=== PATIENT | female | born 1985 | race Caucasian/White ===

== ENCOUNTER 2019-07-02 10:27 | Outpatient (CLI) | payer BC, SELFPAY ==
[2019-07-02 10:48] LABS: Add Urine Microscopic? YES; Appearance Urine Clear (Clear); Basophils Absolute Auto 0.03 K/mm3 (0.00-0.10); Basophils Percent Auto 0.5 % (0.0-1.0); Bilirubin Urine Negative (Negative); Blood Urine 1+ (Negative); Color Urine Yellow (Yellow); Eosinophils Absolute Auto 0.12 K/mm3 (0.02-0.50); Eosinophils Percent Auto 1.9 % (1.0-6.0); Glucose Urine UA Negative (Negative); Hematocrit 40.7 % (35.0-49.0); Hemoglobin 14.2 g/dL (12.0-15.0); Immature Granulocyte Absolute 0.02 K/mm3 (0.00-0.00); Immature Granulocyte Percent A 0.3 % (0.0-0.0); Ketones Urine Negative (Negative); Leukocyte Esterase Ur Negative (Negative); Lymphocytes Absolute Auto 3.03 K/mm3 (1.10-4.50); Mean Corpuscular HGB Conc 34.9 g/dL (32.0-36.0); Mean Corpuscular Hemoglobin 29.9 pg (27.0-31.0); Mean Corpuscular Volume 85.7 fL (78.0-102.0); Mean Platelet Volume 9.7 fl (9.2-11.8); Monocytes Absolute Auto 0.54 K/mm3 (0.10-0.90); Monocytes Percent Auto 8.4 % (2.0-11.0); Neutrophils Absolute Auto 2.7 K/mm3 (1.7-7.2); Neutrophils Percent Auto 41.9 % (50.0-70.0); Nitrate Urine Negative (Negative); Platelet Count Result 275 K/mm3 (150-420); Protein Urine Negative (Negative); Red Blood Count 4.75 M/mm3 (4.20-5.40); Red Cell Distribution Width 11.8 % (11.6-14.4); Specific Grav Ur 1.015 (1.010-1.020); Urobilinogen Urine 0.2 mg/dL (0.2-1.0); White Blood Count 6.4 K/mm3 (4.8-10.8); pH Urine 6.5 (5.0-8.0)
[2019-07-02 10:53] LABS: Bacteria Urine Trace /hpf; RBC Urine 0-2 /hpf (0-2); Squamous Epithelial Cell Urine Few /hpf (Few); WBC Urine 0-3 /hpf (0-3)
[2019-07-02 11:43] LABS: Alanine Aminotransferase 17 U/L (14-59); Alkaline Phosphatase 31 U/L (46-116); Amylase 50 U/L (25-115); Anion Gap 14.4 mmol/L (7-16); Aspartate Amino Transferase 13 U/L (15-37); Bilirubin,Total 0.7 mg/dL (0.00-1.00); Blood Urea Nitrogen 10 mg/dL (7-18); Calcium 9.5 mg/dL (8.5-10.1); Carbon Dioxide 26 mmol/L (21-32); Chloride 106 mmol/L (98-108); Estimated Glomerular Filt Rate > 60; Glucose 91 mg/dL (70-99); Lipase 134 U/L (73-393); Osmolality Calculated 293 mOsm/kg (285-295); Potassium 4.4 mmol/L (3.5-5.1); Sodium 142 mmol/L (136-145)
[2019-07-06 17:04] LABS: Rotavirus Stool Not Detected
== END 2019-07-02 10:28 | disposition home or self-care (01) ==
PROVIDERS: PCP Internal Medicine; Visit Provider Internal Medicine
DX: R10.9 Unspecified abdominal pain (principal); R19.7 Diarrhea, unspecified
CPT/HCPCS: 36415; 80053; 81001; 82150; 83690; 85025; 87045; 87046; 87177; 87209; 87324; 87425; 87427

== ENCOUNTER 2020-02-08 14:05 | Outpatient (CLI) | payer BC, SELFPAY ==
--- NOTE | ~2020-02-08 | XR_ITS ---
EXAMINATION: XR hand RT min 3V DATE: 02/08/2020 14:33 INDICATION: Right hand swelling. TECHNIQUE: 4 views of right hand were obtained. COMPARISON: Right hand radiographs 05/18/2004 FINDINGS: Bone alignment is normal. No fracture. Joint spaces are well maintained. IMPRESSION: 1. Normal right hand. Reviewed, dictated and finalized at location A. IMPRESSION: 1. Normal right hand.
== END 2020-02-08 14:06 | disposition home or self-care (01) ==
PROVIDERS: PCP Internal Medicine; Visit Provider Internal Medicine
DX: M79.89 Other specified soft tissue disorders (principal)
CPT/HCPCS: 73130

== ENCOUNTER 2020-06-12 15:14 | Outpatient (CLI) | payer BC, SELFPAY ==
--- NOTE | ~2020-06-12 | CT_ITS ---
EXAMINATION: CT abdomen pelvis w con DATE: 06/12/2020 16:23 INDICATION: Left-sided abdominal pain, bloating and cramping TECHNIQUE: Computed tomography (CT) of the abdomen and pelvis was performed with 100 mL Omnipaque-350 intravenous contrast. Automated exposure control and iterative reconstruction technique were employe d. The dose-length product was 1254.15 mGy-cm. COMPARISON: 07/09/2016 FINDINGS: Lung bases are clear. Heart size is normal. No pericardial or pleural effusion. Small sliding-type hi atal hernia. Diffuse hepatic steatosis with focal sparing along the gallbladder fossa. Gallbladder, s pleen, pancreas, bilateral adrenal glands and kidneys are normal. Bowels including the appendix are n ormal. 2.1 cm cyst at the right ovary. Left ovary is not visualized and has likely been resected give n the presence of a large left ovarian dermoid on CT dated 07/31/2012. Bladder and anteverted uterus ar e normal. No free intraperitoneal gas or fluid. No pathologically enlarged abdominal or pelvic lympha denopathy. Mild lumbar levocurvature. Mild bilateral hip osteoarthritis. IMPRESSION: 1. No acute intra-abdominal/pelvic process. 2. Small sliding-type hiatal hernia. 3. Diffuse hepatic steatosis. Reviewed, dictated and finalized at location A. [employer]
[2020-06-12 15:33] LABS: Basophils Absolute Auto 0.04 K/mm3 (0.00-0.10); Basophils Percent Auto 0.6 % (0.0-1.0); Eosinophils Absolute Auto 0.14 K/mm3 (0.02-0.50); Hematocrit 38.9 % (35.0-49.0); Hemoglobin 13.6 g/dL (12.0-15.0); Immature Granulocyte Absolute 0.01 K/mm3 (0.00-0.00); Immature Granulocyte Percent A 0.1 % (0.0-0.0); Lymphocytes Absolute Auto 3.17 K/mm3 (1.10-4.50); Lymphocytes Percent Auto 44.8 % (18.0-42.0); Mean Corpuscular Hemoglobin 30.4 pg (27.0-31.0); Mean Platelet Volume 9.8 fl (9.2-11.8); Monocytes Absolute Auto 0.62 K/mm3 (0.10-0.90); Monocytes Percent Auto 8.8 % (2.0-11.0); Neutrophils Absolute Auto 3.1 K/mm3 (1.7-7.2); Neutrophils Percent Auto 43.7 % (50.0-70.0); Platelet Count Result 294 K/mm3 (150-420); Red Blood Count 4.47 M/mm3 (4.20-5.40); Red Cell Distribution Width 11.9 % (11.6-14.4); White Blood Count 7.1 K/mm3 (4.8-10.8)
[2020-06-12 15:34] LABS: Add Urine Microscopic? YES; Appearance Urine Clear (Clear); Bilirubin Urine Negative (Negative); Blood Urine 1+ (Negative); Color Urine Yellow (Yellow); Glucose Urine UA Negative (Negative); Ketones Urine Negative (Negative); Leukocyte Esterase Ur Negative LEU/UL (Negative); Nitrate Urine Negative (Negative); Protein Urine Negative (Negative); Specific Grav Ur 1.025 (1.010-1.020); Urobilinogen Urine 0.2 mg/dL (0.2-1.0); pH Urine 6.5 (5.0-8.0)
[2020-06-12 15:41] LABS: Bacteria Urine 1+ /hpf; Squamous Epithelial Cell Urine Few /hpf (Few); WBC Urine 0-3 /hpf (0-3)
[2020-06-12 15:49] LABS: Alanine Aminotransferase 26 U/L (14-59); Albumin Level 4.1 g/dL (3.4-5.0); Alkaline Phosphatase 38 U/L (46-116); Amylase 51 U/L (25-115); Anion Gap 11 mmol/L (8-16); Aspartate Amino Transferase 13 U/L (15-37); Bilirubin,Total 0.4 mg/dL (0.00-1.00); Blood Urea Nitrogen 8 mg/dL (7-18); Calcium 9.3 mg/dL (8.5-10.1); Carbon Dioxide 27 mmol/L (21-32); Chloride 103 mmol/L (98-108); Estimated Glomerular Filt Rate > 60; Glucose 94 mg/dL (70-99); Lipase 132 U/L (73-393); Osmolality Calculated 290 mOsm/kg (285-295); Sodium 141 mmol/L (136-145); Total Protein 7.2 g/dL (6.4-8.2)
[2020-06-13 15:05] LABS: Free T3 2.93 pg/mL (2.18-3.98); Free T4 Free Thyroxine 0.63 ng/dL (0.76-1.46)
[2020-06-17 09:15] LABS: Rotavirus Stool Not Detected
== END 2020-06-12 15:15 | disposition home or self-care (01) ==
LOC: CHSLAB 15:18
PROVIDERS: PCP Internal Medicine; Visit Provider Internal Medicine
DX: R10.32 Left lower quadrant pain (principal); R10.12 Left upper quadrant pain; R19.7 Diarrhea, unspecified; R53.83 Other fatigue
CPT/HCPCS: 36415; 74177; 80053; 81001; 82150; 83690; 84439; 84443; 84481; 85025; 87045; 87046; 87177; 87209; 87269; 87324; 87425; 87427; Q9967

== ENCOUNTER 2020-09-12 09:53 | Outpatient (CLI) | payer BC, SELFPAY ==
--- NOTE | ~2020-09-12 | US_ITS ---
EXAMINATION: US right upper quadrant EXAM DATE: 09/12/2020 10:17 INDICATION: Epigastric pain/nausea. TECHNIQUE: Multiple grayscale and Doppler images of the abdomen right upper quadrant were obtained (b y a technologist who performed the scan) and subsequently reviewed. Comparison is made to prior exami nation from 11/20/2018. FINDINGS: The pancreatic head and body are normal in appearance. The pancreatic tail is not visualized. There is echogenic liver parenchyma, hepatic steatosis. There is some focal fatty sparing. There is no e vidence of intrahepatic biliary duct dilation. Portal venous flow was seen in the hepatopedal, akin l direction and has normal Doppler waveform. No right-sided hydronephrosis. Common bile duct measures 4 mm, which is normal. The gallbladder wall is normal in thickness, with ex pected amount of distention. No sonographic evidence of pericholecystic fluid. There is no cholelit hiases. Technologist performing exam reports patient did not demonstrate sonographic Benz's sign. Please note that this sign is less reliable in patients who have received pain medication. IMPRESSION: 1. Hepatic steatosis. Reviewed, dictated and finalized at location A. IMPRESSION: 1. Hepatic steatosis.
== END 2020-09-12 09:54 | disposition home or self-care (01) ==
LOC: CHSIMG 09:55
PROVIDERS: PCP Internal Medicine; Visit Provider Internal Medicine
DX: R10.13 Epigastric pain (principal); R11.0 Nausea
CPT/HCPCS: 76705

== ENCOUNTER 2020-12-08 02:54 | Day surgery (SDC) | payer BC, SELFPAY ==
[2020-11-26 13:50] VITALS: BMI 30.7
[2020-12-08 07:45] VITALS: BP 122/86; PULSE 103; RESP 16; TEMP 36.1; O2SAT 100; BMI 31.0
--- NOTE | 2020-12-08 07:48 | WPDANESEPPF ---
Anes - Initial Pre Proc Eval Procedure: Operation Date: 12/08/20 08:30 Proposed Procedures p Esophagogastroduodenoscopy & Colonoscopy - Andrew Ulrich MD Date/Time: 12/08/20 07:48 Surgeon: Andrew Ulrich MD Pre Op Diagnosis: nausea/vomiting, weightloss Patient Data Age: 35 Gender: F Height: 1.7 m Weight: 89.8 kg Last Vital Signs Temp 36.1 C L 12/08/20 07:45 Pulse 103 H 12/08/20 07:45 Resp 16 12/08/20 07:45 BP 122/86 12/08/20 07:45 Pulse Ox 100 12/08/20 07:45 Allergies Allergy/AdvReac Type Severity Reaction Status Date / Time adhesive tape Allergy Mild Rash Verified 12/08/20 07:43 amoxicillin Allergy Unknown rash Verified 12/08/20 07:43 Penicillins Allergy Unknown RASH Verified 12/08/20 07:43 shellfish derived Allergy Unknown rash Verified 12/08/20 07:43 Home Medications Medication Instructions Recorded Confirmed Type sertraline 100 mg PO DAILY 04/13/19 11/26/20 History ondansetron HCl 4 mg tablet 4 mg PO Q8H PRN #90 tablet 11/06/20 11/26/20 Rx Patient hx anesthesia problems: none Family hx anesthesia problems: none PMFSH Past Medical History Medical History Anxiety Dermoid cyst IBS (irritable bowel syndrome) Loose stools Nausea and vomiting in adult Tobacco abuse Weight loss Surgical History Surgical History H/O oophorectomy H/O tubal ligation History of hernia surgery History of tonsillectomy Family History Family History Mother Family history of mental disorder Depression Family history of migraine headaches Family history of hearing loss Father Hypertension Asthma Grandparent Hypertension Diabetes mellitus Other Family history of cardiovascular disease Family history of malignant neoplasm Social History Social History Smoking packs per day: 0.5 Smoking cigarettes per day: 10.0 Years smoked: 15 Smoking pack-years: 7.50 Smoking status: Current every day smoker Tobacco type: cigarettes Alcohol intake: never Substance use: never Substance use type: does not use Living arrangements: with family Gender identity (if verbalized by the patient): Female Spiritual care concerns: No Agree to blood products: Yes Anes - Eval Final PreProcedure Day of Procedure 12/08/20 07:48 Patient weight: obese Heart: regular rate and rhythm Lungs: clear to auscultation Airway: Mallampati scale class 1 Neurological: alert and oriented Last oral intake: >/= 8 hours ASA classification: II Emergent: no Anesthetic plan: proceed Anesthesia type and monitoring: general GIVS and standard monitoring Informed Consent: The patient's anesthetic plan and its attendant risks and benefits were discussed with the patient/family/POA. Questions were solicited and answers provided to the satisfaction of the patient/family/POA.
[2020-12-08] MEDS: LACTATED RINGERS 1,000 ML 150 ML IV CONT (07:58)
--- NOTE | 2020-12-08 08:18 | PM.HPGS ---
History of Present Illness History of Present Illness Consent: Risks, benefits, and alternatives have been discussed and questions answered. Patient agrees to proceed with procedure. Chief complaint: nausea/vomiting, weightloss Narrative: Gita Montana is a 35 year old female here for egd and colonoscopy with 4-5 months of nausea and vomiting better since started on zofran. Work up reviewed (CT scan showed small HH, hepatic steatosis), also abdominal ultrasound. Unremarkable cmp, cbc and stool samples. Also softer stools. Never had scopes. Review of Systems Constitutional: Constitutional: Denies headache(s) and Denies weakness Eyes: Eyes: Denies blurry vision ENT: Reports Normal hearing present, Denies headache(s) and Denies neck pain Cardiovascular: Cardiovascular: Denies chest pain and Denies dyspnea Respiratory: Respiratory: Denies dyspnea Gastrointestinal: Gastrointestinal: Reports no additional gastrointestinal complaints Genitourinary: Genitourinary: Denies dysuria Musculoskeletal: Musculoskeletal: Denies neck pain Integumentary/Breasts: Skin/Breast: Denies dry skin Neurologic: Reports Normal hearing present, Denies headache(s) and Denies weakness Psychiatric: Psychiatric: Denies anxiety Endocrine: Endocrine: Denies change in body appearance Hematologic/Lymphatic: Hematologic/Lymphatic: Denies easy bleeding Allergic/Immunologic: Allergic/Immunologic: Denies urticaria PMFSH Past Medical History Medical History Anxiety Dermoid cyst IBS (irritable bowel syndrome) Loose stools Nausea and vomiting in adult Tobacco abuse Weight loss Surgical History Surgical History H/O oophorectomy H/O tubal ligation History of hernia surgery History of tonsillectomy Family History Family History Mother Family history of mental disorder Depression Family history of migraine headaches Family history of hearing loss Father Hypertension Asthma Grandparent Hypertension Diabetes mellitus Other Family history of cardiovascular disease Family history of malignant neoplasm Social History Social History Smoking packs per day: 0.5 Smoking cigarettes per day: 10.0 Years smoked: 15 Smoking pack-years: 7.50 Smoking status: Current every day smoker Tobacco type: cigarettes Alcohol intake: never Substance use: never Substance use type: does not use Living arrangements: with family Gender identity (if verbalized by the patient): Female Spiritual care concerns: No Agree to blood products: Yes Meds Home Medications and Allergies Home Medications Medication Instructions Recorded Confirmed Type sertraline 100 mg PO DAILY 04/13/19 11/26/20 History ondansetron HCl 4 mg tablet 4 mg PO Q8H PRN #90 tablet 11/06/20 11/26/20 Rx Allergies Allergy/AdvReac Type Severity Reaction Status Date / Time adhesive tape Allergy Mild Rash Verified 12/08/20 07:43 amoxicillin Allergy Unknown rash Verified 12/08/20 07:43 Penicillins Allergy Unknown RASH Verified 12/08/20 07:43 shellfish derived Allergy Unknown rash Verified 12/08/20 07:43 Vital Signs Vital Signs - 24 hr 12/08/20 07:45 Temperature 96.9 F L Pulse Rate 103 H Respiratory Rate 16 Blood Pressure 122/86 Pulse Oximetry 100 Exam Const: General: comfortable and no acute distress HENMT: General nose exam: Normal nares present Eyes: General: appearance normal, both eyes and all related structures Neck: Neck: no JVD Resp: Auscultation: clear to auscultation bilaterally Cardio: Rate: regular rate Rhythm: regular rhythm GI: Inspection: non-distended GI Palp: Yes Soft to palpation Skin: General skin exam: normal color Neuro: General: gait normal Speech: normal speech Extrem: General: normal t
[2020-12-08 08:56] VITALS: BP 86/37; PULSE 69; RESP 16; O2SAT 95
[2020-12-08 09:06] VITALS: BP 95/64; PULSE 73; RESP 16; O2SAT 95
[2020-12-08 09:16] VITALS: BP 98/62; PULSE 68; RESP 16; O2SAT 95
== END 2020-12-08 09:25 | disposition home or self-care (01) ==
PROVIDERS: PCP Internal Medicine; Visit Provider Internal Medicine Gastroenterology
PROC: 0DJ08ZZ Inspection of Upper Intestinal Tract, Via Natural or Artificial Opening Endoscopic (ICD-10-PCS; CPT 43235; principal; 2020-12-08 08:30)
DX: R19.5 Other fecal abnormalities (principal); K64.8 Other hemorrhoids; K63.5 Polyp of colon; K64.4 Residual hemorrhoidal skin tags; K44.9 Diaphragmatic hernia without obstruction or gangrene; R11.2 Nausea with vomiting, unspecified; R63.4 Abnormal weight loss; F41.9 Anxiety disorder, unspecified; K58.9 Irritable bowel syndrome, unspecified; F17.210 Nicotine dependence, cigarettes, uncomplicated; E66.9 Obesity, unspecified; Z68.31 Body mass index [BMI] 31.0-31.9, adult; K29.70 Gastritis, unspecified, without bleeding
CPT/HCPCS: 45380; 43239; 88305; J2704; J7120

== ENCOUNTER 2021-01-26 02:07 | Day surgery (SDC) | payer BC, SELFPAY ==
[2021-01-15 13:48] VITALS: BMI 30.8
[2021-01-26 08:14] VITALS: BP 133/96; PULSE 78; RESP 20; TEMP 36.3; O2SAT 97
--- NOTE | 2021-01-26 08:17 | WPDANESEFPP ---
Anes - Eval Final PreProcedure Day of Procedure 01/26/21 08:17 Patient weight: obese Heart: regular rate and rhythm Lungs: clear to auscultation Airway: Mallampati scale class 1 Neurological: alert and oriented Last oral intake: >/= 8 hours ASA classification: II Emergent: no Anesthetic plan: proceed Anesthesia type and monitoring: general GIVS and standard monitoring Results Review: All pre-operative results and documents have been reviewed as part of the pre-operative evaluation. Informed Consent: The patient's anesthetic plan and its attendant risks and benefits were discussed with the patient/family/POA. Questions were solicited and answers provided to the satisfaction of the patient/family/POA.
[2021-01-26] MEDS: LACTATED RINGERS 1,000 ML 150 ML IV CONT (08:26)
--- NOTE | 2021-01-26 08:48 | PM.HPGS ---
History of Present Illness History of Present Illness Consent: Risks, benefits, and alternatives have been discussed and questions answered. Patient agrees to proceed with procedure. Chief complaint: colon polyp Narrative: Gita Montana is a 35 year old female with serrated polyp in appendix last colonoscopy (only took biopsies after bulging appendix) Review of Systems Constitutional: Constitutional: Denies headache(s) and Denies weakness Eyes: Eyes: Denies blurry vision ENT: Reports Normal hearing present, Denies headache(s) and Denies neck pain Cardiovascular: Cardiovascular: Denies chest pain and Denies dyspnea Respiratory: Respiratory: Denies dyspnea Gastrointestinal: Gastrointestinal: Reports no additional gastrointestinal complaints Genitourinary: Genitourinary: Denies dysuria Musculoskeletal: Musculoskeletal: Denies neck pain Integumentary/Breasts: Skin/Breast: Denies dry skin Neurologic: Reports Normal hearing present, Denies headache(s) and Denies weakness Psychiatric: Psychiatric: Denies anxiety Endocrine: Endocrine: Denies change in body appearance Hematologic/Lymphatic: Hematologic/Lymphatic: Denies easy bleeding Allergic/Immunologic: Allergic/Immunologic: Denies urticaria PMFSH Past Medical History Medical History (Updated 01/26/21 @ 08:49 by Andrew Ulrich MD) Adenomatous colon polyp Anxiety Dermoid cyst IBS (irritable bowel syndrome) Loose stools Nausea and vomiting in adult Tobacco abuse Weight loss Surgical History Surgical History H/O oophorectomy H/O tubal ligation History of hernia surgery History of tonsillectomy Family History Family History Mother Family history of mental disorder Depression Family history of migraine headaches Family history of hearing loss Father Hypertension Asthma Grandparent Hypertension Diabetes mellitus Other Family history of cardiovascular disease Family history of malignant neoplasm Social History Social History Smoking packs per day: 0.5 Smoking cigarettes per day: 10.0 Years smoked: 15 Smoking pack-years: 7.50 Smoking status: Current every day smoker Tobacco type: cigarettes Alcohol intake: current Drinks per week: 1 Substance use: never Substance use type: does not use Living arrangements: with family Gender identity (if verbalized by the patient): Female Sexual Orientation (if Verbalized by the Patient): Straight or Heterosexual Spiritual care concerns: No Agree to blood products: Yes Meds Home Medications and Allergies Home Medications Medication Instructions Recorded Confirmed Type sertraline 100 mg PO DAILY 04/13/19 01/26/21 History ondansetron HCl 4 mg tablet 4 mg PO Q8H PRN #90 tablet 11/06/20 01/15/21 Rx omeprazole 20 mg capsule,delayed 20 mg PO DAILY #30 cap 12/08/20 01/15/21 Rx release Allergies Allergy/AdvReac Type Severity Reaction Status Date / Time adhesive tape Allergy Mild Rash Verified 01/26/21 08:12 amoxicillin Allergy Unknown rash Verified 01/26/21 08:12 Penicillins Allergy Unknown RASH Verified 01/26/21 08:12 shellfish derived Allergy Unknown rash Verified 01/26/21 08:12 Vital Signs Vital Signs - 24 hr 01/26/21 08:14 Temperature 97.3 F L Pulse Rate 78 Respiratory Rate 20 Blood Pressure 133/96 H Pulse Oximetry 97 Exam Const: General: comfortable and no acute distress HENMT: General nose exam: Normal nares present Eyes: General: appearance normal, both eyes and all related structures Neck: Neck: no JVD Resp: Auscultation: clear to auscultation bilaterally Cardio: Rate: regular rate Rhythm: regular rhythm GI: Inspection: non-distended GI Palp: Yes Soft to palpation Skin: General skin exam: normal color Neuro: General: gait normal Speech: normal
[2021-01-26 09:23] VITALS: BP 104/64; PULSE 58; RESP 16; O2SAT 98
[2021-01-26 09:33] VITALS: BP 113/78; PULSE 56; RESP 16; O2SAT 99
[2021-01-26 09:43] VITALS: BP 135/86; PULSE 55; RESP 16; O2SAT 100
== END 2021-01-26 09:55 | disposition home or self-care (01) ==
PROVIDERS: PCP Internal Medicine; Visit Provider Internal Medicine Gastroenterology
PROC: 0DJD8ZZ Inspection of Lower Intestinal Tract, Via Natural or Artificial Opening Endoscopic (ICD-10-PCS; CPT 45378; principal; 2021-01-26 09:00)
DX: K63.5 Polyp of colon (principal); K58.9 Irritable bowel syndrome, unspecified; F41.9 Anxiety disorder, unspecified; F17.210 Nicotine dependence, cigarettes, uncomplicated
CPT/HCPCS: 45385; 88305; J2704; J7120

== ENCOUNTER → 2022-11-02 11:14 | Outpatient (CLI) | payer BC, SELFPAY ==
--- NOTE | ~2022-11-02 | CT_ITS ---
Non-contrast CT scan of the Abdomen Clinical indication: Periumbilical pain Technique: 2.5 mm axial scans were obtained through the abdomen without intravenous or oral contrast . Dose reduction technique was used on this scan by utilizing automated exposure control and iterativ e reconstruction technique. The dose-length product (DLP) was 666.65 mGy-cm. COMPARISON: 06/12/2020 Findings: Images through the lung bases reveal very small hiatal hernia. There is no evidence of renal or ureteral calculi. The kidneys and the ureters are nondilated. The liver, spleen, pancreas, gallbladder, and adrenals appear normal. There is no aortic aneurysm. Visualized bowel loops are unremarkable. Very small umbilical fat-containing hernia noted. Impression: Very small fat-containing umbilical hernia. A small hiatal hernia. Reviewed, dictated and finalized at [facility]. Impression: Very small fat-containing umbilical hernia. A small hiatal hernia.
== END ==
PROVIDERS: PCP Internal Medicine; Visit Provider Surgery
DX: R10.33 Periumbilical pain (principal); Z98.890 Other specified postprocedural states; Z87.19 Personal history of other diseases of the digestive system; K42.9 Umbilical hernia without obstruction or gangrene; K44.9 Diaphragmatic hernia without obstruction or gangrene
CPT/HCPCS: 74150

== ENCOUNTER 2022-12-29 00:36 | Day surgery (SDC) | payer BC, SELFPAY ==
[2022-12-23 13:58] VITALS: BMI 31.4
--- NOTE | 2022-12-23 14:03 | PC.NURSE ---
Report to the Outpatient Waiting Room, entrance under the green pavilion located off [facility], at time 0600 on date 12/29/22. Planned Procedure Time: 0730. Time changes happen often and if your time is changed the preop area will call you the afternoon before. - You and your visitor will be asked to self-screen and do not enter if you have any COVID symptoms. - A mask is optional within the hospital at this time. Patients may have clear liquids (water, carbonated beverages, clear teas, apple juice) until 3 hours prior to surgery with a maximum of 20 ounces. - No food from midnight until time of surgery Take the following medications with a SIP of water the morning of surgery: N/A DO NOT STOP ANY OF YOUR OTHER PRESCRIPTION MEDICATIONS PRIOR TO SURGERY ?EXCEPT THE FOLLOWING Medications to discontinue per physician: N/A Date to take last dose: N/A Please no make-up, nail romanian, hairspray, perfume, deodorant, or body powder the day of surgery. No jewelry (including any body piercings) or valuables the day of surgery, leave them at home. Please take a shower or bath the night before, or the morning of, surgery with an antibacterial soap (HIBICLENS). Wear comfortable, loose fitting clothing. - Jewelry must be removed prior to entering the operating room. Rings and piercings that are not removed may be cut off. - The hospital will not accept responsibility for valuables. - Please leave all valuables, including medications, at home the day of surgery. If you are going home after surgery, a licensed route sales delivery driver must drive you home. - NO public transportation without another adult if you receive anesthesia. - We recommend that an adult stay with you for 24 hours following discharge. - We also recommend that you do not drive, make important decision, drink alcoholic beverages, or take any drugs that were not prescribed by your health care provider for at least 24 hours after your discharge time. Follow any additional instructions given to you from your surgeon. If you or anyone in your household have experienced Covid symptoms in the past week, please notify your surgeon or the nurse liaison at the phone number below for possible testing. Telephone instructions given to PT - BABAR CORTEZ and asked if any additional questions and then verbalized understanding. Patient advised to call surgeon office or pre surgery nurse liaison [phone] if any additional questions.
--- NOTE | 2022-12-28 13:10 | WPDANESEPPF ---
Anes - Initial Pre Proc Eval Procedure: Operation Date: 12/29/22 07:30 Proposed Procedures p Laparoscopic Recurrent Umbilical Hernia Repair with Mesh, Davinci Assisted - Vinod Pleitez DO Date/Time: 12/28/22 13:10 Surgeon: Vinod Pleitez DO Pre Op Diagnosis: 2.cm recurrent umbilical hernia Patient Data Age: 37 Gender: F Height: 1.71 m Weight: 92.55 kg Allergies Allergy/AdvReac Type Severity Reaction Status Date / Time adhesive tape Allergy Mild Rash Verified 12/29/22 06:24 amoxicillin Allergy Unknown rash Verified 12/29/22 06:24 Penicillins Allergy Unknown RASH Verified 12/29/22 06:24 shellfish derived Allergy Unknown rash Verified 12/29/22 06:24 Home Medications Medication Instructions Recorded Confirmed Type escitalopram oxalate 10 mg tablet 10 mg PO HS 12/23/22 12/29/22 History Patient hx anesthesia problems: none Family hx anesthesia problems: none Results Review: All pre-operative results and documents have been reviewed as part of the pre-operative evaluation. [facility] Past Medical History Medical History (Updated 12/29/22 @ 07:09 by Vinod Pleitez DO) Adenomatous colon polyp Anxiety Dermoid cyst IBS (irritable bowel syndrome) Loose stools Nausea and vomiting in adult Tobacco abuse Weight loss Surgical History Surgical History (Updated 10/22/22 @ 09:14 by Nikia Calle) H/O oophorectomy H/O tubal ligation History of hernia surgery Ventral hernia repair with [place] [address] Pleitez. History of tonsillectomy Family History Family History Mother Family history of mental disorder Depression Family history of migraine headaches Family history of hearing loss Father Hypertension Asthma Grandparent Hypertension Diabetes mellitus Other Family history of cardiovascular disease Family history of malignant neoplasm Social History Social History Smoking packs per day: 0.5 Smoking cigarettes per day: 10.0 Years smoked: 15 Smoking pack-years: 7.50 Smoking status: Current every day smoker Tobacco type: cigarettes and e-cigarettes/vaping Additional smoking assessment comments: STOPPED CIGARETTES 04/25/21, NOW VAPING Alcohol intake: current Drinks per week: 1 Alcohol use details: RARE Substance use: never Substance use type: does not use Living arrangements: with family Occupation/Education: occupation Gender identity (if verbalized by the patient): Female Sexual Orientation (if Verbalized by the Patient): Straight or Heterosexual Spiritual care concerns: No Agree to blood products: Yes Anes - Eval Final PreProcedure Day of Procedure 12/28/22 13:10 Patient weight: obese Heart: regular rate and rhythm Lungs: clear to auscultation Airway: Mallampati scale class II Neurological: alert and oriented Last oral intake: >/= 8 hours ASA classification: II Emergent: no Anesthetic plan: proceed Anesthesia type and monitoring: general ETT and standard monitoring Results Review: All pre-operative results and documents have been reviewed as part of the pre-operative evaluation. Informed Consent: The patient's anesthetic plan and its attendant risks and benefits were discussed with the patient/family/POA. Questions were solicited and answers provided to the satisfaction of the patient/family/POA.
[2022-12-29] VITALS (13 sets, daily range): BP systolic 92–139; BP diastolic 55–96; PULSE 70–88; RESP 13–21; TEMP 36.9–37.4; O2SAT 91–100
--- NOTE | 2022-12-29 07:08 | PM.IMHP ---
H&P: HPI History of Present Illness Date/Time: 12/29/22 07:08 Chief Complaint: 37 yo woman presents for recurrent umbilical hernia repair. She reports no changes since last seen in office. Review of Systems Review of Systems: All systems reviewed & are unremarkable except as noted in HPI and below Constitutional: Constitutional: Denies chills, Denies fever(s), Denies headache(s) and Denies weight loss Eyes: Eyes: Denies change in vision ENT: Denies dizziness, Denies headache(s), Denies neck mass and Denies throat swelling Cardiovascular: Cardiovascular: Denies chest pain, Denies lightheadedness and Denies dyspnea Respiratory: Respiratory: Denies cough, Denies dyspnea and Denies wheezing Gastrointestinal: Gastrointestinal: Denies abdominal pain, Denies change in bowel habits, Denies nausea and Denies vomiting Genitourinary: Genitourinary: Denies hematuria and Denies dysuria Musculoskeletal: Musculoskeletal: Reports as per HPI Integumentary/Breasts: Skin/Breast: Reports as per HPI Neurologic: Denies dizziness and Denies headache(s) Allergic/Immunologic: Allergic/Immunologic: Denies throat swelling and Denies wheezing [facility] Past Medical History Medical History (Updated 12/29/22 @ 07:09 by Vinod Pleitez, DO) Adenomatous colon polyp Anxiety Dermoid cyst IBS (irritable bowel syndrome) Loose stools Nausea and vomiting in adult Tobacco abuse Weight loss Surgical History Surgical History (Updated 10/22/22 @ 09:14 by Nikia Calle) H/O oophorectomy H/O tubal ligation History of hernia surgery Ventral hernia repair with [place] [address] Pleietz. History of tonsillectomy Family History Family History Mother Family history of mental disorder Depression Family history of migraine headaches Family history of hearing loss Father Hypertension Asthma Grandparent Hypertension Diabetes mellitus Other Family history of cardiovascular disease Family history of malignant neoplasm Social History Social History Smoking packs per day: 0.5 Smoking cigarettes per day: 10.0 Years smoked: 15 Smoking pack-years: 7.50 Smoking status: Current every day smoker Tobacco type: cigarettes and e-cigarettes/vaping Additional smoking assessment comments: STOPPED CIGARETTES 04/25/21, NOW VAPING Alcohol intake: current Drinks per week: 1 Alcohol use details: RARE Substance use: never Substance use type: does not use Living arrangements: with family Occupation/Education: occupation Gender identity (if verbalized by the patient): Female Sexual Orientation (if Verbalized by the Patient): Straight or Heterosexual Spiritual care concerns: No Agree to blood products: Yes Meds Home Medications and Allergies Home Medications Medication Instructions Recorded Confirmed Type escitalopram oxalate 10 mg tablet 10 mg PO HS 12/23/22 12/29/22 History Allergies Allergy/AdvReac Type Severity Reaction Status Date / Time adhesive tape Allergy Mild Rash Verified 12/29/22 06:24 amoxicillin Allergy Unknown rash Verified 12/29/22 06:24 Penicillins Allergy Unknown RASH Verified 12/29/22 06:24 shellfish derived Allergy Unknown rash Verified 12/29/22 06:24 Vital Signs Vital Signs - 24 hr 12/29/22 06:31 Temperature 36.9 C Pulse Rate 70 Respiratory Rate 18 Blood Pressure 139/96 H Pulse Oximetry 100 Oxygen Delivery Room Air Exam Const: General: no acute distress and alert Orientation/consciousness: patient oriented x3 HENMT: Head: normocephalic and atraumatic Ears: hearing grossly normal bilaterally Face/Nose/Sinus: Normal nares present Mouth: Yes Normal oral and palatal mucosa present Eyes: Periorbital: periorbital findings normal Sclera: sclerae normal EOM: EOMs intact bilaterally Neck: Neck: normal visual inspection, no lymphadenopathy and
--- NOTE | 2022-12-29 07:10 | WPDHPUPDATE1 ---
History and Physical Update Update Date/Time: 12/29/22 07:10 History and Physical has been reviewed, including an updated exam of the patient. There are NO changes in the patient's condition. Risks, benefits, and alternatives have been discussed and questions answered. Patient agrees to proceed with procedure.
[2022-12-29] MEDS: LACTATED RINGERS 1,000 ML 30 ML IV CONT ×2 (07:19→09:27)
[2022-12-29] MEDS: ACETAMINOPHEN 500 MG TABLET 1000 MG PO (07:20)
[2022-12-29] MEDS: SCOPOLAMINE 1.5 MG PATCH TRANSDERM (07:20)
[2022-12-29] MEDS: KETOROLAC 15 MG/ML VIAL (*BKC) IV PUSH (07:20)
[2022-12-29] MEDS: ceFAZolin 2 GM/D5W 50 ML 2 GM/50 ML BAG IVPB (07:28)
[2022-12-29] MEDS: BUPIVACAINE/EPINEPHRINE 0.5% 50 ML VIAL 30 ML INFILTRATE (08:04)
--- NOTE | 2022-12-29 09:19 | W.PM.PROC2 ---
Procedure Note - Detailed Date of Procedure 12/29/22 Pre-op Diagnosis 2 cm recurrent umbilical hernia Post-op Diagnosis Same Procedure Performed 1. Laparoscopic 2cm recurrent umbilical hernia repair with mesh, da Onelia assisted 2. Removal of mesh foreign body Surgeon Vinod Pleitez, DO Anesthesia General and Local (0.5% bupivacaine with epinephrine) Indications This is a 37-year-old woman who presented with recurrent periumbilical pain. She noticed this with physical activity or standing for long periods of time. She had previously undergone open umbilical hernia repair with mesh in 2016. She had done well after this for several years. On exam was difficult to appreciate a recurrent hernia therefore a CT of her abdomen was performed. This showed evidence of a small recurrent umbilical hernia containing fat. Discussions were made with the patient about treatment options and decision was made to proceed with laparoscopic recurrent umbilical hernia repair with mesh, da Onelia assisted. Findings Laparoscopic recurrent umbilical hernia repair was performed. The patient was found to have a recurrent hernia defect just superior to the previous repair. The previous mesh had to be removed in order to clear the fascia and repair the new hernia. Once the mesh was removed, I then measured the distance between the previous umbilical hernia repair and the new hernia and this measured about 2 cm. The hernia itself was only about 5-6 mm. A robotic intraperitoneal onlay mesh technique was utilized for repair. Once the fascia was closed with a Stratafix running absorbable suture, I then placed a Ventralight ST 15 cm x 10 cm mesh. The old mesh was lab for pathology. Description of Procedure Procedure as well as risks, benefits, and alternatives were discussed with the patient. Written consent was obtained and placed in chart prior to procedure. Patient was brought back to surgical suite. She was placed supine on operating table. Time-out was done to confirm patient and procedure. She was then intubated by the anesthesia department. A bump was placed under her left hip, and the bed was flexed slightly to extend the space between her costal margin and iliac crest. Her abdomen was prepped and draped in sterile fashion using chlorhexidine prep. A 5 millimeter incision was made in the left upper quadrant, and a 5 millimeter Optiview trocar was advanced through the abdominal layers under direct visualization. Once inside the abdominal cavity, carbon dioxide insufflation was used to create a pneumoperitoneum. Her abdomen was inspected. An 8 millimeter incision was made in the left lower quadrant, and an 8 millimeter robotic trocar was placed under direct visualization. Another 8 millimeter incision was made in the left lateral abdomen, and an 8 millimeter robotic trocar was placed under direct visualization. 0.5% bupivacaine with epinephrine was infiltrated around each port site. The 5 millimeter port was removed, and an 8 mm robotic trocar was placed under direct visualization. The robotic arms were brought up to the patient's bedside and secured to the ports. The camera and instruments were inserted, and I then moved over to the robotic console and took control of the camera and instruments. After careful thorough inspection of the abdominal cavity, I began my dissection at the hernia. The preperitoneal fat and previous mesh was excised using scissors with electrocautery. I then also took down the falciform ligament far enough cephalad to allow for the mesh placement. I then measured the hernia size. The hernia measured 2 cm from the superior edge of the new hernia to where the previous hernia repair had been performed. The fascia was closed using an 0-Stratafix running suture in a vertical fashion. A Ventralight ST 15 cm x 10 cm mesh was then placed within the abdominal cavity. This was oriented vertically with the mesh centered on the hernia defect. The mesh wa
[2022-12-29] MEDS: fentaNYL CITRATE INJ (*CRX) 100 MCG/2 ML VIAL 25 MCG IV PUSH ×7 (09:43→10:43)
[2022-12-29] MEDS: oxyCODONE HCL (*CRX) 5 MG TAB IR PO (11:08)
== END 2022-12-29 12:05 | disposition home or self-care (01) ==
PROVIDERS: PCP Internal Medicine; Visit Provider Surgery
PROC: (CPT 49613; principal; 2022-12-29 07:30)
DX: K42.9 Umbilical hernia without obstruction or gangrene (principal); F17.290 Nicotine dependence, other tobacco product, uncomplicated; F41.9 Anxiety disorder, unspecified; E66.9 Obesity, unspecified; Z68.32 Body mass index [BMI] 32.0-32.9, adult
CPT/HCPCS: 49613; 49623; S2900; 36415; 86850; 86900; 86901; 88300; A9270; C1781; J0690; J1100; J1885; J2250; J2405; J2704; J3010; J7120

== ENCOUNTER 2023-09-26 18:15 | Emergency (ER) | payer BC, SELFPAY ==
--- NOTE | ~2023-09-26 | XR_ITS ---
EXAM: XR abdomen obstructive series DATE: 09/26/2023 18:57 HISTORY: DIARRHEA . COMPARISON: CT abdomen pelvis 11/02/2022. FINDINGS: Clear lung bases. Paucity of bowel gas. Enlarged liver. No abnormal abdominal calcificatio n. Lower lumbar facet arthropathy. Osteitis pubis. IMPRESSION: Hepatomegaly. Paucity of bowel gas which limits evaluation for obstruction or ileus. Reviewed, dictated and finalized at location K. IMPRESSION: Hepatomegaly. Paucity of bowel gas which limits evaluation for obst ruction or ileus.
--- NOTE | ~2023-09-26 | CT_ITS ---
EXAMINATION: CT abdomen pelvis w con DATE: 09/26/2023 19:54 INDICATION: abdominal pain, diarrhea TECHNIQUE: Computed tomography (CT) of the abdomen and pelvis was performed with 100 mL Omnipaque-350 intravenous contrast. Automated exposure control and iterative reconstruction technique were employe d. The dose-length product was 802.97 mGy-cm. COMPARISON: 06/12/2020. FINDINGS: Lower thorax: Unremarkable Liver: Normal. Biliary/Gallbladder: Gallbladder is normal. No bile duct dilation. Pancreas: No mass or duct dilation. Spleen: Normal. Adrenals:No mass. Kidneys: No suspicious mass, obstructing stone, or hydronephrosis. GI tract: No small or large bowel dilation. Submucosal fat deposition in the left colon. Mild distal colonic wall edema. Generalized loss of haustration of the large intestine. Normal appendix. Mesentery/Peritoneum: No ascites, mass, or free air. Retroperitoneum: No mass. Pelvis: Normal uterus, bladder, and right ovary. Left ovary is not confidently visualized. Soft Tissues: Soft tissues and body wall unremarkable. Bones: No acute osseous finding. IMPRESSION: Colonic findings may be secondary to acute or acute on chronic colitis. Consider ulcerative colitis i n the differential. Reviewed, dictated and finalized at location K. IMPRESSION: Colonic findings may be secondary to acute or acute on chronic colitis. Conside r ulcerative colitis in the differential.
[2023-09-26 18:17] VITALS: BP 166/108; PULSE 120; RESP 16; TEMP 36.6; O2SAT 97
--- NOTE | 2023-09-26 18:17 | ED.ABDPAIN ---
HPI - Abdominal Pain General Chief Complaint: Abdominal Pain <Keny Kimbrough MD - Last Filed: 09/26/23 19:14> Stated Complaint: abdominal distention <Keny Kimbrough MD - Last Filed: 09/26/23 19:14> Time Seen by Provider: 09/26/23 18:17 <Keny Kimbrough MD - Last Filed: 09/26/23 19:14> Source: patient <Keny Kimbrough MD - Last Filed: 09/26/23 19:14> Mode of arrival: ambulatory <Keny Kimbrough MD - Last Filed: 09/26/23 19:14> Limitations: no limitations <Keny Kimbrouhg MD - Last Filed: 09/26/23 19:14> History of Present Illness HPI narrative: Patient is a 37-year-old female with constipation for the past 5 days. She has been having diarrhea for 3 days. She has abdominal pain distension in the upper abdomen. She has nausea and retching. <Keny Kimbrough MD - Last Filed: 09/26/23 19:14> MD elicited complaint: abdominal pain <Keny Kimbrough MD - Last Filed: 09/26/23 19:14> Pertinent past history: constipation <Keny Kimbrough MD - Last Filed: 09/26/23 19:14> Onset (ago): day(s) (5) <Keny Kimbrough MD - Last Filed: 09/26/23 19:14> Pain Consistency: constant <Keny Kimbrough MD - Last Filed: 09/26/23 19:14> Location: epigastric <Keny Kimbrough MD - Last Filed: 09/26/23 19:14> Severity: moderate <Keny Kimbrough MD - Last Filed: 09/26/23 19:14> Pain scale (0-10): 5 <Keny Kimbrough MD - Last Filed: 09/26/23 19:14> Quality: cramping <Keny Kimbrough MD - Last Filed: 09/26/23 19:14> Radiation: none <Keny Kimbrough MD - Last Filed: 09/26/23 19:14> Migration to: no migration <Keny Kimbrough MD - Last Filed: 09/26/23 19:14> Exacerbating factors: eating <Keny Kimbrough MD - Last Filed: 09/26/23 19:14> Relieving factors: nothing <Keny Kimbrough MD - Last Filed: 09/26/23 19:14> Associated symptoms: nausea and vomiting <Keny Kimbrough MD - Last Filed: 09/26/23 19:14> Related Data Home Medications: Home Medications Medication Instructions Recorded Confirmed escitalopram oxalate 10 mg tablet 10 mg PO HS 12/23/22 09/26/23 omeprazole 20 mg capsule,delayed 20 mg PO DAILY 09/26/23 09/26/23 release <Keny Kimbrough MD - Last Filed: 09/26/23 19:14> Allergies/Adverse Reactions: Allergies Allergy/AdvReac Type Severity Reaction Status Date / Time adhesive tape Allergy Mild Rash Verified 09/26/23 18:16 amoxicillin Allergy Unknown rash Verified 09/26/23 18:16 Penicillins Allergy Unknown RASH Verified 09/26/23 18:16 shellfish derived Allergy Unknown rash Verified 09/26/23 18:16 <Keny Kimbrough MD - Last Filed: 09/26/23 19:14> Review of Systems Review of Systems: All systems reviewed & are unremarkable except as noted in HPI and below <Keny Kimbrough MD - Last Filed: 09/26/23 19:14> Constitutional: Constitutional: Reports no additional constitutional complaints <Keny Kimbrough MD - Last Filed: 09/26/23 19:14> Eyes: Eyes: Reports no additional eye complaints <Keny Kimbrough MD - Last Filed: 09/26/23 19:14> ENT: Reports system reviewed and no additional complaints, except as documented <Keny Kimbrough MD - Last Filed: 09/26/23 19:14> Cardiovascular: Cardiovascular: Reports no additional cardiovascular complaints <Keny Kimbrough MD - Last Filed: 09/26/23 19:14> Respiratory: Respiratory: Reports no additional respiratory complaints <Keny Kimbrough MD - Last Filed: 09/26/23 19:14> Gastrointestinal: Gastrointestinal: Reports no additional gastrointestinal complaints <Keny Kimbrough MD - Last Filed: 09/26/23 19:14> Genitourinary: Genitourinary: Reports no additional female genitourinary complaints <Keny Kimbrough MD - Last Filed: 09/26/23 19:14> Musculoskeletal: Musculoskeletal: Reports no additional musculoskeletal complaints <Keny Kimbrough MD - Last Filed: 09/26/23 19:14> Integumentary/Breasts:
[2023-09-26 18:31] LABS: Basophils Absolute Auto 0.03 K/mm3 (0.00-0.10); Basophils Percent Auto 0.4 % (0.0-1.0); Eosinophils Absolute Auto 0.09 K/mm3 (0.02-0.50); Eosinophils Percent Auto 1.3 % (1.0-6.0); Hematocrit 41.8 % (35.0-49.0); Hemoglobin 14.3 g/dL (12.0-15.0); Immature Granulocyte Absolute 0.01 K/mm3 (0.00-0.00); Immature Granulocyte Percent A 0.1 % (0.0-0.0); Lymphocytes Absolute Auto 2.88 K/mm3 (1.10-4.50); Lymphocytes Percent Auto 42.8 % (18.0-42.0); Mean Corpuscular HGB Conc 34.2 g/dL (32-36); Mean Corpuscular Hemoglobin 28.9 pg (27.0-31.0); Mean Corpuscular Volume 84.6 fL (78.0-102.0); Mean Platelet Volume 9.1 fl (9.2-11.8); Monocytes Absolute Auto 0.47 K/mm3 (0.10-0.90); Neutrophils Absolute Auto 3.25 K/mm3 (1.70-7.20); Neutrophils Percent Auto 48.4 % (50.0-70.0); Platelet Count Result 300 K/mm3 (150-420); Red Blood Count 4.94 M/mm3 (4.20-5.40); Red Cell Distribution Width 11.9 % (11.6-14.4); White Blood Count 6.7 K/mm3 (4.8-10.8)
[2023-09-26 18:41] LABS: Appearance Urine Clear (Clear); Bilirubin Urine Negative (Negative); Blood Urine 1+ (Negative); Color Urine Yellow (Yellow); Glucose Urine UA Negative (Negative); Ketones Urine Trace (Negative); Leukocyte Esterase Ur Negative LEU/UL (Negative); Nitrate Urine Negative (Negative); Protein Urine Trace (Negative); Specific Grav Ur 1.015 (1.010-1.020); Urobilinogen Urine 0.2 mg/dL (0.2-1.0); pH Urine 6.5 (5.0-8.0)
[2023-09-26] MEDS: ONDANSETRON HCL ODT 4 MG TABLET PO (18:45)
[2023-09-26 18:46] LABS: Add Urine Microscopic? YES; Bacteria Urine 2+ /hpf; Squamous Epithelial Cell Urine Few /hpf (Few); WBC Urine 0-3 /hpf (0-3)
[2023-09-26 18:46] LABS: Pregnancy On Board Control Positive; Urine Pregnancy Test Negative
[2023-09-26 18:50] LABS: Alanine Aminotransferase 23 U/L (14-59); Albumin Level 3.6 g/dL (3.4-5.0); Alkaline Phosphatase 33 U/L (46-116); Anion Gap 9 mmol/L (4-12); Aspartate Amino Transferase 14 U/L (15-37); Bilirubin,Total 0.5 mg/dL (0.00-1.00); Blood Urea Nitrogen 7 mg/dL (7-18); Calcium 8.9 mg/dL (8.5-10.1); Carbon Dioxide 26 mmol/L (21-32); Chloride 102 mmol/L (98-108); Estimated Glomerular Filt Rate > 60; Glucose 146 mg/dL (70-99); Osmolality Calculated 285 mOsm/kg (285-295); Potassium 3.9 mmol/L (3.5-5.1); Sodium 137 mmol/L (136-145); Total Protein 7.1 g/dL (6.4-8.2)
[2023-09-26 18:52] LABS: Lipase 44 U/L (16-77)
--- NOTE | 2023-09-26 18:59 | PC.NURSE ---
patient report received from NARCISO Angel. patient awake and alert, resting on stretcher, registartion at bedside. RN monitoring.
--- NOTE | 2023-09-26 19:14 | PC.NURSE ---
Dr. Gaxiola at patient bedside at this time. RN monitoring.
[2023-09-26 19:15] VITALS: BP 150/108; PULSE 92; RESP 18; O2SAT 95
--- NOTE | 2023-09-26 19:28 | PC.NURSE ---
ERP at bedside for update.
[2023-09-26] MEDS: SODIUM CHLORIDE 0.9% IV 1,000 ML 999 ML IV CONT (19:38)
--- NOTE | 2023-09-26 19:41 | PC.NURSE ---
patient mother at bedside. ivf hung and infusing without difficulty. call light within reach. RN monitoring.
--- NOTE | 2023-09-26 19:53 | PC.NURSE ---
patient reports continued nausea, returned from ct scan, tolerated well. iv reconnected and ivf infusing per order, see MAR. patient mother at bedside. RN monitoring. call light within reach.
[2023-09-26] MEDS: ONDANSETRON INJ 4 MG/2 ML VIAL IV PUSH (20:47)
[2023-09-26 20:49] VITALS: BP 135/92; PULSE 88; RESP 18; TEMP 36.8; O2SAT 97
--- NOTE | 2023-09-26 20:50 | PC.NURSE ---
patient medicated, see MAR. update provided. mother at bedside, call light within reach.
== END 2023-09-26 21:24 | disposition home or self-care (01) ==
PROVIDERS: Emergency Medicine; Emergency Provider Emergency Medicine; PCP Internal Medicine
DX: K52.9 Noninfective gastroenteritis and colitis, unspecified (principal); F17.290 Nicotine dependence, other tobacco product, uncomplicated
CPT/HCPCS: 36415; 74019; 74177; 80053; 81001; 81025; 83605; 83690; 85025; 96361; 96374; 99284; A9270; J2405; J7030; Q9967

== ENCOUNTER 2023-10-12 17:35 | Outpatient (CLI) | payer BC, SELFPAY ==
[2023-10-12 17:57] LABS: Hemoglobin A1C 5.3 % (<5.7)
== END 2023-10-12 17:36 | disposition home or self-care (01) ==
PROVIDERS: PCP Internal Medicine; Visit Provider Internal Medicine
DX: R73.01 Impaired fasting glucose (principal)
CPT/HCPCS: 36415; 83036

== ENCOUNTER 2023-10-13 11:52 | Outpatient (CLI) | payer BC, SELFPAY ==
--- NOTE | ~2023-10-13 | NM_ITS ---
EXAMINATION: NM hepatobiliary w pharm DATE: 10/13/2023 13:53 INDICATION: Right upper quadrant abdominal pain. COMPARISON: CT abdomen and pelvis 09/26/2023 TECHNIQUE: 5.9 mCi Tc-99m mebrofenin (Choletec) was administered intravenously. Scintigraphic images of the abdomen were obtained for one hour. Then, 1.9 mcg sincalide (Kinevac) IV was administered, an d imaging was continued for 30 minutes. FINDINGS: There is normal clearance of radiotracer from the blood pool. There is homogeneous tracer u ptake by the liver. Activity progresses to the bowel and gallbladder. Gallbladder ejection fraction (GBEF) was 100%. Note that most patients with gallbladder dysfunction have GBEF < 35%, which overlaps with the broad normal range of 10-90%. IMPRESSION: 1. Normal hepatobiliary scintigraphy. Reviewed, dictated and finalized at location A.
== END 2023-10-13 11:53 | disposition home or self-care (01) ==
LOC: CHSIMG 11:53
PROVIDERS: PCP Internal Medicine; Visit Provider Internal Medicine
DX: R10.11 Right upper quadrant pain (principal)
CPT/HCPCS: 78227; A9537; J2805

== ENCOUNTER 2023-11-08 14:42 | Outpatient (CLI) | payer BC, SELFPAY ==
[2023-11-08 15:49] LABS: CRP < 0.5 mg/dL (0.0-0.9)
[2023-11-08 16:12] LABS: Erythrocyte Sedimentation Rate 10 mm/hr (0-15)
[2023-11-11 03:32] LABS: Immunoglobulin A 255 mg/dL (47-310); TTG IGA AB <1.0 U/mL
[2023-11-11 16:50] LABS: Thyroid Stimulating Hormone Reflex 2.16 u/IU/mL (0.36-3.74)
== END 2023-11-08 14:43 | disposition home or self-care (01) ==
LOC: CHSLAB 14:43
PROVIDERS: PCP Internal Medicine; Visit Provider Nurse Practitioner
DX: D12.6 Benign neoplasm of colon, unspecified (principal); K21.9 Gastro-esophageal reflux disease without esophagitis; R10.11 Right upper quadrant pain; R11.2 Nausea with vomiting, unspecified; R63.4 Abnormal weight loss; R93.3 Abnormal findings on diagnostic imaging of other parts of digestive tract; K52.9 Noninfective gastroenteritis and colitis, unspecified
CPT/HCPCS: 36415; 82784; 83516; 84443; 85652; 86140

== ENCOUNTER 2023-11-11 15:40 | Outpatient (CLI) | payer BC, SELFPAY ==
[2023-11-11 17:32] LABS: Toxigenic C. Diff NEGATIVE (NEGATIVE)
[2023-11-16 13:18] LABS: H pylori Ag Stool RESULT: Not Detected
[2023-11-21 01:03] LABS: Calprotectin, Stool 98 mcg/g
[2023-11-21 20:48] LABS: Pancreatic Elastase, Stool >500 mcg/g
== END 2023-11-11 15:41 | disposition home or self-care (01) ==
PROVIDERS: PCP Internal Medicine; Visit Provider Nurse Practitioner
DX: A04.8 Other specified bacterial intestinal infections (principal); R93.3 Abnormal findings on diagnostic imaging of other parts of digestive tract; R63.4 Abnormal weight loss; R11.2 Nausea with vomiting, unspecified; R10.11 Right upper quadrant pain; K21.9 Gastro-esophageal reflux disease without esophagitis; D12.6 Benign neoplasm of colon, unspecified; K52.9 Noninfective gastroenteritis and colitis, unspecified
CPT/HCPCS: 82653; 83993; 87045; 87269; 87338; 87427; 87449; 87493

== ENCOUNTER 2023-11-15 12:21 | Outpatient (CLI) | payer BC, SELFPAY ==
--- NOTE | ~2023-11-15 | US_ITS ---
EXAMINATION: US abdomen limited DATE: 11/15/2023 12:41 INDICATION: RUQ abdominal pain/GERD/abnormal HIDA TECHNIQUE: Multiple grayscale and Doppler ultrasound images of limited portions of the abdomen were o btained. COMPARISON: CT abdomen pelvis 09/26/2023. FINDINGS: The visualized portions of the pancreas are normal. Echogenic liver parenchyma. No surface nodularity. Normal hepatopetal flow in the main portal vein. The gallbladder is normal with no abnorm al wall thickening, pericholecystic fluid or stones. The common bile duct measures 2 mm. There was no sonographic Benz sign. IMPRESSION: Echogenic liver, most commonly due to steatosis but also can be seen with hepatitis and fibrosis. Reviewed, dictated and finalized at location K. IMPRESSION: Echogenic liver, most commonly due to steatosis but also can be seen with hepat itis and fibrosis.
== END 2023-11-15 12:22 | disposition home or self-care (01) ==
LOC: CHSIMG 12:22
PROVIDERS: PCP Internal Medicine; Visit Provider Nurse Practitioner
DX: R10.11 Right upper quadrant pain (principal); R94.8 Abnormal results of function studies of other organs and systems
CPT/HCPCS: 76705

== ENCOUNTER 2023-11-30 00:29 | Day surgery (SDC) | payer BC, SELFPAY ==
[2023-11-21 13:09] VITALS: BMI 32.6
[2023-11-30 14:09] VITALS: BP 127/90; PULSE 92; RESP 18; TEMP 36.2; O2SAT 99
[2023-11-30 14:10] VITALS: BMI 31.6
[2023-11-30] MEDS: LACTATED RINGERS 1,000 ML 150 ML IV CONT (14:18)
--- NOTE | 2023-11-30 14:40 | WPDHPUPDATE1 ---
History and Physical Update Update Date/Time: 11/30/23 14:40 History and Physical has been reviewed, including an updated exam of the patient. There are NO changes in the patient's condition. Risks, benefits, and alternatives have been discussed and questions answered. Patient agrees to proceed with procedure.
--- NOTE | 2023-11-30 14:41 | WPDANESEPPF ---
Anes - Initial Pre Proc Eval Procedure: Operation Date: 11/30/23 15:30 Proposed Procedures p Esophagogastroduodenoscopy & Colonoscopy - Andrew Ulrich MD Date/Time: 11/30/23 14:41 Surgeon: Andrew Ulrich MD Pre Op Diagnosis: Gerd,RUQ pain, abn. imaging, abn. wt. loss Patient Data Age: 38 Gender: F Height: 1.7 m Weight: 91.6 kg Last Vital Signs Temp 36.2 C L 11/30/23 14:09 Pulse 92 11/30/23 14:09 Resp 18 11/30/23 14:09 BP 127/90 11/30/23 14:09 Pulse Ox 99 11/30/23 14:09 O2 Del Method Room Air 11/30/23 14:09 Allergies Allergy/AdvReac Type Severity Reaction Status Date / Time shellfish derived Allergy Intermediate Hives Verified 11/21/23 13:10 adhesive tape Allergy Mild Rash Verified 11/21/23 13:10 amoxicillin Allergy Unknown rash Verified 11/21/23 13:10 Penicillins Allergy Unknown RASH Verified 11/21/23 13:10 Home Medications Medication Instructions Recorded Confirmed Type escitalopram oxalate 10 mg tablet 10 mg PO HS 12/23/22 11/21/23 History hyoscyamine sulfate 0.125 mg 0.125 mg PO .every 6 hours PRN 11/08/23 11/21/23 Rx tablet (Levsin) abdominal pain #120 tabs omeprazole 40 mg capsule,delayed 40 mg PO DAILY #30 caps 11/08/23 11/21/23 Rx release ondansetron HCl 4 mg tablet 4 - 8 mg PO Q8H PRN nausea and 11/08/23 11/21/23 Rx vomiting #60 tabs Patient hx anesthesia problems: none Family hx anesthesia problems: none Results Review: All pre-operative results and documents have been reviewed as part of the pre-operative evaluation. [facility] Past Medical History Medical History Adenomatous colon polyp Anxiety Dermoid cyst IBS (irritable bowel syndrome) Loose stools Nausea and vomiting in adult Tobacco abuse Weight loss Surgical History Surgical History H/O oophorectomy H/O tubal ligation History of hernia surgery Ventral hernia [place] [address] Pleitez. History of tonsillectomy History of umbilical hernia repair 1. Laparoscopic 2cm recurrent umbilical hernia repair with mesh, da Onelia assisted 2. Removal of mesh foreign body on 12/29/22 [facility] Family History Family History Mother Family history of mental disorder Depression Family history of migraine headaches Family history of hearing loss Father Hypertension Asthma Grandparent Hypertension Diabetes mellitus Other Family history of cardiovascular disease Family history of malignant neoplasm Social History Social History Smoking packs per day: 0.5 Smoking cigarettes per day: 10.0 Years smoked: 14 Smoking pack-years: 7.00 Smoking status: Current every day smoker Tobacco type: cigarettes and e-cigarettes/vaping Additional smoking assessment comments: STARTED VAPING IN 2021 AND CONTINUES NOW Alcohol intake: current Drinks per week: 1 Alcohol use details: RARE Substance use: never Substance use type: does not use Living arrangements: with family Occupation/Education: occupation Gender identity (if verbalized by the patient): Female Sexual Orientation (if Verbalized by the Patient): Straight or Heterosexual Spiritual care concerns: No Agree to blood products: Yes Anes - Eval Final PreProcedure Day of Procedure 11/30/23 14:41 Patient weight: obese Heart: regular rate and rhythm Lungs: clear to auscultation Airway: Mallampati scale class II Neurological: alert and oriented Last oral intake: >/= 8 hours ASA classification: II Emergent: no Anesthetic plan: proceed Anesthesia type and monitoring: general GIVS and standard monitoring Results Review: All pre-operative results and documents have been reviewed as part of the pre-operative evaluation. Informed Consent: The patient's
--- NOTE | 2023-11-30 15:09 | SUR.OPER ---
EGD [id number] Colon start 1509
[2023-11-30 15:16] VITALS: BP 97/63; PULSE 69; RESP 18; O2SAT 95
[2023-11-30 15:26] VITALS: BP 100/66; PULSE 64; RESP 16; O2SAT 98
[2023-11-30 15:36] VITALS: BP 109/78; PULSE 66; RESP 18; O2SAT 98
== END 2023-11-30 15:49 | disposition home or self-care (01) ==
PROVIDERS: PCP Internal Medicine; Referring Provider Nurse Practitioner; Visit Provider Internal Medicine Gastroenterology
PROC: 0DJ08ZZ Inspection of Upper Intestinal Tract, Via Natural or Artificial Opening Endoscopic (ICD-10-PCS; CPT 43235; principal; 2023-11-30 15:30)
DX: K63.5 Polyp of colon (principal); K64.8 Other hemorrhoids; F41.9 Anxiety disorder, unspecified; K58.9 Irritable bowel syndrome, unspecified; F17.290 Nicotine dependence, other tobacco product, uncomplicated; E66.9 Obesity, unspecified; Z68.31 Body mass index [BMI] 31.0-31.9, adult
CPT/HCPCS: 45385; 43239; 88305; J2704; J7120

== ENCOUNTER 2023-12-05 13:34 | Outpatient (CLI) | payer BC, SELFPAY ==
--- NOTE | ~2023-12-05 | MR_ITS ---
EXAMINATION: MR abdomen wo/w con DATE: 12/05/2023 14:46 INDICATION: Right upper quadrant abdominal pain. TECHNIQUE: Magnetic resonance imaging (MRI) of the abdomen was performed without and with 18 mL Multi Camilo intravenous contrast. COMPARISON: Abdomen ultrasound 11/15/2023, CT abdomen and pelvis 09/26/2023 FINDINGS: There is diffuse hepatic steatosis. The gallbladder, spleen, pancreas, adrenal glands, and left kidne y are normal. There is a 5 mm cyst in right kidney. There are no dilated loops of bowel. There is a s mall sliding hiatal hernia. IMPRESSION: 1. Diffuse hepatic steatosis. 2. Small sliding hiatal hernia. Reviewed, dictated and finalized at location A.
== END 2023-12-05 13:35 ==
LOC: MICIMG 13:35
PROVIDERS: PCP Internal Medicine; Visit Provider Surgery
DX: K44.9 Diaphragmatic hernia without obstruction or gangrene (principal); K76.0 Fatty (change of) liver, not elsewhere classified
CPT/HCPCS: 74183; A9577

== ENCOUNTER 2024-02-21 16:42 | Outpatient (CLI) | payer BC, SELFPAY ==
[2024-02-21 17:28] LABS: Alanine Aminotransferase 25 U/L (6-35); Albumin Level 4.3 g/dL (3.5-5.1); Alkaline Phosphatase 37 U/L (38-126); Aspartate Amino Transferase 21 U/L (14-36); Bilirubin,Total 0.4 mg/dL (0.2-1.3); Lipase 96 U/L (23-300)
[2024-02-21 17:42] LABS: Amylase 75 U/L (30-110)
== END 2024-02-21 16:43 | disposition home or self-care (01) ==
LOC: ANHLAB 16:44
PROVIDERS: PCP Internal Medicine; Visit Provider Surgery
DX: R10.11 Right upper quadrant pain (principal)
CPT/HCPCS: 36415; 80076; 82150; 83690; 86850; 86900; 86901

== ENCOUNTER 2024-04-02 16:44 | Outpatient (CLI) | payer BC, SELFPAY ==
[2024-04-02 17:08] LABS: Basophils Absolute Auto 0.01 K/mm3 (0.00-0.10); Basophils Percent Auto 0.2 % (0.0-1.0); Eosinophils Absolute Auto 0.16 K/mm3 (0.02-0.50); Eosinophils Percent Auto 2.9 % (1.0-6.0); Hematocrit 39.4 % (35.0-49.0); Hemoglobin 13.9 g/dL (12.0-15.0); Immature Granulocyte Absolute 0.02 K/mm3 (0.00-0.00); Immature Granulocyte Percent A 0.4 % (0.0-0.0); Lymphocytes Absolute Auto 2.26 K/mm3 (1.10-4.50); Lymphocytes Percent Auto 41.2 % (18.0-42.0); Mean Corpuscular HGB Conc 35.3 g/dL (32-36); Mean Corpuscular Hemoglobin 29.9 pg (27.0-31.0); Mean Corpuscular Volume 84.7 fL (78.0-102.0); Mean Platelet Volume 8.9 fl (9.2-11.8); Monocytes Absolute Auto 0.42 K/mm3 (0.10-0.90); Monocytes Percent Auto 7.7 % (2.0-11.0); Neutrophils Absolute Auto 2.62 K/mm3 (1.70-7.20); Neutrophils Percent Auto 47.6 % (50.0-70.0); Platelet Count Result 286 K/mm3 (150-420); Red Blood Count 4.65 M/mm3 (4.20-5.40); Red Cell Distribution Width 12.1 % (11.6-14.4); White Blood Count 5.5 K/mm3 (4.8-10.8)
[2024-04-02 17:36] LABS: Alanine Aminotransferase 20 U/L (14-59); Alkaline Phosphatase 37 U/L (46-116); Anion Gap 9 mmol/L (4-12); Aspartate Amino Transferase 13 U/L (15-37); Bilirubin,Total 0.7 mg/dL (0.00-1.00); Blood Urea Nitrogen 13 mg/dL (7-18); Calcium 9.6 mg/dL (8.5-10.1); Carbon Dioxide 26 mmol/L (21-32); Chloride 104 mmol/L (98-108); Cholesterol 193 mg/dL (0-200); Estimated Glomerular Filt Rate > 60; Ferritin 67 ng/mL (8-252); Free T4 Free Thyroxine 0.75 ng/dL (0.76-1.46); Glucose 99 mg/dL (70-99); HDL Direct 49 mg/dL (40-60); Iron 90 ug/dL (50-170); LDL Cholesterol Calculated 116 mg/dL (<130); Magnesium 2.1 mg/dL (1.8-2.4); Osmolality Calculated 288 mOsm/kg (285-295); Potassium 4.4 mmol/L (3.5-5.1); Sodium 139 mmol/L (136-145); Thyroid Stimulating Hormone 2.62 uIU/mL (0.36-3.74); Triglycerides 140 mg/dL (0-150)
== END 2024-04-02 16:45 | disposition home or self-care (01) ==
PROVIDERS: PCP Internal Medicine; Visit Provider Nurse Practitioner Family
DX: L65.9 Nonscarring hair loss, unspecified (principal); Z79.899 Other long term (current) drug therapy; E66.9 Obesity, unspecified; F41.1 Generalized anxiety disorder; E07.9 Disorder of thyroid, unspecified
CPT/HCPCS: 36415; 80053; 80061; 82306; 82728; 83540; 83735; 84439; 84443; 85025

== ENCOUNTER 2024-04-06 01:13 | Emergency (ER) | payer BC, SELFPAY ==
[2024-04-06 01:16] VITALS: BP 137/105; PULSE 82; RESP 16; TEMP 36.6; O2SAT 99
--- OUTSIDE RECORDS SUMMARY | 2024-04-06 01:16 | XMS_ITS | Data Portability ---
Author Organization [facility] Address [address] [place] [address] Care Team Providers Care Respiratory Therapy Assistant Name Role Phone ROBY ALONSO Primary Care Provider Assessment Encounter Date Assessment Date Assessment LastModified by Organization Details LastModified Time 09/21/2022 09/21/2022 Annual gynecological exam performed. Patient will come back in a year unless there are new symptoms. [email or web address] Not available 09/21/2022 14:25:36 Plan of Treatment Reminders Order Date Submit Date Provider Last Modified By Organization Details Last Modified Time Details Appointments None recorded. Lab pap, IG + HR HPV - HPV regardless but if HPV is positive need subtyping 16,18/45 2020 021 [email or web address] [facility] (Lab), [address] [facility] [address], [place], [address], 11:15:54 Referral None recorded. Procedures None recorded. Surgeries None recorded. Imaging None recorded. Medication Orders None recorded. Patient TargetsNo targets recorded. Patient InstructionsNo instructions recorded. Reason for Referral None Reported. Results Created Date Observation Date Name Description Value Unit Range Abnormal Flag Note LastModifiedBy Organization Detail LastModifiedTime 09/27/19 20 10/01/2019 pap, LB Pap test thin prep Negati ve for Intrae pithel ial Lesion or Malign jazmyn normal ACCES GIFTY #: [id number] Sourc e: Cervi francisco/E ndoce rvica l LMP: 04/25 Date Taken : 09/26 Speci men Type: ThinP rep Vial Date Repor meek: 6/8/2 020 Clini francisco Data: Cytot ech: Delvis Marks. Walke r,CT( ASCP) Date Repor meek: Speci men Adequ acy: Satis facto ry for evalu ation Endoc ervic al/tr ansfo rmati on zone compo nent prese nt Gener al Categ oriza tion: NEGAT PUSHPA FOR INTRA EPITH ELIAL LESIO N OR MALIG IRVIN This speci men has been zheng zed by the ThinP rep Imagi ng Syste m, an inter activ e compu ter syste m which tonya ts the lab in the scree rossy of ThinP rep Pap Test slide s. Follo wing imagi ng, the slide was revie wed by a Cytot echno logis t and/o r Patho logis t. D N A A S S A Y S R E P O R T TEST NAME RESUL TS ----- ---- ----- -- HPV High Risk Enma n (TMA) ThinP rep Vial The human papil lomav irus (HPV) High Risk Scree n is an FDA-a pprov ed in-vi tro ampli fied nucle ic acid test for the quali tativ e detec tion of E6/E7 viral mRNA. Resul ts lourdes roldan be corre lated with patie nt prese ntati on, histo ry, cervi francisco cytol ogy and other clini francisco and labor atory findi ngs. See https ://[employer]/s ites/ defau lt/fi les/2 018-0 3/AW- 71777 _002_ 01.pd f for furth er infor matio n. Test perfo rmed by [facility], d/b/a Mikel foster, [address] , [place] [address] , Eladio Nice ra, DO, Labor atory [facility]. HPV High Risk *HPV NOT DETEC MEEK (TYPE S 16, 18, 31, 33, 35, 39, 45, 51, 52, 56, 58, 59, 66, 68) *HPV: The human papil lomav irus (HPV) High Risk Enma marks is an FDA-a pprov ed in-vi tro ampli fied nucle ic acid test for the quali tativ e detec tion of E6/E7 viral mRNA. [facility] lourdes orldan be corre lated with angela nt prese ntati on, histo ry, cervi francisco cytol ogy and other clini francisco and labor atory findi ngs. See https ://[employer]/s ites/ defau lt/fi les/2 018-0 3/AW- 29561 _002_ 01.pd f for yessy er infor karon n. Test perfo rmed by [facility], d/b/a [facility] [facility], [address], [place] [address] , Eladio Nice ra, DO, Labor atory [employer]. End of Repor t Techn ical servi nancy provi ded by [facility], d/b/a [employer], [address] [place] [address] Jorge Luis Garcia MD, [facility] ator [place]. Case revie wed and diagn osis rende red at [facility], d/b/a [employer], [address] [place] [address] Jorge Luis Garcia MD, Labor ator [place] [place]. CONFI DENTI AL Not Available [facility] -[facility] ([facility]) [address] [place] [address], [place], [address], 10/01/2019 10:53:13 09/27/19 20 09/28/2019 HPV DNA, high- risk HPV high risk NOT DETECT ED normal Not Available [facility] -[facility] ([facility]) [address] [place] [address], [place], [address], 10/01/2019 10:53:14 10/21/19 21 10/20/2020 IMAGE GUIDE D PAP AND HPV REGAR DLESS image guided Pap, HPV regardless of Pap result SEE RESULT S BELOW CASE REPOR T: Cytol ogy Gynec ologi francisco Repor t Case: [id number] Autho cynthia miller Provi ginette: Chelsie Winter CNM Colle cted: 10/20 1710 Order ing Locat ion: [place] [facility] Recei codey: 10/21 0133 First Scree n: Laci mclaughlin, [place], [place] Speci men: Enma blair Pap - Image d, Cervi x STATE MENT OF ADEQU ACY: Satis facto ry for evalu ation Trans forma tion zone compo nent prese nt FINAL DIAGN OSIS: Negat pushpa for Intra epith elial Lesio n or Kishan iqbal Elect maritza uriostegui jorge d by Laci mclaughlin, [place], [place] on 2020 at 2:45 PM ----- ----- ----- ----- ----- ----- ----- ----- ----- ----- ----- ----- ----- ----- ----- ----- ----- ---- HPV RESUL TS: HPV mRNA E6/E7 : No HPV mRNA Detec meek NOTE: This high risk HPV mRNA assay detec ts fourt een high- risk HPV types (16, 18, 31, 33, 35, 39, 45, 51, 52, 56, 58, 59, 66, 68) witho ut diffe renti ation . CHART ABLE COMME NT: Note: This speci men was revie wed by a Cytot echno logis t and/o r Patho logis t (as indic ated in this repor t) after evalu ation using the Thinp rep Imagi ng Syste m. CLINI FRANCISCO INFOR MATIO N: Menst rual Statu s: LMP (if appli cable ): 2020 Clini francisco Histo ry/Pr eviou s Pap: Type of Neopl lakeisha (if appli cable ): Other Histo ry: Hormo john (if appli cable ): PAP EDUCA JAKE L NOTE: The Pap Test is a scree rossy test with an inher ent false negat pushpa rate. Liqui d-bas e sampl ing may decre ase, but will not elimi gloria, false negat pushpa resul ts. A negat pushpa resul t does not precl ude the prese nce and/o r devel opmen t of disea se, since the prese nce of abnor mal cells in the sampl e depen ds on the locat ion of the lesio n and sampl ing techn ique. Cathy nued regul ar scree rossy is the best metho d of cance r preve ntion . If repor meek cytol ogic findi ng do not corre late with physi francisco and/o r histo rical findi ngs, furth er inves tigat ion is recom cristina d, as clini maki garcía nted. Not Available [facility] (Lab) [address], [place], [address], 10/21/2020 15:47:25 08/18/19 23 08/17/2022 CULTU RE: AEROB IC/AN AEROB IC result report SEE RESULT S BELOW abnormal Test: Cultu re: Aerob ic/An aerob ic Speci men Sourc e: Other Speci men Type: Micro biolo gy Speci men Speci men Date: 2022 2:33 PM Resul t Date: 2022 11:14 AM Resul t Statu s: Final resul t Abnor mal: Yes Resul ting Lab: [facility] [address] [facility] [address] Tel: [phone] CULTU RE ----- ----- ----- --- Light Growt h Strep tococ cus agala ctiae (Grou p B) (Abno rmal) Light Growt h Staph yloco ccus coagu lase negat pushpa Cultu re sampl es colle cted from sites that are proxi mal to akin l anaer obic hailee , do not provi de usefu l infor matio n. The anaer obic porti on of this cultu re has been credi meek. STAIN ----- ----- ----- --- No Neutr ophil s seen No organ isms seen Not Available [facility] (Lab) [address], [place], [address], 08/20/2022 12:16:28 08/18/19 23 08/17/2022 CULTU RE: HERPE S SIMPL EX VIRUS (HSV) , REFLE X TYPIN G source LESION SCRAPI NGS Not Available [facility] (Lab) [address], [place], [address], 08/20/2022 12:16:28 08/18/19 23 08/17/2022 CULTU RE: HERPE S SIMPL EX VIRUS (HSV) , REFLE X TYPIN G hsv culture, body fluid NOT ISOLAT ED Perfo rming Organ izati on Infor matio n: Site ID: CB Name: [facility] yuli Rai Addre ss: [address] [place], [place] [id number] Dire tor: Antho ny V Noemi s Not Available [facility] (Lab) [address], [place], [address], 08/20/2022 12:16:28 09/22/19 23 09/21/2022 IMAGE GUIDE D PAP AND HPV REGAR DLESS image guided Pap, HPV regardless of Pap result SEE RESULT S BELOW CASE REPOR T: Cytol ogy Gynec ologi francisco Repor t Case: [id number] Autho cynthia miller Provi ginette: Kenton Lopez Colle cted: 09/21 1524 PHILANTHROPY OFFICER Order ing Locat ion: [place] [facility]o [facility] Recei codey: 09/22 0825 First Scree n: DeLuc a, [place], [place] Speci men: Scree rossy Pap - Image d, Cervi x STATE MENT OF ADEQU ACY: Satis facto ry for evalu ation Trans forma tion zone compo nent prese nt FINAL DIAGN OSIS: Negat pushpa for Intra epith elial Anabell marks or Kishan iqbal (NIL) . Monique uriostegui jorge d by Brooke Chamorro CT on 2022 at 3:50 PM ----- ----- ----- ----- ----- ----- ----- ----- ----- ----- ----- ----- ----- ----- ----- ----- ----- ---- HPV RESUL TS: HPV mRNA E6/E7 : No HPV mRNA Detec meek NOTE: This high risk HPV mRNA assay detec ts fourt een high- risk HPV types (16, 18, 31, 33, 35, 39, 45, 51, 52, 56, 58, 59, 66, 68) witho ut diffe renti ation . COMME NT: This speci men was revie wed by a Cytot echno logis t and/o r Patho logis t (as indic ated in this repor t) after evalu ation using the Thinp rep Imagi ng Syste m. CLINI FRANCISCO INFOR MATIO N: Menst rual Statu s: LMP (if appli cable ): Clini francisco Histo ry/Pr eviou s Pap: Type of Neopl lakeisha (if appli cable ): Signi fican t Clini francisco Findi ngs: Other Histo ry: Hormo john (if appli cable ): PAP EDUCA JAKE L NOTE: The Pap Test is a scree rossy test with an inher ent false negat pushpa rate. Liqui d-bas ed sampl ing may decre ase, but will not elimi gloria, false negat pushpa resul ts. A negat pushpa resul t does not precl ude the prese nce and/o r devel opmen t of disea se, since the prese nce of abnor mal cells in the sampl e depen ds on the locat ion of the lesio n and sampl ing techn ique. Cathy nued regul ar scree rossy is the best metho d of cance r preve ntion . If repor meek cytol ogic findi ng do not corre late with physi francisco and/o r histo rical findi ngs, furth er inves tigat ion is recom cristina d, as clini maki garcía nted. Not Available [facility] (Lab) [address], [place], [address], 09/22/2022 18:47:30 Result Notes None recorded. Problems Name Problem SNOMED Code Status Onset Date Resolution Date Notes Provider Name and Address Organization Details Recorded Time Normal pregnanc y in multigra mac [id number] Completed 201710/17/2020 Encounte r for suprvsn of normal pregnanc y, third trimeste r;Practi ce ID: 0001 Nneka siddiqui, [facility] 14:43:44 Pregnanc y, childbir th and puerperi um finding Completed 201710/17/2020 Oth pregnanc y related conditio ns, third trimeste r;Practi ce ID: 0001 Nneka siddiqui, [facility] 14:43:08 Gestatio n period, 37 weeks [id number] Completed 201710/17/2020 37 weeks gestatio n of pregnanc y;Practi ce ID: 0001 Nneka siddiqui, [facility] 14:43:42 Term pregnanc y delivere d [id number] Completed 201710/17/2020 Encounte r for full-ter m uncompli cated delivery ;Practic e ID: 0001 Nneka siddiqui, [facility] 14:43:01 Single live [id number] Completed 201710/17/2020 Single live ;Pr actice ID: 0001 Nneka siddiqui, [facility] 14:42:47 Gestatio n period, 39 weeks [id number] Completed 201710/17/2020 39 weeks gestatio n of pregnanc y;Practi ce ID: 0001 Nneka siddiqui, [facility] 14:44:09 Lochia finding Completed 201710/17/2020 Encounte r for routine postpart um follow-u p;Practi ce ID: 0001 Nneka siddiqui, [facility] 14:43:28 Lesion of ovary Completed 201710/17/2020 Other ovarian cyst, left side;Pra ctice ID: 0001 Nneka siddiqui, [facility] 14:42:57 Benign neoplasm of left ovary [id number] 9103 Completed 201710/17/2020 Benign neoplasm of left ovary;Pr actice ID: 0001 Nneka siddiqui, [facility] 14:43:30 Follicul ar cyst of left ovary [id number] 041873 Completed 201710/17/2020 Follicul ar cyst of left ovary;Pr actice ID: 0001 Nneka [facility], [facility] 14:42:41 Broad ligament lacerati on syndrome [id number] Completed 201710/17/2020 Oth noninfla mmatory disord of ovary, fallop and broad ligmt;Pr actice ID: 0001 Nneka [facility], [facility] 14:44:01 Imaging result abnormal [id number] Completed 201710/17/2020 Abnormal findings on diagnost ic imaging of body structur es;Recor ded Elsewher e: No Locat ion: Zoila payne [facility] S ource: E[employer] Assistant gurdeep: N Practi ce ID: 0001 Eugene lable Time: 02:15:00 PM Nneka siddiqui [facility] 14:43:36 Gestatio n period, 28 weeks [id number] Completed 201710/17/2020 28 weeks gestatio n of pregnanc y;Record ed Elsewher e: No Locat ion: Eileennaty payne [facility] S ource: EHR [employer] Assistant gurdeep: N Practi ce ID: 0001 Eugene lable Time: 01:00:00 PM Nneka siddiqui, [facility] 14:44:11 Pregnanc y test positive [id number] Completed 201210/17/2020 Pregnanc y examinat ion or test, positive result;R ecorded Elsewher e: No Locat ion: [facility] S ource: EHR [employer] Assistant gurdeep: N Practi ce ID: 0001 Eugene lable Time: 09:00:00 AM Nneka siddiqui, [facility] 14:43:16 Uterine size for dates discrepa ncy Completed 201710/17/2020 Uterine size-malathi e discrepa ncy, third trimeste r;Record ed Elsewher e: No Locat ion: [facility] S ource: EHR [employer] Assistant gurdeep: N Practi ce ID: 0001 Eugene lable Time: 01:00:00 PM Nneka siddiqui, [facility] 14:43:06 Finding of contents of cervix [id number] Completed 201610/17/2020 Weeks of gestatio n of pregnanc y not specifie d;Record ed Elsewher e: No Locat ion: [facility] S ource: E[employer] Assistant gurdeep: N Practi ce ID: 0001 Eugene lable Time: 01:00:00 PM Nneka siddiqui, [facility] 14:43:14 Threaten ed miscarri age [id number] Completed 201610/17/2020 Threaten ed ;Recorde d Elsewher e: No Locat ion: Zoila e [facility] S ource: EHR [employer] Assistant gurdeep: N Practi ce ID: 0001 Eugene lable Time: 01:30:00 PM Nneka siddiqui [facility] 14:43:56 Finding related to pregnanc y Completed 201610/17/2020 Inapprop chg quantita v hCG in early pregnanc y;Record ed Elsewher e: No [facility]: E[facility] [employer] Assistant gurdeep: N Apolloti ce ID: 0001 Eugene lable Time: 01:00:00 PM Nneka siddiqui [facility] 14:43:04 Overweig ht [id number] Completed 201410/17/2020 Overweig ht;Recor ded Elsewher e: No Locat ion: [facility] S ource: EHR [employer] Assistant gurdeep: N Apolloti ce ID: 0001 Eugene lable Time: 10:45:00 AM Nneka siddiqui [facility] 14:43:02 Screenin g for malignan t neoplasm of cervix Completed 201510/17/2020 Screenin g for malignan t neoplasm s of the cervix;R ecorded Elsewher e: No Locat ion: [facility] S ource: EHR [employer] Assistant gurdeep: N Apolloti ce ID: 0001 Eugene lable Time: 11:00:00 AM Nneka siddiqui [facility] 14:42:50 Finding of regulari ty of menstrua l cycle Completed 201510/17/2020 Irregula r menstrua tion, unspecif ied;Jaya rded Elsewher e: No Locat ion: [facility] S ource: EHR [employer] Assistant gurdeep: N Apolloti ce ID: 0001 Eugene lable Time: 03:30:00 PM Nneka siddiqui [facility] 14:42:58 Obesity [id number] Completed 201310/17/2020 Obesity; Recorded Elsewher e: No Locat ion: [facility] S ource: E[facility] [employer] Assistant gurdeep: N Apolloti ce ID: 0001 Eugene lable Time: 09:30:00 AM Nneka siddiqui [facility] 14:43:37 Depressi ve disorder [id number] Completed 201610/17/2020 Depressi on;Recor ded Elsewher e: No Locat ion: [facility] S ource: E[employer] Assistant gurdeep: N Apolloti ce ID: 0001 Eugene lable Time: 02:15:00 PM Nneka siddiqui [facility] 14:43:32 Adult health examinat ion Completed 201210/17/2020 Routine Medical Exam;Rec orded Elsewher e: No Locat ion: [facility] S ource: EHR [employer] Assistant gurdeep: N Apolloti ce ID: 0001 Eugene lable Time: 02:30:00 PM Nneka siddiqui [facility] 14:43:[address] Concept Completed 201710/17/2020 Maternal care for oth abnormal ity and damage, unsp;Rec orded Elsewher e: No Locat ion: [facility] N Apolloti ce ID: 0001 Eugene lable Time: 01:00:00 PM Nneka siddiqui [facility] 14:43:09 Female genital organ symptoms [id number] Completed 201210/17/2020 Unspecif ied symptom associat ed with female genital organs;R ecorded Elsewher e: No Locat ion: [facility] S ource: EHR [employer] Assistant gurdeep: N Apolloti ce ID: 0001 Eugene lable Time: 05:45:00 PM Nneka siddiqui [facility] 14:42:53 Gestatio n period, 10 weeks [id number] Completed 201610/17/2020 10 weeks gestatio n of pregnanc y;Record ed Elsewher e: No Locat ion: [facility] S ource: EHR [employer] Assistant gurdeep: N Apolloti ce ID: 0001 Eugene lable Time: 01:30:00 PM Nneka siddiqui [facility] 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 14:43:27 Speciali zed medical examinat ion Completed 201410/17/2020 ROUTINE DIRECTOR INTELLIGENCE ANALYSIS PROGRAMS EXAMINAT ION;Jaya rded Elsewher e: No Locat ion: [facility]: N Apolloti ce ID: 0001 Eugene lable Time: 10:45:00 AM Nneka siddiqui, [facility] 14:43:50 Cyst of ovary Completed 201710/17/2020 Unspecif ied ovarian cyst, unspecif ied side;Rec orded Elsewher e: No Locat ion: [facility] S ource: E[employer] Assistant gurdeep: N Apolloti ce ID: 0001 Eugene lable Time: 02:15:00 PM Nneka siddiqui [facility] 14:42:55 Abdomina l pain [id number] Completed 201610/17/2020 Abdomina l pain;Rec orded Elsewher e: No Locat ion: [facility] S ource: E[facility] [employer] Assistant gurdeep: N Practi ce ID: 0001 Eugene lable Time: 10:00:00 AM Nneka siddiqui [facility] 14:42:54 Pregnanc y detectio n examinat ion Completed 201610/17/2020 Encounte r for pregnanc y test, result positive ;Recorde d Elsewher e: No Locat ion: [facility]: N Apolloti ce ID: 0001 Eugene lable Time: 09:00:00 AM Nneka Stewart [facility] 14:44:04 Ultrason ography Completed 201210/17/2020 Antenata l screenin g for malforma tion using ultrason ics;Jaya rded Elsewher e: No Locat ion: [facility] S ource: [employer] Assistant gurdeep: N Apolloti ce ID: 0001 Eugene lable Time: 04:45:00 PM Nnekajorge Stewart [facility] 14:42:44 Antenata l screenin g Completed 201210/17/2020 Antenata l screenin g for malforma tion using ultrason ics;Jaya rded Elsewher e: No Locat ion: [facility]: N Practi ce ID: 0001 Eugene lable Time: 04:45:00 PM Nneka siddiqui [facility] 14:43:13 Congenit al malforma tion [id number] Completed 201210/17/2020 Antenata l screenin g for malforma tion using ultrason ics;Jaya rded Elsewher e: No Locat ion: [facility] S ource: [employer] Assistant gurdeep: N Practi ce ID: 0001 Eugene lable Time: 04:45:00 PM [facility] 14:43:23 Left lower quadrant pain [id number] Completed 201210/17/2020 Abdomina l pain, left lower quadrant ;Recorde d Elsewher e: No Locat ion: [facility] S ource: [employer] Assistant gurdeep: N Apolloti ce ID: 0001 Eugene lable Time: 09:00:00 AM Nneka siddiqui [facility] 14:43:24 [facility] 25-29 [facility] [id number] Completed 201510/17/2020 Body mass index (BMI) 29.0-29. 9, adult;Re corded Elsewher e: No Locat ion: [facility]: N Practi ce ID: 0001 Eugene lable Time: 11:00:00 AM Nneka siddiqui, [facility] 14:42:42 Cyst of ovary [id number] Completed 201510/17/2020 Unspecif ied ovarian cyst, left side;Rec orded Elsewher e: No Locat ion: [facility] S ource: [employer] Assistant gurdeep: N Apolloti ce ID: 0001 Eugene lable Time: 10:00:00 AM Nneka siddiqui [facility] 14:44:08 Neoplasm of uncertai n behavior of ovary [id number] Completed 201210/17/2020 Neoplasm of uncertai n behavior of ovary;Re corded Elsewher e: No Locat ion: [facility] S ource: E[employer] Assistant gurdeep: N Apolloti ce ID: 0001 Eugene lable Time: 02:15:00 PM Nneka siddiqui [facility] 14:44:13 Gestatio n period, 26 weeks [id number] Completed 201710/17/2020 26 weeks gestatio n of pregnanc y;Record ed Elsewher e: No Locat ion: [facility] S ource: E[employer] Assistant gurdeep: N Practi ce ID: 0001 Eugene lable Time: 01:00:00 PM Nneka Terryrick siddiqui [facility] 14:43:46 Gestatio n period, 31 weeks [id number] Completed 201710/17/2020 31 weeks gestatio n of pregnanc y;Record ed Elsewher e: No Locat ion: Zoila payne [facility] S ource: EHR [employer] Assistant gurdeep: N Apolloti ce ID: 0001 Eugene lable Time: 09:00:00 AM Nneka siddiqui, [facility] 14:44:00 Pregnanc y [id number] Completed 201210/17/2020 state, incident al;Recor ded Elsewher e: No [facility] S ource: EHR [employer] Assistant gurdeep: N Apolloti ce ID: 0001 Eugene lable Time: 09:00:00 AM Nneka [facility], [facility] 14:44:05 Pregnanc y test negative [id number] Completed 201510/17/2020 Encounte r for pregnanc y test, result negative ;Recorde d Elsewher e: No Locat ion: [facility] S ource: E[employer] Assistant gurdeep: N Apolloti ce ID: 0001 Eugene lable Time: 10:45:00 AM Nneka siddiqui, [facility] 14:43:17 Routine antenata l care Completed 201210/17/2020 Supervis ion of other normal pregnanc y;Record ed Elsewher e: No Locat ion: [facility] S ource: EHR [employer] Assistant gurdeep: N Apolloti ce ID: 0001 Eugene lable Time: 02:30:00 PM Nneka siddiqui, [facility] 14:42:38 Hirmelisa meyer [id number] Completed 201610/17/2020 Lucía meyer;Record ed Elsewher e: No Locat ion: [facility] S ource: EHR [employer] Assistant gurdeep: N Practi ce ID: 0001 Eugene lable Time: 10:00:00 AM Nneka siddiqui [facility] 14:43:34 Nausea and vomiting [id number] Completed 201210/17/2020 Nausea And Vomiting ;Recorde d Elsewher e: No Locat ion: Zoila payne [facility] N Apolloti ce ID: 0001 Eugene lable Time: 05:45:00 PM Nneka siddiqui [facility] 14:42:45 Pelvic and perineal pain [id number] Completed 201610/17/2020 Pelvic and perineal pain;Rec orded Elsewher e: No [facility] Esther Hannah ce ID: 0001 Eugene lable Time: 02:30:00 PM Nneka siddiqui [facility] 14:43:21 Antenata l screenin g for malforma tion Completed 201610/17/2020 Encounte r for antenata l screenin g for malforma tions;Re corded Elsewher e: No Locat ion: Rox nolvia [facility] S ource: EHR [employer] Assistant gurdeep: N Brielle ce ID: 0001 Eugene lable Time: 12:00:00 AM Nneka siddiqui [facility] 14:44:03 Amenorrh ea [id number] Completed 201210/17/2020 Absence of menstrua tion;Rec orded Elsewher e: No Locat ion: Zoila payne [facility] S ource: EHR [employer] Assistant gurdeep: N Apolloti ce ID: 0001 Eugene lable Time: 03:15:00 PM Nneka siddiqui [facility] 14:42:40 Breast lump [id number] Completed 201310/17/2020 Breast mass;Rec orded Elsewher e: No Locat ion: [facility] nolvia [facility] S ource: EHR [employer] Assistant gurdeep: N Apolloti ce ID: 0001 Eugene lable Time: 10:15:00 AM Nneka siddiqui [facility] 1 14:44:10 Speciali rose medical examinat ion Completed 201101/11/2012 Gynecolo gical Examinat ion;Jaya rded Elsewher e: No Locat ion: Zoila payne [facility] S ource: EHR [employer] Assistant gurdeep: N Apolloti ce ID: 0001 Eugene lable Time: 01:30:00 PM Nneka siddiqui [facility] 1 14:43:50 Dysfunct ional uterine bleeding Completed 201101/11/2012 Other disorder s of menstrua tion and other abnormal bleeding from female genital tract;Re corded Elsewher e: No [facility]: EHR [employer] Assistant gurdeep: N Apolloti ce ID: 0001 Eugene lable Time: 01:45:00 PM Not Available [facility] 16:58:06 Postpart um care Completed 201310/17/2020 Post Followup ;Recorde d Elsewher e: No Locat ion: [facility] S ource: EHR [employer] Assistant gurdeep: N Apolloti ce ID: 0001 Eugene lable Time: 04:45:00 PM Nneka siddiqui [facility] 1 14:42:37 finding Completed 201710/17/2020 Matern care for oth or susp poor fetl grth, third tri, unsp;Rec orded Elsewher e: No Locat ion: [facility] S ource: [employer] gurdeep: N Apolloti ce ID: 0001 Eugene lable Time: 09:00:00 AM Nneka siddiqui [facility] 1 14:43:11 Uterine size for dates discrepa ncy Completed 201610/17/2020 Uterine size-malathi e discrepa ncy, first trimeste r;Record ed Elsewher e: No Locat ion: [facility] S ource: EHR [employer] Assistant gurdeep: N Apolloti ce ID: 0001 Eugene lable Time: 01:00:00 PM Nneka siddiqui [facility] 1 14:43:05 Evaluati on finding Completed 201610/17/2020 Hematuri a, unspecif ied;Jaya rded Elsewher e: No [facility] S ource: EHR [employer] Assistant gurdeep: N Apolloti ce ID: 0001 Eugene lable Time: 10:00:00 AM Nneka [facility] 14:43:20 Uterine size for dates discrepa [facility] [id number] Completed 201210/17/2020 UTERINE SIZE LETITIA-ANTE PAR;Jaya rded Elsewher e: No [facility] S ource: EHR [employer] Assistant gurdeep: N Apolloti ce ID: 0001 Eugene lable Time: 03:00:00 PM Nneka siddiqui [facility] 14:43:40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 [id number] Full Term 1983 Vaginal Delivery Donal Calculation DONAL Calculation Method Initial Donal Date Initial Exam Date Initial Exam Provider Initial Ultrasound Date Last Menstrual Period Date Ultra Sound Weeks Gestation Conception by IVF Embryo Age at Transfer Date of Transfer 0 Eighteen To Twenty Week Donal Update Ultra Sound Date Fundal Height At Umbil Quickening Date Ultra Sound Latest Weeks Gestation Final Donal Confirmed By Final Donal Confirmed Date Final Donal Date Ultra Sound Latest Days Gestation 0 0 Menstrual History Last Menstrual Date Menses Monthly On Bcp Conception Prior Menses Frequency Hcg Plus Date Menarche Onset Age Delivery Information Delivery Date Delivery Type Labor Anesthesia Weeks Gestation Incision Type Labor Labor Length Hrs Delivered By Post Complications Tubal Sterilization Discharge Date Comments 4 39 Discharge Information Feeding Method Contraceptive Method Maternal HG B and HCT Levels
--- NOTE | 2024-04-06 01:36 | ED.NAVMDI ---
HPI - Nausea/Vomiting/Diarrhea General Chief complaint: Nausea/Vomiting/Diarrhea Stated complaint: n/v/d Time Seen by Provider: 04/06/24 01:33 Source: patient Mode of arrival: ambulatory Limitations: no limitations History of Present Illness HPI Narrative: this is a 38-year-old female that recently started on medication for sinusitis and anxiety by her primary care physician and has been having some epigastric tenderness with some nausea currently no vomiting no fever chills no chest pain or shortness of breath. MD elicited complaint: other ( Epigastric discomfort with palpation) Related Data Home Medications ?Medication ?Instructions ?Recorded ?Confirmed ?Last Taken ?Type escitalopram oxalate 10 mg tablet 10 mg PO HS 12/23/22 03/20/24 12/28/22 History Allergies Allergy/AdvReac Type Severity Reaction Status Date / Time shellfish derived Allergy Intermediate Hives Verified 03/15/24 14:38 adhesive tape Allergy Mild Rash Verified 03/15/24 14:38 amoxicillin Allergy Unknown rash Verified 03/15/24 14:38 Penicillins Allergy Unknown RASH Verified 03/15/24 14:38 Review of Systems Review of Systems: All systems reviewed & are unremarkable except as noted in HPI and below PMFSH Past Medical History Medical History Adenomatous colon polyp Tobacco abuse Loose stools Weight loss Nausea and vomiting in adult IBS (irritable bowel syndrome) Dermoid cyst Anxiety Surgical History Surgical History Hx laparoscopic cholecystectomy 02/28/24 1. Laparoscopic cholecystectomy with cholangiography, da [place] assisted 2. Interpretation of cholangiography Dr. Pleitez History of umbilical hernia repair 1. Laparoscopic 2cm recurrent umbilical hernia repair with mesh, da [place] assisted 2. Removal of mesh foreign body on 12/29/22 [facility] H/O tubal ligation History of tonsillectomy History of hernia surgery Ventral hernia [place] [address] Pleitez. H/O oophorectomy Family History Family History Mother Family history of mental disorder Depression Family history of migraine headaches Family history of hearing loss Father Hypertension Asthma Grandparent Hypertension Diabetes mellitus Other Family history of cardiovascular disease Family history of malignant neoplasm Social History Social History Smoking packs per day: 0.5 Smoking cigarettes per day: 10.0 Years smoked: 15 Smoking pack-years: 7.50 Smoking status: Former smoker Tobacco type: cigarettes and e-cigarettes/vaping Smoking end date: 02/19/22 Additional smoking assessment comments: Vapes now. Alcohol intake: current Drinks per week: 1 Alcohol use details: RARE Substance use: never Substance use type: does not use Living arrangements: with family Occupation/Education: occupation Gender identity (if verbalized by the patient): Female Sexual Orientation (if Verbalized by the Patient): Straight or Heterosexual Spiritual care concerns: No Agree to blood products: Yes Exam Const: General: healthy appearing Nutritional Appearance: well nourished Orientation/consciousness: patient oriented x3 Limitations: no limitations Resp: Effort & Inspection: normal respiratory effort Cardio: Rate: regular rate Rhythm: regular rhythm GI: GI Palp: Yes Soft to palpation and Yes Tenderness to palpation present (GI) Auscultation: normal bowel sounds Neuro: General: patient oriented x3 and no meningeal signs Extrem: General: normal to inspection Psych: Mental Status: mental status grossly normal Course Course Emergency Course: Patient prescribed a dose of p.o. Protonix 40mg here in the emergency department and will prescribe Protonix and advised patient follow-up with her primary. Vital Signs Vital signs: Vital Signs Temperature 36.6 C 04/06/24 01:16 Pulse Rate 82 04/06/24 01:16 Respiratory Rate 16 04/06/24 01:16 Blood Pressure 137/105 H 04/06/24 01:16 Pulse Oximetry 99 04/06/24 01:16 Oxygen Delivery Room Air 04/06/24 01:16 Temperature 36.6 C 04/06/24 01:16 Pulse Rate 82 04/06/24 01:16 Respiratory Rate 16 04/06/24 01:16 Blood Pressure 137/105 H 04/06/24 01:16 Pulse Oximetry 99 04/06/24 01:16 Oxygen Delivery Room Air 04/06/24 01:16 Discharge Plan Discharge Clinical Impression: Gastritis Qualifiers: Gastritis type: unspecified gastritis Chronicity: acute Gastritis bleeding: without bleeding Qualified Code(s): K29.00 - Acute gastritis without bleeding Patient Disposition: Home, Self-Care Condition: Stable Instructions: Antibiotic Form, Epigastric Pain (ED) Additional Instructions: advised to take medication as prescribed and follow with primary within a week further evaluation and treatment. Advised to take omeprazole twice daily and follow with primary. Patient Language: Romanian Prescriptions: No Action omeprazole 40 mg capsule,delayed release(DR/EC) 40 mg PO DAILY Qty: 30 6RF escitalopram oxalate 10 mg tablet 10 mg PO HS Follow-up/Referrals: Farida Hernandez MD [Primary Care Provider] - Time of Disposition: 01:45
[2024-04-06] MEDS: PANTOPRAZOLE 40 MG TABLET PO (02:03)
[2024-04-06 02:19] VITALS: BP 126/72; PULSE 78; RESP 20; O2SAT 99
== END 2024-04-06 02:19 | disposition home or self-care (01) ==
PROVIDERS: Emergency Provider Emergency Medicine; PCP Internal Medicine
DX: K29.00 Acute gastritis without bleeding (principal); Z87.891 Personal history of nicotine dependence
CPT/HCPCS: 99283; A9270

== ENCOUNTER 2024-04-06 12:23 | Outpatient (CLI) | payer BC, SELFPAY ==
--- NOTE | ~2024-04-06 | CT_ITS ---
CT of the Abdomen and Pelvis: Indication: Chills, nausea Technique: 2.5 mm axial scans were obtained through the abdomen and pelvis following intravenous adm inistration of 100 cc of Omnipaque 350. Dose reduction technique was used on this scan by utilizing a utomated exposure control and iterative reconstruction technique. The dose-length product (DLP) was 6 66.38 mGy-cm. COMPARISON: 09/26/2023 Findings: Scans through the lung bases are unremarkable. There is diffuse hepatic steatosis. The spleen, pancreas, adrenals and kidneys are within normal limi ts. Gallbladder absent. No evidence of aortic aneurysm. No lymphadenopathy. No bowel obstruction or bowel wall thickening. There is no evidence to suggest acute appendicitis. Images through the pelvis were performed. Urinary bladder unremarkable. No adnexal mass seen. No asci heidi. Impression: No acute abnormality. Diffuse hepatic steatosis. Reviewed, dictated and finalized at [facility]. [employer] Impression: No acute abnormality. Diffuse hepatic steatosis.
[2024-04-06 12:54] LABS: Add Urine Microscopic? YES; Appearance Urine Clear (Clear); Bilirubin Urine 1+ (Negative); Blood Urine Trace-intact (Negative); Color Urine Yellow (Yellow); Glucose Urine UA Negative (Negative); Ketones Urine Trace (Negative); Leukocyte Esterase Ur Negative LEU/UL (Negative); Nitrate Urine Negative (Negative); Protein Urine 1+ (Negative); Specific Grav Ur >= 1.030 (1.010-1.020); Urobilinogen Urine 0.2 mg/dL (0.2-1.0); pH Urine 5.5 (5.0-8.0)
[2024-04-06 12:56] LABS: Basophils Absolute Auto 0.01 K/mm3 (0.00-0.10); Basophils Percent Auto 0.1 % (0.0-1.0); Eosinophils Absolute Auto 0.15 K/mm3 (0.02-0.50); Hematocrit 40.3 % (35.0-49.0); Hemoglobin 14.5 g/dL (12.0-15.0); Immature Granulocyte Absolute 0.02 K/mm3 (0.00-0.00); Immature Granulocyte Percent A 0.3 % (0.0-0.0); Lymphocytes Absolute Auto 2.41 K/mm3 (1.10-4.50); Lymphocytes Percent Auto 32.7 % (18.0-42.0); Mean Corpuscular Hemoglobin 30.1 pg (27.0-31.0); Mean Corpuscular Volume 83.8 fL (78.0-102.0); Mean Platelet Volume 9.2 fl (9.2-11.8); Monocytes Absolute Auto 0.56 K/mm3 (0.10-0.90); Monocytes Percent Auto 7.6 % (2.0-11.0); Neutrophils Absolute Auto 4.23 K/mm3 (1.70-7.20); Neutrophils Percent Auto 57.3 % (50.0-70.0); Platelet Count Result 315 K/mm3 (150-420); Red Blood Count 4.81 M/mm3 (4.20-5.40); Red Cell Distribution Width 12.1 % (11.6-14.4); White Blood Count 7.4 K/mm3 (4.8-10.8)
[2024-04-06 13:03] LABS: Bacteria Urine Trace /hpf; Mucus Urine Moderate /lpf; RBC Urine None seen /hpf (0-2); Squamous Epithelial Cell Urine Few /hpf (Few); WBC Urine None seen /hpf (0-3)
[2024-04-06 13:13] LABS: Alanine Aminotransferase 19 U/L (14-59); Albumin Level 4.1 g/dL (3.4-5.0); Alkaline Phosphatase 39 U/L (46-116); Amylase 62 U/L (25-115); Anion Gap 10 mmol/L (4-12); Aspartate Amino Transferase 10 U/L (15-37); Bilirubin,Total 0.8 mg/dL (0.00-1.00); Blood Urea Nitrogen 13 mg/dL (7-18); Calcium 9.8 mg/dL (8.5-10.1); Carbon Dioxide 25 mmol/L (21-32); Chloride 104 mmol/L (98-108); Estimated Glomerular Filt Rate > 60; Glucose 106 mg/dL (70-99); Lipase 53 U/L (16-77); Osmolality Calculated 288 mOsm/kg (285-295); Potassium 3.8 mmol/L (3.5-5.1); Sodium 139 mmol/L (136-145); Total Protein 7.5 g/dL (6.4-8.2)
[2024-04-06 13:16] LABS: CRP < 0.1 mg/dL (0.0-0.9)
[2024-04-06 14:18] LABS: Erythrocyte Sedimentation Rate 17 mm/hr (0-15)
[2024-04-06 14:34] LABS: Lactic Acid Reflex 0.8 mmol/L (0.4-2.0)
== END 2024-04-06 12:24 | disposition home or self-care (01) ==
LOC: CHSLAB 12:25
PROVIDERS: PCP Internal Medicine; Visit Provider Internal Medicine
DX: R10.9 Unspecified abdominal pain (principal); R11.0 Nausea; K76.0 Fatty (change of) liver, not elsewhere classified
CPT/HCPCS: 36415; 74177; 80053; 81001; 82150; 83605; 83690; 85025; 85652; 86140; 87040; Q9967

== ENCOUNTER 2024-04-07 16:47 | Emergency (ER) | payer BC, SELFPAY ==
--- NOTE | ~2024-04-07 | XR_ITS ---
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 RESULT: Lines, tubes, and devices: None. Lungs and pleura: Clear. Cardiomediastinal silhouette: Stable. Other: No acute osseous or upper abdominal finding. IMPRESSION: No acute cardiopulmonary process. Reviewed, dictated and finalized at location K. MOBILE LOCATOR
[2024-04-07 16:55] VITALS: BP 129/95; PULSE 104; RESP 18; TEMP 36.6; O2SAT 99
[2024-04-07 17:32] LABS: BEDSIDEPREGUCG Negative (Negative)
[2024-04-07 17:34] LABS: Basophils Percent Auto 0.2 % (0.2-1.2); Eosinophils Absolute Auto 0.1 K/mm3 (0-0.3); Hematocrit 40.8 % (37.0-47.0); Hemoglobin 14.6 g/dL (12.0-15.0); Immature Granulocyte Absolute 0.01 K/mm3 (0.00-0.031); Immature Granulocyte Percent A 0.1 % (0-0.5); Lymphocytes Absolute Auto 1.81 K/mm3 (0.9-3.2); Lymphocytes Percent Auto 22.5 % (18.3-44.2); Mean Corpuscular HGB Conc 35.8 g/dl (32-36); Mean Corpuscular Hemoglobin 30.5 pg (26-34); Mean Corpuscular Volume 85.2 fl (80-100); Mean Platelet Volume 9.5 fl (7.4-10.4); Monocytes Absolute Auto 0.6 K/mm3 (0.1-0.6); Monocytes Percent Auto 7.2 % (2.6-8.5); Neutrophils Absolute Auto 5.6 K/mm3 (1.3-6.7); Platelet Count Result 310 k/mm3 (150-375); Red Blood Count 4.79 M/mm3 (4.2-5.4); Red Cell Distribution Width 12.3 % (11.5-14.5); White Blood Count 8.1 K/mm3 (4.5-10.0)
[2024-04-07 17:44] LABS: Alanine Aminotransferase 18 U/L (6-35); Albumin Level 4.7 g/dL (3.5-5.1); Alkaline Phosphatase 42 U/L (38-126); Anion Gap 8 mmol/L (4-12); Aspartate Amino Transferase 21 U/L (14-36); Bilirubin,Total 1.1 mg/dL (0.2-1.3); Blood Urea Nitrogen 11 mg/dL (7-17); Calcium 9.8 mg/dL (8.4-10.2); Carbon Dioxide 25 mmol/L (22-30); Chloride 106 mmol/L (98-107); Estimated CRCL calculation 97 ml/min; Estimated Glomerular Filt Rate > 60; Glucose 105 mg/dL (65-110); Lipase 123 U/L (23-300); Potassium 3.8 mmol/L (3.4-5.0); Sodium 139 mmol/L (137-145)
[2024-04-07 17:45] LABS: Add Urine Microscopic? YES; Appearance Urine Cloudy (Clear); Bacteria Urine None Seen /hpf; Bilirubin Urine 1+ (Negative); Blood Urine 1+ (Negative); Color Urine Dark Yellow (Yellow); Glucose Urine UA Negative (Negative); Hyaline Casts Urine Present /lpf; Ketones Urine 1+ mg/dL (Negative); Leukocyte Esterase Ur Negative LEU/UL (Negative); Mucus Urine Present /lpf; Need Manual Microscopic Reviewed; Nitrate Urine Negative (Negative); Protein Urine 1+ mg/dL (Negative); Squamous Epithelial Cell Urine Occasional /hpf (Few); WBC Urine 0-5 /hpf (0-3); pH Urine 5.5 (5.0-9.0)
[2024-04-07] MEDS: ONDANSETRON INJ 4 MG/2 ML VIAL IV PUSH (17:49)
[2024-04-07] MEDS: SODIUM CHLORIDE 0.9% IV 1,000 ML 999 ML IV CONT (17:49)
[2024-04-07 17:56] LABS: Magnesium 2.3 mg/dL (1.6-2.3)
[2024-04-07 18:06] LABS: Lactic Acid Reflex 1.2 mmol/L (0.7-2.0)
[2024-04-07 18:34] LABS: Influenza A QL RT-PCR Negative (Negative); Influenza B QL RT-PCR Negative (Negative); RSV RNA, RT-PCR Negative (Negative); SARS-CoV-2 RNA PCR Negative (Negative)
--- NOTE | 2024-04-07 18:34 | ED_ITS ---
HPI - General Adult General Chief complaint: Unspecified <Deangelo Brown MD - Last Filed: 04/07/24 19:18> Stated complaint: Shaking, Nausea <Deangelo Brown MD - Last Filed: 04/07/24 19:18> Time Seen by Provider: 04/07/24 17:26 <Deangelo Brown MD - Last Filed: 04/07/24 19:18> History of Present Illness HPI narrative: patient 38-year-old female who presents emergency department with chief complaint of body aches nausea vomiting shakiness patient reports that she is our primary care provider in the told her might be anxiety improved on several anxiety medications the patient states that that has not been helping reports that she still has body aches reports that she has been continually nauseated patient reports that she had a outpatient CT scan that showed no acute abnormalities. <Deangelo Brown MD - Last Filed: 04/07/24 19:18> Related Data Home medications: Home Medications ?Medication ?Instructions ?Recorded ?Confirmed ?Last Taken ?Type escitalopram oxalate 10 mg tablet 10 mg PO HS 12/23/22 03/20/24 12/28/22 History <Deangelo Brown MD - Last Filed: 04/07/24 19:18> Allergies/adverse reactions: Allergies Allergy/AdvReac Type Severity Reaction Status Date / Time shellfish derived Allergy Intermediate Hives Verified 04/07/24 17:09 adhesive tape Allergy Mild Rash Verified 04/07/24 17:09 amoxicillin Allergy Unknown rash Verified 04/07/24 17:09 Penicillins Allergy Unknown RASH Verified 04/07/24 17:09 <Deangelo Brown MD - Last Filed: 04/07/24 19:18> Review of Systems 2 Review of Systems: A 10 system review of systems was completed on the patient and is negative except for what is stated in the HPI. Nursing and ancillary documentation was reviewed. <Deangelo Brown MD - Last Filed: 04/07/24 19:18> PMFSH Past Medical History Medical History: Medical History Adenomatous colon polyp Tobacco abuse Loose stools Weight loss Nausea and vomiting in adult IBS (irritable bowel syndrome) Dermoid cyst Anxiety <Deangelo Brown MD - Last Filed: 04/07/24 19:18> Surgical History Surgical History: Surgical History Hx laparoscopic cholecystectomy 02/28/24 1. Laparoscopic cholecystectomy with cholangiography, da [place] assisted 2. Interpretation of cholangiography Dr. Pleitez History of umbilical hernia repair 1. Laparoscopic 2cm recurrent umbilical hernia repair with mesh, da Onelia assisted 2. Removal of mesh foreign body on 12/29/22 [facility] H/O tubal ligation History of tonsillectomy History of hernia surgery Ventral hernia repair with mesh [place] [address] Pleitez. H/O oophorectomy <Deangelo Brown MD - Last Filed: 04/07/24 19:18> Family History Family History: Family History Mother Family history of mental disorder Depression Family history of migraine headaches Family history of hearing loss Father Hypertension Asthma Grandparent Hypertension Diabetes mellitus Other Family history of cardiovascular disease Family history of malignant neoplasm <Deangelo Brown MD - Last Filed: 04/07/24 19:18> Social History Social History: Social History Smoking packs per day: 0.5 Smoking cigarettes per day: 10.0 Years smoked: 15 Smoking pack-years: 7.50 Smoking status: Former smoker Tobacco type: cigarettes and e-cigarettes/vaping Smoking end date: 02/19/22 Additional smoking assessment comments: Vapes now. Alcohol intake: current Drinks per week: 1 Alcohol use details: RARE Substance use: never Substance use type: does not use Living arrangements: with family Occupation/Education: occupation Gender identity (if verbalized by the patient): Female Sexual Orientation (if Verbalized by the Patient): Straight or Heterosexual Spiritual care concerns: No Agree to blood products: Yes <Deangelo Brown MD - Last Filed: 04/07/24 19:18> Exam 2 Narrative: GENERAL: Well-appearing, well-nourished, and in no acute distress. HEAD: Normocephalic, atraumatic. EYES: PERRLA and EOMI. ENT: Nares clear, no rhinorrhea or epistaxis. Mucous membranes moist. NECK: Supple. CHEST: Clear to auscultation. No respiratory distress. HEART: Regular rate and rhythm. No murmur heard. Normal peripheral pulses. ABDOMEN: Soft, nontender, nondistended, normal active bowel sounds. EXTREMITIES: Normal range of motion. No edema. SKIN: Warm, dry, no rash. NEURO: No focal deficits. Alert and oriented x3. PSYCH: Normal mood and affect. <Deangelo Brown MD - Last Filed: 04/07/24 19:18> Course Course Emergency Course: Patient signed out in my previous provider pending reassessment after medications. Patient had improvement her nausea vomiting after Zofran and Reglan here in the emergency department. I went over her imaging results and laboratory assessment and she felt comfortable with discharge at this time. Will send for reglan to her pharmacy. <Jean-Claude Sánchez MD - Last Filed: 04/08/24 07:42> Vital Signs Vital signs: Vital Signs Temperature 36.6 C 04/07/24 16:55 Pulse Rate 104 H 04/07/24 16:55 Respiratory Rate 18 04/07/24 16:55 Blood Pressure 129/95 H 04/07/24 16:55 Pulse Oximetry 99 04/07/24 16:55 Oxygen Delivery Room Air 04/07/24 16:55 Temperature 36.6 C 04/07/24 16:55 Pulse Rate 82 04/07/24 22:00 Respiratory Rate 19 04/07/24 22:00 Blood Pressure 136/82 04/07/24 22:00 Pulse Oximetry 100 04/07/24 22:00 Oxygen Delivery Room Air 04/07/24 16:55 <Deangelo Brown MD - Last Filed: 04/07/24 19:18> Vital Signs Temperature 36.6 C 04/07/24 16:55 Pulse Rate 104 H 04/07/24 16:55 Respiratory Rate 18 04/07/24 16:55 Blood Pressure 129/95 H 04/07/24 16:55 Pulse Oximetry 99 04/07/24 16:55 Oxygen Delivery Room Air 04/07/24 16:55 Temperature 36.6 C 04/07/24 16:55 Pulse Rate 82 04/07/24 22:00 Respiratory Rate 19 04/07/24 22:00 Blood Pressure 136/82 04/07/24 22:00 Pulse Oximetry 100 04/07/24 22:00 Oxygen Delivery Room Air 04/07/24 16:55 <Jean-Claude Sánchez MD - Last Filed: 04/08/24 07:42> Medical Decision Making MDM Narrative Medical decision making narrative: differential diagnosis includes dehydration, electrolyte abnormality, intra-abdominal infection, pneumonia, COVID, flu, RSV laboratory studies were obtained on the patient showed a normal CBC CMP was within normal limits urinalysis showed 1+ ketones COVID flu and RSV are negative test was negative TSH was within normal limits the patient is receiving IV fluids antiemetics antispasmodics and anti- inflammatory pain medications. The patient will be reassessed after for completing the fluids CT scan from yesterday showed no acute abnormality <Deangelo Brown MD - Last Filed: 04/07/24 19:18> Vital Signs Vital Signs: Vital Signs Temperature 36.6 C 04/07/24 16:55 Pulse Rate 104 H 04/07/24 16:55 Respiratory Rate 18 04/07/24 16:55 Blood Pressure 129/95 H 04/07/24 16:55 Pulse Oximetry 99 04/07/24 16:55 Oxygen Delivery Room Air 04/07/24 16:55 Temperature 36.6 C 04/07/24 16:55 Pulse Rate 82 04/07/24 22:00 Respiratory Rate 19 04/07/24 22:00 Blood Pressure 136/82 04/07/24 22:00 Pulse Oximetry 100 04/07/24 22:00 Oxygen Delivery Room Air 04/07/24 16:55 <Deangelo Brown MD - Last Filed: 04/07/24 19:18> Vital Signs Temperature 36.6 C 04/07/24 16:55 Pulse Rate 104 H 04/07/24 16:55 Respiratory Rate 18 04/07/24 16:55 Blood Pressure 129/95 H 04/07/24 16:55 Pulse Oximetry 99 04/07/24 16:55 Oxygen Delivery Room Air 04/07/24 16:55 Temperature 36.6 C 04/07/24 16:55 Pulse Rate 82 04/07/24 22:00 Respiratory Rate 19 04/07/24 22:00 Blood Pressure 136/82 04/07/24 22:00 Pulse Oximetry 100 04/07/24 22:00 Oxygen Delivery Room Air 04/07/24 16:55 <Jean-Claude Sánchez MD - Last Filed: 04/08/24 07:42> Lab Data Result diagrams: 04/07/24 17:27 04/07/24 17:27 <Deangelo Brown MD - Last Filed: 04/07/24 19:18> Labs: Lab Results 04/07/24 04/07/24 04/07/24 Range/Units 17:27 17:30 17:52 WBC 8.1 (4.5-10.0) K/mm3 RBC 4.79 (4.2-5.4) M/mm3 Hgb 14.6 (12.0-15.0) g/dL Hct 40.8 (37.0-47.0) % MCV 85.2 (80-100) fl MCH 30.5 (26-34) pg MCHC 35.8 (32-36) g/dl RDW 12.3 (11.5-14.5) % Plt Count 310 (150-375) k/mm3 MPV 9.5 (7.4-10.4) fl Immature Gran % (Auto) 0.1 (0-0.5) % Neut % (Auto) 69.0 (45.5-73.1) % Lymph % (Auto) 22.5 (18.3-44.2) % Guadalupe % (Auto) 7.2 (2.6-8.5) % Eos % (Auto) 1.0 (0-4.4) % Baso % (Auto) 0.2 (0.2-1.2) % Lymph # (Auto) 1.81 (0.9-3.2) K/mm3 Gu[place]upe # (Auto) 0.6 (0.1-0.6) K/mm3 Eos # (Auto) 0.1 (0-0.3) K/mm3 Baso # (Auto) 0.0 (0.0-0.1) K/mm3 Abs Immat Gran (auto) 0.01 (0.00-0.031) K/mm3 Absolute Neuts (auto) 5.6 (1.3-6.7) K/mm3 Absolute Nucleated RBC 0.000 (0.0-0.012) K/mm3 Nucleated RBC % 0.0 (0.0-0.2) % Sodium 139 (137-145) mmol/L Potassium 3.8 (3.4-5.0) mmol/L Chloride 106 (98-107) mmol/L Carbon Dioxide 25 (22-30) mmol/L Anion Gap 8 (4-12) mmol/L BUN 11 (7-17) mg/dL Creatinine 0.80 (0.7-1.0) mg/dL Estim Creat Clear Calc 97 ml/min Estimated GFR > 60 (59 - ) Glucose 105 (65-110) mg/dL Lactic Acid 1.2 (0.7-2.0) mmol/L Calcium 9.8 (8.4-10.2) mg/dL Magnesium 2.3 (1.6-2.3) mg/dL Total Bilirubin 1.1 (0.2-1.3) mg/dL AST 21 (14-36) U/L ALT 18 (6-35) U/L Alkaline Phosphatase 42 (38-126) U/L Total Protein 8.0 (6.3-8.2) g/dL Albumin 4.7 (3.5-5.1) g/dL Lipase 123 (23-300) U/L Procalcitonin 0.0 ng/mL TSH (Reflex) 1.350 (0.465-4.68) uIU/mL Urine Color Dark yellow (Yellow) Urine Appearance Cloudy H (Clear) Urine pH 5.5 (5.0-9.0) Ur Specific Burnet 1.030 (1.001-1.035) Urine Protein 1+ H (Negative) mg/dL Urine Glucose (UA) Negative (Negative) mg/dL Urine Ketones 1+ H (Negative) mg/dL Ur Blood (Man) 1+ H (Negative) Urine Nitrate Negative (Negative) Urine Bilirubin 1+ H (Negative) Urine Urobilinogen 1.0 (<2.0) mg/dL Add Ur Microanalysis Reviewed Leukocyte Esterase Rfl Negative (Negative) ADAM/UL Urine RBC 6-10 H (0-2) /hpf Urine WBC 0-5 (0-3) /hpf Ur Squamous Epith Cells Occasional (Few) /hpf Urine Bacteria None seen /hpf Urine Casts 11-20 Hyaline Casts Present (None) /lpf Urine Mucus Present /lpf POC Urine HCG, Qual Negative (Negative) Influenza A (RT-PCR) Negative (Negative) Influenza B (RT-PCR) Negative (Negative) RSV (RT-PCR) Negative (Negative) SARS-CoV-2 RNA (RT-PCR) Negative (Negative) <Deangelo Brown MD - Last Filed: 04/07/24 19:18> Lab Results 04/07/24 04/07/24 04/07/24 Range/Units 17:27 17:30 17:52 WBC 8.1 (4.5-10.0) K/mm3 RBC 4.79 (4.2-5.4) M/mm3 Hgb 14.6 (12.0-15.0) g/dL Hct 40.8 (37.0-47.0) % MCV 85.2 (80-100) fl MCH 30.5 (26-34) pg MCHC 35.8 (32-36) g/dl RDW 12.3 (11.5-14.5) % Plt Count 310 (150-375) k/mm3 MPV 9.5 (7.4-10.4) fl Immature Gran % (Auto) 0.1 (0-0.5) % Neut % (Auto) 69.0 (45.5-73.1) % Lymph % (Auto) 22.5 (18.3-44.2) % Guadalupe % (Auto) 7.2 (2.6-8.5) % Eos % (Auto) 1.0 (0-4.4) % Baso % (Auto) 0.2 (0.2-1.2) % Lymph # (Auto) 1.81 (0.9-3.2) K/mm3 [place]upe # (Auto) 0.6 (0.1-0.6) K/mm3 Eos # (Auto) 0.1 (0-0.3) K/mm3 Baso # (Auto) 0.0 (0.0-0.1) K/mm3 Abs Immat Gran (auto) 0.01 (0.00-0.031) K/mm3 Absolute Neuts (auto) 5.6 (1.3-6.7) K/mm3 Absolute Nucleated RBC 0.000 (0.0-0.012) K/mm3 Nucleated RBC % 0.0 (0.0-0.2) % Sodium 139 (137-145) mmol/L Potassium 3.8 (3.4-5.0) mmol/L Chloride 106 (98-107) mmol/L Carbon Dioxide 25 (22-30) mmol/L Anion Gap 8 (4-12) mmol/L BUN 11 (7-17) mg/dL Creatinine 0.80 (0.7-1.0) mg/dL Estim Creat Clear Calc 97 ml/min Estimated GFR > 60 (59 - ) Glucose 105 (65-110) mg/dL Lactic Acid 1.2 (0.7-2.0) mmol/L Calcium 9.8 (8.4-10.2) mg/dL Magnesium 2.3 (1.6-2.3) mg/dL Total Bilirubin 1.1 (0.2-1.3) mg/dL AST 21 (14-36) U/L ALT 18 (6-35) U/L Alkaline Phosphatase 42 (38-126) U/L Total Protein 8.0 (6.3-8.2) g/dL Albumin 4.7 (3.5-5.1) g/dL Lipase 123 (23-300) U/L Procalcitonin 0.0 ng/mL TSH (Reflex) 1.350 (0.465-4.68) uIU/mL Urine Color Dark yellow (Yellow) Urine Appearance Cloudy H (Clear) Urine pH 5.5 (5.0-9.0) Ur Specific Burnet 1.030 (1.001-1.035) Urine Protein 1+ H (Negative) mg/dL Urine Glucose (UA) Negative (Negative) mg/dL Urine Ketones 1+ H (Negative) mg/dL Ur Blood (Man) 1+ H (Negative) Urine Nitrate Negative (Negative) Urine Bilirubin 1+ H (Negative) Urine Urobilinogen 1.0 (<2.0) mg/dL Add Ur Microanalysis Reviewed Leukocyte Esterase Rfl Negative (Negative) ADAM/UL Urine RBC 6-10 H (0-2) /hpf Urine WBC 0-5 (0-3) /hpf Ur Squamous Epith Cells Occasional (Few) /hpf Urine Bacteria None seen /hpf Urine Casts 11-20 Hyaline Casts Present (None) /lpf Urine Mucus Present /lpf POC Urine HCG, Qual Negative (Negative) Influenza A (RT-PCR) Negative (Negative) Influenza B (RT-PCR) Negative (Negative) RSV (RT-PCR) Negative (Negative) SARS-CoV-2 RNA (RT-PCR) Negative (Negative) <Jean-Claude Sánchez MD - Last Filed: 04/08/24 07:42> Discharge Plan Discharge Clinical Impression: Nausea & vomiting, Abdominal discomfort <Deangelo Brown MD - Last Filed: 04/07/24 19:18> Patient Disposition: Home, Self-Care <Deangelo Brown MD - Last Filed: 04/07/24 19:18> Condition: Improved <Deangelo Brown MD - Last Filed: 04/07/24 19:18> Patient Language: Yakut <Deangelo Brown MD - Last Filed: 04/07/24 19:18> Prescriptions: New ondansetron 4 mg tablet,disintegrating 4 mg PO Q8H PRN (Reason: nausea and vomiting) Qty: 10 0RF metoclopramide HCl [Reglan] 10 mg tablet 10 mg PO Q6H PRN (Reason: nausea and vomiting) Qty: 14 0RF No Action omeprazole 40 mg capsule,delayed release(DR/EC) 40 mg PO DAILY Qty: 30 6RF escitalopram oxalate 10 mg tablet 10 mg PO HS <Deangelo Brown MD - Last Filed: 04/07/24 19:18> Follow-up/Referrals: Farida Hernandez MD [Primary Care Provider] - <Deangelo Brown MD - Last Filed: 04/07/24 19:18> Time of Disposition: 20:33 <Deangelo Brown MD - Last Filed: 04/07/24 19:18> 20:33 <Jean-Claude Sánchez MD - Last Filed: 04/08/24 07:42>
[2024-04-07] MEDS: KETOROLAC 15 MG/ML VIAL (*BKC) IV PUSH (19:25)
[2024-04-07] MEDS: DICYCLOMINE HCL INJ 20 MG/2 ML VIAL IM (19:25)
[2024-04-07] MEDS: ONDANSETRON HCL ODT 4 MG TABLET PO (20:59)
[2024-04-07] MEDS: METOCLOPRAMIDE HCL 10 MG TABLET PO (21:50)
[2024-04-07] MEDS: diphenhydrAMINE HCl CAP 25 MG CAPSULE PO (21:50)
[2024-04-07 22:00] VITALS: BP 136/82; PULSE 82; RESP 19; O2SAT 100
--- OUTSIDE RECORDS SUMMARY | 2024-04-12 | XMS_ITS | Referral Summary ---
Author Organization [facility] Address [address] [place] [address] Care Team Providers Care Arboriculture Instructor Name Role Phone Farida Hernandez MD Primary Care Provider [phone] Source Comments [facility],non-owned Affiliates and Associated Physician Practices is amultiple site organization consisting of ambulatory clinics and hospital sitesin [place], [place], [place] and [place]. This disclosure is being madepursuant to the Care Everywhere program and may not contain all information available regarding this patient. Last updated 18.[facility] Allergies Active Allergy Reactions Criticality Noted Date Comments Amoxicillin 05/07/2013 Medications * Be aware that medications may not be up to date on this document. Alwaysverify current medications with the patient. Medication Sig Dispensed Refills Start Date End Date Status ondansetron, disintegrating, (ZOFRAN ODT) 4 MG tablet Take 4 mg by mouth every 6 hours as needed. Allow tablet to dissolve on the tongue Active Vit-Fe Fumarate-FA ( VITAMIN) 28-0.8 MG tablet Take 1 Tab by mouth once daily. Active Active Problems Problem Noted Date Diagnosed Date cardiac echogenic focus 05/07/2013 Encounter for supervision of other normal pregna ncy 05/07/2013 Overview (03/02/2015): Social History Tobacco Use Types Packs/Day Years Used Date Smoking Tobacco: Never Alcohol Use Standard Drinks/Week Comments No 0 (1 standard drink = 0.6 oz pur e alcohol) Sex and Gender Information Value Date Recorded Sex Assigned at Not on file Gender Identity Not on file Sexual Orientation Not on file Plan of Treatment Not on file Care Teams Arboriculture Instructor Relationship Specialty Start Date End Date Farida Hernandez MD [address] [place] [address] PCP - General 12/23/20
--- OUTSIDE RECORDS SUMMARY | 2024-04-12 | XMS_ITS | Encounter Summary ---
Author Organization [facility] Address [address] [place] [address] Care Team Providers Care Rotor Winder Name Role Phone Brooke Mak MD Primary Care Provider [phone] Encounter Details Date Type Department Care Team (Latest Contact Info) Description 05/11/2013 1:56 PM COFFERDAM CONSTRUCTION SUPERVISOR - 05/11/2013 11:59 PM COFFERDAM CONSTRUCTION SUPERVISOR Hospital Encounter [facility] [address] [place], [place] [id number] Lavonne Bhatt MD [address] [address] Discharge Disposition: Home or Self Care Social History Tobacco Use Types Packs/Day Years Used Date Smoking Tobacco: Never Alcohol Use Standard Drinks/Week Comments No 0 (1 standard drink = 0.6 oz pur e alcohol) Comments Yes Sex and Gender Information Value Date Recorded Sex Assigned at Not on file Gender Identity Not on file Sexual Orientation Not on file documented as of this encounter Medications at Time of Discharge Medication Sig Dispensed Refills Start Date End Date ondansetron, disintegrating, (ZOFRAN ODT) 4 MG tablet Take 4 mg by mouth every 6 hours as needed. Allow tablet to dissolve on the tongue Vit-Fe Fumarate-FA ( VITAMIN) 28-0.8 MG tablet Take 1 Tab by mouth once daily. documented as of this encounter Plan of Treatment Not on file documented as of this encounter Procedures Procedure Name Priority Date/Time Associated Diagnosis Comments SONOGRAM - COMPLETE Routine 05/11/2013 2 :29 PM COFFERDAM CONSTRUCTION SUPERVISOR cardiac echogenic focus Supervision of other normal (HCC) documented in this encounter Results * SONOGRAM - COMPLETE (05/11/2013 2:29 PM COFFERDAM CONSTRUCTION SUPERVISOR) Anatomical Region Laterality Modality Other 05/11/2013 2:29 PM COFFERDAM CONSTRUCTION SUPERVISOR Narrative 05/11/2013 4:56 PM COFFERDAM CONSTRUCTION SUPERVISOR ?[facility] ? [facility] ?PHONE: ??FAX: ? Pat. Name: ?BABAR AMAYA. No: ?[id number] Study Date: ?? 05/11/2013 ??2:29pm , Age: ? 1985, 27 LMP: ?11/11/2012 GA by LMP: ?25w6d GA by US: ? 25w3d GA Selected: ??25w5d (LMP) ZAY: ?08/19/2013 Referring MD: BROOKE MAK MD Spot Worker: ??Jerrica Fishman RDMS Hist/Ind: ? Echogenic Focus MEASUREMENTS & AGE ? GROWTH EVALUATION Measurement ??GA ? Range ? Srce %for GA Ratios ----- ---- ------- BPD ??6.3 cm 25w4d (79w0m-79r8c) Hadl BPD 49% FL/BPD 0.77 (0.71 - 0.87) HC ??23.3 cm 25w3d ([id number]) Hadl HC ??43% FL/AC ??0.25 (0.20 - 0.24* AC ??19.7 cm 24w3d (17g0r-65c7x) Hadl AC ??23% HC/AC ??1.18 (1.01 - 1.20) FL ?? 4.9 cm 26w2d (89t0r-23z4p) Hadl FL ??63% CI ? 0.77 (0.70 - 0.86) GA for sonogram 25w3d ([id number]) ?? Weight Estimate: based on (BPD,HC,AC,FL) Avg ?Weight: 788 gm (673-903) Hadlock ? : 1lbs, 11oz ? Normal: 824 gm (546-1278) Geovani ? Wt% ? 45% for 25w5d Heart Rate: 149 bpm CLINICAL SUMMARY Study Number: ??1 A krishnamurthy fetus is identified in cephalic presentation. ??The amniotic fluid volume is within normal limits. ??The placenta is posterior. ?? IMPRESSION: ?? Single, live, IUP 25w5d Biometry is consistent with appropriate growth based on prior dating An echogenic intracardiac focus was noted. No other structural abnormalities were detected on today's detailed anatomic survey. NOTE:The patient was advised that ultrasound does not allow detection of all structural or chromosomal abnormalities. I counseled Babar regarding the weak association that exists between echogenic intracardiac foci, when they are isolated findings, and Down syndrome. Additional aneuploidy testing was offered and declined. RECOMMEND: ?? Follow up only as clinically indicated. Thank you for allowing us the opportunity to care for your patient. Lavonne Bhatt MD <Electronic Signature> ??05/11/2013 04:54pm Revised Brooke Mak MD [facility] ORDERABLES documented in this encounter Visit Diagnoses Diagnosis cardiac echogenic focus- Primary Other known or suspected abnormality, not elsewhere classified, affecting management of mother, antepartum condition or complication Supervision of other normal (HCC) Supervision of other normal documented in this encounter Care Teams Rotor Winder Relationship Specialty Start Date End Date Brooke Mak MD [address] [place] [address] PCP - General 12/26/08 12/22/20 documented as of this encounter
--- OUTSIDE RECORDS SUMMARY | 2024-04-12 | XMS_ITS | Patient Health Summary ---
Author Organization [facility] Address [address] [place] [address] Care Team Providers Care Contracting Manager Name Role Phone Farida Hernandez MD Primary Care Provider [phone] Note from [facility],non-owned Affiliates and Associated Physician Practices is amultiple site organization consisting of ambulatory clinics and hospital sitesin [place], [place], [place] and [place]. This disclosure is being madepursuant to the Care Everywhere program and may not contain all information available regarding this patient. Last updated 18.[facility] Allergies * Amoxicillin Medications * Be aware that medications may not be up to date on this document. Alwaysverify current medications with the patient. * ondansetron, disintegrating, (ZOFRAN ODT) 4 MG tablet Take 4 mg by mouth every 6 hours as needed. Allow tablet to dissolve on the tongue * Vit-Fe Fumarate-FA ( VITAMIN) 28-0.8 MG tablet Take 1 Tab by mouth once daily. Active Problems Problem Noted Date Diagnosed Date cardiac echogenic focus 05/07/2013 Encounter for supervision of other normal pregna ncy 05/07/2013 Social History Tobacco Use Types Packs/Day Years Used Date Smoking Tobacco: Never Alcohol Use Standard Drinks/Week Comments No 0 (1 standard drink = 0.6 oz pur e alcohol) Sex and Gender Information Value Date Recorded Sex Assigned at Not on file Gender Identity Not on file Sexual Orientation Not on file Procedures * SONOGRAM - COMPLETE(Performed 05/11/2013) Performed for cardiac echogenic focus, Supervision of other normal (HCC) Results * SONOGRAM - COMPLETE (05/11/2013 2:29 PM ROOM SERVICE WAITER/WAITRESS) Anatomical Region Laterality Modality Other 05/11/2013 2:29 PM ROOM SERVICE WAITER/WAITRESS Narrative 05/11/2013 4:56 PM ROOM SERVICE WAITER/WAITRESS ?[facility] Maternal Medicine ? [facility] ?PHONE: ??FAX: ? Pat. Name: ?BABAR AMAYA Pat. No: ?[id number] Study Date: ?? 05/11/2013 ??2:29pm , Age: ? 1985, 27 LMP: ?11/11/2012 GA by LMP: ?25w6d GA by US: ? 25w3d GA Selected: ??25w5d (LMP) ZAY: ?08/19/2013 Referring MD: BROOKE MAK MD Gas Meter Installer Helper: ??Jerrica Fishman RDMS Hist/Ind: ? Echogenic Focus MEASUREMENTS & AGE ? GROWTH EVALUATION Measurement ??GA ? Range ? Srce %for GA Ratios ----- ---- ------- BPD ??6.3 cm 25w4d ([id number]) Hadl BPD 49% FL/BPD 0.77 (0.71 - 0.87) HC ??23.3 cm 25w3d (50s9y-24s5y) Hadl HC ??43% FL/AC ??0.25 (0.20 - 0.24* AC ??19.7 cm 24w3d (22v4a-46c6e) Hadl AC ??23% HC/AC ??1.18 (1.01 - 1.20) FL ?? 4.9 cm 26w2d (95j8s-80z4u) Hadl FL ??63% CI ? 0.77 (0.70 - 0.86) GA for sonogram 25w3d ([id number]) ?? Weight Estimate: based on (BPD,HC,AC,FL) Avg [...] Signature> ??05/11/2013 04:54pm Revised Brooke Mak MD [facility] ORDERABLES Care Teams Contracting Manager Relationship Specialty Start Date End Date Farida Hernandez MD [address] [place] [address] PCP - General 12/23/20
--- OUTSIDE RECORDS SUMMARY | 2024-04-12 | XMS_ITS | Clinical Summary ---
Author Organization [facility] Address [address] [place] [address] Care Team Providers Care Sheet Metal Technician Name Role Phone Farida Hernandez MD Primary Care Provider Source Comments [facility],non-owned Affiliates and Associated Physician Practices is amultiple site organization consisting of ambulatory clinics and hospital sitesin [place], [place], [place]. This disclosure is being madepursuant to the Care Everywhere program and may not contain all information available regarding this patient. Last updated 18.[facility] Allergies Active Allergy Reactions Criticality Noted Date [...] other normal pregna ncy 05/07/2013 Overview (03/02/2015): Family History Medical History Relation Name Comments Hypertension Father Relation Name Status Comments Father Social History Tobacco Use Types Packs/Day Years Used Date Smoking Tobacco: Never Alcohol Use Standard Drinks/Week Comments No 0 (1 standard drink = 0.6 oz pur e alcohol) Sex and Gender Information Value Date Recorded Sex Assigned at Not on file Gender Identity Not on file Sexual Orientation Not on file Plan of Treatment Health Maintenance Due Date Last Done Comments PAP SMEAR 1986 HIV SCREENING 2001 HEPATITIS C SCREENING 11/02/2004 DTAP/TDAP/TD VACCINES (1 - Tdap) 2005 HEPATITIS B VACCINE (1 of 3 - 19+ 3-dose series) 2005 DEPRESSION SCREENING 04/25/2023 COVID-19 VACCINE (1 - 2023-2 5 season) 2023 INFLUENZA VACCINE (#1) 2023 ZOSTER VACCINE (1 of 2) 2036 HIB VACCINE Aged Out No longer eligi ble based on patient's age to complete this topic HPV VACCINE Aged Out No longer eligi ble based on patient's age to complete this topic MENINGOCOCCAL VACCINE Aged Out No akua steve eligible based on patient's age to complete this topic PNEUMOCOCCAL VACCINE Aged Out No long er eligible based on patient's age to complete this topic Care Teams Sheet Metal Technician Relationship Specialty Start Date End Date Farida Hernandez MD [address] [place] [id number] PCP - General 12/23/20
--- OUTSIDE RECORDS SUMMARY | 2024-04-12 | XMS_ITS | Encounter Summary ---
Author Organization [facility] Address [address] [place] [address] Care Team Providers Care Shaker Tender Name Role Phone Brooke Mak MD Primary Care Provider [phone] Encounter Details Date Type Department Care Team (Late st Contact Info) Description 01/09/2009 2:10 PM CDT - 01/09/2009 11:59 PM CDT Hospital Encounter [facility] [address] [place] [address] Brooke Mak MD [address] [place] [address] Medical Outpatient Discharge Disposition: Home or Self Care Social History Tobacco Use Types Packs/Day Years Used Date Smoking Tobacco: Never Assessed Sex and Gender Information Value Date Recorded Sex Assigned at Not on file Gender Identity Not on file Sexual Orientation Not on file documented as of this encounter Plan of Treatment Not on file documented as of this encounter Visit Diagnoses Not on filedocumented in this encounter Care Teams Shaker Tender Relationship Specialty Start Date End Date Brooke Mak MD [address] [place] [address] PCP - General 12/26/08 12/22/20 documented as of this encounter
--- OUTSIDE RECORDS SUMMARY | 2024-04-12 | XMS_ITS | Data Portability ---
Author Organization 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 Procedures None recorded. [...] and labor atory findi ngs. See https ://Jobzle/s ites/ defau lt/fi les/2 018-0 3/AW- 36587 _002_ 01.pd f for furth er infor matio n. Test perfo rmed by [facility], d/b/a Mikel foster, [address] , [facility] [place] [address] , Eladio Nice ra, DO, Labor atory [facility]. HPV High Risk *HPV NOT DETEC MEEK (TYPE S 16, 18, 31, 33, 35, 39, 45, 51, 52, 56, 58, 59, 66, 68) *HPV: The human papil lomav irus (HPV) High Risk Enma marks is an FDA-a pprov ed in-vi tro ampli fied nucle ic acid test for the quali tativ e detec tion of E6/E7 viral mRNA. [facility] lourdes roldan be corre lated with angela nt prese ntati on, histo ry, cervi francisco cytol ogy and other clini francisco and labor atory findi ngs. See https ://Jobzle/s ites/ defau lt/fi les/2 018-0 3/AW- 61528 _002_ 01.pd f for yessy er infor karon n. Test [facility] by [facility], [address], [place] [address] , Eladio Nice ra, DO, Labor atory Direc tor. End of Repor t Techn ical servi nancy provi ded by [employer], d/b/a [employer], [address] [place] [address] Jorge Luis Garcia MD, [facility] ator Dire tor. Case revie wed and diagn osis rende red at [employer], d/b/a [employer], [address] [place] [address] Jorge Luis Garcia MD, Labor ator Dire tor. CONFI DENTI AL Not Available [facility] ([facility]) [address] [place] [address], [place], [address], 10/01/2019 10:53:13 09/27/19 20 09/28/2019 HPV DNA, high- risk HPV high risk NOT DETECT ED normal Not Available [facility] ([facility]) [address] [place] [address], [place], [address], 10/01/2019 10:53:14 10/21/19 21 10/20/2020 IMAGE GUIDE [...] as clini maki garcía nted. Not Available [facility] (Lab) [address], [place], [address], 10/21/2020 15:47:25 08/18/19 23 08/17/2022 CULTU RE: [...] Resul ting Lab: [facility] [address] [facility] [address] Tel: [phone] CULTU RE ----- ----- ----- --- Light [...] seen No organ isms seen Not Available [facility] (Lab) [address], [place], [address], 08/20/2022 12:16:28 08/18/19 23 08/17/2022 CULTU RE: HERPE S SIMPL EX VIRUS (HSV) , REFLE X TYPIN G source LESION SCRAPI NGS Not Available [facility] (Lab) [address], [place], [address], 08/20/2022 12:16:28 08/18/19 23 08/17/2022 CULTU RE: HERPE S SIMPL EX VIRUS (HSV) , REFLE X TYPIN G hsv culture, body fluid NOT ISOLAT ED Perfo rming Organ izati on Infor matio n: Site ID: CB Name: [facility] yuli Rai Addre ss: [address] [place], [place] [id number] Dire tor: Antho ny V Noemi s Not Available [facility] (Lab) [address], [place], [address], 08/20/2022 12:16:28 09/22/19 23 09/21/2022 IMAGE GUIDE D PAP AND HPV REGAR DLESS image guided Pap, HPV regardless of Pap result SEE RESULT S BELOW CASE REPOR T: Cytol ogy Gynec ologi francisco Repor t Case: [id number] [address] miller Provi ginette: Kenton Lopez Colle cted: 09/21 1524 HOSIERY 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 Not Available [facility] (Lab) [address], [place], [address], 09/22/2022 18:47:30 Result Notes None recorded. Problems Name Problem SNOMED Code Status Onset Date Resolution Date Notes Provider Name and Address Organization Details Recorded Time Normal pregnanc y in multigra mac [id number] 4106 Completed 201710/17/2020 Encounte r for suprvsn of normal pregnanc y, third trimeste r;Practi ce ID: 0001 Nneka siddiqui, [facility] 14:43:44 Pregnanc y, childbir th and puerperi um finding Completed 201710/17/2020 Oth pregnanc y related conditio ns, third trimeste r;Practi ce ID: 0001 Nneka siddiqui, [facility] 14:43:08 Gestatio n period, 37 weeks [id number] Completed 201710/17/2020 37 weeks gestatio n of pregnanc y;Practi ce ID: 0001 Nneka siddiqui, [facility] 14:43:42 Term pregnanc y delivere d [id number] Completed 201710/17/2020 Encounte r for full-ter m uncompli cated delivery ;Practic e ID: 0001 Nneka siddiqui, [facility] 14:43:01 Single live [id number] Completed 201710/17/2020 Single live ;Pr actice ID: 0001 Nneka siddiqui, [facility] 14:42:47 Gestatio n period, 39 weeks [id number] Completed 201710/17/2020 39 weeks gestatio n of pregnanc y;Practi ce ID: 0001 Nneka siddiqui, [facility] 14:44:09 Lochia finding Completed 201710/17/2020 Encounte r for routine postpart um follow-u p;Practi ce ID: 0001 Nneka siddiqui, [facility] 14:43:28 Lesion of ovary Completed 201710/17/2020 Other ovarian cyst, left side;Pra ctice ID: 0001 Nneka siddiqui, [facility] 14:42:57 Benign neoplasm of left ovary [id number] 9103 Completed 201710/17/2020 Benign neoplasm of left ovary;Pr actice ID: 0001 Nneka siddiqui, [facility] 14:43:30 Follicul ar cyst of left ovary [id number] Completed 201710/17/2020 Follicul ar cyst of left ovary;Pr actice ID: 0001 Nneka Stewart [facility], [facility] 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 14:44:01 Imaging result abnormal [id number] Completed 201710/17/2020 Abnormal findings on diagnost ic imaging of body structur es;Recor ded Elsewher e: No Locat ion: Zoila payne [facility] S ource: EHR Paste Mixing Supervisor gurdeep: N Practi ce ID: 0001 Eugene lable Time: 02:15:00 PM Nneka siddiqui [facility] 14:43:36 Gestatio n period, 28 weeks [id number] Completed 201710/17/2020 28 weeks gestatio n of pregnanc y;Record ed Elsewher e: No Locat ion: Eileennaty payne [facility] S ource: EHR Paste Mixing Supervisor gurdeep: N Practi ce ID: 0001 Eugene lable Time: 01:00:00 PM Nneka siddiqui, [facility] 14:44:11 Pregnanc y test positive [id number] Completed 201210/17/2020 Pregnanc y examinat ion or test, positive result;R ecorded Elsewher e: No [facility]at [facility]: EHR Paste Mixing Supervisor gurdeep: N Practi ce ID: 0001 Eugene lable Time: 09:00:00 AM Nneka siddiqui, [facility] 14:43:16 Uterine size for dates discrepa ncy Completed 201710/17/2020 Uterine size-malathi e discrepa ncy, third trimeste r;Record ed Elsewher e: No Locat ion: [facility] S ource: EHR Paste Mixing Supervisor gurdeep: N Practi ce ID: 0001 Eugene lable Time: 01:00:00 PM Nneka siddiqui, [facility] 14:43:06 Finding of contents of cervix [id number] Completed 201610/17/2020 Weeks of gestatio n of pregnanc y not specifie d;Record ed Elsewher e: No Locat ion: [facility] S ource: EHR Paste Mixing Supervisor gurdeep: N Practi ce ID: 0001 Eugene lable Time: 01:00:00 PM Nneka siddiqui, [facility] 14:43:14 Threaten ed miscarri age [id number] Completed 201610/17/2020 Threaten ed ;Recorde d Elsewher e: No Locat ion: Zoila e [facility] S ource: EHR Paste Mixing Supervisor gurdeep: N Practi ce ID: 0001 Eugene lable Time: 01:30:00 PM Nneka siddiqui [facility] 14:43:56 Finding related to pregnanc y Completed 201610/17/2020 Inapprop chg quantita v hCG in early pregnanc y;Record ed Elsewher e: No [facility]: EHR Paste Mixing Supervisor gurdeep: N Apolloti ce ID: 0001 Eugene lable Time: 01:00:00 PM Nneka siddiqui [facility] 14:43:04 Overweig ht [id number] Completed 201410/17/2020 Overweig ht;Recor ded Elsewher e: No Locat ion: [facility] S ource: EHR Paste Mixing Supervisor gurdeep: N Apolloti ce ID: 0001 Eugene lable Time: 10:45:00 AM Nneka siddiqui [facility] 14:43:02 Screenin g for malignan t neoplasm of cervix Completed 201510/17/2020 Screenin g for malignan t neoplasm s of the cervix;R ecorded Elsewher e: No Locat ion: [facility] S ource: EHR Paste Mixing Supervisor gurdeep: N Apolloti ce ID: 0001 Eugeen lable Time: 11:00:00 AM Nneka siddiqui [facility] 14:42:50 Finding of regulari ty of menstrua l cycle Completed 201510/17/2020 Irregula r menstrua tion, unspecif ied;Jaya rded Elsewher e: No Locat ion: [facility] S ource: EHR Paste Mixing Supervisor gurdeep: N Apolloti ce ID: 0001 Eugene lable Time: 03:30:00 PM Nneka siddiqui [facility] 14:42:58 Obesity [id number] Completed 201310/17/2020 Obesity; Recorded Elsewher e: No Locat ion: [facility] S ource: EHR Paste Mixing Supervisor gurdeep: N Apolloti ce ID: 0001 Eugene lable Time: 09:30:00 AM Nneka siddiqui [facility] 14:43:37 Depressi ve disorder [id number] Completed 201610/17/2020 Depressi on;Recor ded Elsewher e: No Locat ion: [facility] S ource: EHR Paste Mixing Supervisor gurdeep: N Apolloti ce ID: 0001 Eugene lable Time: 02:15:00 PM Nneka siddiqui [facility] 14:43:32 Adult health examinat ion Completed 201210/17/2020 Routine Medical Exam;Rec orded Elsewher e: No Locat ion: [facility] S ource: EHR Paste Mixing Supervisor gurdeep: N Apolloti ce ID: 0001 Eugene lable Time: 02:30:00 PM Nneka siddiqui [facility] 14:43:[address] Concept Completed 201710/17/2020 Maternal care for oth abnormal ity and damage, unsp;Rec orded Elsewher e: No Locat ion: [facility]: N Apolloti ce ID: 0001 Eugene lable Time: 01:00:00 PM Nneka siddiqui [facility] 14:43:09 Female genital organ symptoms [id number] Completed 201210/17/2020 Unspecif ied symptom associat ed with female genital organs;R ecorded Elsewher e: No Locat ion: [facility] S ource: EHR Paste Mixing Supervisor gurdeep: N Apolloti ce ID: 0001 Eugene lable Time: 05:45:00 PM Nneka siddiqui [facility] 14:42:53 Gestatio n period, 10 weeks [id number] Completed 201610/17/2020 10 weeks gestatio n of pregnanc y;Record ed Elsewher e: No Locat ion: [facility] S ource: EHR Paste Mixing Supervisor gurdeep: N Apolloti ce ID: 0001 Eugene lable Time: 01:30:00 PM Nneka siddiqui [facility] 14:43:[address] Concept Completed 201510/17/2020 Encntr for laboratory coordinator exam (general ) (routine ) w/o abn findings ;Recorde d Elsewher e: No Locat ion: [facility] S ource: [facility] gurdeep: N Apolloti ce ID: 0001 Eugene lable Time: 11:00:00 AM Nneka siddiqui, [facility] 14:43:27 Speciali zed medical examinat ion Completed 201410/17/2020 ROUTINE MUSIC ARTIST EXAMINAT ION;Jaya rded Elsewher e: No Locat ion: [facility] g[facility]: N Apolloti ce ID: 0001 Eugene lable Time: 10:45:00 AM Nneka siddiqui, [facility] 14:43:50 Cyst of ovary Completed 201710/17/2020 Unspecif ied ovarian cyst, unspecif ied side;Rec orded Elsewher e: No Locat ion: [facility] S ource: EHR Paste Mixing Supervisor gurdeep: N Apolloti ce ID: 0001 Eugene lable Time: 02:15:00 PM Nneka siddiqui [facility] 14:42:55 Abdomina l pain [id number] Completed 201610/17/2020 Abdomina l pain;Rec orded Elsewher e: No Locat ion: [facility] S ource: EHR Paste Mixing Supervisor gurdeep: N Practi ce ID: 0001 Eugene lable Time: 10:00:00 AM Nneka siddiqui [facility] 14:42:54 Pregnanc y detectio n examinat ion Completed 201610/17/2020 Encounte r for pregnanc y test, result positive ;Recorde d Elsewher e: No Locat ion: [facility] S ource: [facility] g[facility]deep: N Apolloti ce ID: 0001 Eugene lable Time: 09:00:00 AM Nneka Stewart [facility] 14:44:04 Ultrason ography Completed 201210/17/2020 Antenata l screenin g for malforma tion using ultrason ics;Jaya rded Elsewher e: No Locat ion: [facility] S ource: EHR Paste Mixing Supervisor gurdeep: N Apolloti ce ID: 0001 Eugene lable Time: 04:45:00 PM Nnekajorge Stewart [facility] 14:42:44 Antenata l screenin g Completed 201210/17/2020 Antenata l screenin g for malforma tion using ultrason ics;Jaya rded Elsewher e: No Locat ion: [facility] S ource: [facility] g[facility]deep: N Practi ce ID: 0001 Eugene lable Time: 04:45:00 PM Nneka siddiqui [facility] 14:43:13 Congenit al malforma tion [id number] Completed 201210/17/2020 Antenata l screenin g for malforma tion using ultrason ics;Jaya rded Elsewher e: No Locat ion: [facility] S ource: EHR Paste Mixing Supervisor gurdeep: N Practi ce ID: 0001 Eugene lable Time: 04:45:00 PM [facility] 14:43:23 Left lower quadrant pain [id number] Completed 201210/17/2020 Abdomina l pain, left lower quadrant ;Recorde d Elsewher e: No Locat ion: [facility] S ource: EHR Paste Mixing Supervisor gurdeep: N Apolloti ce ID: 0001 Eugene lable Time: 09:00:00 AM Nneka siddiqui [facility] 14:43:24 [facility] 25-29 [facility] [id number] Completed 201510/17/2020 Body mass index (BMI) 29.0-29. 9, adult;Re corded Elsewher e: No Locat ion: [facility] S ource: [facility] g[facility]deep: N Practi ce ID: 0001 Eugene lable Time: 11:00:00 AM Nneka siddiqui, [facility] 14:42:42 Cyst of ovary [id number] Completed 201510/17/2020 Unspecif ied ovarian cyst, left side;Rec orded Elsewher e: No Locat ion: [facility] S ource: EHR Paste Mixing Supervisor gurdeep: N Apolloti ce ID: 0001 Eugene lable Time: 10:00:00 AM Nneka siddiqui [facility] 14:44:08 Neoplasm of uncertai n behavior of ovary [id number] Completed 201210/17/2020 Neoplasm of uncertai n behavior of ovary;Re corded Elsewher e: No Locat ion: [facility] S ource: EHR Paste Mixing Supervisor gurdeep: N Apolloti ce ID: 0001 Eugene lable Time: 02:15:00 PM Nneka siddiqui [facility] 14:44:13 Gestatio n period, 26 weeks [id number] Completed 201710/17/2020 26 weeks gestatio n of pregnanc y;Record ed Elsewher e: No Locat ion: [facility] S ource: EHR Paste Mixing Supervisor gurdeep: N Practi ce ID: 0001 Eugene lable Time: 01:00:00 PM Nneka Terryrick siddiqui [facility] 14:43:46 Gestatio n period, 31 weeks [id number] Completed 201710/17/2020 31 weeks gestatio n of pregnanc y;Record ed Elsewher e: No Locat ion: Zoila payne [facility] S ource: EHR Paste Mixing Supervisor gurdeep: N Apolloti ce ID: 0001 Eugene lable Time: 09:00:00 AM Nneka siddiqui, [facility] 14:44:00 Pregnanc y [id number] Completed 201210/17/2020 state, incident al;Recor ded Elsewher e: No [facility] S ource: EHR Paste Mixing Supervisor gurdeep: N Apolloti ce ID: 0001 Eugene lable Time: 09:00:00 AM Nneka Stewart [facility], [facility] 14:44:05 Pregnanc y test negative [id number] Completed 201510/17/2020 Encounte r for pregnanc y test, result negative ;Recorde d Elsewher e: No Locat ion: [facility] S ource: EHR Paste Mixing Supervisor gurdeep: N Apolloti ce ID: 0001 Eugene lable Time: 10:45:00 AM Nneka siddiqui, [facility] 14:43:17 Routine antenata l care Completed 201210/17/2020 Supervis ion of other normal pregnanc y;Record ed Elsewher e: No Locat ion: [facility] nolvia [facility] S ource: EHR Paste Mixing Supervisor gurdeep: N Apolloti ce ID: 0001 Eugene lable Time: 02:30:00 PM Nneka siddiqui, [facility] 14:42:38 Hirmelisa meyer [id number] Completed 201610/17/2020 Lucía meyer;Record ed Elsewher e: No Locat ion: [facility] S ource: EHR Paste Mixing Supervisor gurdeep: N Practi ce ID: 0001 Eugene lable Time: 10:00:00 AM Nneka siddiqui [facility] 14:43:34 Nausea and vomiting [id number] Completed 201210/17/2020 Nausea And Vomiting ;Recorde d Elsewher e: No Locat ion: Zoila payne [facility] S ource: [facility] g[facility]: N Apolloti ce ID: 0001 Eugene lable Time: 05:45:00 PM Nneka siddiqui [facility] 14:42:45 Pelvic and perineal pain [id number] Completed 201610/17/2020 Pelvic and perineal pain;Rec orded Elsewher e: No [facility] S ource: [facility] gurdeep: Esther Hannah ce ID: 0001 Eugene lable Time: 02:30:00 PM Nneka siddiqui [facility] 14:43:21 Antenata l screenin g for malforma tion Completed 201610/17/2020 Encounte r for antenata l screenin g for malforma tions;Re corded Elsewher e: No Locat ion: Rox nolvia [facility] S ource: EHR Paste Mixing Supervisor gurdeep: N Brielle ce ID: 0001 Eugene lable Time: 12:00:00 AM Nneka siddiqui [facility] 14:44:03 Amenorrh ea [id number] Completed 201210/17/2020 Absence of menstrua tion;Rec orded Elsewher e: No Locat ion: Zoila payne [facility] S ource: EHR Paste Mixing Supervisor gurdeep: N Apolloti ce ID: 0001 Eugene lable Time: 03:15:00 PM Nneka siddiqui [facility] 14:42:40 Breast lump [id number] Completed 201310/17/2020 Breast mass;Rec orded Elsewher e: No Locat ion: [facility] nolvia [facility] S ource: EHR Paste Mixing Supervisor gurdeep: N Apolloti ce ID: 0001 Eugene lable Time: 10:15:00 AM Nneka siddiqui [facility] 1 14:44:10 Speciali rose medical examinat ion Completed 201101/11/2012 Gynecolo gical Examinat ion;Jaya rded Elsewher e: No Locat ion: Zoila payne [facility] S ource: EHR Paste Mixing Supervisor gurdeep: N Apolloti ce ID: 0001 Eugene lable Time: 01:30:00 PM Nneka siddiqui [facility] 1 14:43:50 Dysfunct ional uterine bleeding Completed 201101/11/2012 Other disorder s of menstrua tion and other abnormal bleeding from female genital tract;Re corded Elsewher e: No [facility]: EHR Paste Mixing Supervisor gurdeep: N Apolloti ce ID: 0001 Eugene lable Time: 01:45:00 PM Not Available [facility] 16:58:06 Postpart um care Completed 201310/17/2020 Post Followup ;Recorde d Elsewher e: No Locat ion: [facility] S ource: EHR Paste Mixing Supervisor gurdeep: N Apolloti ce ID: 0001 Eugene lable Time: 04:45:00 PM Nneka siddiqui [facility] 1 14:42:37 finding Completed 201710/17/2020 Matern care for oth or susp poor fetl grth, third tri, unsp;Rec orded Elsewher e: No Locat ion: [facility] S ource: EHR Paste Mixing Supervisor gurdeep: N Apolloti ce ID: 0001 Eugene lable Time: 09:00:00 AM Nneka siddiqui [facility] 1 14:43:11 Uterine size for dates discrepa ncy Completed 201610/17/2020 Uterine size-malathi e discrepa ncy, first trimeste r;Record ed Elsewher e: No Locat ion: [facility] S ource: EHR Paste Mixing Supervisor gurdeep: N Apolloti ce ID: 0001 Eugene lable Time: 01:00:00 PM Nneka siddiqui [facility] 1 14:43:05 Evaluati on finding Completed 201610/17/2020 Hematuri a, unspecif ied;Jaya rded Elsewher e: No [facility]: EHR Paste Mixing Supervisor gurdeep: N Apolloti ce ID: 0001 Eugene lable Time: 10:00:00 AM Nneka Stewart [facility] 14:43:20 Uterine size for dates discrepa [facility] [id number] Completed 201210/17/2020 UTERINE SIZE LETITIA-ANTE PAR;Jaya rded Elsewher e: No [facility]: EHR Paste Mixing Supervisor gurdeep: N Apolloti ce ID: 0001 Eugene lable Time: 03:00:00 PM Nneka siddiqui [facility] 14:43:40 Complica tion related to pregnanc y Completed 201310/17/2020 Antepart um edema or excessiv e weight gain;Rec orded Elsewher e: No Locat ion: [facility] S ource: EHR Paste Mixing Supervisor gurdeep: N Apolloti ce ID: 0001 Eugene lable Time: 05:15:00 PM Nneka siddiqui [facility] 14:43:55 Screenin g for malignan t neoplasm of cervix Completed 201101/11/2012 Screenin g for malignan t neoplasm s of the cervix;R ecorded Elsewher e: No Locat ion: [facility] S ource: EHR Paste Mixing Supervisor gurdeep: N Apolloti ce ID: 0001 Eugene lable Time: 01:30:00 PM Nneka siddiqui [facility] 14:42:50 Screenin g for malignan t neoplasm of cervix Completed 201101/11/2012 Screenin g for malignan t neoplasm s of the cervix;R ecorded Elsewher e: No Locat ion: [facility] S ource: EHR Paste Mixing Supervisor gurdeep: Esther Hannah ce ID: 0001 Eugene lable Time: 01:45:00 PM Nneka Stewart [facility] 14:42:50 Speciali zed medical examinat ion Completed 201410/17/2020 Other specifie d chlamydi al diseases ;Recorde d Elsewher e: No Locat ion: [facility] S ource: EHR Paste Mixing Supervisor gurdeep: Esther Hannah ce ID: [id number] Eugene lable Time: 10:45:00 AM Nnekajorge Stewart [facility], [facility] 14:43:52 Microsco pic hematuri a [id number] Completed 201410/17/2020 [facility] HEMATURI A;Record ed Elsewher e: No Locat ion: [facility] S ource: EHR Paste Mixing Supervisor gurdeep: Esther Hannah ce ID: [id number] Eugene lable Time: 10:45:00 AM Nneka siddiqui, [facility] [facility] 14:42:51 Benign essentia l hyperten gifty [id number] Completed 201310/17/2020 Hyperten gifty, Benign;R ecorded Elsewher e: No Locat ion: [facility] S ource: EHR Paste Mixing Supervisor gurdeep: Esther Hannah ce ID: 0001 Eugene lable Time: 10:15:00 AM Nneka Stewart [facility], [facility] 14:42:35 Atypical squamous cells of undeterm ined signific ance on cervical Papanico laou smear [id number] Completed 201110/17/2020 Papanico laou smear of cervix with atypical squamous cells of undeterm ined signific ance (ASC-US) ;Recorde d Elsewher e: No Locat ion: [facility] S ource: EHR Paste Mixing Supervisor gurdeep: N Practi ce ID: 0001 Eugene lable Time: 01:45:00 PM [facility] 14:43:43 Dyspareu avelino [id number] Completed 201101/11/2012 Dyspareu avelino;Jaya rded Elsewher e: No Locat ion: [facility] S ource: EHR Paste Mixing Supervisor gurdeep: N Practi ce ID: 0001 Eugene lable Time: 01:45:00 PM Not Available [facility] 0 16:58:10 Venereal disease screenin g Completed 201410/17/2020 Screenin g examinat ion for venereal disease; Recorded Elsewher e: No Locat ion: [facility] S ource: EHR Paste Mixing Supervisor gurdeep: N Practi ce ID: 0001 Eugene lable Time: 10:45:00 AM Nneka Terry siddiqui, [facility] 14:42:48 Female proctoce le without uterine prolapse Completed 201010/17/2020 Rectocel e;Practi ce ID: 0001 Nneka Terry [facility], [facility] 14:43:59 Disorder of breast [id number] Completed 201110/17/2020 DISORDER S BREAST NEC;Prac mirian ID: 0001 Nneka Terry siddiqui, [facility] 14:44:06 Hydatidi form mole, benign [id number] Completed 201210/17/2020 Hydatidi form mole;Pra ctice ID: 0001 Nneka siddiqui, [facility] 14:43:38 Delivery normal [id number] Completed 201310/17/2020 Normal delivery ;Practic e ID: 0001 Nneka Stewart [facility], [facility] 14:43:47 prematur e rupture of membrane s [id number] Completed 201710/17/2020 Pretrm kirsty ROM, unsp time betw rupt and onst labr, 3rd tri;Prac mirian ID: 0001 Nneka Stewart [facility] 14:43:25 Problem Notes None recorded. Procedures Surgical History Date Name Laterality Status Provider Name and Address Organization Details Recorded Time 10/21/19 21 Date of Last Pap Smear completed [facility] 08/17/2022 10:09:10 12/01/19 18 Tubal Ligation completed [facility] 08/17/2022 10:52:52 04/25/19 17 Tonsillectomy completed [facility] 08/17/2022 10:51:57 04/25/19 16 hernia repair completed [facility] 08/17/2022 10:53:58 09/07/19 13 Laparoscopy completed [facility] 08/17/2022 10:53:25 06/17/19 13 Colposcopy completed [facility] 08/17/2022 10:53:37 06/17/19 12 Colposcopy completed Nneka Doran [facility] 10/17/2020 14:49:46 Colonoscopy completed [facility] 08/17/2022 10:37:20 Imaging Results None recorded. Procedure Notes None recorded. Medical Equipment None Reported. Allergies Allergen ID Allergen Name Allergen Category Reaction Reaction Severity Criticality Documentation Date Start Date Code Code System Note Provider Name and Address Organization Details Recorded Time 844 amoxicill in medicatio n Not available Not available Not available 09/26/2019 723 RxNorm [facility] 0 14:49:27 845 hydrocodo ne Not available Not available Not available Not available 09/26/2019 5489 RxNorm Dacia siddiqui, [facility] 0 14:49:39 846 Medicinal product containin g penicilli n and acting as antibacte rial agent (product) medicatio n Not available Not available Not available 09/26/2019 47559 05 SNOMED Dacia siddiqui, [facility] 0 14:49:48 847 shellfish derived food,medi cation Not available Not available Not available 09/26/2019 [facility] 0 14:49:59 Medications Name Sig Start Date Stop Date Status Note LastModified by Organization Details LastModified Time Miralax 17 gram oral powder packet take 1 packet by oral route every day mixed with 8 oz. water, juice, soda, coffee or tea 12/14 completed Prescrib ed Elsewher e: Yes Loca tion: [facility] odify By: antoine wrayunter DateTime : 02/08/20 17 01:45:00 PM Not Available Not Available Not Available Colace 100 mg capsule take 1 capsule by oral route every day at bedtime as needed 12/14 completed Prescrib ed Elsewher e: Yes Loca tion: [facility] odify By: antoine wrayuntnaif DateTime : 02/08/20 17 01:45:00 PM Not Available Not Available Not Available venlafaxi ne ER 37.5 mg capsule,e xtended release 24 hr take 1 capsule by oral route every day with food 11/01 completed Prescrib ed Elsewher e: Yes Loca tion: [facility] odify By: antoine wrayunter DateTime : 01/21/20 16 11:00:00 AM Not Available Not Available Not Available paroxetin e 10 mg tablet take 1 tablet by oral route every day 01/10 completed Prescrib ed Elsewher e: Yes Loca tion: Zoila payne [facility] odify By: lisy singh DateTime : 06/07/19 12 01:45:00 PM Not Available Not Available Not Available Compazine 10 mg tablet take 1 tablet by oral route 3 times every day 01/20 completed Prescrib ed Elsewher e: No Locat ion: Zoila payne [facility] odify By: freida dailey DateTime : 01/14/20 17 04:01:18 PM Not Available Not Available Not Available sertralin e 100 mg tablet take 1 tablet by oral route every day active Not Available Not Available No t Available folic acid 400 mcg tablet take 1 tablet by oral route every day 12/14 completed Prescrib ed Elsewher e: Yes Loca tion: Zoila payne [facility] odify By: antoine guerrier DateTime : 02/08/20 17 01:45:00 PM Not Available Not Available Not Available Reglan 10 mg tablet take 1 tablet (10MG) by oral route 3 times every day 30 minutes before meals and at bedtime 01/15 completed Prescrib ed Elsewher e: No Locat ion: Zoila payne [facility] odify By: gregory guerrier DateTime : 01/24/20 13 04:22:07 PM Not Available Not Available Not Available Zofran 8 mg tablet take 1 tablet (8MG) by oral route every 12 hours 01/15 completed Prescrib ed Elsewher e: No Locat ion: Zoila payne [facility] odify By: gregory wrayuntnaif DateTime : 02/08/20 13 05:45:00 PM Not Available Not Available Not Available Zofran ODT 4 mg disintegr ating tablet DISSOLVE 1 TABLET ON TOP OF TONGUE EVERY 12 HOURS 12/14 completed Prescrib ed Elsewher e: No Locat ion: Zoila [facility] odify By: antoine guerrier DateTime : 08/05/19 18 01:57:02 PM Not Available Not Available Not Available promethaz ine 50 mg tablet take 1 tablet by oral route every 8 - 12 hours as needed 02/07 completed Prescrib ed Elsewher e: No Locat ion: Zoila payne [facility] odify By: josé miguel singh DateTime : 01/25/20 17 10:41:44 AM Not Available Not Available Not Available Nortrel 0.5/35 (28) 0.5 mg-35 mcg tablet take 1 tablet by oral route every day 01/06 completed Prescrib ed Elsewher e: No Locat ion: Zoila payne [facility] odify By: francoise Payne ncounter DateTime : 01/16/20 14 09:30:00 AM Not Available Not Available Not Available Vitamin D2 1,250 mcg (50,000 unit) capsule take 1 capsule ([id number] ITS) by oral route every week 01/15 completed Prescrib ed Elsewher e: No Locat ion: [facility] nolvia [facility] odify By: gregory Payne ncounter DateTime : 05/22/19 14 01:38:07 PM Not Available Not Available Not Available nabumeton e 500 mg tablet take 1 tablet by oral route 2 times every day 12/02 completed Prescrib ed Elsewher e: Yes Loca tion: Zoila payne [facility] odify By: antoine wrayunter DateTime : 11/02/19 17 11:30:00 AM Not Available Not Available Not Available Tigan 300 mg capsule take 1 capsule by oral route 3 times every day as needed 12/14 completed Prescrib ed Elsewher e: No Locat ion: Zoila payne [facility] odify By: antoine Payne ncounter DateTime : 02/08/20 17 01:45:00 PM Not Available Not Available Not Available Bactrim DS 800 mg-160 mg tablet take 1 tablet by oral route every 12 hours 01/20 completed Prescrib ed Elsewher e: No Locat ion: Zoila [facility] odify By: freida dailey DateTime : 12/03/19 17 10:00:00 AM Not Available Not Available Not Available Brittny 0.35 mg tablet take 1 tablet by oral route every day 01/17 completed Prescrib ed Elsewher e: No Locat ion: Zoila payne [facility] odify By: cinda singh DateTime : 04/05/20 14 01:50:41 PM Not Available Not Available Not Available escitalop maris 5 mg tablet take 1 tablet by oral route every day 05/30 completed Prescrib ed Elsewher e: Yes Loca tion: Zoila payne [facility] odify By: freida dailey DateTime : 11/02/19 17 11:30:00 AM Not Available Not Available Not Available sertralin e 10/17 completed Not Available Not Available Not Available CitraNata l Assure 35 mg-1 mg-50 mg-300 mg oral pack take 1 Tablet by Oral route every day for 90 days 04/07 completed Prescrib ed Elsewher e: No Locat ion: Rox nolvia [facility] odify By: francoise guerrier DateTime : 01/09/20 13 02:30:00 PM Not Available Not Available Not Available Diclegis 10 mg-10 mg tablet,de layed release take 1 tablet by oral route every day in the morning, 1 tablet in the mid-afte rnoon, and 2 tablets at bedtime 12/14 completed Prescrib ed Elsewher e: No Locat ion: Zoila payne [facility] odify By: antoine guerrier DateTime : 07/12/19 18 01:45:00 PM Not Available Not Available Not Available Merrick prince Complete chewable tablet 10/17 completed Prescrib ed Elsewher e: Yes Loca tion: Zoila payne [facility] odify By: antoine guerrier DateTime : 02/08/20 17 01:45:00 PM Not Available Not Available Not Available Vitals Date Recorded Body height Body mass index (BMI) Body weight Systolic blood pressure Diastolic blood pressure Systolic blood pressure Diastolic blood pressure Provider Name and Address Organization Details Last Updated DateTime 1 170.18 cm 32.6 kg/m2 59407.2 1 g 140 mm[Hg] 99 mm[Hg] 135 mm[Hg] 90 mm[Hg] Nneka [place] [facility] 1 16:39:46 Date Recorded Body weight Body mass index (BMI) Body height Systolic blood pressure Diastolic blood pressure Provider Name and Address Organization Details Last Updated DateTime 09/27/2019 62442.54 g 34 kg/m2 170.18 cm 143 mm[Hg] 94 mm[Hg] Dacia Sharp [facility] 0 15:53:08 Date Recorded Body height Body mass index (BMI) Body weight Systolic blood pressure Diastolic blood pressure Provider Name and Address Organization Details Last Updated DateTime 08/17/2022 170.18 cm 33.5 kg/m2 52337.77 g 138 mm[Hg] 88 mm[Hg] Maria A Jeff [facility] 3 10:36:28 Date Recorded Body height Body mass index (BMI) Body weight Provider Name and Address Organization Details Last Updated DateTime 09/21/2022 170.18 cm 34 kg/m2 94704.54 g Mireya Bennett [facility] 09/21/2022 14:25:51 Date Recorded Systolic blood pressure Diastolic blood pressure Provider Name and Address Organization Details Last Updated DateTime 09/21/2022 122 mm[Hg] 76 mm[Hg] Diana Farah, [facility] [address], [place], [address], [facility] 09/21/2022 14:38:36 Social History Question Answer Notes LastModified by Organizat ion Details LastModified Time Tobacco Smoking Status Former Smoker Avelino Pedro chen, [facility] 09/21/2022 14:13:17 Do You Have An Advance Directive? No [email or web address] Information not available 10/20/2020 What Is Your Level Of Alcohol Consumption? Occasional Information not available 09/27/2019 How Many Years Have You Consumed Alcohol? 12 [email or web address] Information not available 10/20/2020 Are You Blind Or Do You Have Difficulty Seeing? No [email or web address] Information not available 10/20/2020 What Is Your Level Of Caffeine Consumption? Moderate [email or web address] Information not available 10/20/2020 How Much Tobacco Do You Chew? None [email or web address] Information not available 08/17/2022 In The 14 Days Before Symptom Onset, Have You Had Close Contact With A Laboratory-confir med COVID-19 While That Case Was Ill? No [email or web address] Information not available 10/20/2020 In The 14 Days Before Symptom Onset, Have You Had Close Contact With A Person Who Is Under Investigation For COVID-19 While That Person Was Ill? No [email or web address] Information not available 10/20/2020 Have You Been To An Area Known To Be High Risk For COVID-19? No [email or web address] Information not available 10/20/2020 Are You Deaf Or Do You Have Serious Difficulty Hearing? No [email or web address] Information not available 10/20/2020 What Type Of Diet Are You Following? REGULAR Information not available 10/20/2020 What Is The Highest Grade Or Level Of School You Have Completed Or The Highest Degree You Have Received? 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 Yes [email or web address] Information not available 10/20/2020 Have You Ever Been Counseled For Unhealthy Alcohol Use? No [email or web address] Information not available 09/21/2022 Do You Use Protection During Sex? No [email or web address] Information not available 10/20/2020 Do You Use Your Seat Belt Or Car Seat Routinely? Yes [email or web address] Information not available 10/20/2020 Do You Have Smoke And Carbon Monoxide Detectors In Your Home? Yes [email or web address] Information not available 10/20/2020 At What Age Did You Start Smoking Tobacco? 17 Information not available 10/20/2020 How Much Tobacco Do You Smoke? No [email or web address] Information not available 08/17/2022 Do You Feel Stressed (tense, Restless, Nervous, Or Anxious, Or Unable To Sleep At Night)? DX18158-2 [email or web address] Information not available 10/20/2020 Do You Use Any Illicit Or Recreational Drugs? No Information not available 10/20/2020 Do You Use Sunscreen Routinely? Yes [email or web address] Information not available 10/20/2020 Has Tobacco Cessation Counseling Been Provided? No Information not available 09/21/2022 Have You Used IV Drugs? No [email or web address] Information not available 10/20/2020 Do You Or Have You Ever Used Any Other Forms Of Tobacco Or Nicotine? No Information not available 09/21/2022 Sex: Unknown Functional Status Question Answer Note LastModified by Organizat ion Details LastModified Time Do you have difficulty walking or climbing stairs? No [email or web address] Information not available 09/21/2022 Are you able to walk? YESWOREST [email or web address] Information not available 10/20/2020 Are you able to care for yourself? Yes [email or web address] Information not available 09/21/2022 Do you have difficulty dressing or bathing? No [email or web address] Information not available 09/21/2022 What is your exercise level? Occasional Information not available 09/27/2019 Mental Status None recorded. Family History Relationship Description Onset Age of this Age Resolved Age Notes LastModified by Organization Details LastModified Time Maternal Grandmother Malignant tumor of breast [email or web address] Not available 08/17 10:37:19 Father Asthma [email or web address] Not available 08/17/2022 10:37:19 Mother Congenital prolapsed uterus [email or web address] Not available 2022 14:13:16 Mother Multiple sclerosis [email or web address] Not available 08/17 10:37:19 Maternal Grandfather Family history of malignant neoplasm of prostate [email or web address] Not available 2022 14:13:16 Maternal Grandfather Diabetes mellitus [email or web address] Not available 08/17 10:37:19 Brother Asthma [email or web address] Not availabl e 08/17/2022 10:37:19 Medical History Condition Response Allergies (Food, seasonal, environmental ) N Other Y Drug/Latex Allergies/Reactions Y Breast Cancer N Blood Transfusion N Dermatologic Disorders N Lung Disease N [...] Diagnosis SNOMED-CT Code Diagnosis ICD10 Code 6584 [facility] [address],[facility] [place] [address] 09/27/2019 15:39:36 10/17/2019 11:21:58 Gynecologic examination 29381360 Z01.419 [id number] [facility] [address],[facility] [place] [address] 10/20/2020 16:33:07 10/20/2020 16:54:39 Gynecologic examination 80563324 Z01.419 Z11.51 [id number] [facility] [address],[facility] [place] [address] 08/17/2022 10:17:15 08/19/2022 12:06:59 Lesion of vulva 247727649 N90.89 [id number] [facility] [address] [address] 09/21/2022 14:13:02 09/21/2022 15:27:26 Gynecologic examination 74538193 Z01.419 Health Concerns Section Related Observation LastModified by Organization Detai ls LastModified Time None Recorded Concern Status LastModified by Organization Details LastModified Time None Recorded Advance Directives Directive N: Payers Encounter Date Sequence Insurance Name Policy Number Policy Johnson Covered Member ID Johnson Member ID Guarantor Name 09/27/2019 1 [place] [id number] Manpreet [place] [id number] Manpreet [place] 10/20/2020 1 [place] [id number] Manpreet Monat[place] [id number] Manpreet [place] 08/17/2022 1 [place] [id number] Manpreet [place] [id number] Manpreet [place] 09/21/2022 1 [place] [id number] Manpreet [place] [id number] Manpreet [place] Notes Date Note Type Note [...] depression; No anxiety; No PMDD Chelsie siddiqui [facility] 09/27/2019 16:18:17 10/20/2020 text/html Annual GYNReport [...] outside and was extremely anxious. Chelsie siddiqui [facility] 10/20/2020 16:52:14 08/17/2022 text/html Lump in labia th at started Tuesday. Was firm and uncomfortable. Is better today. Chelsie siddiqui, [facility] 08/20/2022 07:35:53 09/21/2022 text/html Annual GYNReport [...] regular mammograms starting age 41 Diana Farah, [facility]- [address], [place], [address], [facility] 09/21/2022 14:41:21 OBGyn Episode Ob Episode Information Episode Created Date Number of Fetuses Patient Bloodtype Patient rh Status Prepregnancy Weight lbs Domestic Partner Domestic Partner Phone Father Name Recooperer Status 09/27/19 20 1 CLOSED Fetus Data [...] Domestic Partner Domestic Partner Phone Father Name Recooperer Status 09/27/19 20 1 CLOSED Fetus Data [...] Domestic Partner Domestic Partner Phone Father Name Recooperer Status 09/27/19 20 1 CLOSED Fetus Data [...]
--- OUTSIDE RECORDS SUMMARY | 2024-04-12 00:01 | XMS_ITS | Encounter Summary ---
Author Organization [facility] Address [address] [place] [address]. [place], [place] [address] [place] [address] Care Team Providers Care Guitar Maker Name Role Phone Unavailable Primary Care Provider Unavailabl e Encounter Details Date Type Department Care Team (Latest Contact Info) Description 02/28/2018 Scan [facility] , Generic Effie, Social History Tobacco Use Types Packs/Day Years Used Date Smoking Tobacco: Never Assessed Comments Unknown Sex and Gender Information Value Date Recorded Sex Assigned at Not on file Legal Sex Female 5:46 PM CDT Gender Identity Not on file Sexual Orientation Not on file documented as of this encounter Plan of Treatment Not on file documented as of this encounter Visit Diagnoses Not on filedocumented in this encounter
--- OUTSIDE RECORDS SUMMARY | 2024-04-12 00:01 | XMS_ITS | Encounter Summary ---
Author Organization [facility] Address [address] [place] [address]. [place], [place] [address] [place] [id number] Care Team Providers Care Unloader Operator Name Role Phone Farida Hernandez MD Primary Care Provider [phone] Encounter Details Date Type Department Care Team (Latest Contact Info) Description 02/01/2024 Travel Social History Tobacco Use Types Packs/Day Years Used Date Smoking Tobacco: Former Cigarettes Q uit: 2002 Smokeless Tobacco: Never Alcohol Use Standard Drinks/Week Comments Not Currently 0 (1 standard drink = 0.6 oz pur e alcohol) very rarely PHQ-2 Answer Date Recorded Patient Health Questionnaire-2 Score 0 02/01/2024 Comments Unknown Sex and Gender Information Value Date Recorded Sex Assigned at Not on file Legal Sex Female 5:46 PM CDT Gender Identity Not on file Sexual Orientation Not on file documented as of this encounter Plan of Treatment Not on file documented as of this encounter Visit Diagnoses Not on filedocumented in this encounter Care Teams Unloader Operator Relationship Specialty Start Date End Date Farida Hernandez MD [address] [place] [address] PCP - General INTERNAL MEDICINE 02/01/24 documented as of this encounter
--- OUTSIDE RECORDS SUMMARY | 2024-04-12 00:01 | XMS_ITS | Encounter Summary ---
Author Organization [facility] Address [address] [place] [address]. [place], [place] [address] [place] [address] Care Team Providers Care Ward Supervisor Name Role Phone Unavailable Primary Care Provider Unavailabl e Reason for Visit * Reason Comments MRI (SCAN) Encounter Details Date Type Department Care Team (Latest Contact Info) Description 12/06/2023 Scan [facility] Scanned, Doc Med Group MRI (SCAN) Social History Tobacco Use Types Packs/Day Years [...] Procedure Name Priority Date/Time Associated Diagnosis Comments MRI GENERIC 12/06/2023 documented in this encounter Results * MRI GENERIC (12/06/2023) Anatomical Region Laterality Modality Other 12/06/2023 us Doc [facility] Scanned SCANNING Final Resu lt documented in this encounter Visit Diagnoses Not on filedocumented in this encounter
--- OUTSIDE RECORDS SUMMARY | 2024-04-12 00:01 | XMS_ITS | Encounter Summary ---
Author Organization [facility] Address [address] [place] [address]. [place], [place] [address] [place] [address] Care Team Providers Care Diamond Setter Name Role Phone Unavailable Primary Care Provider Unavailabl e Encounter Details Date Type Department Care Team (Latest Contact Info) Description 12/13/2023 Scan [facility] Scanned, Doc [facility] Social History Tobacco Use Types Packs/Day Years [...]
--- OUTSIDE RECORDS SUMMARY | 2024-04-12 00:01 | XMS_ITS | Encounter Summary ---
Author Organization [facility] Address [address] [place] [address]. [place], [place] [address] [place] [address] Care Team Providers Care Presidential Support Specialist Name Role Phone Unavailable Primary Care Provider Unavailabl e Encounter Details Date Type Department Care Team (Latest Contact Info) Description 09/02/2016 Abstract [facility] [place] [address] [place] [address] Social History Tobacco Use Types Packs/Day Years [...]
--- OUTSIDE RECORDS SUMMARY | 2024-04-12 00:01 | XMS_ITS | Encounter Summary ---
Author Organization [facility] Address [address] [place] [address]. [place] [address] [place] [address] Care Team Providers Care Wallboard Worker Name Role Phone Unavailable Primary Care Provider Unavailabl e Encounter Details Date Type Department Care Team (Latest Contact Info) Description 02/16/2017 Abstract [facility] Medical Group Manpreet Walters MD [address] [place] [address] Social History Tobacco Use Types Packs/Day Years Used Date Smoking Tobacco: Never Assessed Comments Unknown Sex and Gender Information Value Date Recorded Sex Assigned at Not on file Legal Sex Female 5:46 PM CDT Gender Identity Not on file Sexual Orientation Not on file documented as of this encounter Last Filed Vital Signs Vital Sign Reading Time Taken Comments Blood Pressure 108/70 02/16/2017 11:56 AM CDT Pulse 84 02/16/2017 11:56 AM CDT Temperature - - Respiratory Rate - - Oxygen Saturation - - Inhaled Oxygen Concentration - - Weight 90.7 kg (200 lb) 02/16/2017 11:56 AM CDT Height 170.2 cm (5' 7 ) 02/16/2017 11:56 AM CDT Body Mass Index 31.32 02/16/2017 11:56 AM CDT documented in this encounter Progress Notes * Manpreet Walters MD - 02/16/2017 12:00 PM CDT Referred By / Reason Referred By Reason: Patient was referred by Primary Care Physician Name: Dr. Farida Hernandez Reason: Assessment 1. Former smoker (V15.82) (Z87.891) 2. Difficulty breathing (786.09) (R06.89) 3. Urticaria (708.9) (L50.9) Plan Difficulty breathing, Urticaria 1. QU-IMMUNOGLOBULINS A,G,M,E PANEL CIAR [id number]; Status:Resulted - Requires Verification; Done: 16Feb2017 12:11PM Performed:[facility]; Due:18Mar2017;Ordered; For:Difficulty breathing, Urticaria; Ordered By:Manpreet Walters; 2. QU-FOOD ALLERGY PROFILE [id number]; Status:Resulted - Requires Verification; Done: 16Feb2017 12:54PM Performed:[facility]; Due:18Mar2017;Ordered; For:Difficulty breathing, Urticaria; Ordered By:Manpreet Walters; Urticaria 3. *Diagnostic intradermal In Office; Status:Complete; Done: 16Feb2017 Perform:In Office; Due:26Feb2017; Last Updated By:Sofie Richard; 02/16/2017 12:11:54 PM;Ordered; For:Urticaria; Ordered By:Manpreet Walters; 4. *Diagnostic puncture In Office; Status:Complete; Done: 16Feb2017 Perform:In Office; Due:26Feb2017; Last Updated By:Sofie Richard; 02/16/2017 12:11:53 PM;Ordered; For:Urticaria; Ordered By:Manpreet Walters; 5. *Spirometry In Office; Status:Complete; Done: 16Feb2017 Perform:In Office; Due:26Feb2017; Last Updated By:Sofie Richard; 02/16/2017 12:11:53 PM;Ordered; For:Urticaria; Ordered By:Manpreet Walters; 6. CIAR-CBC; Status:Resulted - Requires Verification; Done: 16Feb2017 12:14PM Performed:In Office; Due:18Mar2017; Last Updated By:Helga Aldrich; 02/16/2017 12:15:50 PM;Ordered; For:Urticaria; Ordered By:Manpreet Walters; 7. QU-EOSINOPHIL COUNT ( B ) 425; Status:Resulted - Requires Verification; Done: 16Feb2017 12:11PM Performed:[facility]; Due:18Mar2017;Ordered; For:Urticaria; Ordered By:Manpreet Walters; PLAN COMMENTS: 1. Diagnostic and allergy testing. 2. Lab work. 3. Spirometry. 4. Acute urticaria - likely resolved. 5. Mild allergic rhinitis - no need for immunotherapy. 6. No evidence of shellfish allergy. Okay to consume shellfish. Try first with antihistamine prior. 7. Will contact after RAST is back for plan. 8. Follow up in 3 months in [place]. Reason For Visit New Patient Visit History of Present Illness HPI: The patient presents with some issues with seasonal allergies. Had severe episode of hives. Seems overall stable now but has had many episodes of urticarial reactions. Suspected this was shrimp but no prior history of food allergies. She is on no medications except Zofran, Escitalopram plus Flintstones Complete vitamins. Review of Systems Constitutional: Negative. Head Eyes Ears Nose and Throat: nasal discharge and sore throat nasal congestion sneezing Cardiovascular: Negative. Respiratory: Negative. Gastrointestinal: vomiting and nausea Genitourinary: urinary frequency Musculoskeletal: Negative. Integumentary: rash Neurological: dizziness Psychiatric: anxiety Endocrine: Negative. Hematologic/Lymphatic: Negative. Active Problems 1. Difficulty breathing (786.09) (R06.89) 2. Umbilical hernia (553.1) (K42.9) 3. Urticaria (708.9) (L50.9) Past Medical History 1. History of bladder infections (V13.02) (Z87.440) 2. History of hemorrhoids (V13.89) (Z87.19) 3. History of hypertension (V12.59) (Z86.79) 4. History of Migraines (346.90) (G43.909) Surgical History 1. History of tonsillectomy 2. History of umbilical hernia repair Family History 1. Family history of asthma (V17.5) (Z82.5) Social History ?? Former smoker (V15.82) (Z87.891) ?? Current Meds 1. Escitalopram Oxalate 20 MG Oral Tablet; Therapy: (Recorded:16Feb2017) to Recorded 2. Folic Acid 800 MCG Oral Tablet; Therapy: (Recorded:16Feb2017) to Recorded 3. Ondansetron 4 MG Oral Tablet Disintegrating; Therapy: (Recorded:16Feb2017) to Recorded Allergies 1. Amoxicillin TABS Recorded By: Yvette Gandara; 06/18/2013 12:48:46 PM Vitals Recorded: 16Feb2017 11:56AM Heart Rate 84 Systolic 108 Diastolic 70 O2 Saturation 98, RA Height 5 ft 7 in Weight 200 lb BMI Calculated 31.32 BSA Calculated 2.02 Physical Exam Constitutional: General appearance: Normal. Head and Face: Head and face: Normal. Palpation of the face and sinuses: Normal. Eyes: Conjunctiva and lids: Normal. Pupils and irises: Normal. Ophthalmoscopic examination: Normal. Ears, Nose, Mouth, and Throat: External inspection of ears and nose: Normal. Nasal mucosa, septum, and turbinates: Normal. Lips, teeth, and gums: Normal. Oropharynx: Normal. the inner ear showed no abnormalities.. Neck: Neck Appearance: Normal. Cardiovascular Auscultation of heart: Normal. Examination of extremities for edema: Normal. Pulmonary Chest: Normal. Respiratory effort: Normal. Percussion of chest: Normal. Palpation of chest: Normal. Auscultation of lungs: Abnormal. Wheeze... Abdomen Examination of Abdomen: Normal. Liver and spleen: Normal. Lymphatic Palpation of lymph nodes in neck: Normal. Skin Skin and subcutaneous tissue: Normal. Musculoskeletal Inspection/palpation of digits and nails: Normal without clubbing or cyanosis. Muscle strength/tone: Normal. Psychiatric Mood and affect: Normal. Neurological Orientation to person, place, and time: Normal. Recent and remote memory: Demonstrates normal memory. Attention span and concentration: Normal thought process and attention span. Names objects, able to repeat phrases and speaks spontaneously. Signatures Electronically signed by : Manpreet Walters M.D.; May 16 2017 3:28PM CLERICAL SUPPORT SPECIALIST (Author) documented in this encounter Plan of Treatment Not on file documented as of this encounter Procedures Procedure Name Priority Date/Time Associated Diagnosis Comments ALLERGENS FOOD Routine 02/16/2017 12:54 PM CDT CBC, AUTO, NO DIFF Routine 02/16/2017 12 :14 PM CDT EOSINOPHIL COUNT Routine 02/16/2017 12:1 1 PM CDT MISCELLANEOUS LAB TEST Routine 7 12:11 PM CDT documented in this encounter Results * ALLERGENS FOOD (02/16/2017 12:54 PM CDT) ALLERGEN EGG WHITE <0.10 kU/L M [facility] TO EPIC CONVERSION RAST SCORING GUIDE 0 M [facility] TO EPIC CONVERSION ALLERGEN PEANUT <0.10 kU/L MED[facility] ROUP TO EPIC CONVERSION RAST SCORING GUIDE 0 M [facility] TO EPIC CONVERSION ALLERGEN WHEAT <0.10 kU/L MED[facility] OUP TO EPIC CONVERSION RAST SCORING GUIDE 0 M [facility] TO EPIC CONVERSION ALLERGEN WALNUT <0.10 kU/L MEDG ROUP TO EPIC CONVERSION RAST SCORING GUIDE 0 M [facility] TO EPIC CONVERSION ALLERGEN COD <0.10 kU/L [facility]OU P TO EPIC CONVERSION RAST SCORING GUIDE 0 M [facility] TO EPIC CONVERSION ALLERGEN MILK <0.10 kU/L MED[facility]O UP TO EPIC CONVERSION RAST SCORING GUIDE 0 M [facility] TO EPIC CONVERSION ALLERGEN SOYBEAN <0.10 kU/L MED GROUP TO EPIC CONVERSION RAST SCORING GUIDE 0 M [facility] TO EPIC CONVERSION ALLERGEN SHRIMP <0.10 kU/L MEDG ROUP TO EPIC CONVERSION RAST SCORING GUIDE 0 M [facility] TO EPIC CONVERSION ALLERGEN SCALLOP <0.10 kU/L MED GROUP TO EPIC CONVERSION RAST SCORING GUIDE 0 M [facility] TO EPIC CONVERSION ALLERGEN SESAME SEED <0.10 kU/L [facility] TO EPIC CONVERSION RAST SCORING GUIDE 0 M [facility] TO EPIC CONVERSION ALLERGEN YUSUF NUT <0.10 kU/L M [facility] TO EPIC CONVERSION RAST SCORING GUIDE 0 M [facility] TO EPIC CONVERSION ALLERGEN CASHEW NUT <0.10 kU/L [facility] TO EPIC CONVERSION RAST SCORING GUIDE 0 M [facility] TO EPIC CONVERSION ALLERGEN ALMOND <0.10 kU/L MEDG ROUP TO EPIC CONVERSION RAST SCORING GUIDE 0 M [facility] TO EPIC CONVERSION ALLERGEN SALMON <0.10 kU/L MEDG ROUP TO EPIC CONVERSION RAST SCORING GUIDE 0 M [facility] TO EPIC CONVERSION ALLERGEN TUNA <0.10 kU/L MED[facility]O UP TO EPIC CONVERSION RAST SCORING GUIDE 0 M [facility] TO EPIC CONVERSION INTERPRETATION See Below [facility] OUP TO EPIC CONVERSION Comment: Result Comment: ?? Specific ?Level of Allergen IGE Class ?kU/L ? Specific IGE Antibody ----- ? --------- ?0 ?<0.10 ? Absent/Undetectable ??0/1 ?0.10-0.34 ? Very Low Level ??1 ?0.35-0.69 ? Low Level ??2 ?0.70-3.49 ? Moderate Level ??3 ?3.50-17.4 ? High Level ??4 ?17.5-49.9 ? Very High Level ??5 ?50-100 ?Very High Level ??6 ?>100 ?Very High Level The clinical relevance of allergen results of 0.10-0.34 kU/L are undetermined and intended for specialist use. Allergens denoted with a include results using one or more analyte specific reagents. In those cases, the test was developed and its analytical performance characteristics have been determined by [facility]. It has not been cleared or approved by the U.S. Food and Drug Administration. This assay has been validated pursuant to the CLIA regulations and is used for clinical purposes. Test Performed at: [facility] [address] ??[id number] ? KAROL BLOCK DO,MPH 02/16/2017 12:5 4 PM CDT 02/16/2017 12:54 PM CDT Narrative [facility] TO EPIC CONVERSION - 02/17/2017 6:38 AM CDT Result Communication: No patient communication needed at this time us Manpreet Walters MD LABORATORY Final Result [facility] TO EPIC CONVERSION * (ABNORMAL) CBC, AUTO, NO DIFF (02/16/2017 12:14 PM CDT) WBC 7.2 4.0 - 10.0 10^3/uL [facility] TO EPIC CONVERSION LYMPHOCYTES 2.4 1.0 - 5.0 10^3/uL [facility] TO EPIC CONVERSION ABS. MID CELLS 0.6(L) 1.0 - 3.0 10^3/uL [facility] TO EPIC CONVERSION ABS. NEUTROPHILS 4.2 W 3-16 / M 3 -7 10^3/uL [facility] TO EPIC CONVERSION LYMPHOCYTES % 33.9 15.0 - 41.0 percent [facility] TO EPIC CONVERSION MID CELLS % 8.1(H) 0.5 - 8.0 percent [facility] TO EPIC CONVERSION NEUTROPHILS % 58.0 45.0 - 71.0 percent [facility] TO EPIC CONVERSION RBC 4.00(L) W 4.2-5.4 / M 4.6-6.2 10^6/uL [facility] TO EPIC CONVERSION HGB 12.9 W 12-16 / M 14-18.2 grams per deciliter [facility] TO EPIC CONVERSION HCT 37.1 W 37-47 / M 40-52 percent [facility] TO EPIC CONVERSION MCV 92.8 W 79-99 / M 80-100 fL [facility] TO EPIC CONVERSION MCH 32.3 27.0 - 34.0 pg [facility] TO EPIC CONVERSION MCHC 34.8 32.0 - 37.0 grams per deciliter [facility] TO EPIC CONVERSION RDW 12.6 11.5 - 15.1 percent [facility] TO EPIC CONVERSION PLT 238 150 - 400 10^3/uL [facility] TO EPIC CONVERSION MPV 7.1 0.0 - 40.0 fL [facility] UP TO EPIC CONVERSION 02/16/2017 12:1 4 PM CDT 02/16/2017 12:14 PM CDT Narrative [facility] TO EPIC CONVERSION - 02/16/2017 12:14 PM CDT Result Communication: No patient communication needed at this time Manpreet Walters MD LABORATORY Final Result Performing Organization Address [facility] de Phone Number [facility] TO EPIC CONVERSION * EOSINOPHIL COUNT (02/16/2017 12:11 PM CDT) Pathologist [facility] WBC 7.8 3.8 - 10.8 [facility] TO EPIC CONVERSION Comment:Result Comment: UNIT S: Thousand/uL ABS. EOSINOPHILS 86 15 - 500 cells/uL [facility] TO EPIC CONVERSION EOSINOPHILS 1.1 % [facility] TO EPIC CONVERSION Comment: Result Comment: Test Performed at: [facility] [place], [place] ??[id number] ? KAROL BLOCK DO,MPH 02/16/2017 12:1 1 PM CDT 02/16/2017 12:11 PM CDT Narrative [facility] TO EPIC CONVERSION - 02/17/2017 5:27 AM CDT Result Communication: No patient communication needed at this time Manpreet Walters MD LABORATORY Final Result Performing Organization Address [facility] Phone Number [facility] TO EPIC CONVERSION * MISCELLANEOUS LAB TEST (02/16/2017 12:11 PM CDT) Pathologist [facility] IMMUNOGLOBULIN A 229 81 - 463 mg/dL [facility] TO EPIC CONVERSION IGG 791 694 - 1618 mg/dL [facility] TO EPIC CONVERSION IGM 63 48 - 271 mg/dL [facility] TO EPIC CONVERSION IGE 12 <MV=219 kU/L [facility] TO EPIC CONVERSION Comment: Result Comment: Test Performed at: [facility] ??[id number] ? KAROL BLOCK DO,MPH 02/16/2017 12:1 1 PM CDT 02/16/2017 12:11 PM CDT Narrative [facility] TO EPIC CONVERSION - 02/17/2017 5:27 AM CDT Result Communication: No patient communication needed at this time Manpreet Walters MD LABORATORY Final Result Performing Organization Address [facility] Co de Phone Number [facility] TO EPIC CONVERSION documented in this encounter Visit Diagnoses Not on filedocumented in this encounter
--- OUTSIDE RECORDS SUMMARY | 2024-04-12 00:01 | XMS_ITS | Encounter Summary ---
Author Organization [facility] Address [address] [place] [address]. [place] [address] [place] [address] Care Team Providers Care Behavioral Health Care Coordinator Name Role Phone Unavailable Primary Care Provider Unavailabl e Reason for Visit * Reason Comments Colonoscopy Report (SCAN) Encounter Details Date Type Department Care Team ([facility] Contact Info) Description 11/29/2013 Scan HEALTH INFO SRVCS Scanned, Doc Med Group Colonoscopy Report (SCAN) Social History Tobacco Use Types Packs/Day [...] Procedure Name Priority Date/Time Associated Diagnosis Comments COLONOSCOPY GENERIC (SCAN ORDER) 11/29/2013 documented in this encounter Results * COLONOSCOPY GENERIC (SCAN ORDER) (11/29/2013) 11/29/2013 us Doc Med Group Scanned SCANNING Final Resu lt documented in this encounter Visit Diagnoses Not on filedocumented in this encounter
--- OUTSIDE RECORDS SUMMARY | 2024-04-12 00:01 | XMS_ITS | Encounter Summary ---
Author Organization [facility] Address [address] [place] [address]. [place] [address] [place] [address] Care Team Providers Care Manager Graphic Name Role Phone Unavailable Primary Care Provider Unavailabl e Reason for Visit * Reason Comments Lab (SCAN) Encounter Details Date Type Department Care Team (Latest Contact Info) Description 11/08/2023 Scan [facility] HEALTH INFO SRVCS Scanned, Doc Med Group Lab (SCAN) Social History Tobacco Use Types Packs/Day [...] Procedure Name Priority Date/Time Associated Diagnosis Comments OUTSIDE LAB (SCAN ORDER) 11/08/2023 OUTSIDE LAB (SCAN ORDER) 11/08/2023 OUTSIDE LAB (SCAN ORDER) 11/08/2023 documented in this encounter Results * OUTSIDE LAB (SCAN ORDER) (11/08/2023) 11/08/2023 us Doc Med Group Scanned SCANNING Final Resu lt * OUTSIDE LAB (SCAN ORDER) (11/08/2023) 11/08/2023 us Doc Med Group Scanned SCANNING Final Resu lt * OUTSIDE LAB (SCAN ORDER) (11/08/2023) 11/08/2023 us Doc Med Group Scanned SCANNING Final Resu lt documented in this encounter Visit Diagnoses Not on filedocumented in this encounter
--- OUTSIDE RECORDS SUMMARY | 2024-04-12 00:01 | XMS_ITS | Encounter Summary ---
Author Organization [facility] Address [address] [place] [address]. [place] [address] [place] [address] Care Team Providers Care Tub Washer Name Role Phone Unavailable Primary Care Provider Unavailabl e Reason for Visit * Reason Comments CT (SCAN) Image (SCAN) Encounter Details Date Type Department Care Team ([facility] st Contact Info) Description 09/26/2023 Scan MG HEALTH INFO SRVCS Scanned, Doc Med Group CT (SCAN); Image (SCAN) Social History Tobacco Use Types Packs/Day [...] Procedure Name Priority Date/Time Associated Diagnosis Comments CT GENERIC 09/26/2023 IMAGE GENERIC 09/26/2023 documented in this encounter Results * IMAGE GENERIC (09/26/2023) Anatomical Region Laterality Modality Other 09/26/2023 us Doc Med Group Scanned SCANNING Final Resu lt * CT GENERIC (09/26/2023) Anatomical Region Laterality Modality Other 09/26/2023 us Doc Med Group Scanned SCANNING Final Resu lt documented in this encounter Visit Diagnoses Not on filedocumented in this encounter
--- OUTSIDE RECORDS SUMMARY | 2024-04-12 00:01 | XMS_ITS | Encounter Summary ---
Author Organization [facility] Address [address] [place] [address]. [place] [address] [place] [address] Care Team Providers Care Registered Diet Technician Name Role Phone Unavailable Primary Care Provider Unavailabl e Reason for Visit * Reason Onset Date Comments Other 12/27/2023 Encounter Details Date Type Department Care Team (Late st Contact Info) Description 12/27/2023 Telephone [facility] Medical Group General Surgery - [place] [address], [address] [place] [address] Octavia Martel, DAY CARE DIRECTOR-C [address] [place] [address] Other Social History Tobacco Use Types Packs/Day Years Used Date Smoking Tobacco: Never Assessed Comments Unknown Sex and Gender Information Value Date Recorded Sex Assigned at Not on file Legal Sex Female 5:46 PM CDT Gender Identity Not on file Sexual Orientation Not on file documented as of this encounter Progress Notes * Ursula Branch RN - 12/28/2023 4:04 PM CDTSummary: appointment Returned call. Appointment scheduled for 02/01/2024. * Pratima Isaac - 12/27/2023 3:02 PM CDT Was calling you back. She also mentioned the [facility] office. Please give a call back documented in this encounter Plan of Treatment Not on file documented as of this encounter Visit Diagnoses Not on filedocumented in this encounter
--- OUTSIDE RECORDS SUMMARY | 2024-04-12 00:01 | XMS_ITS | Encounter Summary ---
Author Organization [facility] Address [address] [place] [address]. [place] [address] [place] [address] Care Team Providers Care Fire Alarm Technician Name Role Phone Unavailable Primary Care Provider Unavailabl e Reason for Visit * Reason Comments Lab (SCAN) EGD (SCAN) Encounter Details Date Type Department Care Team ([facility] st Contact Info) Description 11/30/2023 Scan MG HEALTH INFO SRVCS Scanned, Doc Med Group Lab (SCAN); EGD (SCAN) Social History Tobacco Use Types Packs/Day [...] Procedure Name Priority Date/Time Associated Diagnosis Comments EGD GENERIC (SCAN ORDER) 11/30/2023 OUTSIDE LAB (SCAN ORDER) 11/30/2023 documented in this encounter Results * EGD GENERIC (SCAN ORDER) (11/30/2023) 11/30/2023 us Doc Med Group Scanned SCANNING Final Resu lt * OUTSIDE LAB (SCAN ORDER) (11/30/2023) 11/30/2023 us Doc Med Group Scanned SCANNING Final Resu lt documented in this encounter Visit Diagnoses Not on filedocumented in this encounter
--- OUTSIDE RECORDS SUMMARY | 2024-04-12 00:01 | XMS_ITS | Clinical Summary ---
Author Organization [facility] Address [address] [place] [address]. [place] [address] [place] [address] Care Team Providers Care Mud Jack Nozzle Worker Name Role Phone Farida Hernandez MD Primary Care Provider [phone] Allergies Active Allergy Reactions Criticality Noted Date Comments Amoxicillin Rash Low 06/18/2013 Hydrocodone Rash,Nausea and Vomiting Low 02/01/2024 Shellfish Allergy Rash Low 02/01/2024 Medications ALPRAZolam (XANAX) 0.25 MG tablet Take 1 tablet (0.25 mg total) by mouth 3 (three) times daily as needed for Anxiety. 4 Active escitalopram (LEXAPRO) 10 MG tablet Take 1 tablet (10 mg total) by mouth daily. 4 Active hyoscyamine (LEVSIN) 0.125 MG tablet Take 1 tablet (0.125 mg total) by mouth every 4 (four) hours as needed for Cramping. 4 Active omeprazole (PRILOSEC) 20 MG capsule Take 2 capsules (40 mg total) by mouth daily. 4 Active ondansetron (ZOFRAN-ODT) 4 MG disintegrating tablet Take 1 tablet (4 mg total) by mouth every 8 (eight) hours as needed for Nausea. Active Encounters Date Type Department Care Team Description 02/01/2024 9:40 AM CDT Office Visit [facility] Medical Group General Surgery - [place] [address], [address] [place] [address] Octavia Martel, TOOL ENGINEER-C Epigastric Pain (Pain to right side that occasionally radiates to left side with nausea.Has had all the test including HIDA scan which shows 100% ejection fraction) 02/01/2024 Travel from Last 3 Months Family History Medical History Relation Comments Anxiety Father Hypertension Father Diabetes Maternal Grandfather Breast Cancer Maternal Grandmother Anxiety Mother Multiple Sclerosis Mother Relation Status Comments Father Maternal Grandfather Maternal Grandmother Mother Social History Tobacco Use Types Packs/Day Years Used Date Smoking Tobacco: Former Cigarettes Q uit: 2002 Smokeless Tobacco: Never Tobacco Cessation:Counseling Given: No Alcohol Use Standard Drinks/Week Comments Not Currently 0 (1 standard drink = 0.6 oz pur e alcohol) very rarely PHQ-2 Answer Date Recorded Patient Health Questionnaire-2 Score 0 02/01/2024 Comments Unknown Sex and Gender Information Value Date Recorded Sex Assigned at Not on file Legal Sex Female 5:46 PM CDT Gender Identity Not on file Sexual Orientation Not on file Last Filed Vital Signs Vital Sign Reading Time Taken Comments Blood Pressure 124/89 02/01/2024 10:02 AM CDT Pulse 79 02/01/2024 10:02 AM CDT Temperature 36.7 ??C (98 ??F) 02/01/2024 10:02 AM CDT Respiratory Rate 18 02/01/2024 10:02 AM CDT Oxygen Saturation 98% 02/01/2024 10:02 AM CDT Inhaled Oxygen Concentration - - Weight 96 kg (211 lb 9.6 oz) 02/01/2024 10:02 AM CDT Height 170.2 cm (5' 7 ) 02/01/2024 10:02 AM CDT Body Mass Index 33.14 02/01/2024 10:02 AM CDT Plan of Treatment Health Maintenance Due Date Last Done Comments Cervical Cancer Screening Pa p Smear (Age 30 to 64) Every 3 Years 1986 Annual Physical 1989 Hepatitis C 2004 Hepatitis B Vaccines (1 of 3 - 19+ 3-dose series) 2005 Cervical Cancer Screening Pa p with HPV Testing (Age 30 to 64) Every 5 Years 2016 Cervical Cancer Screening wi th HPV 2016 DTaP, Tdap and Td Vaccines ( 2 - Td or Tdap) 07/10/2023 07/09/2013 COVID-19 Vaccine ( - 2023-2 5 season) 2023 09/23/2020 Influenza Adult (#1) 2024 03/14/2013, 05/10/2012 HPV Vaccines Aged Out No longer eligi ble based on patient's age to complete this topic Meningococcal Vaccine Aged Out No akua steve eligible based on patient's age to complete this topic Pneumococcal Vaccine: Pediatrics (0 to 5 Years) and At-Risk Patients (6 to 64 Years) Aged Out No longer eligible b ased on patient's age to complete this topic RSV Immunizations Under 20 Months Aged Out No longer eligible b ased on patient's age to complete this topic Insurance [facility] Care Teams Mud Jack Nozzle Worker Relationship Specialty Start Date End Date Farida Hernandez MD [address] [place] [address] PCP - General INTERNAL MEDICINE 02/01/24
--- OUTSIDE RECORDS SUMMARY | 2024-04-12 00:01 | XMS_ITS | Encounter Summary ---
Author Organization [facility] Address [address] [place] [address]. [place], [place] [address] [place] [address] Care Team Providers Care Pageant Director Name Role Phone Unavailable Primary Care Provider Unavailabl e Encounter Details Date Type Department Care Team (Latest Contact Info) Description 08/16/2016 Abstract [facility] Medical Group Manpreet Walters MD [address] [place] [address] Social History Tobacco Use Types Packs/Day Years [...]
--- OUTSIDE RECORDS SUMMARY | 2024-04-12 00:01 | XMS_ITS | Encounter Summary ---
Author Organization [facility] Address [address] [place] [address]. [place], [place] [address] [place] [address] Care Team Providers Care Automated Weaver Name Role Phone Unavailable Primary Care Provider Unavailabl e Encounter Details Date Type Department Care Team (Latest Contact Info) Description 09/27/2023 Scan HEALTH INFO SRVCS Scanned, Doc Med [...]
--- OUTSIDE RECORDS SUMMARY | 2024-04-12 00:01 | XMS_ITS | Encounter Summary ---
Author Organization [facility] Address [address] [place] [address]. [place], [place] [address] [place] [address] Care Team Providers Care Finishing Technician Name Role Phone Farida Alonso MD Primary Care Provider Reason for Referral * Consultation/Treatment (Routine) - Authorized Specialty Diagnoses / Procedures Referred By Wood mayer Referred To Contact GENERAL SURGERY Diagnoses Biliary dyskinesia Procedures OFFICE/OUTPATIENT NEW LOW MDM 30-44 MINUTES OFFICE/OUTPT VISIT,NEW,LEVL IV OFFICE/OUTPT VISIT,NEW,LEVL V OFFICE/OUTPT VISIT,EST,LEVL III OFFICE/OUTPT VISIT,EST,LEVL IV OFFICE/OUTPT VISIT,EST,LEVL V Octavia Hassan, BATCH AND FURNACE MANAGER-C [address] [facility] [address] [place] [address] Phone: tel: fax: Vinod Pleitez, [address] [place] [address] [address] [place] [address] Phone: tel: fax: Referral ID Status Reason Start Date Expiration Date V isits Requested Visits Authorized [id number] Authorized 02/03/2024 02/02/2025 99 99 Reason for Visit * Reason Comments Epigastric Pain Pain to right side t hat occasionally radiates to left side with nausea.Has had all the test including HIDA scan which shows 100% ejection fraction Encounter Details Date Type Department Care Team (Late st Contact Info) Description 02/01/2024 9:40 AM CDT Office Visit [facility] General Surgery - [place] [address] [facility], [address] [place] [address] Octavia Hassan NP-C [address] [facility] [address] [place] [address] Epigastric Pain (Pain to right side that occasionally radiates to left side with nausea.Has had all the test including HIDA scan which shows 100% ejection fraction) Social History Tobacco Use Types Packs/Day Years [...] Mass Index 33.14 02/01/2024 10:02 AM CDT documented in this encounter Progress Notes * Maryanne Branch RN - 02/01/2024 9:40 AM CDTAddended by: MARYANNE BRANCH on: 02/03/2024 09:43 AM Modules accepted: Orders * JAY Guillermo - 02/01/2024 9:40 AM CDT Reason for Visit: Epigastric Pain (Pain to right side that occasionally radiates to left side with nausea.Has had allthe test including HIDA scan which shows 100% ejection fraction) History of Present Illness: TOBIAS Pelayo is a pleasant 38 year old female with intact gallbladder who presents today with complaints of RUQ pain and nausea for the past few months. She states that she will have complaints of a stabbing sensation that will happen after a meal. She can have nausea as well. She was seen by GI who performed an EGD/colonoscopy that were normal. An US and HIDA were completed that showed EF of 100%. She was seen by surgery who was hesitant on a cholecystectomy. She did start a low diet and does admit that helped minimize her complaints but she will still have occasional issues. She is on medication for her complaints and would like to come off. She was referred for second opinion. Previous testin12/06/23 MRI diffuse hepatic steatosis. Small sliding hiatal hernia 11/30/2023 EGD Soni normal EGD Colonoscopy 4 mm sigmoid colon polyp, a few small size internal hemorrhoids. Otherwise normal 11/16/2023 ultrasound echogenic liver, pancreas normal gallbladder normal CBD measures 2 mm 10/2323 labs celiac negative, elastase >500, calprotectin 98, neg h. Pylori, 09/26/2023 obstructive series hepatomegaly. Paucity of bowel gas which limits evaluation of obstruction or ileus 10/13/2023 HIDA scan normal EF was 100% 09/26/2023 CT scan normal gallbladder submucosal fat despite that and left colon, mild distal colonicwall edema. Colonic findings may be secondary to acute or acute on chronic colitis ROS: Review of Systems Constitutional: Negative. HENT: Negative. Respiratory: Negative. Cardiovascular: Negative. Gastrointestinal: Positive for abdominal pain and nausea. Musculoskeletal: Negative. Neurological: Negative. Psychiatric/Behavioral: Negative. Medications: Current Outpatient Medications: ALPRAZolam (XANAX) 0.25 MG tablet, Take 1 tablet (0.25 mg total) by mouth 3 (three) times daily as needed for Anxiety., Disp: , Rfl: escitalopram (LEXAPRO) 10 MG tablet, Take 1 tablet (10 mg total) by mouth daily., Disp: , Rfl: hyoscyamine (LEVSIN) 0.125 MG tablet, Take 1 tablet (0.125 mg total) by mouth every 4 (four) hours as needed for Cramping., Disp: , Rfl: omeprazole (PRILOSEC) 20 MG capsule, Take 2 capsules (40 mg total) by mouth daily., Disp: , Rfl: ondansetron (ZOFRAN-ODT) 4 MG disintegrating tablet, Take 1 tablet (4 mg total) by mouth every 8 (eight) hours as needed for Nausea., Disp: , Rfl: Review of patient's allergies indicates: Allergen Reactions Amoxicillin Rash Hydrocodone Rash and Nausea and Vomiting Shellfish Allergy Rash Past Medical History: Diagnosis Date Anxiety disorder, unspecified Past Surgical History: Procedure Laterality Date DENTAL PROCEDURE wisdom teeth removed REMOVAL OF FALLOPIAN TUBE Bilateral REMOVAL OF OVARIAN CYST(S) REMOVAL OF OVARY(S) Left REMOVAL OF TONSILS,13+ Y/O UMBILICAL HERNIA REPAIR Social History Socioeconomic History Marital status: Tobacco Use Smoking status: Former Current packs/day: 0.00 Types: Cigarettes Quit date: 2002 Years since quittin.7 Smokeless tobacco: Never Vaping Use Vaping status: Every Day Substances: Nicotine, Flavoring Devices: Disposable Substance and Sexual Activity Alcohol use: Not Currently Comment: very rarely Drug use: Not Currently Family History Problem Relation Name Age of Onset Multiple Sclerosis Mother Anxiety Mother Anxiety Father Hypertension Father Breast Cancer Maternal Grandmother Diabetes Maternal Grandfather Family Status Relation Name Status Mother (Not Specified) Father (Not Specified) MGM (Not Specified) MGF (Not Specified) No partnership data on file Physical Exam Vitals reviewed. Constitutional: Appearance: Normal appearance. Cardiovascular: Rate and Rhythm: Normal rate and regular rhythm. Pulses: Normal pulses. Heart sounds: Normal heart sounds. Pulmonary: Breath sounds: Normal breath sounds. Abdominal: General: Bowel sounds are normal. Palpations: Abdomen is soft. Tenderness: There is abdominal tenderness in the right upper quadrant. Musculoskeletal: General: Normal range of motion. Neurological: General: No focal deficit present. Mental Status: She is alert and oriented to person, place, and time. Psychiatric: Mood and Affect: Mood normal. Behavior: Behavior normal. Filed Vitals: 02/01/24 1002 BP: 124/89 Pulse: 79 Resp: 18 Temp: 98 ??F (36.7 ??C) TempSrc: Temporal SpO2: 98% Weight: 96 kg (211 lb 9.6 oz) Height: 1.702 m (5' 7 ) Diagnoses/Impression: 1. Biliary dyskinesia Recommendations and Plan: Recommended a cholecystectomy to help with her complaints at this time. Discussed possible ERCP with sphincterotomies if complaints continue. Continue low fat diet as well as eating smaller portions throughout the day. Will refer back to her surgeon for cholecystectomy. Will follow up in office PRN Reviewed and updated this visit by provider: OCTAVIA HASSAN Referring Provider: Farida Alonso MD PCP: FARIDA ALONSO MD documented in this encounter Plan of Treatment Scheduled Referrals Name Type Priority Associated Diagnoses Orde r Schedule Ambulatory referral to General Surgery (OTHER) Referral Routine Biliary dyskinesia Ordered: 02/03/2024 documented as of this encounter Visit Diagnoses Diagnosis Biliary dyskinesia- Primary Other specified disorder of gallbladder documented in this encounter Care Teams Finishing Technician Relationship Specialty Start Date End Date Farida Alonso MD [address] [place] [address] PCP - General INTERNAL MEDICINE 02/01/24 documented as of this encounter
--- OUTSIDE RECORDS SUMMARY | 2024-04-12 00:01 | XMS_ITS | Encounter Summary ---
Author Organization [facility] Address [address] [place] [address]. [place] [address] [place] [address] Care Team Providers Care Computer Technical Support Specialist Name Role Phone Unavailable Primary Care Provider Unavailabl e Reason for Visit * Reason Comments Lab (SCAN) Encounter Details Date Type Department Care Team (Latest Contact Info) Description 11/11/2023 Scan [facility] HEALTH INFO SRVCS Scanned, Doc [...] Associated Diagnosis Comments OUTSIDE LAB (SCAN ORDER) 11/11/2023 OUTSIDE LAB (SCAN ORDER) 11/11/2023 OUTSIDE LAB (SCAN ORDER) 11/11/2023 documented in this encounter Results * OUTSIDE LAB (SCAN ORDER) (11/11/2023) 11/11/2023 us Doc [facility] Scanned SCANNING Final Resu lt * OUTSIDE LAB (SCAN ORDER) (11/11/2023) 11/11/2023 us [facility] Scanned SCANNING Final Resu lt * OUTSIDE LAB (SCAN ORDER) (11/11/2023) 11/11/2023 us Doc [facility] Scanned SCANNING Final Resu lt documented in this encounter Visit Diagnoses Not on filedocumented in this encounter
--- OUTSIDE RECORDS SUMMARY | 2024-04-12 00:01 | XMS_ITS | Encounter Summary ---
Author Organization [facility] Address [address] [place] [address]. [place] [address] [place] [address] Care Team Providers Care On Car Supervisor Name Role Phone Unavailable Primary Care Provider Unavailabl e Reason for Visit * Reason Comments Ultrasound (SCAN) Encounter Details Date Type Department Care Team ([facility] st Contact Info) Description 11/16/2023 Scan HEALTH INFO SRVCS Scanned, Doc Med Group Ultrasound (SCAN) Social History Tobacco Use Types Packs/Day [...] Procedure Name Priority Date/Time Associated Diagnosis Comments ULTRASOUND GENERIC (SCAN ORDER) 11/16/2023 documented in this encounter Results * ULTRASOUND GENERIC (SCAN ORDER) (11/16/2023) Anatomical Region Laterality Modality Other 11/16/2023 us Doc [facility] Scanned SCANNING Final Resu lt documented in this encounter Visit Diagnoses Not on filedocumented in this encounter
--- OUTSIDE RECORDS SUMMARY | 2024-04-12 00:01 | XMS_ITS | Encounter Summary ---
Author Organization [facility] Address [address] [place] [address]. [place] [address] [place] [address] Care Team Providers Care Knitting Machine Fixer Head Name Role Phone Unavailable Primary Care Provider Unavailabl e Encounter Details Date Type Department Care Team (Late st Contact Info) Description 06/18/2013 Abstract [facility] Medical Group General Surgery [facility] [address] [facility] [place] [address] [place] [address] [facility] [address] [place] [address] Social History Tobacco Use Types Packs/Day Years Used Date Smoking Tobacco: Never Assessed Comments Unknown Sex and Gender Information Value Date Recorded Sex Assigned at Not on file Legal Sex Female 5:46 PM CDT Gender Identity Not on file Sexual Orientation Not on file documented as of this encounter Last Filed Vital Signs Vital Sign Reading Time Taken Comments Blood Pressure 128/70 06/18/2013 12:46 PM GRAVE CLEANER Pulse 70 06/18/2013 12:46 PM GRAVE CLEANER Temperature - - Respiratory Rate - - Oxygen Saturation - - Inhaled Oxygen Concentration - - Weight 95.3 kg (210 lb) 06/18/2013 12:46 PM GRAVE CLEANER Height 170.2 cm (5' 7 ) 06/18/2013 12:46 PM GRAVE CLEANER Body Mass Index 32.89 06/18/2013 12:46 PM GRAVE CLEANER documented in this encounter Progress Notes * Rahul Vargas MD - 06/18/2013 1:00 PM CST Chief Complaint Chief Complaint: REF DR. MAK PATIENT IS 30 WEEKS C/O UMB HERNIA THAT IS PAINFUL Active Problems 1. Umbilical hernia (553.1) (K42.9) Social History ?? Never smoker Allergies 1. Amoxicillin TABS Recorded By: Yvette Gandara; 06/18/2013 12:48:46 PM Vitals Vital Signs [Data Includes: Current Encounter] Recorded by : Yvette Gandara at [id number] 12:46PM Temperature 98.8 F Heart Rate 70 Respiration 16 Systolic 128 Diastolic 70 Height 5 ft 7 in Weight 210 lb BMI Calculated 32.89 BSA Calculated 2.06 Assessment 1. Never smoker 2. Umbilical hernia (553.1) (K42.9) Signatures Electronically signed by : Rahul Vargas M.D.; Jun 18 2013 3:37PM GRAVE CLEANER (Author) E CLEANER * Rahul Vargas MD - 06/18/2013 1:00 PM CST Chief Complaint Chief Complaint: REF DR. MAK C/O UMB HERNIA THAT IS PAINFUL. PATIENT IS 30 WEEKS History of Present Illness HPI Free Text: Painful bulge umbilical area, 30 weeks Social History ?? Never smoker Allergies 1. Amoxicillin TABS Recorded By: Yvette Gandara; 06/18/2013 12:48:46 PM Vitals Vital Signs [Data Includes: Current Encounter] Recorded by : Yvette Gandara at [id number] 12:46PM Temperature 98.8 F Heart Rate 70 Respiration 16 Systolic 128 Diastolic 70 Height 5 ft 7 in Weight 210 lb BMI Calculated 32.89 BSA Calculated 2.06 Physical Exam Abdomen - Abdomen: Abnormal. Reducible umbilical hernia. Assessment 1. Never smoker 2. Umbilical hernia (553.1) (K42.9) Plan Patient Education: The planned procedure/s, the expected benefits,the associated risks,possible complications, and alternatives to the procedure/s have been discussed in detail with the patient or family. They state that they understand, have no further questions and agree to proceed with the procedure/s as outlined. Procedures/Surgery: Repair umbilical hernia with mesh Discussion/Summary Discussion Summary Free Text: Recommend elective repair once baby is born, hernia is reducible and urgent repair not needed. Educational pamphlet reviewed and given to the patient. F/u once she delivers. Josefa Vargas MD FACS Electronically signed by : Rahul Vargas M.D.; Jun 18 2013 3:36PM GRAVE CLEANER (Author) E CLEANER documented in this encounter Consult Notes * Rahul Vargas MD - 06/18/2013 1:[address] Mak Thank you for the consult on Gita [place]. Attached is a copy of my evaluation. If you have any questions regarding my treatment evaluation, please feel free to contact me. Chief Complaint Chief Complaint: REF DR. MAK C/O UMB HERNIA THAT IS PAINFUL. PATIENT IS 30 WEEKS History of Present Illness HPI Free Text: Painful bulge umbilical area, 30 weeks Social History ?? Never smoker Allergies 1. Amoxicillin TABS Vitals Vital Signs [Data Includes: Current Encounter] Recorded by : Yvette Gandara at [id number] 12:46PM Temperature 98.8 F Heart Rate 70 Respiration 16 Systolic 128 Diastolic 70 Height 5 ft 7 in Weight 210 lb BMI Calculated 32.89 BSA Calculated 2.06 Physical Exam Abdomen - Abdomen: Abnormal. Reducible umbilical hernia. Assessment 1. Never smoker 2. Umbilical hernia (553.1) (K42.9) Plan Patient Education: The planned procedure/s, the expected benefits,the associated risks,possible complications, and alternatives to the procedure/s have been discussed in detail with the patient or family. They state that they understand, have no further questions and agree to proceed with the procedure/s as outlined. Procedures/Surgery: Repair umbilical hernia with mesh Discussion/Summary Discussion Summary Free Text: Recommend elective repair once baby is born, hernia is reducible and urgent repair not needed. Educational pamphlet reviewed and given to the patient. F/u once she delivers. Sincerely,. Josefa Vargas MD FACS Electronically signed by : Rahul Vargas M.D.; Jun 18 2013 3:36PM GRAVE CLEANER (Author) E CLEANER documented in this encounter Plan of Treatment Not on file documented as of this encounter Visit Diagnoses Not on filedocumented in this encounter
--- OUTSIDE RECORDS SUMMARY | 2024-04-12 00:01 | XMS_ITS | Encounter Summary ---
Author Organization [facility] Address [address] [place] [address]. [place] [address] [place] [address] Care Team Providers Care Cycle Repairer Name Role Phone Unavailable Primary Care Provider Unavailabl e Reason for Visit * Reason Onset Date Comments Schedule Surgery 12/27/2023 Encounter Details Date Type Department Care Team (Late st Contact Info) Description 12/27/2023 Telephone [facility] Medical Group General Surgery - [place] [address] [facility], [address] [place], [place] [id number] Octavia Martel, TORCH SHEARER-C [address] [facility] [address] [place] [address] Schedule Surgery Social History Tobacco Use Types Packs/Day Years Used Date Smoking Tobacco: Never Assessed Comments Unknown Sex and Gender Information Value Date Recorded Sex Assigned at Not on file Legal Sex Female 5:46 PM CDT Gender Identity Not on file Sexual Orientation Not on file documented as of this encounter Progress Notes * Ursula Branch RN - 12/27/2023 2:49 PM CDTSummary: schedule appt Attempted to contact and schedule an appointment with Octavia after referral received from [facility] on 12/19/23 due to generalized abdominal pain. No answer, message left to return call. documented in this encounter Plan of Treatment Not on file documented as of this encounter Visit Diagnoses Not on filedocumented in this encounter
--- OUTSIDE RECORDS SUMMARY | 2024-04-12 00:01 | XMS_ITS | Encounter Summary ---
Author Organization [facility] Address [address] [place] [address]. [place], [place] [address] [place] [address] Care Team Providers Care Nitrocellulose Maker Name Role Phone Unavailable Primary Care Provider Unavailabl e Encounter Details Date Type Department Care Team (Latest Contact Info) Description 05/17/2017 Abstract [facility] Medical Group Social History Tobacco Use Types Packs/Day Years Used Date Smoking Tobacco: Never Assessed Comments Unknown Sex and Gender Information Value Date Recorded Sex Assigned at Not on file Legal Sex Female 5:46 PM CDT Gender Identity Not on file Sexual Orientation Not on file documented as of this encounter Last Filed Vital Signs Vital Sign Reading Time Taken Comments Blood Pressure 123/84 05/17/2017 12:06 PM STACKER OPERATOR Pulse 101 05/17/2017 12:06 PM STACKER OPERATOR Temperature - - Respiratory Rate - - Oxygen Saturation - - Inhaled Oxygen Concentration - - Weight 100.7 kg (222 lb) 05/17/2017 12:06 PM STACKER OPERATOR Height 170.2 cm (5' 7 ) 05/17/2017 12:06 PM STACKER OPERATOR Body Mass Index 34.77 05/17/2017 12:06 PM STACKER OPERATOR documented in this encounter Progress Notes * Manpreet Walters MD - 05/17/2017 12:00 PM CST Referring Provider Farida Hernandez Assessment 1. Former smoker (V15.82) (Z87.891) Plan PLAN COMMENTS: 1. Spirometry. 2. Fine, return to clinic p.r.n. Reason For Visit Chronic Recheck Visit History of Present Illness HPI: Patient is doing fine, no reactions to any foods, avoids shrimp. Review of Systems Constitutional: Negative. Head Eyes Ears Nose and Throat: negative. Cardiovascular: Negative... Respiratory: Negative. Gastrointestinal: Negative. Genitourinary: Negative. Musculoskeletal: Negative. Integumentary: Negative. Neurological: Negative. Psychiatric: Negative. Endocrine: Negative. Hematologic/Lymphatic: Negative. Active Problems 1. [...] smoker (V15.82) (Z87.891) ?? Current Meds 1. Folic Acid 800 MCG Oral Tablet; Therapy: (Recorded:16Feb2017) to Recorded 2. Ondansetron 4 MG Oral Tablet Disintegrating; Therapy: (Recorded:16Feb2017) to Recorded 3. Sertraline HCl - 100 MG Oral Tablet; Therapy: 17May2017 to Recorded Allergies 1. Amoxicillin TABS Vitals Recorded: 17May2017 12:06PM Heart Rate 101 Systolic 123, LUE, Sitting Diastolic 84, LUE, Sitting O2 Saturation 99, RA Height 5 ft 7 in Weight 222 lb BMI Calculated 34.77 BSA Calculated 2.11 Physical Exam Constitutional: General appearance: Normal. Head [...] Palpation of chest: Normal. Auscultation of lungs: Normal. Abdomen Examination of Abdomen: Normal. Liver and [...] signed by : Manpreet Walters M.D.; May 19 2017 4:17PM STACKER OPERATOR (Author) documented in this encounter Plan of Treatment Not on file documented as of this encounter Visit Diagnoses Not on filedocumented in this encounter
--- OUTSIDE RECORDS SUMMARY | 2024-04-12 00:01 | XMS_ITS | Encounter Summary ---
Author Organization [facility] Address [address] [place] [address]. [place] [address] [place] [address] Care Team Providers Care Grades 7 And 8 Teacher Name Role Phone Unavailable Primary Care Provider Unavailabl e Reason for Visit * Reason Comments Procedure (SCAN) Encounter Details Date Type Department Care Team ([facility] Contact Info) Description 10/13/2023 Scan HEALTH INFO SRVCS Scanned, Doc Med Group Procedure (SCAN) Social History Tobacco Use Types Packs/Day [...] Procedure Name Priority Date/Time Associated Diagnosis Comments PROCEDURE GENERIC (SCAN ORDER) 10/13/2023 documented in this encounter Results * PROCEDURE GENERIC (SCAN ORDER) (10/13/2023) 10/13/2023 us Doc Med Group Scanned SCANNING Final Resu lt documented in this encounter Visit Diagnoses Not on filedocumented in this encounter
--- OUTSIDE RECORDS SUMMARY | 2024-04-12 00:02 | XMS_ITS | Clinical Summary ---
Author Organization [facility] Address [address] [place] [address] Phone Care Team Providers Care Patient Care Representative Name Role Phone Provider, None Primary Care Provider Unavailabl e Social History Tobacco Use Types Packs/Day Years Used Date Smoking Tobacco: Never Assessed Comments Unknown Sex and Gender Information Value Date Recorded Sex Assigned at Not on file Legal Sex Female 5:42 PM CDT Gender Identity Not on file Sexual Orientation Not on file Plan of Treatment Health Maintenance Due Date Last Done Comments Hepatitis C Virus (HCV) Screening 1986 TdaP Immunization 1986 Hepatitis B Immunization (1 of 3 - 19+ 3-dose series) 2005 Pap Smear 11/08/2007 Cervical Cancer Screening (CCS) 2016 HPV/Cotest 2016 SARS-COV-2 Immunization ( season) 2022 Influenza Immunization (Seas on Ended) 2023 Meningococcal Immunization (ACWY) Aged Out No longer eligible based on patient's age to complete this topic Pneumococcal Immunization Combined Aged Out No longer eligible based on patient's age to complete this topic Rotavirus Immunization Aged Out No lo nger eligible based on patient's age to complete this topic Insurance [facility] Care Teams Patient Care Representative Relationship Specialty Start Date End Date Provider, None [place] PCP - General 12/06/16
--- OUTSIDE RECORDS SUMMARY | 2024-04-12 01:38 | XMS_ITS | Encounter Summary ---
Author Organization [facility] Address [address] [place] [address]. [place], [place] [address] [place] [address] Care Team Providers Care Telesales Representative Name Role Phone Unavailable Primary Care Provider Unavailabl e Encounter Details Date Type Department Care Team (Latest Contact Info) Description 05/17/2017 Abstract [facility] Medical Group Social History Tobacco Use Types [...] Comments Blood Pressure 123/84 05/17/2017 12:06 PM ONLINE COMMUNICATIONS SPECIALIST Pulse 101 05/17/2017 12:06 PM ONLINE COMMUNICATIONS SPECIALIST Temperature - - Respiratory Rate - - Oxygen Saturation - - Inhaled Oxygen Concentration - - Weight 100.7 kg (222 lb) 05/17/2017 12:06 PM ONLINE COMMUNICATIONS SPECIALIST Height 170.2 cm (5' 7 ) 05/17/2017 12:06 PM ONLINE COMMUNICATIONS SPECIALIST Body Mass Index 34.77 05/17/2017 12:06 PM ONLINE COMMUNICATIONS SPECIALIST documented in this encounter Progress Notes * [...] Manpreet Walters M.D.; May 19 2017 4:17PM ONLINE COMMUNICATIONS SPECIALIST (Author) documented in this encounter Plan of Treatment Not on file documented as of this encounter Visit Diagnoses Not on filedocumented in this encounter
--- OUTSIDE RECORDS SUMMARY | 2024-04-12 01:38 | XMS_ITS | Encounter Summary ---
Author Organization [facility] Address [address] [place] [address]. [place] [address] [place] [address] Care Team Providers Care Plastics Bench Mechanic Name Role Phone Unavailable Primary Care Provider Unavailabl e Reason for Visit * Reason Comments CT (SCAN) Image (SCAN) Encounter Details Date Type Department Care Team ([facility] st Contact Info) Description 09/26/2023 Scan MG [...]
--- OUTSIDE RECORDS SUMMARY | 2024-04-12 01:38 | XMS_ITS | Encounter Summary ---
Author Organization [facility] Address [address] [place] [address]. [place] [address] [place] [address] Care Team Providers Care Fire Investigator Name Role Phone Unavailable Primary Care Provider Unavailabl e Encounter Details Date Type Department Care Team (Latest Contact Info) Description 02/16/2017 Abstract [facility] Medical Group Manpreet Walters MD [address] [place] [address] Social History Tobacco Use Types [...] breathing, Urticaria 1. QU-IMMUNOGLOBULINS A,G,M,E PANEL CIAR [id number]; Status:Resulted - Requires Verification; Done: 16Feb2017 12:11PM Performed:[facility]; Due:18Mar2017;Ordered; For:Difficulty breathing, Urticaria; Ordered By:Manpreet Walters; 2. QU-FOOD ALLERGY PROFILE [id number]; Status:Resulted - Requires Verification; Done: 16Feb2017 12:54PM [...] 8. Follow up in 3 months in [place]. Reason For Visit New Patient Visit History [...] Manpreet Walters M.D.; May 16 2017 3:28PM LASER SET UP OPERATOR (Author) documented in this encounter Plan [...] analytical performance characteristics have been determined by [employer]. It has not been cleared or approved by the U.S. Food and Drug Administration. This assay has been validated pursuant to the CLIA regulations and is used for clinical purposes. Test Performed at: [facility] [address] ??[id number] ? KAROL BLOCK DO,MPH 02/16/2017 12:5 4 [...] MD LABORATORY Final Result Performing Organization Address [facility] de Phone Number [facility] TO EPIC CONVERSION * EOSINOPHIL COUNT (02/16/2017 12:11 PM CDT) Pathologist [facility] WBC 7.8 3.8 - 10.8 [employer] TO EPIC CONVERSION Comment:Result Comment: UNIT S: Thousand/uL ABS. EOSINOPHILS 86 15 - 500 cells/uL [employer] TO EPIC CONVERSION EOSINOPHILS 1.1 % [facility] TO EPIC CONVERSION Comment: Result Comment: Test Performed at: [facility] [place], [place] ??[address] ? KAROL BLOCK DO,MPH 02/16/2017 12:1 1 PM CDT 02/16/2017 12:11 PM CDT Narrative [employer] TO EPIC CONVERSION - 02/17/2017 5:27 AM CDT Result Communication: No patient communication needed at this time Manpreet Walters MD LABORATORY Final Result Performing Organization Address [facility] Phone Number [employer] TO EPIC CONVERSION * MISCELLANEOUS LAB TEST (02/16/2017 12:11 PM CDT) Pathologist [facility] IMMUNOGLOBULIN A 229 81 - 463 mg/dL [facility] TO EPIC CONVERSION IGG 791 694 - 1618 mg/dL [facility] TO EPIC CONVERSION IGM 63 48 - 271 mg/dL [facility] TO EPIC CONVERSION IGE 12 <DC=029 kU/L [facility] TO EPIC CONVERSION Comment: Result Comment: Test Performed at: [facility] ??[id number] ? KAROL BLOCK DO,MPH 02/16/2017 12:1 1 PM CDT 02/16/2017 12:11 PM CDT Narrative [employer] TO EPIC CONVERSION - 02/17/2017 5:27 AM CDT Result Communication: No patient communication needed at this time Manpreet Walters MD LABORATORY Final Result Performing Organization Address [facility] Co de Phone Number [employer] TO EPIC CONVERSION documented in this encounter Visit Diagnoses Not on filedocumented in this encounter
--- OUTSIDE RECORDS SUMMARY | 2024-04-12 01:38 | XMS_ITS | Clinical Summary ---
Author Organization [facility] Address [address] [place] [address] Care Team Providers Care Fire Control Mechanic Name Role Phone Farida Hernandez MD Primary Care Provider [phone] Source Comments [facility],non-owned Affiliates and Associated Physician Practices is amultiple site organization consisting of ambulatory clinics and hospital sitesin [place], [place], [place] and [place]. This disclosure is being madepursuant to the Care Everywhere program and may not contain all information available regarding this patient. Last updated 18.[facility] Allergies Active Allergy Reactions Criticality Noted Date [...] age to complete this topic Care Teams Fire Control Mechanic Relationship Specialty Start Date End Date Farida Hernandez MD [address] [place] [id number] PCP - General 12/23/20
--- OUTSIDE RECORDS SUMMARY | 2024-04-12 01:38 | XMS_ITS | Encounter Summary ---
Author Organization [facility] Address [address] [place] [address]. [place] [address] [place] [address] Care Team Providers Care Travel Med Surg Rn Name Role Phone Unavailable Primary Care Provider Unavailabl e Reason for Visit * Reason Comments Colonoscopy Report (SCAN) Encounter Details Date Type Department Care Team ([facility] Contact Info) Description 11/29/2013 Scan HEALTH [...]
--- OUTSIDE RECORDS SUMMARY | 2024-04-12 01:38 | XMS_ITS | Encounter Summary ---
Author Organization [facility] Address [address] [place] [address]. [place], [place] [address] [place] [address] Care Team Providers Care Raise Miner Name Role Phone Farida Alonso MD Primary Care Provider [phone] Reason for Referral * Consultation/Treatment (Routine) - Authorized Specialty Diagnoses / Procedures Referred By Wood mayer Referred To Contact GENERAL SURGERY Diagnoses Biliary dyskinesia Procedures OFFICE/OUTPATIENT NEW LOW MDM 30-44 MINUTES OFFICE/OUTPT VISIT,NEW,LEVL IV OFFICE/OUTPT VISIT,NEW,LEVL V OFFICE/OUTPT VISIT,EST,LEVL III OFFICE/OUTPT VISIT,EST,LEVL IV OFFICE/OUTPT VISIT,EST,LEVL V Octavia Hassan, OTORHINOLARYNGOLOGIST-C [address] [place] [address] Phone: tel: fax: Vinod Pleitez, [address] [place] [address] [address] [place] [address] Phone: tel: fax: Referral ID Status Reason Start Date Expiration Date V isits Requested Visits Authorized [id number] Authorized 02/03/2024 02/02/2025 99 99 Reason for Visit * Reason Comments Epigastric Pain Pain to right side t hat occasionally radiates to left side with nausea.Has had all the test including HIDA scan which shows 100% ejection fraction Encounter Details Date Type Department Care Team (Late st Contact Info) Description 02/01/2024 9:40 AM CDT Office Visit [facility] Medical Group General Surgery - [place] [address], [address] [place] [address] Octavia Hassan NP-C [address] [place] [address] Epigastric Pain (Pain to right side that [...] gallbladder documented in this encounter Care Teams Raise Miner Relationship Specialty Start Date End Date Farida Alonso MD [address] [place] [address] PCP - General INTERNAL MEDICINE 02/01/24 documented as of this encounter
--- OUTSIDE RECORDS SUMMARY | 2024-04-12 01:38 | XMS_ITS | Encounter Summary ---
Author Organization [facility] Address [address] [place] [address]. [place], [place] [address] [place] [address] Care Team Providers Care Financial Counselor Name Role Phone Unavailable Primary Care Provider Unavailabl e Encounter Details Date Type Department Care Team (Latest Contact Info) Description 08/16/2016 Abstract [facility] Medical Group Manpreet Walters MD [address] [place] [address] Social History Tobacco Use Types Packs/Day Years [...]
--- OUTSIDE RECORDS SUMMARY | 2024-04-12 01:38 | XMS_ITS | Encounter Summary ---
Author Organization [facility] Address [address] [place] [address] Care Team Providers Care Net Repairer Name Role Phone Brooke Mak MD Primary Care Provider [phone] Encounter Details Date Type Department Care Team (Latest Contact Info) Description 05/11/2013 1:56 PM COLOR MAKER DYER - 05/11/2013 11:59 PM COLOR MAKER DYER Hospital Encounter [facility] Maternal & Care [address] [place] [address] [place], [place] [address] Lavonne Bhatt MD [address] [address] Discharge Disposition: Home or Self Care Social [...] - COMPLETE Routine 05/11/2013 2 :29 PM COLOR MAKER DYER cardiac echogenic focus Supervision of other normal (HCC) documented in this encounter Results * SONOGRAM - COMPLETE (05/11/2013 2:29 PM COLOR MAKER DYER) Anatomical Region Laterality Modality Other 05/11/2013 2:29 PM COLOR MAKER DYER Narrative 05/11/2013 4:56 PM COLOR MAKER DYER ?[facility] Maternal Medicine ? Maternal & Care Center ?PHONE: ??FAX: ? Pat. Name: ?BABAR AMAYA. No: ?[id number] Study Date: ?? 05/11/2013 ??2:29pm , Age: ? 1985, 27 LMP: ?11/11/2012 GA by LMP: ?25w6d GA by US: ? 25w3d GA Selected: ??25w5d (LMP) ZAY: ?08/19/2013 Referring MD: BROOKE MAK MD Alarm Operator: ??Jerrica Fishman RDMS Hist/Ind: ? Echogenic Focus MEASUREMENTS & AGE ? GROWTH EVALUATION Measurement ??GA ? Range ? Srce %for GA Ratios ----- ---- ------- BPD ??6.3 cm 25w4d ([id number]) Hadl BPD 49% FL/BPD 0.77 (0.71 - 0.87) HC ??23.3 cm 25w3d ([id number]) Hadl HC ??43% FL/AC ??0.25 (0.20 - 0.24* AC ??19.7 cm 24w3d ([id number]) Hadl AC ??23% HC/AC ??1.18 (1.01 - 1.20) FL ?? 4.9 cm 26w2d ([id number]) Hadl FL ??63% CI ? 0.77 (0.70 - 0.86) GA for sonogram 25w3d ([id number]) ?? Weight Estimate: based on (BPD,HC,AC,FL) Avg [...] Signature> ??05/11/2013 04:54pm Revised Brooke Mak MD [facility] ORDERABLES documented in this encounter Visit Diagnoses Diagnosis cardiac echogenic focus- Primary Other known or suspected abnormality, not elsewhere classified, affecting management of mother, antepartum condition or complication Supervision of other normal (HCC) Supervision of other normal documented in this encounter Care Teams Net Repairer Relationship Specialty Start Date End Date Brooke Mak MD [address] [facility] [facility] [address] PCP - General 12/26/08 12/22/20 documented as of this encounter
--- OUTSIDE RECORDS SUMMARY | 2024-04-12 01:38 | XMS_ITS | Encounter Summary ---
Author Organization [facility] Address [address] [place] [address]. [place] [address] [place] [address] Care Team Providers Care Economic Adviser Name Role Phone Unavailable Primary Care Provider Unavailabl e Reason for Visit * Reason Comments Ultrasound (SCAN) Encounter Details Date Type Department Care Team ([facility] st Contact Info) Description 11/16/2023 Scan HEALTH [...]
--- OUTSIDE RECORDS SUMMARY | 2024-04-12 01:38 | XMS_ITS | Referral Summary ---
Author Organization [facility] Address [address] [place] [address] Care Team Providers Care Template Checker Name Role Phone Farida Hernandez MD Primary Care Provider [phone] Source Comments [facility],non-owned Affiliates and Associated Physician Practices is amultiple site organization consisting of ambulatory clinics and hospital sitesin [place], [place], [place] and [place]. This disclosure is being madepursuant to the Care Everywhere program and may not contain all information available regarding this patient. Last updated 18.[facility] Allergies Active Allergy Reactions Criticality Noted Date [...] of Treatment Not on file Care Teams Template Checker Relationship Specialty Start Date End Date Farida Hernandez MD [address] [place] [address] PCP - General 12/23/20
--- OUTSIDE RECORDS SUMMARY | 2024-04-12 01:38 | XMS_ITS | Patient Health Summary ---
Author Organization [facility] Address [address] [place] [address] Care Team Providers Care Commissioner Of Internal Revenue Name Role Phone Farida Hernandez MD Primary Care Provider [phone] Note from [facility] [place],non-owned Affiliates and Associated Physician Practices is amultiple site organization consisting of ambulatory clinics and hospital sitesin [place], [place], [place] and [place]. This disclosure is being madepursuant to the Care Everywhere program and may not contain all information available regarding this patient. Last updated 18.[facility] Allergies * Amoxicillin Medications * Be aware [...] * SONOGRAM - COMPLETE (05/11/2013 2:29 PM COAT FITTER) Anatomical Region Laterality Modality Other 05/11/2013 2:29 PM COAT FITTER Narrative 05/11/2013 4:56 PM COAT FITTER ?[facility] Maternal Medicine ? Maternal & Care Center ?PHONE: ??FAX: ? Pat. Name: ?BABAR AMAYA Pat. No: ?[id number] Study Date: ?? 05/11/2013 ??2:29pm , Age: ? 1985, 27 LMP: ?11/11/2012 GA by LMP: ?25w6d GA by US: ? 25w3d GA Selected: ??25w5d (LMP) ZAY: ?08/19/2013 Referring MD: BROOKE MAK MD Vacuum Extractor Operator: ??Jerrica Fishman RDMS Hist/Ind: ? Echogenic Focus MEASUREMENTS & AGE ? GROWTH EVALUATION Measurement ??GA ? Range ? Srce %for GA Ratios ----- ---- ------- BPD ??6.3 cm 25w4d ([id number]) Hadl BPD 49% FL/BPD 0.77 (0.71 - 0.87) HC ??23.3 cm 25w3d ([id number]) Hadl HC ??43% FL/AC ??0.25 (0.20 - 0.24* AC ??19.7 cm 24w3d ([id number]) Hadl AC ??23% HC/AC ??1.18 (1.01 - 1.20) FL ?? 4.9 cm 26w2d ([id number]) Hadl FL ??63% CI ? 0.77 (0.70 - 0.86) GA for sonogram 25w3d ([id number]) ?? Weight Estimate: based on (BPD,HC,AC,FL) Avg [...] Signature> ??05/11/2013 04:54pm Revised Brooke Mak MD [facility] ORDERABLES Care Teams Commissioner Of Internal Revenue Relationship Specialty Start Date End Date Farida Hernandez MD [address] [place] [address] PCP - General 12/23/20
--- OUTSIDE RECORDS SUMMARY | 2024-04-12 01:38 | XMS_ITS | Encounter Summary ---
Author Organization [facility] Address [address] [place] [address]. [place], [place] [address] [place] [address] Care Team Providers Care Brain Picker Name Role Phone Unavailable Primary Care Provider Unavailabl e Encounter Details Date Type Department Care Team (Latest Contact Info) Description 02/28/2018 Scan [facility] Medical Group , Generic Effie, Social History [...]
--- OUTSIDE RECORDS SUMMARY | 2024-04-12 01:38 | XMS_ITS | Encounter Summary ---
Author Organization [facility] Address [address] [place] [address]. [place] [address] [place] [address] Care Team Providers Care Pit Inspector Name Role Phone Unavailable Primary Care Provider Unavailabl e Reason for Visit * Reason Comments Lab (SCAN) EGD (SCAN) Encounter Details Date Type Department Care Team ([facility] st Contact Info) Description 11/30/2023 Scan MG [...]
--- OUTSIDE RECORDS SUMMARY | 2024-04-12 01:38 | XMS_ITS | Encounter Summary ---
Author Organization [facility] Address [address] [place] [address]. [place], [place] [address] [place] [address] Care Team Providers Care Senior Java Ui Developer Name Role Phone Unavailable Primary Care Provider [...]
--- OUTSIDE RECORDS SUMMARY | 2024-04-12 01:38 | XMS_ITS | Encounter Summary ---
Author Organization [facility] Address [address] [place] [address]. [place] [address] [place] [address] Care Team Providers Care Clinical Consultant Name Role Phone Unavailable Primary Care Provider [...]
--- OUTSIDE RECORDS SUMMARY | 2024-04-12 01:38 | XMS_ITS | Encounter Summary ---
Author Organization [facility] Address [address] [place] [address]. [place], [place] [address] [place] [address] Care Team Providers Care Sales Account Director Name Role Phone Unavailable Primary Care Provider Unavailabl e Encounter Details Date Type Department Care Team (Latest Contact Info) Description 09/02/2016 Abstract [facility] [place] [address] [place] [address] Social History Tobacco Use Types Packs/Day Years [...]
--- OUTSIDE RECORDS SUMMARY | 2024-04-12 01:38 | XMS_ITS | Encounter Summary ---
Author Organization [facility] Address [address] [place] [address]. [place], [place] [address] [place] [address] Care Team Providers Care Solvent Process Extractor Operator Name Role Phone Unavailable Primary Care Provider [...]
--- OUTSIDE RECORDS SUMMARY | 2024-04-12 01:38 | XMS_ITS | Encounter Summary ---
Author Organization [facility] Address [address] [place] [address]. [place] [address] [place] [address] Care Team Providers Care Manager Occupational Name Role Phone Unavailable Primary Care Provider Unavailabl e Encounter Details Date Type Department Care Team (Late st Contact Info) Description 06/18/2013 Abstract [facility] Medical Group General Surgery [facility] [address] [place] [facility], [address] [place] [address] [place] [address] [address] [facility] [place] [facility] [address] [place] [address] Social History Tobacco Use Types [...] Comments Blood Pressure 128/70 06/18/2013 12:46 PM WIRE INSULATOR Pulse 70 06/18/2013 12:46 PM WIRE INSULATOR Temperature - - Respiratory Rate - - Oxygen Saturation - - Inhaled Oxygen Concentration - - Weight 95.3 kg (210 lb) 06/18/2013 12:46 PM WIRE INSULATOR Height 170.2 cm (5' 7 ) 06/18/2013 12:46 PM WIRE INSULATOR Body Mass Index 32.89 06/18/2013 12:46 PM WIRE INSULATOR documented in this encounter Progress Notes * [...] Encounter] Recorded by : Yvette Gandara at [id number] 12:46PM Temperature 98.8 F Heart Rate 70 Respiration 16 Systolic 128 Diastolic 70 Height 5 ft 7 in Weight 210 lb BMI Calculated 32.89 BSA Calculated 2.06 Assessment 1. Never smoker 2. Umbilical hernia (553.1) (K42.9) Signatures Electronically signed by : Rahul Vargas M.D.; Jun 18 2013 3:37PM WIRE INSULATOR (Author) INSULATOR * Rahul Vargas MD - 06/18/2013 1:00 [...] Encounter] Recorded by : Yvette Gandara at [id number] 12:46PM Temperature 98.8 F Heart Rate 70 [...] Rahul Vargas M.D.; Jun 18 2013 3:36PM WIRE INSULATOR (Author) INSULATOR documented in this encounter Consult Notes * [...] Encounter] Recorded by : Yvette Gandara at [id number] 12:46PM Temperature 98.8 F Heart Rate 70 [...] Rahul Vargas M.D.; Jun 18 2013 3:36PM WIRE INSULATOR (Author) INSULATOR documented in this encounter Plan of Treatment Not on file documented as of this encounter Visit Diagnoses Not on filedocumented in this encounter
--- OUTSIDE RECORDS SUMMARY | 2024-04-12 01:38 | XMS_ITS | Encounter Summary ---
Author Organization [facility] Address [address] [place] [address]. [place] [address] [place] [address] Care Team Providers Care Junior Php Developer Name Role Phone Unavailable Primary Care [...]
--- OUTSIDE RECORDS SUMMARY | 2024-04-12 01:38 | XMS_ITS | Encounter Summary ---
Author Organization [facility] Address [address] [place] [address]. [place] [address] [place] [address] Care Team Providers Care Shrub Grower Name Role Phone Unavailable Primary Care Provider Unavailabl e Reason for Visit * Reason Onset Date Comments Schedule Surgery 12/27/2023 Encounter Details Date Type Department Care Team (Late st Contact Info) Description 12/27/2023 Telephone [facility] Medical Group General Surgery - [place] [address] [place], [place] [address] Octavia Martel, TRANSCRIPTER-C [address] [place] [address] Schedule Surgery Social History Tobacco Use Types [...] appointment with Octavia after referral received from [facility] on 12/19/23 due to generalized abdominal pain. No answer, message left to return call. documented in this encounter Plan of Treatment Not on file documented as of this encounter Visit Diagnoses Not on filedocumented in this encounter
--- OUTSIDE RECORDS SUMMARY | 2024-04-12 01:38 | XMS_ITS | Encounter Summary ---
Author Organization [facility] Address [address] [place] [address] Care Team Providers Care Earring Maker Name Role Phone Brooke Mak MD Primary Care Provider [phone] Encounter Details Date Type Department Care Team (Late st Contact Info) Description 01/09/2009 2:10 PM CDT - 01/09/2009 11:59 PM CDT Hospital Encounter [facility] [address] [place] [address] Brooke Mak MD [address] [place] [address] Medical Outpatient Discharge Disposition: Home [...] on filedocumented in this encounter Care Teams Earring Maker Relationship Specialty Start Date End Date Brooke Mak MD [address] [place] [address] PCP - General 12/26/08 12/22/20 documented as of this encounter
--- OUTSIDE RECORDS SUMMARY | 2024-04-12 01:38 | XMS_ITS | Encounter Summary ---
Author Organization [facility] Address [address] [place] [address]. [place], [place] [address] [place] [address] Care Team Providers Care Bankruptcy Paralegal Name Role Phone Farida Hernandez MD Primary Care Provider [phone] Encounter Details Date Type Department Care Team [...] on filedocumented in this encounter Care Teams Bankruptcy Paralegal Relationship Specialty Start Date End Date Farida Hernandez MD [address] [place] [address] PCP - General INTERNAL MEDICINE 02/01/24 documented as of this encounter
--- OUTSIDE RECORDS SUMMARY | 2024-04-12 01:38 | XMS_ITS | Encounter Summary ---
Author Organization [facility] Address [address] [place] [address]. [place], [place] [address] [place] [address] Care Team Providers Care Surface Boss Name Role Phone Unavailable Primary Care Provider [...]
--- OUTSIDE RECORDS SUMMARY | 2024-04-12 01:38 | XMS_ITS | Encounter Summary ---
Author Organization [facility] Address [address] [place] [address]. [place] [address] [place] [address] Care Team Providers Care Wire Bound Box Machine Helper Name Role Phone Unavailable Primary Care Provider Unavailabl e Reason for Visit * Reason Comments Procedure (SCAN) Encounter Details Date Type Department Care Team ([facility] Contact Info) Description 10/13/2023 Scan HEALTH INFO [...]
--- OUTSIDE RECORDS SUMMARY | 2024-04-12 01:38 | XMS_ITS | Encounter Summary ---
Author Organization [facility] Address [address] [place] [address]. [place] [address] [place] [address] Care Team Providers Care Gas Engine Operator Compressors Name Role Phone Unavailable Primary Care Provider Unavailabl e Reason for Visit * Reason Onset Date Comments Other 12/27/2023 Encounter Details Date Type Department Care Team (Late st Contact Info) Description 12/27/2023 Telephone [facility] General Surgery - [place] [address] [place] [address] Octavia Martel, HEAT TREAT WORKER-C [address] [place] [address] Other Social History Tobacco Use Types Packs/Day [...] calling you back. She also mentioned the [facility] office. Please give a call back documented in this encounter Plan of Treatment Not on file documented as of this encounter Visit Diagnoses Not on filedocumented in this encounter
--- OUTSIDE RECORDS SUMMARY | 2024-04-12 01:38 | XMS_ITS | Clinical Summary ---
Author Organization [facility] Address [address] [place] [address]. [place] [address] [place] [address] Care Team Providers Care Clinical Documentation Consultant Name Role Phone Farida Hernandez MD Primary Care Provider [phone] Allergies Active Allergy Reactions Criticality Noted Date [...] Description 02/01/2024 9:40 AM CDT Office Visit [facility] General Surgery - [place] [address], [address] [place] [address] Octavia Martel, SURGERY CENTER ADMINISTRATOR-C Epigastric Pain (Pain to right side that [...] this topic Meningococcal Vaccine Aged Out No kaua steve eligible based on patient's age to complete this topic Pneumococcal Vaccine: Pediatrics (0 to 5 Years) and At-Risk Patients (6 to 64 Years) Aged Out No longer eligible b ased on patient's age to complete this topic RSV Immunizations Under 20 Months Aged Out No longer eligible b ased on patient's age to complete this topic Insurance [facility] Care Teams Clinical Documentation Consultant Relationship Specialty Start Date End Date Farida Hernandez MD [address] [place] [address] PCP - General INTERNAL MEDICINE 02/01/24
--- OUTSIDE RECORDS SUMMARY | 2024-04-12 01:39 | XMS_ITS | Clinical Summary ---
Author Organization [facility] Address [address] [place] [address] Phone Care Team Providers Care Business Planner Name Role Phone Provider, None Primary Care [...] patient's age to complete this topic Insurance [facility] Care Teams Business Planner Relationship Specialty Start Date End Date Provider, None [place] PCP - General 12/06/16
== END 2024-04-07 22:01 | disposition home or self-care (01) ==
LOC: ANHED 17:40
PROVIDERS: Emergency Provider Emergency Medicine; PCP Internal Medicine
DX: R11.2 Nausea with vomiting, unspecified (principal); R10.9 Unspecified abdominal pain; Z87.891 Personal history of nicotine dependence; Z20.822 Contact with and (suspected) exposure to COVID-19
CPT/HCPCS: 36415; 71046; 80053; 81001; 81025; 83605; 83690; 83735; 84145; 84443; 85025; 87637; 96361; 96372; 96374; 96375; 99284; A9270; J0500; J1885; J2405; J7030

== ENCOUNTER 2024-04-10 14:56 | Outpatient (CLI) | payer BC, SELFPAY ==
[2024-04-10 15:28] LABS: Hematocrit 39.4 % (37.0-47.0); Hemoglobin 13.5 g/dL (12.0-15.0); Mean Corpuscular HGB Conc 34.3 g/dl (32-36); Mean Corpuscular Hemoglobin 29.7 pg (26-34); Mean Corpuscular Volume 86.8 fl (80-100); Mean Platelet Volume 9.8 fl (7.4-10.4); Platelet Count Result 280 k/mm3 (150-375); Red Blood Count 4.54 M/mm3 (4.2-5.4); Red Cell Distribution Width 12.3 % (11.5-14.5); White Blood Count 5.9 K/mm3 (4.5-10.0)
[2024-04-10 15:42] LABS: Alanine Aminotransferase 16 U/L (6-35); Albumin Level 4.5 g/dL (3.5-5.1); Alkaline Phosphatase 38 U/L (38-126); Amylase 86 U/L (30-110); Anion Gap 6 mmol/L (4-12); Aspartate Amino Transferase 20 U/L (14-36); Bilirubin,Total 0.8 mg/dL (0.2-1.3); Blood Urea Nitrogen 8 mg/dL (7-17); CRP < 0.5 mg/dL (<1.0); Calcium 9.8 mg/dL (8.4-10.2); Carbon Dioxide 27 mmol/L (22-30); Chloride 106 mmol/L (98-107); Estimated Glomerular Filt Rate > 60; Glucose 101 mg/dL (65-110); Lipase 155 U/L (23-300); Potassium 3.6 mmol/L (3.4-5.0); Sodium 139 mmol/L (137-145)
[2024-04-10 16:07] LABS: Erythrocyte Sedimentation Rate 15 mm/hr (0-20)
[2024-04-12 07:39] LABS: Ceruloplasmin 18 mg/dL (14-48)
== END 2024-04-10 14:57 | disposition home or self-care (01) ==
PROVIDERS: PCP Internal Medicine; Visit Provider Nurse Practitioner
DX: R10.13 Epigastric pain (principal); R11.10 Vomiting, unspecified; R19.5 Other fecal abnormalities
CPT/HCPCS: 36415; 80053; 82150; 82390; 83690; 85027; 85652; 86140

== ENCOUNTER 2024-04-16 16:48 | Outpatient (NON) | payer BC, SELFPAY ==
[2024-04-23 18:18] LABS: Calprotectin, Stool 142 mcg/g
== END 2024-04-16 16:49 | disposition home or self-care (01) ==
LOC: ANHLAB 16:49
PROVIDERS: PCP Internal Medicine; Visit Provider Nurse Practitioner
DX: R10.13 Epigastric pain (principal); R11.0 Nausea; R19.5 Other fecal abnormalities
CPT/HCPCS: 82653; 83993; 87045; 87269; 87427; 87449

== ENCOUNTER 2024-05-31 14:00 | Outpatient (CLI) | payer BC, SELFPAY ==
--- OUTSIDE RECORDS SUMMARY | 2024-05-31 14:05 | XMS_ITS | Data Portability ---
Author Organization [facility] Address [address] [place] [address] Care Team Providers Care Electronic Warfare Specialist Name Role Phone ROBY ALONSO Primary Care [...] is positive need subtyping 16,18/45 2020 021 [id number] [facility] (Lab), [address], [place], [address], 11:15:54 Referral None recorded. Procedures None recorded. [...] tion of E6/E7 viral mRNA. Resul ts lorudes roldan be corre lated with patie nt prese ntati on, histo ry, cervi francisco cytol ogy and other clini francisco and labor atory findi ngs. See https ://Zafu/s ites/ defau lt/fi les/2 018-0 3/AW- 14218 _002_ 01.pd f for furth er infor matio n. Test perfo rmed by [facility], d/b/a Mikel foster, [address] , [place] [address] , Eladio Nice ra, DO, Labor atory [facility]. HPV High Risk *HPV NOT DETEC MEEK (TYPE S 16, 18, 31, 33, 35, 39, 45, 51, 52, 56, 58, 59, 66, 68) *HPV: The human papil lomav irus (HPV) High Risk Enma marks is an FDA-a pprov ed in-vi tro ampli fied nucle ic acid test for the quali tativ e detec tion of E6/E7 viral mRNA. [facility] lourdes roldan be corre lated with angela nt prese ntati on, histo ry, cervi francisco cytol ogy and other clini francisco and labor atory findi ngs. See https ://Zafu/s ites/ defau lt/fi les/2 018-0 3/AW- 83796 _002_ 01.pd f for yessy er infor karon n. Test perfo rmed by [facility], d/b/a [facility], [address], [place] [address] , Eladio Nice ra, DO, Labor atory [employer]. End of Repor t Techn ical servi nancy provi ded by [employer], d/b/a [facility], [address] [place] [address] Jorge Luis Garcia MD, [facility] ator Dire tor. Case revie wed and diagn osis rende red at [employer], d/b/a [facility], [address] [place] [address] Jorge Luis Garcia MD, Labor ator Dire tor. CONFI DENTI AL Not Available [facility] ([facility]) [address] [place] [address], [place], [address], 10/01/2019 10:53:13 09/27/19 20 09/28/2019 HPV DNA, high- risk HPV high risk NOT DETECT ED normal Not Available [facility] ([facility]) [address] [place] [address], [place], [address], 10/01/2019 10:53:14 10/21/19 21 10/20/2020 IMAGE GUIDE [...] as clini maki garcía nted. Not Available [facility] (Lab) [address], [place], [address], 10/21/2020 15:47:25 08/18/19 23 08/17/2022 CULTU RE: [...] Resul ting Lab: [facility] [address] [facility] [address] Tel: [phone] CULTU RE ----- ----- ----- --- Light [...] seen No organ isms seen Not Available [facility] (Lab) [address], [place], [address], 08/20/2022 12:16:28 08/18/19 23 08/17/2022 CULTU RE: HERPE S SIMPL EX VIRUS (HSV) , REFLE X TYPIN G source LESION SCRAPI NGS Not Available [facility] (Lab) [address], [place], [address], 08/20/2022 12:16:28 08/18/19 23 08/17/2022 CULTU RE: HERPE S SIMPL EX VIRUS (HSV) , REFLE X TYPIN G hsv culture, body fluid NOT ISOLAT ED Perfo rming Organ izati on Infor matio n: Site ID: CB Name: [facility] yuli Rai Addre ss: [address] [place], [place] [phone] Dire tor: Antho ny V Noemi s Not Available [facility] (Lab) [address], [place], [address], 08/20/2022 12:16:28 09/22/19 23 09/21/2022 IMAGE GUIDE D PAP AND HPV REGAR DLESS image guided Pap, HPV regardless of Pap result SEE RESULT S BELOW CASE REPOR T: Cytol ogy Gynec ologi francisco Repor t Case: [id number] Autho cynthia miller Provi ginette: Kenton Lopez Colle cted: 09/21 1524 JACQUARD LOOM HEDDLES TIER Order ing Locat ion: [place] [facility] [...] marks or Kishan iqbal (NIL) . Monique ruiostegui jorge d by Brooke Chamorro CT on [...] as clini maki garcía nted. Not Available [facility] (Lab) [address], [place], [address], 09/22/2022 18:47:30 Result Notes None recorded. Problems Name Problem SNOMED Code Status Onset Date Resolution Date Notes Provider Name and Address Organization Details Recorded Time Normal pregnanc y in multigra mac [id number] Completed 201710/17/2020 Encounte r for suprvsn of normal pregnanc y, third trimeste r;Practi ce ID: 0001 Nneka siddiqui, [facility] 14:43:44 Pregnanc y, childbir th and puerperi um finding Completed 201710/17/2020 Oth pregnanc y related conditio ns, third trimeste r;Practi ce ID: 0001 Nneka siddiqui, [facility] 14:43:08 Gestatio n period, 37 weeks [id number] Completed 201710/17/2020 37 weeks gestatio n of pregnanc y;Practi ce ID: 0001 Nneka siddiqui, [facility] 14:43:42 Term pregnanc y delivere d [id number] Completed 201710/17/2020 Encounte r for full-ter m uncompli cated delivery ;Practic e ID: 0001 Nneka siddiqui, [facility] 14:43:01 Single live [id number] Completed 201710/17/2020 Single live ;Pr actice ID: 0001 Nneka siddiqui, [facility] 14:42:47 Gestatio n period, 39 weeks [id number] Completed 201710/17/2020 39 weeks gestatio n of pregnanc y;Practi ce ID: 0001 Nneka siddiqui, [facility] 14:44:09 Lochia finding Completed 201710/17/2020 Encounte r for routine postpart um follow-u p;Practi ce ID: 0001 Nneka siddiqui, [facility] 14:43:28 Lesion of ovary Completed 201710/17/2020 Other ovarian cyst, left side;Pra ctice ID: 0001 Nneka siddiqui, [facility] 14:42:57 Benign neoplasm of left ovary [id number] Completed 201710/17/2020 Benign neoplasm of left ovary;Pr actice ID: 0001 Nneka siddiqui, [facility] 14:43:30 Follicul ar cyst of left ovary [id number] Completed 201710/17/2020 Follicul ar cyst of left ovary;Pr actice ID: 0001 Nneka Stewart [facility], [facility] 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 14:44:01 Imaging result abnormal [id number] Completed 201710/17/2020 Abnormal findings on diagnost ic imaging of body structur es;Recor ded Elsewher e: No Locat ion: Zoila payne [facility] S ource: EHR Mail Courier gurdeep: N Practi ce ID: 0001 Eugene lable Time: 02:15:00 PM Nneka siddiqui [facility] 14:43:36 Gestatio n period, 28 weeks [id number] Completed 201710/17/2020 28 weeks gestatio n of pregnanc y;Record ed Elsewher e: No Locat ion: Eileennaty payne [facility] S ource: EHR Mail Courier gurdeep: N Practi ce ID: 0001 Eugene lable Time: 01:00:00 PM Nneka siddiqui, [facility] 14:44:11 Pregnanc y test positive [id number] Completed 201210/17/2020 Pregnanc y examinat ion or test, positive result;R ecorded Elsewher e: No [facility]at [facility]: E[facility] Mail Courier gurdeep: N Practi ce ID: 0001 Eugene lable Time: 09:00:00 AM Nneka siddiqui, [facility] 14:43:16 Uterine size for dates discrepa ncy Completed 201710/17/2020 Uterine size-malathi e discrepa ncy, third trimeste r;Record ed Elsewher e: No Locat ion: [facility] S ource: EHR Mail Courier gurdeep: N Practi ce ID: 0001 Eugene lable Time: 01:00:00 PM Nneka siddiqui, [facility] 14:43:06 Finding of contents of cervix [id number] Completed 201610/17/2020 Weeks of gestatio n of pregnanc y not specifie d;Record ed Elsewher e: No Locat ion: [facility] S ource: EHR Mail Courier gurdeep: N Practi ce ID: 0001 Eugene lable Time: 01:00:00 PM Nneka siddiqui, [facility] 14:43:14 Threaten ed miscarri age [id number] Completed 201610/17/2020 Threaten ed ;Recorde d Elsewher e: No Locat ion: Zoila e [facility] S ource: EHR Mail Courier gurdeep: N Practi ce ID: 0001 Eugene lable Time: 01:30:00 PM Nneka siddiqui [facility] 14:43:56 Finding related to pregnanc y Completed 201610/17/2020 Inapprop chg quantita v hCG in early pregnanc y;Record ed Elsewher e: No [facility]: E[facility] Mail Courier gurdeep: N Apolloti ce ID: 0001 Eugene lable Time: 01:00:00 PM Nneka siddiqui [facility] 14:43:04 Overweig ht [id number] Completed 201410/17/2020 Overweig ht;Recor ded Elsewher e: No Locat ion: [facility] S ource: EHR Mail Courier gurdeep: N Apolloti ce ID: 0001 Eguene lable Time: 10:45:00 AM Nneka siddiqui [facility] 14:43:02 Screenin g for malignan t neoplasm of cervix Completed 201510/17/2020 Screenin g for malignan t neoplasm s of the cervix;R ecorded Elsewher e: No Locat ion: [facility] S ource: EHR Mail Courier gurdeep: N Apolloti ce ID: 0001 Eugene lable Time: 11:00:00 AM Nneka siddiqui [facility] 14:42:50 Finding of regulari ty of menstrua l cycle Completed 201510/17/2020 Irregula r menstrua tion, unspecif ied;Jaya rded Elsewher e: No Locat ion: [facility] S ource: EHR Mail Courier gurdeep: N Apolloti ce ID: 0001 Eugene lable Time: 03:30:00 PM Nneka siddiqui [facility] 14:42:58 Obesity [id number] Completed 201310/17/2020 Obesity; Recorded Elsewher e: No Locat ion: [facility] S ource: EHR Mail Courier gurdeep: N Apolloti ce ID: 0001 Eugene lable Time: 09:30:00 AM Nneka siddiqui [facility] 14:43:37 Depressi ve disorder [id number] Completed 201610/17/2020 Depressi on;Recor ded Elsewher e: No Locat ion: [facility] S ource: EHR Mail Courier gurdeep: N Apolloti ce ID: 0001 Eugene lable Time: 02:15:00 PM Nneka siddiqui [facility] 14:43:32 Adult health examinat ion Completed 201210/17/2020 Routine Medical Exam;Rec orded Elsewher e: No Locat ion: [facility] S ource: EHR Mail Courier gurdeep: N Apolloti ce ID: 0001 Eugene lable Time: 02:30:00 PM Nneka siddiqui [facility] 14:43:[address] Concept Completed 201710/17/2020 Maternal care for oth abnormal ity and damage, unsp;Rec orded Elsewher e: No Locat ion: [facility] N Apolloti ce ID: 0001 Eugene lable Time: 01:00:00 PM Nneka siddiqui [facility] 14:43:09 Female genital organ symptoms [id number] Completed 201210/17/2020 Unspecif ied symptom associat ed with female genital organs;R ecorded Elsewher e: No Locat ion: [facility] S ource: EHR Mail Courier gurdeep: N Apolloti ce ID: 0001 Eugene lable Time: 05:45:00 PM Nneka siddiqui [facility] 14:42:53 Gestatio n period, 10 weeks [id number] Completed 201610/17/2020 10 weeks gestatio n of pregnanc y;Record ed Elsewher e: No Locat ion: [facility] S ource: EHR Mail Courier gurdeep: N Apolloti ce ID: 0001 Eugene lable Time: 01:30:00 PM Nneka siddiqui [facility] 14:43:[address] Concept Completed 201510/17/2020 Encntr for manager bench exam (general ) (routine ) w/o abn findings ;Recorde d Elsewher e: No Locat ion: [facility] S ource: [facility] gurdeep: N Apolloti ce ID: 0001 Eugene lable Time: 11:00:00 AM Nneka siddiqui, [facility] 14:43:27 Speciali zed medical examinat ion Completed 201410/17/2020 ROUTINE FURNACE LINER EXAMINAT ION;Jaya rded Elsewher e: No Locat ion: [facility]: N Apolloti ce ID: 0001 Eugene lable Time: 10:45:00 AM Nneka siddiqui, [facility] 14:43:50 Cyst of ovary Completed 201710/17/2020 Unspecif ied ovarian cyst, unspecif ied side;Rec orded Elsewher e: No Locat ion: [facility] S ource: EHR Mail Courier gurdeep: N Apolloti ce ID: 0001 Eugene lable Time: 02:15:00 PM Nneka siddiqui [facility] 14:42:55 Abdomina l pain [id number] Completed 201610/17/2020 Abdomina l pain;Rec orded Elsewher e: No Locat ion: [facility] S ource: EHR Mail Courier gurdeep: N Practi ce ID: 0001 Eugene lable Time: 10:00:00 AM Nneka siddiqui [facility] 14:42:54 Pregnanc y detectio n examinat ion Completed 201610/17/2020 Encounte r for pregnanc y test, result positive ;Recorde d Elsewher e: No Locat ion: [facility]: N Apolloti ce ID: 0001 Eugene lable Time: 09:00:00 AM Nneka Stewart [facility] 14:44:04 Ultrason ography Completed 201210/17/2020 Antenata l screenin g for malforma tion using ultrason ics;Jaya rded Elsewher e: No Locat ion: [facility] S ource: EHR Mail Courier gurdeep: N Apolloti ce ID: 0001 Eugene lable Time: 04:45:00 PM Nnekajorge Stewart [facility] 14:42:44 Antenata l screenin g Completed 201210/17/2020 Antenata l screenin g for malforma tion using ultrason ics;Jaya rded Elsewher e: No Locat ion: [facility]: N Practi ce ID: 0001 Eugene lable Time: 04:45:00 PM Nneka siddiqui [facility] 14:43:13 Congenit al malforma tion [id number] Completed 201210/17/2020 Antenata l screenin g for malforma tion using ultrason ics;Jaya rded Elsewher e: No Locat ion: [facility] S ource: EHR Mail Courier gurdeep: N Practi ce ID: 0001 Eugene lable Time: 04:45:00 PM [facility] 14:43:23 Left lower quadrant pain [id number] Completed 201210/17/2020 Abdomina l pain, left lower quadrant ;Recorde d Elsewher e: No Locat ion: [facility] S ource: EHR Mail Courier gurdeep: N Apolloti ce ID: 0001 Eugene lable Time: 09:00:00 AM Nneka siddiqui [facility] 14:43:24 Body mass index 25-29 - [facility] [id number] Completed 201510/17/2020 Body mass index (BMI) 29.0-29. 9, adult;Re corded Elsewher e: No Locat ion: [facility] S [facility]: N Practi ce ID: 0001 Eugene lable Time: 11:00:00 AM Nneka siddiqui, [facility] 14:42:42 Cyst of ovary [id number] Completed 201510/17/2020 Unspecif ied ovarian cyst, left side;Rec orded Elsewher e: No Locat ion: [facility] S ource: EHR Mail Courier gurdeep: N Apolloti ce ID: 0001 Eugene lable Time: 10:00:00 AM Nneka siddiqui [facility] 14:44:08 Neoplasm of uncertai n behavior of ovary [id number] Completed 201210/17/2020 Neoplasm of uncertai n behavior of ovary;Re corded Elsewher e: No Locat ion: [facility] S ource: EHR Mail Courier gurdeep: N Apolloti ce ID: 0001 Eugene lable Time: 02:15:00 PM Nneka siddiqui [facility] 14:44:13 Gestatio n period, 26 weeks [id number] Completed 201710/17/2020 26 weeks gestatio n of pregnanc y;Record ed Elsewher e: No Locat ion: [facility] S ource: EHR Mail Courier gurdeep: N Practi ce ID: 0001 Eugene lable Time: 01:00:00 PM Nneka Terryrick siddiqui [facility] 14:43:46 Gestatio n period, 31 weeks [id number] Completed 201710/17/2020 31 weeks gestatio n of pregnanc y;Record ed Elsewher e: No Locat ion: Zoila payne [facility] S ource: EHR Mail Courier gurdeep: N Apolloti ce ID: 0001 Eugene lable Time: 09:00:00 AM Nneka siddiqui, [facility] 14:44:00 Pregnanc y [id number] Completed 201210/17/2020 state, incident al;Recor ded Elsewher e: No [facility] S ource: EHR Mail Courier gurdeep: N Apolloti ce ID: 0001 Eugene lable Time: 09:00:00 AM Nneka Stewart [facility], [facility] 14:44:05 Pregnanc y test negative [id number] Completed 201510/17/2020 Encounte r for pregnanc y test, result negative ;Recorde d Elsewher e: No Locat ion: [facility] S ource: EHR Mail Courier gurdeep: N Apolloti ce ID: 0001 Eugene lable Time: 10:45:00 AM Nneka siddiqui, [facility] 14:43:17 Routine antenata l care Completed 201210/17/2020 Supervis ion of other normal pregnanc y;Record ed Elsewher e: No Locat ion: [facility] nolvia [facility] S ource: EHR Mail Courier gurdeep: N Apolloti ce ID: 0001 Eugene lable Time: 02:30:00 PM Nneka siddiqui, [facility] 14:42:38 Hirmelisa meyer [id number] Completed 201610/17/2020 Lucía meyer;Record ed Elsewher e: No Locat ion: [facility] S ource: EHR Mail Courier gurdeep: N Practi ce ID: 0001 Eugene lable Time: 10:00:00 AM Nneka siddiqui [facility] 14:43:34 Nausea and vomiting [id number] Completed 201210/17/2020 Nausea And Vomiting ;Recorde d Elsewher e: No Locat ion: Zoila payne [facility] S ource[facility]: N Apolloti ce ID: 0001 Eguene lable Time: 05:45:00 PM Nneka siddiqui [facility] 14:42:45 Pelvic and perineal pain [id number] Completed 201610/17/2020 Pelvic and perineal pain;Rec orded Elsewher e: No [facility] S ource: [facility]: Esther Hannah ce ID: 0001 Eugene lable Time: 02:30:00 PM Nneka siddiqui [facility] 14:43:21 Antenata l screenin g for malforma tion Completed 201610/17/2020 Encounte r for antenata l screenin g for malforma tions;Re corded Elsewher e: No Locat ion: Rox nolvia [facility] S ource: EHR Mail Courier gurdeep: N Brielle ce ID: 0001 Eugene lable Time: 12:00:00 AM Nneka siddiqui [facility] 14:44:03 Amenorrh ea [id number] Completed 201210/17/2020 Absence of menstrua tion;Rec orded Elsewher e: No Locat ion: Zoila payne [facility] S ource: EHR Mail Courier gurdeep: N Apolloti ce ID: 0001 Eugene lable Time: 03:15:00 PM Nneka siddiqui [facility] 14:42:40 Breast lump [id number] Completed 201310/17/2020 Breast mass;Rec orded Elsewher e: No Locat ion: [facility] nolvia [facility] S ource: EHR Mail Courier gurdeep: N Apolloti ce ID: 0001 Eugene lable Time: 10:15:00 AM Nneka siddiqui [facility] 1 14:44:10 Speciali rose medical examinat ion Completed 201101/11/2012 Gynecolo gical Examinat ion;Jaya rded Elsewher e: No Locat ion: Zoila payne [facility] S ource: EHR Mail Courier gurdeep: N Apolloti ce ID: 0001 Eugene lable Time: 01:30:00 PM Nneka siddiqui [facility] 1 14:43:50 Dysfunct ional uterine bleeding Completed 201101/11/2012 Other disorder s of menstrua tion and other abnormal bleeding from female genital tract;Re corded Elsewher e: No [facility]: EHR Mail Courier gurdeep: N Apolloti ce ID: 0001 Eugene lable Time: 01:45:00 PM Not Available [facility] 0 16:58:06 Postpart um care Completed 201310/17/2020 Post Followup ;Recorde d Elsewher e: No Locat ion: [facility] S ource: EHR Mail Courier gurdeep: N Apolloti ce ID: 0001 Eugene lable Time: 04:45:00 PM Nneka siddiqui [facility] 1 14:42:37 finding Completed 201710/17/2020 Matern care for oth or susp poor fetl grth, third tri, unsp;Rec orded Elsewher e: No Locat ion: [facility] S ource: EHR Mail Courier gurdeep: N Apolloti ce ID: 0001 Eugene lable Time: 09:00:00 AM Nneka siddiqui [facility] 1 14:43:11 Uterine size for dates discrepa ncy Completed 201610/17/2020 Uterine size-malathi e discrepa ncy, first trimeste r;Record ed Elsewher e: No [facility]at ion: [facility] S ource: EHR Mail Courier gurdeep: N Apolloti ce ID: 0001 Eugene lable Time: 01:00:00 PM Nneka siddiqui [facility] 1 14:43:05 Evaluati on finding Completed 201610/17/2020 Hematuri a, unspecif ied;Jaya rded Elsewher e: No [facility]at [facility] S ource: EHR Mail Courier gurdeep: N Apolloti ce ID: 0001 Eugene lable Time: 10:00:00 AM Nneka Stewart [facility] 14:43:20 Uterine size for dates discrepa [facility] [id number] Completed 201210/17/2020 UTERINE SIZE LETITIA-ANTE PAR;Jaya rded Elsewher e: No [facility] S ource: EHR Mail Courier gurdeep: N Apolloti ce ID: 0001 Eugene lable Time: 03:00:00 PM Nneka siddiqui [facility] 14:43:40 Complica tion related to pregnanc y Completed 201310/17/2020 Antepart um edema or excessiv e weight gain;Rec orded Elsewher e: No Locat ion: [facility] S ource: EHR Mail Courier gurdeep: N Apolloti ce ID: 0001 Eugene lable Time: 05:15:00 PM Nneka siddiqui [facility] 14:43:55 Screenin g for malignan t neoplasm of cervix Completed 201101/11/2012 Screenin g for malignan t neoplasm s of the cervix;R ecorded Elsewher e: No Locat ion: [facility] S ource: EHR Mail Courier gurdeep: N Apolloti ce ID: 0001 Eugene lable Time: 01:30:00 PM Nneka siddiqui [facility] 14:42:50 Screenin g for malignan t neoplasm of cervix Completed 201101/11/2012 Screenin g for malignan t neoplasm s of the cervix;R ecorded Elsewher e: No Locat ion: [facility] S ource: EHR Mail Courier gurdeep: Esther Hannah ce ID: 0001 Eugene lable Time: 01:45:00 PM Nneka Stewart [facility] 14:42:50 Speciali zed medical examinat ion Completed 201410/17/2020 Other specifie d chlamydi al diseases ;Recorde d Elsewher e: No Locat ion: [facility] S ource: EHR Mail Courier gurdeep: Esther Hannah ce ID: [id number] Eugene lable Time: 10:45:00 AM Nnekajorge Stewart [facility], [facility] 14:43:52 Microsco pic hematuri a [id number] Completed 201410/17/2020 [facility] HEMATURI A;Record ed Elsewher e: No Locat ion: [facility] S ource: EHR Mail Courier gurdeep: Esther Hannah ce ID: [id number] Eugene lable Time: 10:45:00 AM Nneka siddiqui, [facility] 14:42:51 Benign essentia l hyperten gifty [id number] Completed 201310/17/2020 Hyperten gifty, Benign;R ecorded Elsewher e: No Locat ion: [facility] S ource: EHR Mail Courier gurdeep: Esther Hannah ce ID: [id number] Eugene lable Time: 10:15:00 AM Nneka Stewart [facility], [facility] 14:42:35 Atypical squamous cells of undeterm ined signific ance on cervical Papanico laou smear [id number] Completed 201110/17/2020 Papanico laou smear of cervix with atypical squamous cells of undeterm ined signific ance (ASC-US) ;Recorde d Elsewher e: No Locat ion: [facility] S ource: EHR Mail Courier gurdeep: N Practi ce ID: 0001 Eugene lable Time: 01:45:00 PM [facility] 14:43:43 Dyspareu avelino [id number] Completed 201101/11/2012 Dyspareu avelino;Jaya rded Elsewher e: No Locat ion: [facility] S ource: EHR Mail Courier gurdeep: N Practi ce ID: 0001 Eugene lable Time: 01:45:00 PM Not Available [facility] 0 16:58:10 Venereal disease screenin g Completed 201410/17/2020 Screenin g examinat ion for venereal disease; Recorded Elsewher e: No Locat ion: [facility] S ource: EHR Mail Courier gurdeep: N Practi ce ID: 0001 Eugene lable Time: 10:45:00 AM Nneka Terry siddiqui, [facility] 14:42:48 Female proctoce le without uterine prolapse Completed 201010/17/2020 Rectocel e;Practi ce ID: 0001 Nneka Terry [facility], [facility] 14:43:59 Disorder of breast [id number] Completed 201110/17/2020 DISORDER S BREAST NEC;Prac mirian ID: 0001 Nneka Terry siddiqui, [facility] 14:44:06 Hydatidi form mole, benign [id number] Completed 201210/17/2020 Hydatidi form mole;Pra ctice ID: 0001 Nneka siddiqui, [facility] 14:43:38 Delivery normal [id number] Completed 201310/17/2020 Normal delivery ;Practic e ID: 0001 Nneka Stewart [facility], [facility] 14:43:47 prematur e rupture of membrane s [id number] Completed 201710/17/2020 Pretrm kirsty ROM, unsp time betw rupt and onst labr, 3rd tri;Prac mirian ID: 0001 Nneka Stewart [facility] 14:43:25 Problem Notes None recorded. Procedures Surgical History Date Name Laterality Status Provider Name and Address Organization Details Recorded Time 10/21/19 21 Date of Last Pap Smear completed [facility] 08/17/2022 10:09:10 12/01/19 18 Tubal Ligation completed [facility] 08/17/2022 10:52:52 04/25/19 17 Tonsillectomy completed [facility] 08/17/2022 10:51:57 04/25/19 16 hernia repair completed [facility] 08/17/2022 10:53:58 09/07/19 13 Laparoscopy completed [facility] 08/17/2022 10:53:25 06/17/19 13 Colposcopy completed [facility] 08/17/2022 10:53:37 06/17/19 12 Colposcopy completed Nneka Doran [facility] 10/17/2020 14:49:46 Colonoscopy completed [facility] 08/17/2022 10:37:20 Imaging Results None recorded. Procedure Notes None recorded. Medical Equipment None Reported. Allergies Allergen ID Allergen Name Allergen Category Reaction Reaction Severity Criticality Documentation Date Start Date Code Code System Note Provider Name and Address Organization Details Recorded Time 844 amoxicill in medicatio n Not available Not available Not available 09/26/2019 723 RxNorm [facility] 0 14:49:27 845 hydrocodo ne Not available Not available Not available Not available 09/26/2019 5489 RxNorm Dacia Sharp [facility], [facility] 0 14:49:39 846 Product containin g penicilli n and antibioti c (product) medicatio n Not available Not available Not available 09/26/2019 57734 05 SNOMED Dacia Sharp [facility], [facility] 0 14:49:48 847 shellfish derived food,medi cation Not available Not available Not available 09/26/2019 44802 UNK Dacia Sharp [facility] 0 14:49:59 Medications Name Sig Start Date Stop Date Status Note LastModified by Organization Details LastModified Time Miralax 17 gram oral powder packet take 1 packet by oral route every day mixed with 8 oz. water, juice, soda, coffee or tea 12/14 completed Prescrib ed Elsewher e: Yes Loca tion: [facility] odify By: antoine guerrier DateTime : 02/08/20 17 01:45:00 PM Not Available Not Available Not Available Colace 100 mg capsule take 1 capsule by oral route every day at bedtime as needed 12/14 completed Prescrib ed Elsewher e: Yes Loca tion: [facility] odify By: antoine wrayuntnaif DateTime : 02/08/20 17 01:45:00 PM Not Available Not Available Not Available venlafaxi ne ER 37.5 mg capsule,e xtended release 24 hr take 1 capsule by oral route every day with food 11/01 completed Prescrib ed Elsewher e: Yes Loca tion: [facility] odify By: antoine wrayuntnaif DateTime : 01/21/20 16 11:00:00 AM Not Available Not Available Not Available paroxetin e 10 mg tablet take 1 tablet by oral route every day 01/10 completed Prescrib ed Elsewher e: Yes Loca tion: Zoila payne [facility] odify By: lisy singh DateTime : 06/07/19 12 01:45:00 PM Not Available Not Available Not Available Compazine 10 mg tablet take 1 tablet by oral route 3 times every day 01/20 completed Prescrib ed Elsewher e: No Locat ion: Zoila payne [facility] odify By: freida dailey DateTime : 01/14/20 17 04:01:18 PM Not Available Not Available Not Available sertralin e 100 mg tablet take 1 tablet by oral route every day active Not Available Not Available No t Available folic acid 400 mcg tablet take 1 tablet by oral route every day 12/14 completed Prescrib ed Elsewher e: Yes Loca tion: Zoila payne [facility] odify By: antoine guerrier DateTime : 02/08/20 17 01:45:00 PM Not Available Not Available Not Available Reglan 10 mg tablet take 1 tablet (10MG) by oral route 3 times every day 30 minutes before meals and at bedtime 01/15 completed Prescrib ed Elsewher e: No Locat ion: Zoila payne [facility] odify By: gregory guerrier DateTime : 01/24/20 13 04:22:07 PM Not Available Not Available Not Available Zofran 8 mg tablet take 1 tablet (8MG) by oral route every 12 hours 01/15 completed Prescrib ed Elsewher e: No Locat ion: Zoila payne [facility] odify By: gregory wrayuntnaif DateTime : 02/08/20 13 05:45:00 PM Not Available Not Available Not Available Zofran ODT 4 mg disintegr ating tablet DISSOLVE 1 TABLET ON TOP OF TONGUE EVERY 12 HOURS 12/14 completed Prescrib ed Elsewher e: No [facility] By: antoine guerrier DateTime : 08/05/19 18 01:57:02 PM Not Available Not Available Not Available promethaz ine 50 mg tablet take 1 tablet by oral route every 8 - 12 hours as needed 02/07 completed Prescrib ed Elsewher e: No Locat ion: [facility] odify By: josé miguel singh DateTime : 01/25/20 17 10:41:44 AM Not Available Not Available Not Available Nortrel 0.5/35 (28) 0.5 mg-35 mcg tablet take 1 tablet by oral route every day 01/06 completed Prescrib ed Elsewher e: No Locat ion: Rox nolvia [facility] odify By: francoise Payne ncounter DateTime : 01/16/20 14 09:30:00 AM Not Available Not Available Not Available Vitamin D2 1,250 mcg (50,000 unit) capsule take 1 capsule (10067UI ITS) by oral route every week 01/15 completed Prescrib ed Elsewher e: No Locat ion: [facility] odify By: gregory Payne ncounter DateTime : 05/22/19 14 01:38:07 PM Not Available Not Available Not Available nabumeton e 500 mg tablet take 1 tablet by oral route 2 times every day 12/02 completed Prescrib ed Elsewher e: Yes Loca tion: Zoila payne [facility] odify By: antoine wrayuntnaif DateTime : 11/02/19 17 11:30:00 AM Not Available Not Available Not Available Tigan 300 mg capsule take 1 capsule by oral route 3 times every day as needed 12/14 completed Prescrib ed Elsewher e: No Locat ion: Zoila payne [facility] odify By: antoine Payne ncounter DateTime : 02/08/20 17 01:45:00 PM Not Available Not Available Not Available Bactrim DS 800 mg-160 mg tablet take 1 tablet by oral route every 12 hours 01/20 completed Prescrib ed Elsewher e: No Locat ion: [facility]ian [facility] odify By: freida dailey DateTime : 12/03/19 17 10:00:00 AM Not Available Not Available Not Available Brittny 0.35 mg tablet take 1 tablet by oral route every day 01/17 completed Prescrib ed Elsewher e: No Locat ion: Zoila payne [facility] odify By: cinda singh DateTime : 04/05/20 14 01:50:41 PM Not Available Not Available Not Available escitalop maris 5 mg tablet take 1 tablet by oral route every day 05/30 completed Prescrib ed Elsewher e: Yes Loca tion: Zoila payne [facility] odify By: freida dailey DateTime : 11/02/19 17 11:30:00 AM Not Available Not Available Not Available sertralin e 10/17 completed Not Available Not Available Not Available CitraNata l Assure 35 mg-1 mg-50 mg-300 mg oral pack take 1 Tablet by Oral route every day for 90 days 04/07 completed Prescrib ed Elsewher e: No [facility] odify By: francoise guerrier DateTime : 01/09/20 13 02:30:00 PM Not Available Not Available Not Available Diclegis 10 mg-10 mg tablet,de layed release take 1 tablet by oral route every day in the morning, 1 tablet in the mid-afte rnoon, and 2 tablets at bedtime 12/14 completed Prescrib ed Elsewher e: No Locat ion: Zoila payne [facility] odify By: antoine guerrier DateTime : 07/12/19 18 01:45:00 PM Not Available Not Available Not Available Merrick prince Complete chewable tablet 10/17 completed Prescrib ed Elsewher e: Yes Loca tion: Zoila payne [facility] odify By: antoine guerrier DateTime : 02/08/20 17 01:45:00 PM Not Available Not Available Not Available Vitals Date Recorded Body height Body mass index (BMI) Body weight Systolic blood pressure Diastolic blood pressure Systolic blood pressure Diastolic blood pressure Provider Name and Address Organization Details Last Updated DateTime 1 170.18 cm 32.6 kg/m2 66377.2 1 g 140 mm[Hg] 99 mm[Hg] 135 mm[Hg] 90 mm[Hg] Nneka Stewart [facility] 1 16:39:46 Date Recorded Body weight Body mass index (BMI) Body height Systolic blood pressure Diastolic blood pressure Provider Name and Address Organization Details Last Updated DateTime 09/27/2019 21850.54 g 34 kg/m2 170.18 cm 143 mm[Hg] 94 mm[Hg] Dacia Sharp [facility] 0 15:53:08 Date Recorded Body height Body mass index (BMI) Body weight Systolic blood pressure Diastolic blood pressure Provider Name and Address Organization Details Last Updated DateTime 08/17/2022 170.18 cm 33.5 kg/m2 02151.77 g 138 mm[Hg] 88 mm[Hg] Maria A Jeff [facility] 3 10:36:28 Date Recorded Body height Body mass index (BMI) Body weight Provider Name and Address Organization Details Last Updated DateTime 09/21/2022 170.18 cm 34 kg/m2 14430.54 g Mireya Bennett [facility] 09/21/2022 14:25:51 Date Recorded Systolic blood pressure Diastolic blood pressure Provider Name and Address Organization Details Last Updated DateTime 09/21/2022 122 mm[Hg] 76 mm[Hg] Diana Farah, [facility] [address], [place], [address], [facility] 09/21/2022 14:38:36 Social History Question Answer Notes LastModified by Organizat ion Details LastModified Time Tobacco Smoking Status Former Smoker Avelino Pedro chen, [facility] 09/21/2022 14:13:17 Do You Have An Advance Directive? No Information not available 10/20/2020 What Is Your Level Of Alcohol Consumption? Occasional Information not available 09/27/2019 How Many Years Have You Consumed Alcohol? 12 [email or web address] Information not available 10/20/2020 Are You Blind Or Do You Have Difficulty Seeing? No [email or web address] Information not available 10/20/2020 What Is Your Level Of Caffeine Consumption? Moderate [email or web address] Information not available 10/20/2020 How Much Tobacco Do You Chew? None [email or web address] Information not available 08/17/2022 In The 14 Days Before Symptom Onset, Have You Had Close Contact With A Laboratory-confir med COVID-19 While That Case Was Ill? No [email or web address] Information not available 10/20/2020 In The 14 Days Before Symptom Onset, Have You Had Close Contact With A Person Who Is Under Investigation For COVID-19 While That Person Was Ill? No Information not available 10/20/2020 Have You Been To An Area Known To Be High Risk For COVID-19? No [email or web address] Information not available 10/20/2020 Are You Deaf Or Do You Have Serious Difficulty Hearing? No [email or web address] Information not available 10/20/2020 What Type Of Diet Are You Following? REGULAR [email or web address] Information not available 10/20/2020 What Is The Highest Grade Or Level Of School You Have Completed Or The Highest Degree You Have Received? 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 Yes [email or web address] Information not available 10/20/2020 Have You Ever Been Counseled For Unhealthy Alcohol Use? No [email or web address] Information not available 09/21/2022 Do You Use Protection During Sex? No [email or web address] Information not available 10/20/2020 Do You Use Your Seat Belt Or Car Seat Routinely? Yes [email or web address] Information not available 10/20/2020 Do You Have Smoke And Carbon Monoxide Detectors In Your Home? Yes [email or web address] Information not available 10/20/2020 At What Age Did You Start Smoking Tobacco? 17 [email or web address] Information not available 10/20/2020 How Much Tobacco Do You Smoke? No [email or web address] Information not available 08/17/2022 Do You Feel Stressed (tense, Restless, Nervous, Or Anxious, Or Unable To Sleep At Night)? [id number] Information not available 10/20/2020 Do You Use Any Illicit Or Recreational Drugs? No [email or web address] Information not available 10/20/2020 Do You Use Sunscreen Routinely? Yes Information not available 10/20/2020 Has Tobacco Cessation Counseling Been Provided? No [email or web address] Information not available 09/21/2022 Have You Used IV Drugs? No Information not available 10/20/2020 Do You Or Have You Ever Used Any Other Forms Of Tobacco Or Nicotine? No [email or web address] Information not available 09/21/2022 Sex: Unknown Functional Status Question Answer Note LastModified by Organizat ion Details LastModified Time Do you have difficulty walking or climbing stairs? No [email or web address] Information not available 09/21/2022 Are you able to walk? YESWOREST [email or web address] Information not available 10/20/2020 Are you able to care for yourself? Yes Information not available 09/21/2022 Do you have difficulty dressing or bathing? No [email or web address] Information not available 09/21/2022 What is your exercise level? Occasional Information not available 09/27/2019 Mental Status None recorded. Family History Relationship Description Onset Age of this Age Resolved Age Notes LastModified by Organization Details LastModified Time Maternal Grandmother Malignant tumor of breast [email or web address] Not available 08/17 10:37:19 Father Asthma [email or web address] Not available 08/17/2022 10:37:19 Mother Congenital prolapsed uterus [email or web address] Not available 2022 14:13:16 Mother Multiple sclerosis [email or web address] Not available 08/17 10:37:19 Maternal Grandfather Family history of malignant neoplasm of prostate [email or web address] Not available 2022 14:13:16 Maternal Grandfather Diabetes mellitus [email or web address] Not available 08/17 10:37:19 Brother Asthma [email or web address] Not availabl e 08/17/2022 10:37:19 Medical History Condition Response Allergies (Food, seasonal, environmental ) N Other Y Breast Cancer N Drug/Latex Allergies/Reactions Y Blood Transfusion N Dermatologic Disorders N Lung Disease N Defects or Inherited Disease N Breast Problem N Gestational Diabetes N Hematologic disorders N Anesthesia Complications N History of STI Y Deep Vein Thrombosis N Polycystic ovary syndrome N Anxiety Disorder Y Autoimmune disease N Arthritis N Infertility N Polyps N Acid Reflux (GERD) Y History of abnormal pap Y Cancer N Stroke N Varicosities N Neurologic/Epilepsy N Endometriosis N High Cholesterol N Headaches N Fibromyalgia N Kidney Disease N Heart Problems N Kidney or Bladder Problems N Thyroid Problems N GI Problems Y Eating Disorder [...] Diagnosis/Indication Diagnosis SNOMED-CT Code Diagnosis ICD10 Code Diagnosis Note [id number] Chelsie Mcgraw [facility] [address] [address] 09/27/2019 15:39:36 10/17/2019 11:21:58 Gynecologic examination [id number] Z01.419 Take Calcium with Vitamin D 1200mg daily if not receiving in daily diet. It is strongly advised to have an annual flu shot and up can obtain at most pharmacies . If you have not had a TDap shot in the last 10 years you should obtain one as well. Discussed with patient & provided with informatio n regarding Gardisil vaccine to prevent the 4 strains for HPV that cause cervical cancer if under age 26. Encourage safe sexual practices, to use condoms and limit partners if not already in a monogamous relationsh ip. Do monthly self breast exams. Have mammogram yearly or every other year depending on family history. BRCA testing is now available for patients with strong genetic history of female cancer. If interested contact the office. Engage in daily exercise of low impact aerobic exercise 45-60 minutes 4-5 times weekly. Avoid tobacco and illicit drugs as well as using moderation with alcohol intake less than 1-2 8 oz beverages daily. This lifestyle behavior pattern will lead to less health conditions and longer life span. If BMI greater than 25 weight watchers or dietary consult advised. Patient received above instructio ns, and questions have been answered. If you have any questions please call or respond to this email. Patient was made aware of the patient portal and may obtain a paper copy of today's plan if desired. [id number] Chelsie Moonnoemi [facility] [address] [address] 10/20/2020 16:33:07 10/20/2020 16:54:39 Gynecologic examination [id number] Z01.419 Z11.51 Take Calcium with Vitamin D 1200mg daily if not receiving in daily diet. It is strongly advised to have an annual flu shot and up can obtain at most pharmacies . If you have not had a TDap shot in the last 10 years you should obtain one as well. Discussed with patient & provided with informatio n regarding Gardisil vaccine to prevent the 4 strains for HPV that cause cervical cancer if under age 26. Pap today. History of abnormal. Encourage safe sexual practices, to use condoms and limit partners if not already in a monogamous relationsh ip. Do monthly self breast exams. Have mammogram yearly or every other year depending on family history. BRCA testing is now available for patients with strong genetic history of female cancer. If interested contact the office. Engage in daily exercise of low impact aerobic exercise 45-60 minutes 4-5 times weekly. Avoid tobacco and illicit drugs as well as using moderation with alcohol intake less than 1-2 8 oz beverages daily. This lifestyle behavior pattern will lead to less health conditions and longer life span. If BMI greater than 25 weight watchers or dietary consult advised. Patient received above instructio ns, and questions have been answered. If you have any questions please call or respond to this email. Patient was made aware of the patient portal and may obtain a paper copy of today's plan if desired. [id number] Chelsie Mcgraw [facility] [address] [address] 08/17/2022 10:17:15 08/19/2022 12:06:59 Lesion of vulva [id number] N90.89 Almost resolved and draining clear fluid. Discomfort minimal per patient. Wound and HSV cultures collected. Warm compress 3-4 times per day until resolved. [id number] MINA [facility] [address] [address] 09/21/2022 14:13:02 09/21/2022 15:27:26 Gynecologic examination 09090107 Z01.419 Take Calcium with Vitamin D 1200mg daily if not receiving in daily diet. It is strongly advised to have an annual flu shot and up can obtain at most pharmacies . If you have not had a TDap shot in the last 10 years you should obtain one as well. Discussed with patient & provided with informatio n regarding Gardisil vaccine to prevent the 4 strains for HPV that cause cervical cancer if under age 26. Encourage safe sexual practices, to use condoms and limit partners if not already in a monogamous relationsh ip. Do monthly self breast exams. Have mammogram yearly or every other year depending on family history. BRCA testing is now available for patients with strong genetic history of female cancer. If interested contact the office. Engage in daily exercise of low impact aerobic exercise 45-60 minutes 4-5 times weekly. Avoid tobacco and illicit drugs as well as using moderation with alcohol intake less than 1-2 8 oz beverages daily. This lifestyle behavior pattern will lead to less health conditions and longer life span. If BMI greater than 25 weight watchers or dietary consult advised. Patient received above instructio ns, and questions have been answered. If you have any questions please call or respond to this email. Patient was made aware of the patient portal and may obtain a paper copy of today's plan if desired. Pap/hpv sent per requestIf wnl consider q3-5yrs per asccp unless otherwise indicated STD Screen declined Genetic Screen discussed Colon Screen na Dexa Screen na Routine Labs PCP Health Concerns Section Related Observation LastModified by Organization Detai ls LastModified Time None Recorded Concern Status LastModified by Organization Details LastModified Time None Recorded Advance Directives Directive N: Payers Encounter Date Sequence Insurance Name Policy Number Policy Johnson Covered Member ID Johnson Member ID Guarantor Name 09/27/2019 1 [employer] [id number] Manpreet [place] [id number] Manpreet [place] 10/20/2020 1 [employer] [id number] Manpreet [place] [id number] Manpreet [place] 08/17/2022 1 [place] [id number] Manpreet [place] [id number] Manpreet [place] 09/21/2022 1 [place] [id number] Manpreet [place] [id number] Manpreet [place] Notes Date Note Type Note [...] siddiqui [facility] 09/27/2019 16:18:17 10/20/2020 text/html Annual GYNReport [...] siddiqui [facility] 10/20/2020 16:52:14 08/17/2022 text/html Lump in labia th at started Tuesday. Was firm and uncomfortable. Is better today. Chelsie siddiqui [facility] 08/20/2022 07:35:53 09/21/2022 text/html Annual GYNReport [...] regular mammograms starting age 40 Diana Farah, [facility]- [address], [place], [address], [facility] 09/21/2022 14:41:21 OBGyn Episode Ob Episode Information Episode Created Date Number of Fetuses Patient Bloodtype Patient rh Status Prepregnancy Weight lbs Domestic Partner Domestic Partner Phone Father Name Advertising Display Rotator Status 09/27/19 20 1 CLOSED Fetus Data First Name Last Name Admitted to NICU Weight (g) Sex Living Outcome Pediatric Complications Fetus ID Race Codes Race Delivery Type 3572.03 7 F Full Term 1984 Vaginal Delivery Donal Calculation Initial Donal Date Initial Exam Date Initial Exam Provider Initial Ultrasound Date Last Menstrual Period Date Ultra Sound Weeks Gestation 0 Eighteen To Twenty Week Donal Update [...] Domestic Partner Domestic Partner Phone Father Name Advertising Display Rotator Status 09/27/19 20 1 CLOSED Fetus Data First Name Last Name Admitted to NICU Weight (g) Sex Living Outcome Pediatric Complications Fetus ID Race Codes Race Delivery Type 3401.94 M Full Term 1983 Vaginal Delivery Donal Calculation Initial Donal Date Initial Exam Date Initial Exam Provider Initial Ultrasound Date Last Menstrual Period Date Ultra Sound Weeks Gestation 0 Eighteen To Twenty Week Donal Update [...] Domestic Partner Domestic Partner Phone Father Name Advertising Display Rotator Status 09/27/19 20 1 CLOSED Fetus Data First Name Last Name Admitted to NICU Weight (g) Sex Living Outcome Pediatric Complications Fetus ID Race Codes Race Delivery Type 2806.37 [id number] F Full Term 1984 Vaginal Delivery Donal Calculation Initial Donal Date Initial Exam Date Initial Exam Provider Initial Ultrasound Date Last Menstrual Period Date Ultra Sound Weeks Gestation 0 Eighteen To Twenty Week Donal Update [...]
--- OUTSIDE RECORDS SUMMARY | 2024-05-31 14:05 | XMS_ITS | Clinical Summary ---
Author Organization [facility] [employer] Address [address] [place] [address] Care Team Providers Care Almond Huller Name Role Phone Farida Hernandez MD Primary Care Provider [phone] Source Comments [facility] [employer],non-owned Affiliates and Associated Physician Practices is amultiple site organization consisting of ambulatory clinics and hospital sitesin [place], [place], [place] and [place]. This disclosure is being madepursuant to the Care Everywhere program and may not contain all information available regarding this patient. Last updated 18.[facility] [employer] Allergies Active Allergy Reactions Criticality Noted Date [...] of 3 - 19+ 3-dose series) 2005 COVID-19 VACCINE (1 - 2023-2 5 season) 2023 INFLUENZA VACCINE (#1) 2023 DEPRESSION SCREENING 04/25/2024 ZOSTER VACCINE (1 of 2) 2036 HIB VACCINE Aged Out No longer eligi ble based on patient's age to complete this topic HPV VACCINE Aged Out No longer eligi ble based on patient's age to complete this topic MENINGOCOCCAL (Group B) VACCINE Aged Out No longer eligible based on patient's age to complete this topic MENINGOCOCCAL VACCINE Aged Out No akua steve eligible based on patient's age to complete this topic PNEUMOCOCCAL VACCINE Aged Out No long er eligible based on patient's age to complete this topic Care Teams Almond Huller Relationship Specialty Start Date End Date Farida Hernandez MD [address] [place] [id number] PCP - General 12/23/20
--- OUTSIDE RECORDS SUMMARY | 2024-05-31 14:05 | XMS_ITS | Patient Health Summary ---
Author Organization [facility] Address [address] [place] [address] Care Team Providers Care Data Collector Name Role Phone Farida Hernandez MD Primary Care Provider [phone] Note from [facility][note 3],non-owned Affiliates and Associated Physician Practices is amultiple site organization consisting of ambulatory clinics and hospital sitesin [place] and [place]. This disclosure is being madepursuant to the Care Everywhere program and may not contain all information available regarding this patient. Last updated 18.[facility] Allergies * Amoxicillin Medications * Be [...] * SONOGRAM - COMPLETE (05/11/2013 2:29 PM FIREWOOD CUTTER) Anatomical Region Laterality Modality Other 05/11/2013 2:29 PM FIREWOOD CUTTER Narrative 05/11/2013 4:56 PM FIREWOOD CUTTER [facility] PHONE: FAX: Pat. Name: BABAR AMAYA Katie. No: [id number] Study Date: 05/11/2013 2:29pm , Age: 07 1985, 27 LMP: 11/11/2012 GA by LMP: 25w6d GA by US: 25w3d GA Selected: 25w5d (LMP) ZAY: 08/19/2013 Referring MD: BROOKE GAVIRIA MD Flight Tower Dispatcher: Jerrica Fishman RDMS Hist/Ind: Echogenic Focus MEASUREMENTS & AGE GROWTH EVALUATION Measurement GA Range Srce %for GA Ratios ----- ---- ------- BPD 6.3 cm 25w4d ([id number]) Hadl BPD 49% FL/BPD 0.77 (0.71 - 0.87) HC 23.3 cm 25w3d ([id number]) Hadl HC 43% FL/AC 0.25 (0.20 - 0.24* AC 19.7 cm 24w3d ([id number]) Hadl AC 23% HC/AC 1.18 (1.01 - 1.20) FL 4.9 cm 26w2d ([id number]) Hadl FL 63% CI 0.77 (0.70 - 0.86) GA for sonogram 25w3d ([id number]) Weight Estimate: based on (BPD,HC,AC,FL) Avg Weight: 788 gm (673-903) Hadlock : 1lbs, 11oz Normal: 824 gm (546-1278) Geovani Wt% 45% for 25w5d Heart Rate: 149 bpm CLINICAL SUMMARY Study Number: 1 A krishnamurthy fetus is identified in cephalic presentation. The amniotic fluid volume is within normal limits. The placenta is posterior. IMPRESSION: Single, live, IUP 25w5d Biometry is consistent [...] aneuploidy testing was offered and declined. RECOMMEND: Follow up only as clinically indicated. Thank you for allowing us the opportunity to care for your patient. Lavonne Bhatt MD <Electronic Signature> 05/11/2013 04:54pm Revised Brooke MCKEON ORDERABLES Care Teams Data Collector Relationship Specialty Start Date End Date Farida Hernandez MD [address] [place] [address] PCP - General 12/23/20
--- OUTSIDE RECORDS SUMMARY | 2024-05-31 14:05 | XMS_ITS | Clinical Summary ---
Author Organization [facility] Address [address] [place] [address] Phone Care Team Providers Care Hotel Services Supervisor Name Role Phone Provider, None Primary Care [...] Cervical Cancer Screening (CCS) 2016 HPV/Cotest 2016 Influenza Immunization (#1) 2023 SARS-COV-2 Immunization ( season) 2023 Respiratory Syncytial Virus (RSV) Immunization (Adult) (1 - 1-dose 75+ series) 2061 Meningococcal Immunization (ACWY) Aged Out No longer eligible based on patient's age to complete this topic Pneumococcal Immunization Combined Aged Out No longer eligible based on patient's age to complete this topic Rotavirus Immunization Aged Out No lo nger eligible based on patient's age to complete this topic Insurance [facility] Care Teams Hotel Services Supervisor Relationship Specialty Start Date End Date Provider, None JOHN PCP - General 12/06/16
--- OUTSIDE RECORDS SUMMARY | 2024-05-31 14:05 | XMS_ITS | Referral Summary ---
Author Organization [facility] Address [address] [place] [address] Care Team Providers Care Flavor Room Worker Name Role Phone Farida Hernandez MD Primary Care Provider [phone] Source Comments [facility],non-owned Affiliates and Associated Physician Practices is amultiple site organization consisting of ambulatory clinics and hospital sitesin [place], [place]. This disclosure is being madepursuant to the Care Everywhere program and may not contain all information available regarding this patient. Last updated 18.[facility] Allergies Active Allergy Reactions Criticality Noted Date [...] of Treatment Not on file Care Teams Flavor Room Worker Relationship Specialty Start Date End Date Farida Hernandez MD [address] [place] [address] PCP - General 12/23/20
--- OUTSIDE RECORDS SUMMARY | 2024-05-31 14:05 | XMS_ITS | Clinical Summary ---
Author Organization [facility] Address [address] [place] [id number] Care Team Providers Care Team Assembler Name Role Phone Farida Hernandez MD Primary Care Provider [phone] Allergies Active Allergy Reactions Criticality Noted Date [...] (eight) hours as needed for Nausea. Active Family History Medical History Relation Comments Anxiety [...] 79 02/01/2024 10:02 AM CDT Temperature 36.7 C (98 F) 02/01/2024 10:02 AM CDT Respiratory Rate 18 02/01/2024 10:02 AM CDT Oxygen Saturation 98% 02/01/2024 10:02 AM CDT Inhaled Oxygen Concentration - - Weight 96 kg (211 lb 9.6 oz) 02/01/2024 10:02 AM CDT Height 170.2 cm (5' 7 ) 02/01/2024 10:02 AM CDT Body Mass Index 33.14 02/01/2024 10:02 AM CDT Plan of Treatment Health Maintenance Due Date Last Done Comments Annual Physical 1989 Hepatitis C 2004 Hepatitis B Vaccines (1 of 3 - 19+ 3-dose series) 2005 Cervical Cancer Screening Pa p with HPV Testing (Age 30 to 64) Every 5 Years 2016 DTaP, Tdap and Td Vaccines ( 2 - Td or Tdap) 07/10/2023 07/09/2013 COVID-19 Vaccine (2 - 2023-2 5 season) 2023 09/23/2020 Influenza Adult (#1) 2024 03/14/2013, 05/10/2012 PHQ-2 (Physician [place]) 04/25/2024 02/01/2024 PHQ-2 (Physician [place]) 01/31/2025 02/01/2024 Cervical Cancer Screening Pa p Smear (Age 30 to 64) Every 3 Years 09/21/2025 09/21/2022 Cervical Cancer Screening wi th HPV 09/21/2025 HPV Vaccines Aged Out No longer eligi ble based on patient's age to complete this topic Meningococcal B Vaccine Aged Out No l onger eligible based on patient's age to complete [...] patient's age to complete this topic Insurance [facility] Care Teams Team Assembler Relationship Specialty Start Date End Date Farida Hernandez MD [address] [place] [address] PCP - General INTERNAL MEDICINE 02/01/24
[2024-05-31 14:44] LABS: INR 0.9; Prothrombin Time 10.3 Seconds (9.50-12.1)
[2024-06-01 13:19] LABS: Partial Thromboplastin Time 26.2 Sec (23.9-30.70)
[2024-06-02 02:22] LABS: Vitamin D 25 Hydroxy 58 ng/mL (30-100)
== END 2024-05-31 14:01 | disposition home or self-care (01) ==
LOC: CHSLAB 14:02
PROVIDERS: PCP Internal Medicine; Visit Provider Nurse Practitioner
DX: E55.9 Vitamin D deficiency, unspecified (principal); R23.3 Spontaneous ecchymoses
CPT/HCPCS: 36415; 82306; 85610; 85730

== ENCOUNTER 2024-06-27 09:09 | Outpatient (CLI) | payer BC, SELFPAY ==
--- NOTE | ~2024-06-27 | XR_ITS ---
EXAMINATION: XR UGIAC wo kub DATE: 06/27/2024 10:03 INDICATION: Epigastric abdominal pain. TECHNIQUE: The patient drank thick barium, gas-producing crystals, and thin barium. Fluoroscopy of th e esophagus, stomach, and proximal small bowel was performed. Fluoroscopy exposure time was 0.7 minut es. The total number of images was 283. Total dose-area product was 2.095 Gy-cm^2. COMPARISON: CT abdomen and pelvis 04/06/2024 FINDINGS: There is no mass or stricture of the esophagus. Esophageal motility is normal. There is a s mall sliding hiatal hernia. There was no gastroesophageal reflux with provocative maneuvers. The stom ach and proximal small bowel show normal folding patterns. IMPRESSION: 1. Small sliding hiatal hernia. Reviewed, dictated and finalized at location A. ITAL SECRETARY
--- OUTSIDE RECORDS SUMMARY | 2024-06-27 09:43 | XMS_ITS | Clinical Summary ---
Author Organization [facility] [employer] Address [address] [place] [address] Care Team Providers Care Human Anatomy Teacher Name Role Phone Farida Hernandez MD Primary Care Provider [phone] Source Comments [facility] [employer],non-owned Affiliates and Associated Physician Practices is amultiple site organization consisting of ambulatory clinics and hospital sitesin [place], [place], [place] and [place]. This disclosure is being madepursuant to the Care Everywhere program and may not contain all information available regarding this patient. Last updated 18.[facility] [employer] Allergies Active Allergy Reactions Criticality Noted Date [...] age to complete this topic Care Teams Human Anatomy Teacher Relationship Specialty Start Date End Date Farida Hernandez MD [address] [place] [phone] PCP - General 12/23/20
--- OUTSIDE RECORDS SUMMARY | 2024-06-27 09:44 | XMS_ITS | Data Portability ---
Author Organization [facility] Address [address] [place] [address] Care Team Providers Care Superintendent Warehouse Name Role Phone ROBY ALONSO Primary Care [...] is positive need subtyping 16,18/45 2020 021 [id number] [facility] (Lab), [address], [place], [address], 11:15:54 Referral None recorded. Procedures None recorded. [...] and labor atory findi ngs. See https ://Surveypal/s ites/ defau lt/fi les/2 018-0 3/AW- 54038 _002_ 01.pd f for furth er infor matio n. Test perfo rmed by [facility], d/b/a Mikel foster, [address] , [place] [address] , Eldaio Nice ra, DO, Labor atory [facility]. HPV High Risk *HPV NOT DETEC MEEK (TYPE S 16, 18, 31, 33, 35, 39, 45, 51, 52, 56, 58, 59, 66, 68) *HPV: The human papil lomav irus (HPV) High Risk Enma marks is an FDA-a pprov ed in-vi tro ampli fied nucle ic acid test for the quali tativ e detec tion of E6/E7 viral mRNA. [facility] lourdes roldan be corre lated with angela nt prese ntati on, histo ry, cervi francisco cytol ogy and other clini francisco and labor atory findi ngs. See https ://Surveypal/s ites/ defau lt/fi les/2 018-0 3/AW- 02470 _002_ 01.pd f for yessy er infor karon n. Test perfo rmed by [facility], d/b/a [facility], [address], [place] [address] , Eladio Nice ra, DO, Labor atory Direc tor. End of Repor t Techn ical servi nancy provi ded by [employer], d/b/a [employer], [address] [place] [address] Jorge Luis Garcia MD, [facility] ator Dire tor. Case revie wed and diagn osis rende red at [employer], d/b/a [employer], [address] [place] [address] Jorge Luis Garcia MD, Labor ator Dire tor. CONFI DENTI AL Not Available [facility] ([facility]) [address] [place] [address], [place], [address], 10/01/2019 10:53:13 09/27/19 20 09/28/2019 HPV DNA, high- risk HPV high risk NOT DETECT ED normal Not Available [facility] ([facility]) [address] [place] [address], [place], [address], 10/01/2019 10:53:14 10/21/19 21 10/20/2020 IMAGE GUIDE [...] as clini maki garcía nted. Not Available [facility] (Lab) [address], [place], [address], 10/21/2020 15:47:25 08/18/19 23 08/17/2022 CULTU RE: [...] Resul ting Lab: [facility] [address] [facility] [address] Tel: [phone] CULTU RE ----- ----- ----- --- Light [...] seen No organ isms seen Not Available [facility] (Lab) [address], [place], [address], 08/20/2022 12:16:28 08/18/19 23 08/17/2022 CULTU RE: HERPE S SIMPL EX VIRUS (HSV) , REFLE X TYPIN G source LESION SCRAPI NGS Not Available [facility] ([facility]) [address], [place], [address], 08/20/2022 12:16:28 08/18/19 23 08/17/2022 CULTU RE: HERPE S SIMPL EX VIRUS (HSV) , REFLE X TYPIN G hsv culture, body fluid NOT ISOLAT ED Perfo rming Organ izati on Infor matio n: Site ID: CB Name: [facility] yuli Rai Addre ss: [address] [place], [place] [id number] Dire tor: Antho ny V Noemi s Not Available [facility] ([facility]) [address], [place], [address], 08/20/2022 12:16:28 09/22/19 23 09/21/2022 IMAGE GUIDE D PAP AND HPV REGAR DLESS image guided Pap, HPV regardless of Pap result SEE RESULT S BELOW CASE REPOR T: Cytol ogy Gynec ologi francisco Repor t Case: [id number] Autho cynthia miller Provi ginette: Kenton Lopez Colle cted: 09/21 1524 PROCEDURES TECH Order ing Locat ion: [place] [facility] [...] test with an inher ent false negat puspha rate. Liqui d-bas ed sampl ing may [...] as clini maki garcía nted. Not Available [facility] ([facility]) [address], [place], [address], 09/22/2022 18:47:30 Result Notes None recorded. Problems Name Problem SNOMED Code Status Onset Date Resolution Date Notes Provider Name and Address Organization Details Recorded Time Normal pregnanc y in multigra mac [id number] Completed 201710/17/2020 Encounte r for suprvsn of normal pregnanc y, third trimeste r;Practi ce ID: 0001 Nneka siddiqui, [facility] 14:43:44 Pregnanc y, childbir th and puerperi um finding Completed 201710/17/2020 Oth pregnanc y related conditio ns, third trimeste r;Practi ce ID: 0001 Nneka siddiqui, [facility] 14:43:08 Gestatio n period, 37 weeks [id number] Completed 201710/17/2020 37 weeks gestatio n of pregnanc y;Practi ce ID: 0001 Nneka siddiqui, [facility] 14:43:42 Term pregnanc y delivere d [id number] Completed 201710/17/2020 Encounte r for full-ter m uncompli cated delivery ;Practic e ID: 0001 Nneka siddiqui, [facility] 14:43:01 Single live [id number] Completed 201710/17/2020 Single live ;Pr actice ID: 0001 Nneka siddiqui, [facility] 14:42:47 Gestatio n period, 39 weeks [id number] Completed 201710/17/2020 39 weeks gestatio n of pregnanc y;Practi ce ID: 0001 Nneka siddiqui, [facility] 14:44:09 Lochia finding Completed 201710/17/2020 Encounte r for routine postpart um follow-u p;Practi ce ID: 0001 Nneka siddiqui, [facility] 14:43:28 Lesion of ovary Completed 201710/17/2020 Other ovarian cyst, left side;Pra ctice ID: 0001 Nneka siddiqui, [facility] 14:42:57 Benign neoplasm of left ovary [id number] 9103 Completed 201710/17/2020 Benign neoplasm of left ovary;Pr actice ID: 0001 Nneka siddiqui, [facility] 14:43:30 Follicul ar cyst of left ovary [id number] 854746 Completed 201710/17/2020 Follicul ar cyst of left ovary;Pr actice ID: 0001 Nneka Stewart [facility], [facility] 14:42:41 Broad ligament lacerati on syndrome [id number] Completed 201710/17/2020 Oth noninfla mmatory disord of ovary, fallop and broad ligmt;Pr actice ID: 0001 Nneka Stewart [facility], [facility] 14:44:01 Imaging result abnormal [id number] Completed 201710/17/2020 Abnormal findings on diagnost ic imaging of body structur es;Recor ded Elsewher e: No Locat ion: Zoila payne [facility] S ource: [employer]st gurdeep: N Practi ce ID: 0001 Eugene lable Time: 02:15:00 PM Nneka siddiqui [facility] 14:43:36 Gestatio n period, 28 weeks [id number] Completed 201710/17/2020 28 weeks gestatio n of pregnanc y;Record ed Elsewher e: No Locat ion: Eileennaty payne [facility] S ource: [employer]st gurdeep: N Practi ce ID: 0001 Eugene lable Time: 01:00:00 PM Nneka siddiqui, [facility] 14:44:11 Pregnanc y test positive [id number] Completed 201210/17/2020 Pregnanc y examinat ion or test, positive result;R ecorded Elsewher e: No Locat ion: [facility] S ource: EHR Digital Research Analyst gurdeep: N Practi ce ID: 0001 Eugene lable Time: 09:00:00 AM Nneka siddiqui, [facility] 14:43:16 Uterine size for dates discrepa ncy Completed 201710/17/2020 Uterine size-malathi e discrepa ncy, third trimeste r;Record ed Elsewher e: No Locat ion: [facility] S ource: E[employer] Digital Research Analyst gurdeep: N Practi ce ID: 0001 Eugene lable Time: 01:00:00 PM Nneka siddiqui, [facility] 14:43:06 Finding of contents of cervix [id number] Completed 201610/17/2020 Weeks of gestatio n of pregnanc y not specifie d;Record ed Elsewher e: No Locat ion: [facility] S ource: [employer]st gurdeep: N Practi ce ID: 0001 Eugene lable Time: 01:00:00 PM Nneka siddiqui, [facility] 14:43:14 Threaten ed miscarri age [id number] Completed 201610/17/2020 Threaten ed ;Recorde d Elsewher e: No Locat ion: Zoila e [facility] S ource: E[employer] Digital Research Analyst gurdeep: N Practi ce ID: 0001 Eugene lable Time: 01:30:00 PM Nneka siddiqui [facility] 14:43:56 Finding related to pregnanc y Completed 201610/17/2020 Inapprop chg quantita v hCG in early pregnanc y;Record ed Elsewher e: No [facility]: E[facility] Digital Research Analyst gurdeep: N Apolloti ce ID: 0001 Eugene lable Time: 01:00:00 PM Nneka siddiqui [facility] 14:43:04 Overweig ht [id number] Completed 201410/17/2020 Overweig ht;Recor ded Elsewher e: No Locat ion: [facility] S ource: [employer] Analyst gurdeep: N Apolloti ce ID: 0001 Eugene lable Time: 10:45:00 AM Nneka siddiqui [facility] 14:43:02 Screenin g for malignan t neoplasm of cervix Completed 201510/17/2020 Screenin g for malignan t neoplasm s of the cervix;R ecorded Elsewher e: No Locat ion: [facility] S ource: [employer]st gurdeep: N Apolloti ce ID: 0001 Eugene lable Time: 11:00:00 AM Nneka siddiqui [facility] 14:42:50 Finding of regulari ty of menstrua l cycle Completed 201510/17/2020 Irregula r menstrua tion, unspecif ied;Jaya rded Elsewher e: No Locat ion: [facility] S ource: [employer] Research Analyst gurdeep: N Apolloti ce ID: 0001 Eugene lable Time: 03:30:00 PM Nneka siddiqui [facility] 14:42:58 Obesity [id number] Completed 201310/17/2020 Obesity; Recorded Elsewher e: No Locat ion: [facility] S ource: [employer] Analyst gurdeep: N Apolloti ce ID: 0001 Eugene lable Time: 09:30:00 AM Nneka siddiqui [facility] 14:43:37 Depressi ve disorder [id number] Completed 201610/17/2020 Depressi on;Recor ded Elsewher e: No Locat ion: [facility] S ource: [employer] gurdeep: N Apolloti ce ID: 0001 Eugene lable Time: 02:15:00 PM Nneka siddiqui [facility] 14:43:32 Adult health examinat ion Completed 201210/17/2020 Routine Medical Exam;Rec orded Elsewher e: No Locat ion: [facility] S ource: [employer] gurdeep: N Apolloti ce ID: 0001 Eugene lable Time: 02:30:00 PM Nneka siddiqui [facility] 14:43:[address] Concept Completed 201710/17/2020 Maternal care for oth abnormal ity and damage, unsp;Rec orded Elsewher e: No Locat ion: [facility] N Apolloti ce ID: 0001 Eugene lable Time: 01:00:00 PM Nneka siddiqui [facility] 14:43:09 Female genital organ symptoms [id number] Completed 201210/17/2020 Unspecif ied symptom associat ed with female genital organs;R ecorded Elsewher e: No Locat ion: [facility] S ource: E[employer] Analyst gurdeep: N Apolloti ce ID: 0001 Eugene lable Time: 05:45:00 PM Nneka siddiqui [facility] 14:42:53 Gestatio n period, 10 weeks [id number] Completed 201610/17/2020 10 weeks gestatio n of pregnanc y;Record ed Elsewher e: No Locat ion: [facility] S ource: E[employer] Digital Research Analyst gurdeep: N Apolloti ce ID: 0001 Eugene lable Time: 01:30:00 PM Nneka siddiqui [facility] 14:43:[address] Concept Completed 201510/17/2020 Encntr for supply person exam (general ) (routine ) w/o abn findings ;Recorde d Elsewher e: No Locat ion: [facility] S ource: [facility] gurdeep: N Apolloti ce ID: 0001 Eugene lable Time: 11:00:00 AM Nneka siddiqui, [facility] 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 14:43:50 Cyst of ovary Completed 201710/17/2020 Unspecif ied ovarian cyst, unspecif ied side;Rec orded Elsewher e: No Locat ion: [facility] S ource: E[employer] Analyst gurdeep: N Apolloti ce ID: 0001 Eugene lable Time: 02:15:00 PM Nneka siddiqui [facility] 14:42:55 Abdomina l pain [id number] Completed 201610/17/2020 Abdomina l pain;Rec orded Elsewher e: No Locat ion: [facility] S ource: E[employer] Analyst gurdeep: N Practi ce ID: 0001 Eugene lable Time: 10:00:00 AM Nneka siddiqui [facility] 14:42:54 Pregnanc y detectio n examinat ion Completed 201610/17/2020 Encounte r for pregnanc y test, result positive ;Recorde d Elsewher e: No Locat ion: [facility]: N Apolloti ce ID: 0001 Eugene lable Time: 09:00:00 AM Nneka Stewart [facility] 14:44:04 Ultrason ography Completed 201210/17/2020 Antenata l screenin g for malforma tion using ultrason ics;Jaya rded Elsewher e: No Locat ion: [facility] S ource: [employer] gurdeep: N Apolloti ce ID: 0001 Eugene lable Time: 04:45:00 PM Nnekajorge Stewart [facility] 14:42:44 Antenata l screenin g Completed 201210/17/2020 Antenata l screenin g for malforma tion using ultrason ics;Jaya rded Elsewher e: No Locat ion: [facility] S [facility]: [facility]: N Practi ce ID: 0001 Eugene lable Time: 04:45:00 PM Nneka siddiqui [facility] 14:43:13 Congenit al malforma tion [id number] Completed 201210/17/2020 Antenata l screenin g for malforma tion using ultrason ics;Jaya rded Elsewher e: No Locat ion: [facility] S ource: [employer] Analyst gurdeep: N Practi ce ID: 0001 Eugene lable Time: 04:45:00 PM [facility] 14:43:23 Left lower quadrant pain [id number] Completed 201210/17/2020 Abdomina l pain, left lower quadrant ;Recorde d Elsewher e: No Locat ion: [facility] S ource: [employer]st gurdeep: N Apolloti ce ID: 0001 Eugene lable Time: 09:00:00 AM Nneka siddiqui [facility] 14:43:24 Body [facility] 25-29 [facility] [id number] Completed 201510/17/2020 Body mass index (BMI) 29.0-29. 9, adult;Re corded Elsewher e: No Locat ion: [facility] S our[facility]: [facility]: N Practi ce ID: 0001 Eugene lable Time: 11:00:00 AM Nneka siddiqui, [facility] 14:42:42 Cyst of ovary [id number] Completed 201510/17/2020 Unspecif ied ovarian cyst, left side;Rec orded Elsewher e: No Locat ion: [facility] S ource: E[employer] Digital [employer] Analyst gurdeep: N Apolloti ce ID: 0001 Eugene lable Time: 10:00:00 AM Nneka siddiqui [facility] 14:44:08 Neoplasm of uncertai n behavior of ovary [id number] Completed 201210/17/2020 Neoplasm of uncertai n behavior of ovary;Re corded Elsewher e: No Locat ion: [facility] S ource: E[employer] Analyst gurdeep: N Apolloti ce ID: 0001 Eugene lable Time: 02:15:00 PM Nneka siddiqui [facility] 14:44:13 Gestatio n period, 26 weeks [id number] Completed 201710/17/2020 26 weeks gestatio n of pregnanc y;Record ed Elsewher e: No Locat ion: [facility] S ource: E[employer] Digital Research Analyst gurdeep: N Practi ce ID: 0001 Eugene lable Time: 01:00:00 PM Nneka Terryrick siddiqui [facility] 14:43:46 Gestatio n period, 31 weeks [id number] Completed 201710/17/2020 31 weeks gestatio n of pregnanc y;Record ed Elsewher e: No Locat ion: Zoila payne [facility] S ource: EHR Digital Research Analyst gurdeep: N Apolloti ce ID: 0001 Eugene lable Time: 09:00:00 AM Nneka siddiqui, [facility] 14:44:00 Pregnanc y [id number] Completed 201210/17/2020 state, incident al;Recor ded Elsewher e: No [facility] S ource: EHR Digital Research Analyst gurdeep: N Apolloti ce ID: 0001 Eugene lable Time: 09:00:00 AM Nneka Stewart [facility], [facility] 14:44:05 Pregnanc y test negative [id number] Completed 201510/17/2020 Encounte r for pregnanc y test, result negative ;Recorde d Elsewher e: No Locat ion: [facility] S ource: E[employer] Analyst gurdeep: N Apolloti ce ID: 0001 Eugene lable Time: 10:45:00 AM Nneka siddiqui, [facility] 14:43:17 Routine antenata l care Completed 201210/17/2020 Supervis ion of other normal pregnanc y;Record ed Elsewher e: No Locat ion: [facility] nolvia [facility] S ource: EHR Digital Research Analyst gurdeep: N Apolloti ce ID: 0001 Eugene lable Time: 02:30:00 PM Nneka siddiqui, [facility] 14:42:38 Hirmelisa meyer [id number] Completed 201610/17/2020 Lucía meyer;Record ed Elsewher e: No Locat ion: [facility] S ource: E[employer] Analyst gurdeep: N Practi ce ID: 0001 Eugene lable Time: 10:00:00 AM Nneka siddiqui [facility] 14:43:34 Nausea and vomiting [id number] Completed 201210/17/2020 Nausea And Vomiting ;Recorde d Elsewher e: No Locat ion: Zoila payne [facility]: N Apolloti ce ID: 0001 Eugene lable Time: 05:45:00 PM Nneka siddiqui [facility] 14:42:45 Pelvic and perineal pain [id number] Completed 201610/17/2020 Pelvic and perineal pain;Rec orded Elsewher e: No [facility] S [facility] Esther Hannah ce ID: 0001 Eugene lable Time: 02:30:00 PM Nneka siddiqui [facility] 14:43:21 Antenata l screenin g for malforma tion Completed 201610/17/2020 Encounte r for antenata l screenin g for malforma tions;Re corded Elsewher e: No Locat ion: Rox nolvia [facility] S ource: EHR Digital Research Analyst gurdeep: N Brielle ce ID: 0001 Eugene lable Time: 12:00:00 AM Nneka siddiqui [facility] 14:44:03 Amenorrh ea [id number] Completed 201210/17/2020 Absence of menstrua tion;Rec orded Elsewher e: No Locat ion: Zoila payne [facility] S ource: E[employer] Digital Research Analyst gurdeep: N Apolloti ce ID: 0001 Eugene lable Time: 03:15:00 PM Nneka siddiqui [facility] 14:42:40 Breast lump [id number] Completed 201310/17/2020 Breast mass;Rec orded Elsewher e: No Locat ion: [facility] nolvia [facility] S ource: [employer] Analyst gurdeep: N Apolloti ce ID: 0001 Eugene lable Time: 10:15:00 AM Nneka siddiqui [facility] 1 14:44:10 Speciali rose medical examinat ion Completed 201101/11/2012 Gynecolo gical Examinat ion;Jaya rded Elsewher e: No Locat ion: Zoila payne [facility] S ource: EHR Digital Research Analyst gurdeep: N Apolloti ce ID: 0001 Eugene lable Time: 01:30:00 PM Nneka siddiqui [facility] 1 14:43:50 Dysfunct ional uterine bleeding Completed 201101/11/2012 Other disorder s of menstrua tion and other abnormal bleeding from female genital tract;Re corded Elsewher e: No [facility]: EHR Digital Research Analyst gurdeep: N Apolloti ce ID: 0001 Eugene lable Time: 01:45:00 PM Not Available [facility] 16:58:06 Postpart um care Completed 201310/17/2020 Post Followup ;Recorde d Elsewher e: No Locat ion: [facility] S ource: EHR Digital Research Analyst gurdeep: N Apolloti ce ID: 0001 Eugene lable Time: 04:45:00 PM Nneka siddiqui [facility] 1 14:42:37 finding Completed 201710/17/2020 Matern care for oth or susp poor fetl grth, third tri, unsp;Rec orded Elsewher e: No Locat ion: [facility] S ource: EHR Digital Research Analyst gurdeep: N Apolloti ce ID: 0001 Eugene lable Time: 09:00:00 AM Nneka siddiqui [facility] 1 14:43:11 Uterine size for dates discrepa ncy Completed 201610/17/2020 Uterine size-malathi e discrepa ncy, first trimeste r;Record ed Elsewher e: No Locat ion: Eileennaty [facility] S ource: EHR Digital Research Analyst gurdeep: N Apolloti ce ID: 0001 Eugene lable Time: 01:00:00 PM Nneka siddiqui [facility] 1 14:43:05 Evaluati on finding Completed 201610/17/2020 Hematuri a, unspecif ied;Jaya rded Elsewher e: No [facility]: EHR Digital Research Analyst gurdeep: N Apolloti ce ID: 0001 Eugene lable Time: 10:00:00 AM Nneka Stewart [facility] 14:43:20 Uterine size for dates discrepa [facility] [id number] Completed 201210/17/2020 UTERINE SIZE LETITIA-ANTE PAR;Jaya rded Elsewher e: No [facility]: E[employer] Digital Research Analyst gurdeep: N Apolloti ce ID: 0001 Eugene lable Time: 03:00:00 PM Nneka siddiqui [facility] 14:43:40 Complica tion related to pregnanc y Completed 201310/17/2020 Antepart um edema or excessiv e weight gain;Rec orded Elsewher e: No Locat ion: [facility] S ource: EHR Digital Research Analyst gurdeep: N Apolloti ce ID: 0001 Eugene lable Time: 05:15:00 PM Nneka siddiqui [facility] 14:43:55 Screenin g for malignan t neoplasm of cervix Completed 201101/11/2012 Screenin g for malignan t neoplasm s of the cervix;R ecorded Elsewher e: No Locat ion: [facility] S ource: EHR Digital Research Analyst gurdeep: N Apolloti ce ID: 0001 Eugene lable Time: 01:30:00 PM Nneka siddiqui [facility] 14:42:50 Screenin g for malignan t neoplasm of cervix Completed 201101/11/2012 Screenin g for malignan t neoplasm s of the cervix;R ecorded Elsewher e: No Locat ion: [facility] S ource: EHR Digital Research Analyst gurdeep: Esther Hannah ce ID: 0001 Eugene lable Time: 01:45:00 PM Nneka Stewart [facility] 14:42:50 Speciali zed medical examinat ion Completed 201410/17/2020 Other specifie d chlamydi al diseases ;Recorde d Elsewher e: No Locat ion: [facility] S ource: EHR Digital Research Analyst gurdeep: Esther Hannah ce ID: 0001 Eugene lable Time: 10:45:00 AM Nnekajorge Stewart [facility], [facility] 14:43:52 Microsco pic hematuri a [id number] Completed 201410/17/2020 MICROSCO PIC HEMATURI A;Record ed Elsewher e: No Locat ion: [facility] S ource: EHR Digital Research Analyst gurdeep: Esther Hannah ce ID: 0001 Eugene lable Time: 10:45:00 AM Nneka siddiqui, [facility] 14:42:51 Benign essentia l hyperten gifty [id number] Completed 201310/17/2020 Hyperten gifty, Benign;R ecorded Elsewher e: No Locat ion: [facility] S ource: EHR Digital Research Analyst gurdeep: Esther Hannah ce ID: 0001 Eugene lable Time: 10:15:00 AM Nneka Stewart [facility], [facility] 14:42:35 Atypical squamous cells of undeterm ined signific ance on cervical Papanico laou smear [id number] Completed 201110/17/2020 Papanico laou smear of cervix with atypical squamous cells of undeterm ined signific ance (ASC-US) ;Recorde d Elsewher e: No Locat ion: [facility] S ource: EHR Digital Research Analyst gurdeep: N Practi ce ID: 0001 Eugene lable Time: 01:45:00 PM [facility] 14:43:43 Dyspareu avelino [id number] Completed 201101/11/2012 Dyspareu avelino;Jaya rded Elsewher e: No Locat ion: [facility] [facility] ource: EHR Digital Research Analyst gurdeep: N Practi ce ID: 0001 Eugene lable Time: 01:45:00 PM Not Available [facility] 0 16:58:10 Venereal disease screenin g Completed 201410/17/2020 Screenin g examinat ion for venereal disease; Recorded Elsewher e: No Locat ion: [facility] S ource: EHR Digital Research Analyst gurdeep: N Practi ce ID: 0001 Eugene lable Time: 10:45:00 AM Nneka Terry siddiqui, [facility] 14:42:48 Female proctoce le without uterine prolapse Completed 201010/17/2020 Rectocel e;Practi ce ID: 0001 Nneka Terry [facility], [facility] 14:43:59 Disorder of breast [id number] Completed 201110/17/2020 DISORDER S BREAST NEC;Prac mirian ID: 0001 Nneka Terry siddiqui, [facility] 14:44:06 Hydatidi form mole, benign [id number] Completed 201210/17/2020 Hydatidi form mole;Pra ctice ID: 0001 Nneka siddiqui, [facility] 14:43:38 Delivery normal [id number] Completed 201310/17/2020 Normal delivery ;Practic e ID: 0001 Nneka Stewart [facility], [facility] 14:43:47 prematur e rupture of membrane s [id number] Completed 201710/17/2020 Pretrm kirsty ROM, unsp time betw rupt and onst labr, 3rd tri;Prac mirian ID: 0001 Nneka Stewart [facility] 14:43:25 Problem Notes None recorded. Procedures Surgical History Date Name Laterality Status Provider Name and Address Organization Details Recorded Time 10/21/19 21 Date of Last Pap Smear completed [facility] 08/17/2022 10:09:10 12/01/19 18 Tubal Ligation completed [facility] 08/17/2022 10:52:52 04/25/19 17 Tonsillectomy completed [facility] 08/17/2022 10:51:57 04/25/19 16 hernia repair completed [facility] 08/17/2022 10:53:58 09/07/19 13 Laparoscopy completed [facility] 08/17/2022 10:53:25 06/17/19 13 Colposcopy completed [facility] 08/17/2022 10:53:37 06/17/19 12 Colposcopy completed Nneka Doran [facility] 10/17/2020 14:49:46 Colonoscopy completed [facility] 08/17/2022 10:37:20 Imaging Results None recorded. Procedure Notes None recorded. Medical Equipment None Reported. Allergies Allergen ID Allergen Name Allergen Category Reaction Reaction Severity Criticality Documentation Date Start Date Code Code System Note Provider Name and Address Organization Details Recorded Time 844 amoxicill in medicatio n Not available Not available Not available 09/26/2019 723 RxNorm [facility] 14:49:27 845 hydrocodo ne Not available Not available Not available Not available 09/26/2019 5489 RxNorm Dacia siddiqui, [facility] 0 14:49:39 846 Product containin g penicilli n (product) medicatio n Not available Not available Not available 09/26/2019 23602 8001 SNOMED Dacia siddiqui, [facility] 0 14:49:48 847 shellfish derived food,medi cation Not available Not available Not available 09/26/2019 60959 UNK [facility] 0 14:49:59 Medications Name Sig Start Date Stop Date Status Note LastModified by Organization Details LastModified Time Miralax 17 gram oral powder packet take 1 packet by oral route every day mixed with 8 oz. water, juice, soda, coffee or tea 12/14 completed Prescrib ed Elsewher e: Yes Loca tion: [facility] odify By: antoine wrayuntnaif DateTime : 02/08/20 17 01:45:00 PM Not Available Not Available Not Available Colace 100 mg capsule take 1 capsule by oral route every day at bedtime as needed 12/14 completed Prescrib ed Elsewher e: Yes Loca tion: [facility] odify By: antoine wrayunter DateTime : 02/08/20 17 01:45:00 PM Not Available Not Available Not Available venlafaxi ne ER 37.5 mg capsule,e xtended release 24 hr take 1 capsule by oral route every day with food 11/01 completed Prescrib ed Elsewher e: Yes Loca tion: [facility] odify By: antoine Payne ncounter DateTime : 01/21/20 16 11:00:00 AM Not Available Not Available Not Available paroxetin e 10 mg tablet take 1 tablet by oral route every day 01/10 completed Prescrib ed Elsewher e: Yes Loca tion: Zoila payne [facility] odify By: lisy singh DateTime : 06/07/19 12 01:45:00 PM Not Available Not Available Not Available Compazine 10 mg tablet take 1 tablet by oral route 3 times every day 01/20 completed Prescrib ed Elsewher e: No Locat ion: Zoila payne [facility] odify By: freida dailey DateTime : 01/14/20 17 04:01:18 PM Not Available Not Available Not Available sertralin e 100 mg tablet take 1 tablet by oral route every day active Not Available Not Available No t Available folic acid 400 mcg tablet take 1 tablet by oral route every day 12/14 completed Prescrib ed Elsewher e: Yes Loca tion: Zoila payne [facility] odify By: antoine guerrier DateTime : 02/08/20 17 01:45:00 PM Not Available Not Available Not Available Reglan 10 mg tablet take 1 tablet (10MG) by oral route 3 times every day 30 minutes before meals and at bedtime 01/15 completed Prescrib ed Elsewher e: No Locat ion: Zoila payne [facility] odify By: gregory guerrier DateTime : 01/24/20 13 04:22:07 PM Not Available Not Available Not Available Zofran 8 mg tablet take 1 tablet (8MG) by oral route every 12 hours 01/15 completed Prescrib ed Elsewher e: No [facility] By: gregory wrayuntnaif DateTime : 02/08/20 13 05:45:00 PM Not Available Not Available Not Available Zofran ODT 4 mg disintegr ating tablet DISSOLVE 1 TABLET ON TOP OF TONGUE EVERY 12 HOURS 12/14 completed Prescrib ed Elsewher e: No Locat ion: Zoila [facility] odify By: antoine guerrier DateTime : 08/05/19 18 01:57:02 PM Not Available Not Available Not Available promethaz ine 50 mg tablet take 1 tablet by oral route every 8 - 12 hours as needed 02/07 completed Prescrib ed Elsewher e: No Locat ion: Zoila payne [facility] odify By: josé miguel singh DateTime : 01/25/20 17 10:41:44 AM Not Available Not Available Not Available Nortrel 0.5/35 (28) 0.5 mg-35 mcg tablet take 1 tablet by oral route every day 01/06 completed Prescrib ed Elsewher e: No Locat ion: Zoila payne [facility] odify By: francoise Payne ncounter DateTime : 01/16/20 14 09:30:00 AM Not Available Not Available Not Available Vitamin D2 1,250 mcg (50,000 unit) capsule take 1 capsule (93094HZ ITS) by oral route every week 01/15 completed Prescrib ed Elsewher e: No Locat ion: Eilenesebastian payne [facility] odify By: gregory Payne ncounter DateTime : 05/22/19 14 01:38:07 PM Not Available Not Available Not Available nabumeton e 500 mg tablet take 1 tablet by oral route 2 times every day 12/02 completed Prescrib ed Elsewher e: Yes Loca tion: Zoila payne [facility] odify By: antoine Payne ncounter DateTime : 11/02/19 17 11:30:00 AM Not Available Not Available Not Available Tigan 300 mg capsule take 1 capsule by oral route 3 times every day as needed 12/14 completed Prescrib ed Elsewher e: No Locat ion: Zoila payne [facility] odify By: antoine Payne ncounter DateTime : 02/08/20 17 01:45:00 PM Not Available Not Available Not Available Bactrim DS 800 mg-160 mg tablet take 1 tablet by oral route every 12 hours 01/20 completed Prescrib ed Elsewher e: No Locat ion: Eileensebastian [facility] odify By: freida dailey DateTime : 12/03/19 17 10:00:00 AM Not Available Not Available Not Available Brittny 0.35 mg tablet take 1 tablet by oral route every day 01/17 completed Prescrib ed Elsewher e: No Locat ion: Zoila payne [facility] odify By: cinda singh DateTime : 04/05/20 14 01:50:41 PM Not Available Not Available Not Available escitalop maris 5 mg tablet take 1 tablet by oral route every day 05/30 completed Prescrib ed Elsewher e: Yes Loca tion: Zoila apyne [facility] odify By: freida dailey DateTime : 11/02/19 17 11:30:00 AM Not Available Not Available Not Available sertralin e 10/17 completed Not Available Not Available Not Available CitraNata l Assure 35 mg-1 mg-50 mg-300 mg oral pack take 1 Tablet by Oral route every day for 90 days 04/07 completed Prescrib ed Elsewher e: No Locat ion: Zoila payne [facility] odify By: francoise guerrier DateTime : 01/09/20 13 02:30:00 PM Not Available Not Available Not Available Diclegis 10 mg-10 mg tablet,de layed release take 1 tablet by oral route every day in the morning, 1 tablet in the mid-afte rnoon, and 2 tablets at bedtime 12/14 completed Prescrib ed Elsewher e: No Locat ion: Zoila payne [facility] odify By: antoine guerrier DateTime : 07/12/19 18 01:45:00 PM Not Available Not Available Not Available Merrick prince Complete chewable tablet 10/17 completed Prescrib ed Elsewher e: Yes Loca tion: Zoila payne [facility] odify By: antoine guerrier DateTime : 02/08/20 17 01:45:00 PM Not Available Not Available Not Available Vitals Date Recorded Body height Body mass index (BMI) Body weight Systolic blood pressure Diastolic blood pressure Systolic blood pressure Diastolic blood pressure Provider Name and Address Organization Details Last Updated DateTime 1 170.18 cm 32.6 kg/m2 03165.2 1 g 140 mm[Hg] 99 mm[Hg] 135 mm[Hg] 90 mm[Hg] Nneka Terry [facility] 1 16:39:46 Date Recorded Body weight Body mass index (BMI) Body height Systolic blood pressure Diastolic blood pressure Provider Name and Address Organization Details Last Updated DateTime 09/27/2019 96641.54 g 34 kg/m2 170.18 cm 143 mm[Hg] 94 mm[Hg] Dacia Sharp [facility] 0 15:53:08 Date Recorded Body height Body mass index (BMI) Body weight Systolic blood pressure Diastolic blood pressure Provider Name and Address Organization Details Last Updated DateTime 08/17/2022 170.18 cm 33.5 kg/m2 03471.77 g 138 mm[Hg] 88 mm[Hg] Maria A Jeff [facility] 3 10:36:28 Date Recorded Body height Body mass index (BMI) Body weight Provider Name and Address Organization Details Last Updated DateTime 09/21/2022 170.18 cm 34 kg/m2 59195.54 g Mireya Bennett [facility] 09/21/2022 14:25:51 Date Recorded Systolic blood pressure Diastolic blood pressure Provider Name and Address Organization Details Last Updated DateTime 09/21/2022 122 mm[Hg] 76 mm[Hg] Diana Farah, [facility] [address], [place], [address], [facility] 09/21/2022 14:38:36 Social History Question Answer Notes LastModified by Organizat ion Details LastModified Time Tobacco Smoking Status Former Smoker Avelino siddiqui, [facility] 09/21/2022 14:13:17 Do You Have An Advance Directive? No [email or web address] Information not available 10/20/2020 What Is Your Level Of Alcohol Consumption? Occasional Information not available 09/27/2019 How Many Years Have You Consumed Alcohol? 12 [email or web address] Information not available 10/20/2020 Are You Blind Or Do You Have Difficulty Seeing? No [email or web address] Information not available 10/20/2020 What Is Your Level Of Caffeine Consumption? Moderate [email or web address] Information not available 10/20/2020 How Much Tobacco Do You Chew? None Information not available 08/17/2022 In The 14 Days Before Symptom Onset, Have You Had Close Contact With A Laboratory-confir med COVID-19 While That Case Was Ill? No [email or web address] Information not available 10/20/2020 In The 14 Days Before Symptom Onset, Have You Had Close Contact With A Person Who Is Under Investigation For COVID-19 While That Person Was Ill? No [email or web address] Information not available 10/20/2020 Have You Been To An Area Known To Be High Risk For COVID-19? No [email or web address] Information not available 10/20/2020 Are You Deaf Or Do You Have Serious Difficulty Hearing? No [email or web address] Information not available 10/20/2020 What Type Of Diet Are You Following? REGULAR Information not available 10/20/2020 What Is The Highest Grade Or Level Of School You Have Completed Or The Highest Degree You Have Received? 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 Yes Information not available 10/20/2020 Have You Ever Been Counseled For Unhealthy Alcohol Use? No [email or web address] Information not available 09/21/2022 Do You Use Protection During Sex? No [email or web address] Information not available 10/20/2020 Do You Use Your Seat Belt Or Car Seat Routinely? Yes [email or web address] Information not available 10/20/2020 Do You Have Smoke And Carbon Monoxide Detectors In Your Home? Yes Information not available 10/20/2020 At What Age Did You Start Smoking Tobacco? 17 Information not available 10/20/2020 How Much Tobacco Do You Smoke? No [email or web address] Information not available 08/17/2022 Do You Feel Stressed (tense, Restless, Nervous, Or Anxious, Or Unable To Sleep At Night)? [id number] [email or web address] Information not available 10/20/2020 Do You Use Any Illicit Or Recreational Drugs? No [email or web address] Information not available 10/20/2020 Do You Use Sunscreen Routinely? Yes [email or web address] Information not available 10/20/2020 Has Tobacco Cessation Counseling Been Provided? No [email or web address] Information not available 09/21/2022 Have You Used IV Drugs? No [email or web address] Information not available 10/20/2020 Do You Or Have You Ever Used Any Other Forms Of Tobacco Or Nicotine? No Information not available 09/21/2022 Sex: Unknown Functional Status Question Answer Note LastModified by Organizat ion Details LastModified Time Do you have difficulty walking or climbing stairs? No [email or web address] Information not available 09/21/2022 Are you able to walk? YESWOREST [email or web address] Information not available 10/20/2020 Are you able to care for yourself? Yes [email or web address] Information not available 09/21/2022 Do you have difficulty dressing or bathing? No [email or web address] Information not available 09/21/2022 What is your exercise level? Occasional Information not available 09/27/2019 Mental Status None recorded. Family History Relationship Description Onset Age of this Age Resolved Age Notes LastModified by Organization Details LastModified Time Maternal Grandmother Malignant tumor of breast [email or web address] Not available 08/17 10:37:19 Father Asthma [email or web address] Not available 08/17/2022 10:37:19 Mother Congenital prolapsed uterus [email or web address] Not available 2022 14:13:16 Mother Multiple sclerosis [email or web address] Not available 08/17 10:37:19 Maternal Grandfather Family history of malignant neoplasm of prostate [email or web address] Not available 2022 14:13:16 Maternal Grandfather Diabetes mellitus [email or web address] Not available 08/17 10:37:19 Brother Asthma [email or web address] Not availabl e 08/17/2022 10:37:19 Medical History Condition Response Allergies (Food, seasonal, environmental ) N Other Y Blood Transfusion N Drug/Latex Allergies/Reactions Y Breast Cancer N Dermatologic Disorders N Lung [...] ICD10 Code Diagnosis Note [id number] Chelsie Mcgraw [facility] [address] [address] 09/27/2019 15:39:36 10/17/2019 11:21:58 Gynecologic examination 58708645 Z01.419 Take Calcium with Vitamin D 1200mg [...] paper copy of today's plan if desired. [id number] [facility] [address],[place] [address] 10/20/2020 16:33:07 10/20/2020 16:54:39 Gynecologic examination 55059913 Z01.419 Z11.51 Take Calcium with Vitamin D [...] paper copy of today's plan if desired. [id number] Chelsie cMgraw [facility] [address] [address] 08/17/2022 10:17:15 08/19/2022 12:06:59 Lesion of vulva 780374607 N90.89 Almost resolved and draining clear fluid. Discomfort minimal per patient. Wound and HSV cultures collected. Warm compress 3-4 times per day until resolved. [id number] Diana Farah , [facility] [address] [address] 09/21/2022 14:13:02 09/21/2022 15:27:26 Gynecologic examination 74256726 Z01.419 Take Calcium with Vitamin D 1200mg [...] ID Guarantor Name 09/27/2019 1 [place] [id number] Manpreet [id number] Manpreet [place] 10/20/2020 1 [place] [id number] Manpreet [place] [id number] Manpreet [place] 08/17/2022 1 [place] [id number] Manpreet [place] [id number] Manpreet [place] 09/21/2022 1 [place] [id number] Manpreet [place] [id number] Manpreet [place] Notes Date Note Type Note [...] depression; No anxiety; No PMDD Chelsie siddiqui [facility] 09/27/2019 16:18:17 10/20/2020 text/html Annual [...] outside and was extremely anxious. Chelsie siddiqui [facility] 10/20/2020 16:52:14 08/17/2022 text/html Lump in labia th at started Tuesday. Was firm and uncomfortable. Is better today. Chelsie siddiqui [facility] 08/20/2022 07:35:53 09/21/2022 text/html Annual [...] regular mammograms starting age 41 Diana Farah, [facility]- [address], [place], [address], [facility] 09/21/2022 14:41:21 OBGyn Episode Ob Episode Information Episode Created Date Number of Fetuses Patient Bloodtype Patient rh Status Prepregnancy Weight lbs Domestic Partner Domestic Partner Phone Father Name Automation Engineering Technician Status 09/27/19 20 1 CLOSED Fetus Data [...] Domestic Partner Domestic Partner Phone Father Name Automation Engineering Technician Status 09/27/19 20 1 CLOSED Fetus Data [...] Domestic Partner Domestic Partner Phone Father Name Automation Engineering Technician Status 09/27/19 20 1 CLOSED Fetus Data [...]
--- OUTSIDE RECORDS SUMMARY | 2024-06-27 09:44 | XMS_ITS | Patient Health Summary ---
Author Organization [facility] Address [address] [place] [address] Care Team Providers Care Front End Software Developer Name Role Phone Farida Hernandez MD Primary Care Provider [phone] Note from [facility],non-owned Affiliates and Associated Physician Practices is amultiple site organization consisting of ambulatory clinics and hospital sitesin [place], [place], [place] and [place]. This disclosure is being madepursuant to the Care Everywhere program and may not contain all information available regarding this patient. Last updated 18.[facility] Allergies * Amoxicillin Medications * Be [...] * SONOGRAM - COMPLETE (05/11/2013 2:29 PM CLEANER) Anatomical Region Laterality Modality Other 05/11/2013 2:29 PM CLEANER Narrative 05/11/2013 4:56 PM CLEANER [facility] PHONE: FAX: Pat. Name: BABAR AMAYA Katie. No: [id number] Study Date: 05/11/2013 2:29pm , Age: 07 1985, 27 LMP: 11/11/2012 GA by LMP: 25w6d GA by US: 25w3d GA Selected: 25w5d (LMP) ZAY: 08/19/2013 Referring MD: BROOKE GAVIRIA MD Surface Plate Finisher: Jerrica Fishman RDMS Hist/Ind: Echogenic Focus MEASUREMENTS & AGE GROWTH EVALUATION Measurement GA Range Srce %for GA Ratios ----- ---- ------- BPD 6.3 cm 25w4d (89l3v-75s1r) Hadl BPD 49% FL/BPD 0.77 (0.71 - 0.87) HC 23.3 cm 25w3d (42x4m-99y7c) Hadl HC 43% FL/AC 0.25 (0.20 - 0.24* AC 19.7 cm 24w3d (06x7c-04b0z) Hadl AC 23% HC/AC 1.18 (1.01 - 1.20) FL 4.9 cm 26w2d (14i7b-26u0q) Hadl FL 63% CI 0.77 (0.70 - 0.86) GA for sonogram 25w3d (72v3u-68m3r) Weight Estimate: based on (BPD,HC,AC,FL) Avg Weight: [...] 04:54pm Revised Brooke MCKEON ORDERABLES Care Teams Front End Software Developer Relationship Specialty Start Date End Date Farida Hernandez MD [address] [place] [address] PCP - General 12/23/20
--- OUTSIDE RECORDS SUMMARY | 2024-06-27 09:44 | XMS_ITS | Clinical Summary ---
Author Organization [facility] Address [address] [place] [address] Care Team Providers Care Insulation Cutter And Former Name Role Phone Farida Hernandez MD Primary Care Provider [phone] Allergies Active Allergy Reactions Criticality Noted Date [...] Adult (#1) 2024 03/14/2013, 05/10/2012 PHQ-2 (Physician [place]) 04/25/2024 02/01/2024 Cervical Cancer Screening Pa p Smear [...] patient's age to complete this topic Insurance [facility] Care Teams Insulation Cutter And Former Relationship Specialty Start Date End Date Farida Hernandez MD [address] [place] [address] PCP - General INTERNAL MEDICINE 02/01/24
--- OUTSIDE RECORDS SUMMARY | 2024-06-27 09:44 | XMS_ITS | Clinical Summary ---
Author Organization [facility] Address [address] [place] [address] Phone Care Team Providers Care Radar Engineering Teacher Name Role Phone Provider, None Primary Care [...] patient's age to complete this topic Insurance [facility] Care Teams Radar Engineering Teacher Relationship Specialty Start Date End Date Provider, None JOHN PCP - General 12/06/16
--- OUTSIDE RECORDS SUMMARY | 2024-06-27 09:44 | XMS_ITS | Referral Summary ---
Author Organization [facility] Address [address] [place] [address] Care Team Providers Care Transport Company Manager Name Role Phone Farida Hernandez MD Primary Care Provider [phone] Source Comments [facility],non-owned Affiliates and Associated Physician Practices is amultiple site organization consisting of ambulatory clinics and hospital sitesin [place], [place], [place] and [place]. This disclosure is being madepursuant to the Care Everywhere program and may not contain all information available regarding this patient. Last updated 18.[facility] Allergies Active Allergy Reactions Criticality Noted Date [...] of Treatment Not on file Care Teams Transport Company Manager Relationship Specialty Start Date End Date Farida Hernandez MD [address] [place] [address] PCP - General 12/23/20
== END 2024-06-27 09:10 | disposition home or self-care (01) ==
PROVIDERS: PCP Internal Medicine; Visit Provider Nurse Practitioner
DX: K44.9 Diaphragmatic hernia without obstruction or gangrene (principal)
CPT/HCPCS: 74246

== ENCOUNTER 2024-07-24 08:25 | Outpatient (CLI) | payer BC, SELFPAY ==
--- OUTSIDE RECORDS SUMMARY | 2024-07-24 08:32 | XMS_ITS | Clinical Summary ---
Author Organization [facility] Address [address] [place] [address] Care Team Providers Care Statistical Programmer Name Role Phone Farida Hernandez MD Primary Care Provider [phone] Source Comments [facility],non-owned Affiliates and Associated Physician Practices is amultiple site organization consisting of ambulatory clinics and hospital sitesin [place], [place], [place] and [place]. This disclosure is being madepursuant to the Care Everywhere program and may not contain all information available regarding this patient. Last updated 18.[facility] Allergies Active Allergy Reactions Criticality Noted Date [...] to complete this topic MENINGOCOCCAL (Group B) VACC INE SHARED DECISION-MAKING Aged Out No longer eligibl e based on patient's age to complete this topic MENINGOCOCCAL GROUPS A/C/Y/W VACCINE Aged Out No longer eligible b ased on patient's age to complete this topic PNEUMOCOCCAL VACCINE Aged Out No long er eligible based on patient's age to complete this topic Care Teams Statistical Programmer Relationship Specialty Start Date End Date Farida Hernandez MD [address] [place] [id number] PCP - General 12/23/20
--- OUTSIDE RECORDS SUMMARY | 2024-07-24 08:32 | XMS_ITS | Clinical Summary ---
Author Organization [facility] Address [address] [place] [id number] Care Team Providers Care Latin Professor Name Role Phone Farida Hernandez MD Primary Care Provider [phone] Allergies Active Allergy Reactions Criticality Noted Date [...] (2 - 2023-2 5 season) 2023 09/23/2020 PHQ-2 (Physician [place]) 04/25/2024 02/01/2024 Cervical Cancer Screening Pa p Smear (Age 30 to 64) Every 3 Years 09/21/2025 09/21/2022 Cervical Cancer Screening with HPV 09/21/2025 HPV Vaccines Aged Out No longer eligi ble based on patient's age to complete this topic Meningococcal B Vaccine Aged Out No l onger eligible based on patient's age to complete this topic Meningococcal Vaccine Aged Out No akua steve eligible based on patient's age to complete this topic Pneumococcal Vaccine: Pediat rics (0 to 5 Years) and At-Risk Patients (6 to 64 Years) Aged Out No longer eligi ble based on patient's age to complete this topic RSV Immunizations Under 20 Months Aged Out No longer eligible based on patient's age to complete this topic Insurance [facility] Care Teams Latin Professor Relationship Specialty Start Date End Date Farida Hernandez MD [address] [place] [address] PCP - General INTERNAL MEDICINE 02/01/24
--- OUTSIDE RECORDS SUMMARY | 2024-07-24 08:32 | XMS_ITS | Clinical Summary ---
Author Organization [facility] Address [address] [place] [address] Phone Care Team Providers Care Manager Hvac Name Role Phone Provider, None Primary Care [...] patient's age to complete this topic Insurance [facility] Care Teams Manager Hvac Relationship Specialty Start Date End Date Provider, None JOHN PCP - General 12/06/16
[2024-07-24 09:27] LABS: Alanine Aminotransferase 22 U/L (14-59); Albumin Level 3.7 g/dL (3.4-5.0); Alkaline Phosphatase 48 U/L (46-116); Anion Gap 6 mmol/L (4-12); Aspartate Amino Transferase 17 U/L (15-37); Bilirubin,Total 0.4 mg/dL (0.00-1.00); Blood Urea Nitrogen 10 mg/dL (7-18); Calcium 9.4 mg/dL (8.5-10.1); Carbon Dioxide 29 mmol/L (21-32); Chloride 106 mmol/L (98-108); Estimated Glomerular Filt Rate > 60; Glucose 90 mg/dL (70-99); Osmolality Calculated 291 mOsm/kg (285-295); Sodium 141 mmol/L (136-145); Total Protein 6.7 g/dL (6.4-8.2)
[2024-07-26 02:58] LABS: Prolactin 8.2 ng/mL
== END 2024-07-24 08:26 | disposition home or self-care (01) ==
LOC: CHSLAB 08:27
PROVIDERS: PCP Internal Medicine; Visit Provider Student in an Organized Health Care Education/Training Program
DX: N64.52 Nipple discharge (principal)
CPT/HCPCS: 36415; 80053; 84146

== ENCOUNTER 2024-07-25 10:50 | Outpatient (CLI) | payer BC, SELFPAY ==
--- NOTE | ~2024-07-25 | MMUS_ITS ---
EXAMINATION: US breast BI complete, MM diagnostic luis BI w vielka HISTORY: Milky nipple discharge for one week TECHNIQUE: Additional 3-D tomosynthesis images of the breasts were performed and synthetic 2-D images were generated. CAD analysis was submitted and interpreted. High resolution bilateral complete breas t ultrasound was performed. COMPARISON: None BREAST PARENCHYMAL COMPOSITION: Not dense: There are scattered areas of fibroglandular density. FINDINGS: MAMMOGRAPHIC FINDINGS: The breasts are symmetric. No suspicious masses, calcifications or architectural distortion in either breast to suggest malignancy. ULTRASOUND: Complete US of all 4 quadrants of the breast/s and retroareolar region was reviewed. Normal heterogen eous echotexture without focal solid or cystic mass. IMPRESSION: 1. No evidence for malignancy in either breast. No findings to explain patient's symptoms. 2. Routine yearly screening mammogram and regular clinical breast examination are recommended. BI-RADS CATEGORY 1 - NEGATIVE Reviewed, dictated and finalized at location A. IMPRESSION: 1. No evidence for malignancy in either breast. No findings to explain patient' s symptoms. 2. Routine yearly screening mammogram and regular clinical breast examination a re recommended. BI-RADS CATEGORY 1 - NEGATIVE
--- OUTSIDE RECORDS SUMMARY | 2024-07-25 12:29 | XMS_ITS | Data Portability ---
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 Patient will come back in a year unless there are new symptoms. [email or web address] Not available 09/21/2022 14:25:36 Plan of Treatment Reminders Order Date Submit Date Provider Last Modified By Organization Details Last Modified Time Details Appointments None recorded. Lab testostero ne, total, serum 2024 025 [facility] (Lab), [address] [place], [address], 5 07:34:03 dhea-sulfa te, serum 2024 025 [facility] (Lab), [address] [place], [address], 5 07:34:03 hormone panel, serum or plasma 2024 025 [facility] (Lab), [address] [place], [address], 5 07:34:04 prolactin, serum 2024 025 [facility] (Lab), [address] [place], [address], 5 07:34:04 CMP, serum or plasma 2024 025 [facility] (Lab), [address] [facility], [place], [address], 5 07:34:04 TSH, serum or plasma 2024 025 [facility] (Lab), [address] [facility], [place], [address], 5 07:34:03 pap, IG + HR HPV - HPV regardless but if HPV is positive need subtyping 16,18/45 2020 021 [facility] (Lab), [address] [facility], [place], [address], 1 11:15:54 Referral None recorded. Procedures None recorded. Surgeries None recorded. Imaging MAMMO, diagnostic , digital, bilateral 2024 025 [facility], [address], [place], [address], 5 12:59:08 US, breast, bilateral 2024 025 [facility], [address], [place], [address], 5 04:09:26 Medication Orders None recorded. Patient TargetsNo targets [...] Type: ThinP rep Vial Date Repor meek: Clini francisco Data: Cytot ech: Delvis Marks. [...] ts lourdes roldan be corre lated with patinolvia nt prese ntati on, histo ry, cervi francisco cytol ogy and other clini francisco and labor atory findi ngs. See https ://CardioMind/s ites/ defau lt/fi les/2 018-0 3/AW- 66462 _002_ 01.pd f for furth er infor matio n. Test perfo rmed by [facility], d/b/a [facility], [address] , [place] [address] , Eldaio Nice ra, DO, Labor atory Dire tor. HPV High Risk *HPV NOT DETEC MEEK (TYPE S 16, 18, 31, 33, 35, 39, 45, 51, 52, 56, 58, 59, 66, 68) *HPV: The human papil lomav irus (HPV) High Risk Enma marks is an FDA-a pprov ed in-vi tro ampli fied nucle ic acid test for the quali tativ e detec tion of E6/E7 viral mRNA. [facility] lourdes roldan be corre lated with angela nt prese ntati on, histo ry, cervi francisco cytol ogy and other clini francisco and labor atory findi ngs. See https ://CardioMind/s ites/ defau lt/fi les/2 018-0 3/AW- 48950 _002_ 01.pd f for chucky er infor karon n. Test perfo rmed by [facility], d/b/a [employer], [address], [place] [address] , Eladio Nice ra, DO, Labor atory Direc tor. End of Repor t Techn ical servi nancy provi ded by [facility], d/b/a [employer], [address] [place] [address] Jorge Luis Garcia MD, Labor ator Dire tor. Case revie wed and diagn osis rende red at [employer], d/b/a [employer], [address] [place] [address] Jorge Luis Garcia MD, Labor atory Dire tor. CONFI DENTI AL Not Available [facility] ([facility]) [facility] [facility] [address], [place], [address], 10/01/2019 10:53:13 09/27/19 20 09/28/2019 HPV DNA, high- risk HPV high risk NOT DETECT ED normal Not Available [facility] ([facility]) [facility] [address], [place], [address], 10/01/2019 10:53:14 10/21/19 21 10/20/2020 IMAGE GUIDE D PAP AND HPV REGAR DLESS image guided Pap, HPV regardless of Pap result SEE RESULT S BELOW CASE REPOR T: Cytol ogy Gynec ologi francisco Repor t Case: [id number] Autho polajohnselina miller Provi ginette: Chelsie Winter, ANA Mckinley cted: 10/20 1710 Order ing Locat ion: [...] Intra epith elial Lesio n or Kishan uriostegui jorge d by Laci mclaughlin, Marshall [...] as clini maki garcía nted. Not Available [facility] (Lab) [address] [facility], [place], [address], 10/21/2020 15:47:25 08/18/19 23 08/17/2022 CULTU RE: AEROB IC/AN AEROB IC result report SEE RESULT S BELOW abnormal Test: Cultu re: Aerob ic/An aerob ic Speci men Sourc e: Other Speci men Type: Micro biolo gy Speci men Speci men Date: 2022 2:33 PM Resul t Date: 2022 11:14 AM Resul t Statu s: Final resul t Abnor mal: Yes Resul ting Lab: [facility] [address] [facility] [address] Tel: [phone] CULTU RE ----- ----- ----- --- Light [...] seen No organ isms seen Not Available [facility] (Lab) [address] [facility], [place], [address], 08/20/2022 12:16:28 08/18/19 23 08/17/2022 CULTU RE: HERPE S SIMPL EX VIRUS (HSV) , REFLE X TYPIN G source LESION SCRAPI NGS Not Available [facility] (Lab) [address] [facility], [place], [address], 08/20/2022 12:16:28 08/18/19 23 08/17/2022 CULTU RE: HERPE S SIMPL EX VIRUS (HSV) , REFLE X TYPIN G hsv culture, body fluid NOT ISOLAT ED Perfo rming Organ izati on Infor matio n: Site ID: CB Name: [facility] yuli Rai Addre ss: [address] [place], [place] [id number] Dire tor: Antho ny V Noemi s Not Available [facility] (Lab) [address] [facility], [place], [address], 08/20/2022 12:16:28 09/22/19 23 09/21/2022 IMAGE GUIDE D PAP AND HPV REGAR DLESS image guided Pap, HPV regardless of Pap result SEE RESULT S BELOW CASE REPOR T: Cytol ogy Gynec ologi francisco Repor t Case: [id number] Autho cynthia miller Provi ginette: Kenton Lopez Colle cted: 09/21 1524 GRANTS ANALYST Order ing Locat ion: [place] [facility] [...] marks or Kishan iqbal (NIL) . Monique gamezy jorge d by Brooke Chamorro CT on [...] as clini maki garcía nted. Not Available [facility] (Lab) [address] [facility], [place], [address], 09/22/2022 18:47:30 07/19/19 25 07/18/2024 DHEA SULFA TE DHEA-sulfate 146 ug/dL Femal e Range s Age(y ) Range (ug/d L) 10-15 34-28 0 15-20 65-36 8 20-25 148-4 07 25-35 99-34 0 35-45 61-33 7 45-55 35-25 6 55-65 19-20 5 65-75 9-246 > 75 12-15 4 Not Available [facility] (Lab) [address] [facility], [place], [address], 07/19/2024 07:34:03 07/19/19 25 07/18/2024 TESTO STERO NE, TOTAL testosterone , total 43 NG/dL 0-75 Not Available [facility] system (Lab) [address] [facility], [place], [address], 07/19/2024 07:34:03 07/19/19 25 07/18/2024 TSH, REFLE X FREE T4 TSH 1.06 uIU/m L 0.30-5 .33 Not Available [facility] (Lab) [address] [place], [address], 07/19/2024 07:34:03 07/19/19 25 07/18/2024 PROLA CTIN prolactin, total 26.90 NG/mL 4.79-2 3.30 high This assay was perfo rmed using [employer] n reage nts and test kits. Value s obtai quyen with other assay metho ds or kits canno t be used inter [facility]ohn[facility] . Not Available [facility] (Lab) [address] [facility], [place], [address], 07/19/2024 07:34:04 07/19/19 25 07/18/2024 FSH, LH, ESTRA DIOL estradiol 86.9 pg/mL This assay was perfo rmed using [employer] reage nts and test kits. Value s obtai quyen with other assay metho ds or kits canno t be used inter [facility] . Femal e Estra diol Range s: Folli cular phase 12.4- 233 pg/mL Ovula tion phase 41.0- 398 pg/mL Lutea l phase 22.3- 341 pg/mL Postm enopa usal <5-13 8 pg/mL Healt hy Pregn ant Women 1st Trime ster 154-3 243 pg/mL 2nd Trime ster 1561- 03987 pg/mL 3rd Trime ster 8525- >3000 0 pg/mL Not Available [facility] (Lab) [address] [facility], [place], [address], 07/19/2024 07:34:04 07/19/1907/18/2024 FSH, LH, ESTRA DIOL FSH 1.7 mIU/m L This assay was perfo rmed using [employer] reage nts and test kits. Value s obtai quyen with other assay metho ds or kits canno t be used inter [facility] . Femal es Folli cular : 3.5-1 2.5 mIU/m L Ovula tion: 4.7-2 1.5 mIU/m L Lutea l: 1.7-7 .7 mIU/m L Postm enopa use: 25.8- 134.8 mIU/m L Not Available [facility] (Lab) [address] [facility], [place], [address], 07/19/2024 07:34:04 07/19/19 25 07/18/2024 FSH, LH, ESTRA DIOL LH 3.3 mIU/m L This assay was perfo rmed using [employer] reage nts and test kits. Value s obtai quyen with other assay metho ds or kits canno t be used inter [facility] . Femal es Mid-F ollic ular: 2.4-1 2.6 mIU/m L Mid-C ycle: 14.0- 95.6 mIU/m L Mid-L uteal : 1.0-1 1.4 mIU/m L Postm enopa use: 7.7-5 8.5 mIU/m L Not Available [facility] (Lab) [address] [facility], [place], [address], 07/19/2024 07:34:04 07/19/19 25 07/18/2024 CMP(C OMPRE HENSI VE METAB OLIC PANEL ) sodium 140 mmol/ L 133-14 6 Not Available [facility] (Lab) [address] [facility], [place], [address], 07/19/2024 07:34:04 07/19/19 25 07/18/2024 CMP(C OMPRE HENSI VE METAB OLIC PANEL ) potassium 4.0 mmol/ L 3.5-5. 1 Not Available [facility] (Lab) [address] [facility], [place], [address], 07/19/2024 07:34:04 07/19/19 25 07/18/2024 CMP(C OMPRE HENSI VE METAB OLIC PANEL ) chloride 105 mmol/ L 98-107 Not Available [facility] (Lab) [address] [facility], [place], [address], 07/19/2024 07:34:04 07/19/19 25 07/18/2024 CMP(C OMPRE HENSI VE METAB OLIC PANEL ) carbon dioxide 26 mmol/ L 21-31 Not Available [facility] (Lab) [address] [place], [address], 07/19/2024 07:34:04 07/19/19 25 07/18/2024 CMP(C OMPRE HENSI VE METAB OLIC PANEL ) anion gap 9 mmol/ L 4-13 Not Available [facility] (Lab) [address] [place], [address], 07/19/2024 07:34:04 07/19/19 25 07/18/2024 CMP(C OMPRE HENSI VE METAB OLIC PANEL ) blood urea nitrogen 13 mg/dL 7-25 Not Available Health system (Lab) [address] [facility], [place], [address], 07/19/2024 07:34:04 07/19/19 25 07/18/2024 CMP(C OMPRE HENSI VE METAB OLIC PANEL ) creatinine 0.72 mg/dL 0.60-1 .30 Not Available [facility] (Lab) [address] [facility], [place], [address], 07/19/2024 07:34:04 07/19/19 25 07/18/2024 CMP(C OMPRE HENSI VE METAB OLIC PANEL ) egfrcr (CKD-epi 2020) >90 mL/mi n/1.7 3_m2 >=60 Not Available [facility] (Lab) [address] [facility], [place], [address], 07/19/2024 07:34:04 07/19/19 25 07/18/2024 CMP(C OMPRE HENSI VE METAB OLIC PANEL ) calcium 9.8 mg/dL 8.3-10 .5 Not Available [facility] (Lab) [address] [facility], [place], [address], 07/19/2024 07:34:04 07/19/19 25 07/18/2024 CMP(C OMPRE HENSI VE METAB OLIC PANEL ) glucose 84 mg/dL 70-100 Not Available [facility] (Lab) [address] [facility], [place], [address], 07/19/2024 07:34:04 07/19/19 25 07/18/2024 CMP(C OMPRE HENSI VE METAB OLIC PANEL ) protein, total 7.0 g/dL 6.4-8. 3 Not Available [facility] (Lab) [address] [facility], [place], [address], 07/19/2024 07:34:04 07/19/19 25 07/18/2024 CMP(C OMPRE HENSI VE METAB OLIC PANEL ) albumin 4.8 g/dL 3.5-5. 0 Not Available [facility] (Lab) [address] [facility], [place], [address], 07/19/2024 07:34:04 07/19/19 25 07/18/2024 CMP(C OMPRE HENSI VE METAB OLIC PANEL ) ALT 8 units /L 9-43 low Not Available [facility] (Lab) [address] [facility], [place], [address], 07/19/2024 07:34:04 07/19/19 25 07/18/2024 CMP(C OMPRE HENSI VE METAB OLIC PANEL ) alkaline phosphatase 31 units /L 34-104 low Not Available [facility] (Lab) [address] [facility], [place], [address], 07/19/2024 07:34:04 07/19/19 25 07/18/2024 CMP(C OMPRE HENSI VE METAB OLIC PANEL ) AST 12 units /L 13-39 low Not Available [facility] (Lab) [address] [facility], [place], [address], 07/19/2024 07:34:04 07/19/1907/18/2024 CMP(C OMPRE HENSI VE METAB OLIC PANEL ) bilirubin, total 0.4 mg/dL 0.2-1. 2 Not Available [facility] (Lab) [address] [facility], [place], [address], 07/19/2024 07:34:04 Result Notes None recorded. Problems Name Problem SNOMED Code Status Onset Date Resolution Date Notes Provider Name and Address Organization Details Recorded Time Normal pregnanc y in multigra mac [id number] Completed 201710/17/2020 Encounte r for suprvsn of normal pregnanc y, third trimeste r;Practi ce ID: 0001 Nneka Stewart [facility] 14:43:44 Pregnanc y, childbir th and puerperi um finding Completed 201710/17/2020 Oth pregnanc y related conditio ns, third trimeste r;Practi ce ID: 0001 Nneka Stewart chen, [facility] 14:43:08 Gestatio n period, 37 weeks [id number] Completed 201710/17/2020 37 weeks gestatio n of pregnanc y;Practi ce ID: 0001 Nneka Redby chen, [facility] 14:43:42 Term pregnanc y delivere d [id number] Completed 201710/17/2020 Encounte r for full-ter m uncompli cated delivery ;Practic e ID: 0001 Nneka Terry siddiqui, [facility] 14:43:01 Single live [id number] Completed 201710/17/2020 Single live ;Pr actice ID: 0001 Nneka Stewart chen, [facility] 14:42:47 Gestatio n period, 39 weeks [id number] Completed 201710/17/2020 39 weeks gestatio n of pregnanc y;Practi ce ID: 0001 Nneka Stewart chen, [facility] 14:44:09 Lochia finding Completed 201710/17/2020 Encounte r for routine postpart um follow-u p;Practi ce ID: 0001 Nneka Redby chen, [facility] 14:43:28 Lesion of ovary Completed 201710/17/2020 Other ovarian cyst, left side;Pra ctice ID: 0001 Nneka Redby chen, [facility] 14:42:57 Benign neoplasm of left ovary [id number] 9103 Completed 201710/17/2020 Benign neoplasm of left ovary;Pr actice ID: 0001 Nneka siddiqui, [facility] 14:43:30 Follicul ar cyst of left ovary [id number] 259059 Completed 201710/17/2020 Follicul ar cyst of left ovary;Pr actice ID: 0001 Nneka siddiqui, [facility] 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 14:44:01 Imaging result abnormal [id number] Completed 201710/17/2020 Abnormal findings on diagnost ic imaging of body structur es;Recor ded Elsewher e: No Locat ion: [facility] S ource: [employer] gurdeep: N Apolloti ce ID: 0001 Eugene lable Time: 02:15:00 PM Nneka siddiqui [facility] 14:43:36 Gestatio n period, 28 weeks [id number] Completed 201710/17/2020 28 weeks gestatio n of pregnanc y;Record ed Elsewher e: No Locat ion: [facility] S ource: [employer] gurdeep: N Practi ce ID: 0001 Eugene lable Time: 01:00:00 PM Nneka siddiqui, [facility] 14:44:11 Pregnanc y test positive [id number] Completed 201210/17/2020 Pregnanc y examinat ion or test, positive result;R ecorded Elsewher e: No Locat ion: [facility] S ource: [employer] gurdeep: N Practi ce ID: 0001 Eugene lable Time: 09:00:00 AM Nneka siddiqui [facility] 14:43:16 Uterine size for dates discrepa ncy Completed 201710/17/2020 Uterine size-malathi e discrepa ncy, third trimeste r;Record ed Elsewher e: No Locat ion: Zoila payne [facility] S ource: [employer] gurdeep: N Practi ce ID: 0001 Eugene lable Time: 01:00:00 PM Nneak siddiqui, [facility] 14:43:06 Finding of contents of cervix [id number] Completed 201610/17/2020 Weeks of gestatio n of pregnanc y not specifie d;Record ed Elsewher e: No [facility]: [employer] gurdeep: N Practi ce ID: 0001 Eugene lable Time: 01:00:00 PM Nneka siddiqui, [facility] 14:43:14 Threaten ed miscarri age [id number] Completed 201610/17/2020 Threaten ed ;Recorde d Elsewher e: No [facility]: [employer] gurdeep: N Practi ce ID: 0001 Eugene lable Time: 01:30:00 PM Nneka siddiqui, [facility] 14:43:56 Finding related to pregnanc y Completed 201610/17/2020 Inapprop chg quantita v hCG in early pregnanc y;Record ed Elsewher e: No Locat ion: [facility] S ource: [employer] gurdeep: N Practi ce ID: 0001 Eugene lable Time: 01:00:00 PM Nneka siddiqui, [facility] 14:43:04 Overweig ht [id number] Completed 201410/17/2020 Overweig ht;Recor ded Elsewher e: No [facility]: [employer] g[employer]deep: N Apolloti ce ID: 0001 Eugene lable Time: 10:45:00 AM Nneka siddiqui [facility] 14:43:02 Screenin g for malignan t neoplasm of cervix Completed 201510/17/2020 Screenin g for malignan t neoplasm s of the cervix;R ecorded Elsewher e: No Locat ion: [facility] Apolloti ce ID: 0001 Eugene lable Time: 11:00:00 AM Nneka siddiuqi [facility] 14:42:50 Finding of regulari ty of menstrua l cycle Completed 201510/17/2020 Irregula r menstrua tion, unspecif ied;Jaya rded Elsewher e: No Locat ion: [facility] S ource: [facility] gurdeep: N Apolloti ce ID: 0001 Eugene lable Time: 03:30:00 PM Nneka siddiqui [facility] 14:42:58 Obesity [id number] Completed 201310/17/2020 Obesity; Recorded Elsewher e: No Locat ion: [facility] S ource: [employer] g[employer]deep: N Apolloti ce ID: 0001 Eugene lable Time: 09:30:00 AM Nneka siddiqui [facility] 14:43:37 Depressi ve disorder [id number] Completed 201610/17/2020 Depressi on;Recor ded Elsewher e: No Locat ion: [facility] S ource: [facility] gurdeep: N Apolloti ce ID: 0001 Eugene lable Time: 02:15:00 PM Nneka siddiqui [facility] 14:43:32 Adult health examinat ion Completed 09/16/ 2013 10/17/2020 Routine Medical Exam;Rec orded Elsewher e: No Locat ion: Zoila payne [facility] S ource: [employer] gurdeep: N Practi ce ID: 0001 Eugene lable Time: 02:30:00 PM Nneka siddiqui [facility] 14:43:[address] Concept Completed 201710/17/2020 Maternal care for oth abnormal ity and damage, unsp;Rec orded Elsewher e: No Locat ion: [facility] S ource: [employer] g[employer]: N Practi ce ID: 0001 Eugene lable Time: 01:00:00 PM Nneka Stewart [facility], [facility] 14:43:09 Female genital organ symptoms [id number] Completed 201210/17/2020 Unspecif ied symptom associat ed with female genital organs;R ecorded Elsewher e: No Locat ion: [facility] S ource: [employer] g[employer]deep: N Practi ce ID: 0001 Eugene lable Time: 05:45:00 PM Nneka Stewart [facility], [facility] 14:42:53 Gestatio n period, 10 weeks [id number] Completed 201610/17/2020 10 weeks gestatio n of pregnanc y;Record ed Elsewher e: No [facility]: [employer] gurdeep: N Practi ce ID: 0001 Eugene lable Time: 01:30:00 PM Nneka siddiqui, [facility] 14:43:[address] Concept Completed 201510/17/2020 Encntr for set decorator exam (general ) (routine ) w/o abn findings ;Recorde d Elsewher e: No Locat ion: [facility] S ource: [employer] gurdeep: N Practi ce ID: 0001 Eugene lable Time: 11:00:00 AM Nneka Stewart [facility] 14:43:27 Speciali zed medical examinat ion Completed 201410/17/2020 ROUTINE NAIL WELTER EXAMINAT ION;Jaya rded Elsewher e: No Locat ion: [facility] S ource: [employer] g[employer]deep: N Practi ce ID: 0001 Eugene lable Time: 10:45:00 AM Nneka siddiqui, [facility] 14:43:50 Cyst of ovary Completed 201710/17/2020 Unspecif ied ovarian cyst, unspecif ied side;Rec orded Elsewher e: No Locat ion: [facility] S ource: [employer] gurdeep: N Practi ce ID: 0001 Eugene lable Time: 02:15:00 PM Nneka siddiqui, [facility] 14:42:55 Abdomina l pain [id number] Completed 201610/17/2020 Abdomina l pain;Rec orded Elsewher e: No Locat ion: [facility] S ource: [employer] gurdeep: N Practi ce ID: 0001 Eugene lable Time: 10:00:00 AM Nneka siddiqui, [facility] 14:42:54 Pregnanc y detectio n examinat ion Completed 201610/17/2020 Encounte r for pregnanc y test, result positive ;Recorde d Elsewher e: No Locat ion: [facility] S ource: [employer] g[employer]deep: N Practi ce ID: 0001 Eugene lable Time: 09:00:00 AM Nneka siddiqui [facility] 14:44:04 Ultrason ography Completed 201210/17/2020 Antenata l screenin g for malforma tion using ultrason ics;Jaya rded Elsewher e: No Locat ion: [facility] S ource: [employer] g[employer]deep: N Practi ce ID: 0001 Eugene lable Time: 04:45:00 PM Nneka siddiqui, [facility] 14:42:44 Antenata l screenin g Completed 201210/17/2020 Antenata l screenin g for malforma tion using ultrason ics;Jaya rded Elsewher e: No [facility] S ource: [employer] gurdeep: N Apolloti ce ID: 0001 Eugene lable Time: 04:45:00 PM Nneka siddiqui, [facility] 14:43:13 Congenit al malforma tion [id number] Completed 201210/17/2020 Antenata l screenin g for malforma tion using ultrason ics;Jaya rded Elsewher e: No Locat ion: [facility] S ource: [employer] g[employer]deep: N Apolloti ce ID: 0001 Eugene lable Time: 04:45:00 PM Nneka siddiqui, [facility] 14:43:23 Left lower quadrant pain [id number] Completed 201210/17/2020 Abdomina l pain, left lower quadrant ;Recorde d Elsewher e: No Locat ion: [facility] S ource: [employer] g[employer]deep: N Apolloti ce ID: 0001 Eugene lable Time: 09:00:00 AM Nneka siddiqui, [facility] 14:43:24 Body mass index 25-29 - overweig ht [id number] Completed 201510/17/2020 Body mass index (BMI) 29.0-29. 9, adult;Re corded Elsewher e: No Locat ion: [facility] N Apolloti ce ID: 0001 Eugene lable Time: 11:00:00 AM Nneka siddiqui, [facility] 14:42:42 Cyst of ovary [id number] Completed 201510/17/2020 Unspecif ied ovarian cyst, left side;Rec orded Elsewher e: No Locat ion: [facility] S ource: [employer] gurdeep: N Apolloti ce ID: [id number] [place] lable Time: 10:00:00 AM Nneka siddiqui, [facility] 14:44:08 Neoplasm of uncertai n behavior of ovary [id number] Completed 201210/17/2020 Neoplasm of uncertai n behavior of ovary;Re corded Elsewher e: No Locat ion: [facility] S ource: [employer] gurdeep: N Apolloti ce ID: 0001 Eugene lable Time: 02:15:00 PM Nneka siddiqui, [facility] 14:44:13 Gestatio n period, 26 weeks [id number] Completed 201710/17/2020 26 weeks gestatio n of pregnanc y;Record ed Elsewher e: No Locat ion: [facility] S ource: [employer] gurdeep: N Practi ce ID: 0001 Eugene lable Time: 01:00:00 PM Nneka siddiqui, [facility] 14:43:46 Gestatio n period, 31 weeks [id number] Completed 201710/17/2020 31 weeks gestatio n of pregnanc y;Record ed Elsewher e: No Locat ion: [facility] S ource: [employer] gurdeep: N Practi ce ID: 0001 Eugene lable Time: 09:00:00 AM Nneka siddiqui, [facility] 14:44:00 Pregnanc y [id number] Completed 201210/17/2020 state, incident al;Recor ded Elsewher e: No [facility]: [facility] [employer] gurdeep: N Practi ce ID: 0001 Eugene lable Time: 09:00:00 AM Nneka siddiqui [facility] 14:44:05 Pregnanc y test negative [id number] Completed 201510/17/2020 Encounte r for pregnanc y test, result negative ;Recorde d Elsewher e: No [facility]: [employer] gurdeep: N Apolloti ce ID: 0001 Eugene lable Time: 10:45:00 AM Nneka siddiqui [facility] 14:43:17 Routine antenata l care Completed 201210/17/2020 Supervis ion of other normal pregnanc y;Record ed Elsewher e: No Locat ion: [facility] S ource: [employer] gurdeep: N Apolloti ce ID: 0001 Eugene lable Time: 02:30:00 PM Nneka Stewart [facility] 14:42:38 Hirsutis m [id number] Completed 201610/17/2020 Hirsutis m;Record ed Elsewher e: No Locat ion: [facility] S ource: [employer] gurdeep: N Apolloti ce ID: 0001 Eugene lable Time: 10:00:00 AM Nneka siddiqui [facility] 14:43:34 Nausea and vomiting [id number] Completed 201210/17/2020 Nausea And Vomiting ;Recorde d Elsewher e: No Locat ion: [facility] S ource: [employer] gurdeep: N Practi ce ID: 0001 Eugene lable Time: 05:45:00 PM Nneka siddiqui [facility] 14:42:45 Pelvic and perineal pain [id number] Completed 201610/17/2020 Pelvic and perineal pain;Rec orded Elsewher e: No Locat ion: [facility] S ource: [employer] gurdeep: N Apolloti ce ID: 0001 Eugene lable Time: 02:30:00 PM Nneka siddiqui [facility] 1 14:43:21 Antenata l screenin g for malforma tion Completed 201610/17/2020 Encounte r for antenata l screenin g for malforma tions;Re corded Elsewher e: No Locat ion: [facility] S ource: [employer] gurdeep: N Apolloti ce ID: 0001 Eugene lable Time: 12:00:00 AM Nneka siddiqui [facility] 14:44:03 Amenorrh ea [id number] Completed 201210/17/2020 Absence of menstrua tion;Rec orded Elsewher e: No Locat ion: [facility] ID: 0001 Eugene lable Time: 03:15:00 PM Nneka Stewart [facility] 14:42:40 Breast lump [id number] Completed 201310/17/2020 Breast mass;Rec orded Elsewher e: No Locat ion: [facility] S ource: [employer] g[employer]deep: N Apolloti ce ID: 0001 Eugene lable Time: 10:15:00 AM Nneka siddiqui [facility] 14:44:10 Speciali zed medical examinat ion Completed 201101/11/2012 Gynecolo gical Examinat ion;Jaya rded Elsewher e: No Locat ion: [facility] Apolloti ce ID: 0001 Eugene lable Time: 01:30:00 PM Nneka siddiqui [facility] 14:43:50 Dysfunct ional uterine bleeding Completed 201101/11/2012 Other disorder s of menstrua tion and other abnormal bleeding from female genital tract;Re corded Elsewher e: No Locat ion: Zoila payne [facility] S ource: EHR [employer] gurdeep: N Apolloti ce ID: 0001 Eugene lable Time: 01:45:00 PM Not Available [facility] 0 16:58:06 Postpart um care Completed 201310/17/2020 Post Followup ;Recorde d Elsewher e: No Locat ion: [facility]ila payne [facility] S ource: E[employer] gurdeep: N Apolloti ce ID: 0001 Eugene lable Time: 04:45:00 PM Nneka siddiqui, [facility] 14:42:37 finding Completed 201710/17/2020 Matern care for oth or susp poor fetl grth, third tri, unsp;Rec orded Elsewher e: No Locat ion: [facility]ila payne [facility] S ource: [employer] g[employer]deep: N Apolloti ce ID: 0001 Eugene lable Time: 09:00:00 AM Nneka Terry [facility], [facility] 14:43:11 Uterine size for dates discrepa ncy Completed 201610/17/2020 Uterine size-malathi e discrepa ncy, first trimeste r;Record ed Elsewher e: No Locat ion: Zoila nolvia [facility] S ource: [employer] gurdeep: N Apolloti ce ID: 0001 Eugene lable Time: 01:00:00 PM Nneka Terry chen, [facility] 1 14:43:05 Evaluati on finding Completed 201610/17/2020 Hematuri a, unspecif ied;Jaya rded Elsewher e: No [facility] S ource: [employer] g[employer]deep: N Apolloti ce ID: 0001 Eugene lable Time: 10:00:00 AM Nneka Terry siddiqui, [facility] 14:43:20 Uterine size for dates discrepa ncy [id number] Completed 201210/17/2020 UTERINE SIZE LETITIA-ANTE PAR;Jaya rded Elsewher e: No Locat ion: [facility] S ource: [employer] g[employer]deep: N Apolloti ce ID: 0001 Eugene lable Time: 03:00:00 PM Nneka siddiqui, [facility] 1 14:43:40 Complica tion related to pregnanc y Completed 201310/17/2020 Antepart um edema or excessiv e weight gain;Rec orded Elsewher e: No Locat ion: [facility] S ource: [employer] g[employer]deep: N Apolloti ce ID: 0001 Eugene lable Time: 05:15:00 PM Nneka siddiqui, [facility] 1 14:43:55 Screenin g for malignan t neoplasm of cervix Completed 201101/11/2012 Screenin g for malignan t neoplasm s of the cervix;R ecorded Elsewher e: No Locat ion: [facility] S ource: [employer] g[employer]deep: N Apolloti ce ID: 0001 Eugene lable Time: 01:30:00 PM Nneka siddiqui, [facility] 1 14:42:50 Screenin g for malignan t neoplasm of cervix Completed 201101/11/2012 Screenin g for malignan t neoplasm s of the cervix;R ecorded Elsewher e: No Locat ion: [facility] S ource: [employer] gurdeep: N Apolloti ce ID: 0001 Eugene lable Time: 01:45:00 PM Nneka siddiqui, [facility] 14:42:50 Speciali zed medical examinat ion Completed 201410/17/2020 Other specifie d chlamydi al diseases ;Recorde d Elsewher e: No Locat ion: [facility] S ource: [employer] g[employer]: N Apolloti ce ID: 0001 Eugene lable Time: 10:45:00 AM Nneka siddiqui, [facility] 14:43:52 Microsco pic hematuri a [id number] Completed 201410/17/2020 MICROSCO PIC HEMATURI A;Record ed Elsewher e: No Locat ion: [facility] S ource: [employer] gurdeep: Selina Hannah ce ID: 0001 Eugene lable Time: 10:45:00 AM Nneka siddiqui, [facility] 14:42:51 Benign essentia l hyperten gifty [id number] Completed 201310/17/2020 Hyperten gifty, Benign;R ecorded Elsewher e: No Locat ion: [facility] S ource: [employer] gurdeep: Selina Hannah ce ID: 0001 Eugene lable Time: 10:15:00 AM Nneka siddiqui, [facility] 14:42:35 Atypical squamous cells of undeterm ined signific ance on cervical Papanico laou smear [id number] Completed 201110/17/2020 Papanico laou smear of cervix with atypical squamous cells of undeterm ined signific ance (ASC-US) ;Recorde d Elsewher e: No Locat ion: [facility] S ource: [employer] gurdeep: Selina Hannah ce ID: 0001 Eugene lable Time: 01:45:00 PM Nneka siddiqui, [facility] 1 14:43:43 Dyspareu avelino [id number] Completed 201101/11/2012 Dyspareu avelino;Jaya rded Elsewher e: No Locat ion: [facility] S ource: [employer] gurdeep: Selina Hannah ce ID: 0001 Eugene lable Time: 01:45:00 PM Not Available [facility] 0 16:58:10 Venereal disease screenin g Completed 201410/17/2020 Screenin g examinat ion for venereal disease; Recorded Elsewher e: No [facility]: [employer] gurdeep: N Apolloti ce ID: 0001 Eugene lable Time: 10:45:00 AM Nneka siddiqui, [facility] 14:42:48 Female proctoce le without uterine prolapse Completed 201010/17/2020 Rectocel e;Practi ce ID: 0001 Nneka siddiqui, [facility] 14:43:59 Disorder of breast [id number] Completed 201110/17/2020 DISORDER S BREAST NEC;Prac mirian ID: 0001 Nneka Stewart [facility], [facility] 14:44:06 Hydatidi form mole, benign [id number] Completed 201210/17/2020 Hydatidi form mole;Pra ctice ID: 0001 Nneka Stewart [facility] 14:43:38 Delivery normal [id number] Completed 201310/17/2020 Normal delivery ;Practic e ID: 0001 Nneka siddiqui, [facility] 14:43:47 prematur e rupture of membrane s [id number] Completed 201710/17/2020 Pretrm kirsty ROM, unsp time betw rupt and onst labr, 3rd tri;Prac mirian ID: 0001 Nneka siddiqui, [facility] 14:43:25 Problem Notes None recorded. Procedures Surgical History Date Name Laterality Status Provider Name and Address Organization Details Recorded Time 02/28/20 24 Cholecystectomy completed Florencia Galvan [facility] 07/18/2024 15:45:18 10/21/19 21 Date of Last Pap Smear completed Maria A Jeff [facility] 08/17/2022 10:09:10 12/01/[address] [facility] 08/17/2022 10:52:52 04/25/19 [address] [facility] 08/17/2022 10:51:57 04/25/[address] [facility] 08/17/2022 10:53:58 09/07/19 [address] [facility] 08/17/2022 10:53:25 06/17/19 [address] [facility] 08/17/2022 10:53:37 06/17/19 12 Colposcopy completed Nneka Terry [facility] 10/17/2020 14:49:[address] [facility] 08/17/2022 10:37:20 Imaging Results None recorded. Procedure Notes None recorded. Medical Equipment None Reported. Allergies Allergen ID Allergen Name Allergen Category Reaction Reaction Severity Criticality Documentation Date Start Date Code Code System Note Provider Name and Address Organization Details Recorded Time 844 amoxicill in medicatio n Not available Not available Not available 09/26/2019 723 RxNorm Dacia Ortegaluis [facility] 0 14:49:27 845 hydrocodo ne Not available Not available Not available Not available 09/26/2019 5489 RxNorm Dacia Sharp [facility] 0 14:49:39 846 Product containin g penicilli n (product) medicatio n Not available Not available Not available 09/26/2019 24517 8001 SNOMED Dacia Ortegaluis [facility] 0 14:49:48 847 shellfish derived food,medi cation Not available Not available Not available 09/26/2019 56535 UNK Dacia Sharp [facility] 0 14:49:59 Medications Name Sig Start Date Stop Date Status Note LastModified by Organization Details LastModified Time Miralax 17 gram oral powder packet take 1 packet by oral route every day mixed with 8 oz. water, juice, soda, coffee or tea 12/14 completed Prescrib ed Elsewher e: Yes Loca tion: [facility] odify By: antoine wrayunter DateTime : 02/08/20 17 01:45:00 PM Not Available Not Available Not Available Colace 100 mg capsule take 1 capsule by oral route every day at bedtime as needed 12/14 completed Prescrib ed Elsewher e: Yes Loca tion: [facility] odify By: antoine guerrier DateTime : 02/08/20 17 01:45:00 PM Not Available Not Available Not Available venlafaxi ne ER 37.5 mg capsule,e xtended release 24 hr take 1 capsule by oral route every day with food 11/01 completed Prescrib ed Elsewher e: Yes Loca tion: [facility] odify By: antoine guerrier DateTime : 01/21/20 16 11:00:00 AM Not Available Not Available Not Available paroxetin e 10 mg tablet take 1 tablet by oral route every day 01/10 completed Prescrib ed Elsewher e: Yes Loca tion: [facility] odify By: lisy singh DateTime : 06/07/19 12 01:45:00 PM Not Available Not Available Not Available Compazine 10 mg tablet take 1 tablet by oral route 3 times every day 01/20 completed Prescrib ed Elsewher e: No Locat ion: [facility] odify By: freida dailey DateTime : 01/14/20 17 04:01:18 PM Not Available Not Available Not Available sertralin e 100 mg tablet take 1 tablet by oral route every day 07/17 completed Not Available Not Available Not Available folic acid 400 mcg tablet take 1 tablet by oral route every day 12/14 completed Prescrib ed Elsewher e: Yes Loca tion: [facility] odify By: antoine wrayunter DateTime : 02/08/20 17 01:45:00 PM Not Available Not Available Not Available Zofran 8 mg tablet take 1 tablet (8MG) by oral route every 12 hours 01/15 completed Prescrib ed Elsewher e: No Locat ion: [facility] odify By: gregory Payne ncounter DateTime : 02/08/20 13 05:45:00 PM Not Available Not Available Not Available Zofran ODT 4 mg disintegr ating tablet DISSOLVE 1 TABLET ON TOP OF TONGUE EVERY 12 HOURS 12/14 completed Prescrib ed Elsewher e: No Locat ion: [facility] odify By: antoine Payne ncounter DateTime : 08/05/19 18 01:57:02 PM Not Available Not Available Not Available promethaz ine 50 mg tablet take 1 tablet by oral route every 8 - 12 hours as needed 02/07 completed Prescrib ed Elsewher e: No Locat ion: [facility] odify By: josé miguel singh DateTime : 01/25/20 17 10:41:44 AM Not Available Not Available Not Available Nortrel 0.5/35 (28) 0.5 mg-35 mcg tablet take 1 tablet by oral route every day 01/06 completed Prescrib ed Elsewher e: No Locat ion: [facility] odify By: francoise Payne ncounter DateTime : 01/16/20 14 09:30:00 AM Not Available Not Available Not Available buspirone 10 mg tablet 1 tablet twice a day by oral route. 2023 active Not Available Not Available Not Avai lable lansopraz ole 30 mg capsule,d elayed release 1 capsule every day by oral route. 2024 active Not Available Not Available Not Avai lable Vitamin D2 1,250 mcg (50,000 unit) capsule take 1 capsule (44615YU ITS) by oral route every week 01/15 completed Prescrib ed Elsewher e: No Locat ion: Zoila payne [facility] odify By: gregory guerrier DateTime : 05/22/19 14 01:38:07 PM Not Available Not Available Not Available metoclopr amide 10 mg tablet 1 tablet twice a day by oral route. 2023 active Not Available Not Available Not Avai lable nabumeton e 500 mg tablet take 1 tablet by oral route 2 times every day 12/02 completed Prescrib ed Elsewher e: Yes Loca tion: Ziola payne [facility] odify By: antoine guerrier DateTime : 11/02/19 17 11:30:00 AM Not Available Not Available Not Available Tigan 300 mg capsule take 1 capsule by oral route 3 times every day as needed 12/14 completed Prescrib ed Elsewher e: No Locat ion: [facility] payne [facility] odify By: antoine guerrier DateTime : 02/08/20 17 01:45:00 PM Not Available Not Available Not Available Bactrim DS 800 mg-160 mg tablet take 1 tablet by oral route every 12 hours 01/20 completed Prescrib ed Elsewher e: No Locat ion: [facility] payne [facility] odify By: freida dailey DateTime : 12/03/19 17 10:00:00 AM Not Available Not Available Not Available escitalop maris 10 mg tablet 1 tablet every day by oral route. active Not Available Not Available No t Available Brittny 0.35 mg tablet take 1 tablet by oral route every day 01/17 completed Prescrib ed Elsewher e: No Locat ion: [facility] payne [facility] odify By: cinda singh DateTime : 04/05/20 14 01:50:41 PM Not Available Not Available Not Available escitalop maris 5 mg tablet take 1 tablet by oral route every day 05/30 completed Prescrib ed Elsewher e: Yes Loca tion: Zoila payne [facility] odify By: freida dailey DateTime : 11/02/19 17 11:30:00 AM Not Available Not Available Not Available sertralin e 10/17 completed Not Available Not Available Not Available CitraNata l Assure 35 mg-1 mg-50 mg-300 mg oral pack take 1 Tablet by Oral route every day for 90 days 04/07 completed Prescrib ed Elsewher e: No Locat ion: [facility] odify By: francoise guerrier DateTime : 01/09/20 13 02:30:00 PM Not Available Not Available Not Available Diclegis 10 mg-10 mg tablet,de layed release take 1 tablet by oral route every day in the morning, 1 tablet in the mid-afte rnoon, and 2 tablets at bedtime 12/14 completed Prescrib ed Elsewher e: No Locat ion: [facility] odify By: antoine guerrier DateTime : 07/12/19 18 01:45:00 PM Not Available Not Available Not Available Merrick prince Complete chewable tablet 10/17 completed Prescrib ed Elsewher e: Yes Loca tion: [facility] odify By: antoine guerrier DateTime : 02/08/20 17 01:45:00 PM Not Available Not Available Not Available Vitals Date Recorded Body height Body mass index (BMI) Body weight Systolic blood pressure Diastolic blood pressure Systolic blood pressure Diastolic blood pressure Provider Name and Address Organization Details Last Updated DateTime 1 170.18 cm 32.6 kg/m2 43437.2 1 g 140 mm[Hg] 99 mm[Hg] 135 mm[Hg] 90 mm[Hg] Nneka Stewart [facility] 1 16:39:46 Date Recorded Body weight Body mass index (BMI) Body height Systolic blood pressure Diastolic blood pressure Provider Name and Address Organization Details Last Updated DateTime 09/27/2019 40559.54 g 34 kg/m2 170.18 cm 143 mm[Hg] 94 mm[Hg] Dacia Sharp [facility] 0 15:53:08 Date Recorded Body height Body mass index (BMI) Body weight Systolic blood pressure Diastolic blood pressure Provider Name and Address Organization Details Last Updated DateTime 08/17/2022 170.18 cm 33.5 kg/m2 29069.77 g 138 mm[Hg] 88 mm[Hg] Maria A Jeff [facility] 3 10:36:28 Date Recorded Body height Body mass index (BMI) Body weight Provider Name and Address Organization Details Last Updated DateTime 09/21/2022 170.18 cm 34 kg/m2 98234.54 g Mireya Bennett [facility] 09/21/2022 14:25:51 Date Recorded Systolic blood pressure Diastolic blood pressure Provider Name and Address Organization Details Last Updated DateTime 09/21/2022 122 mm[Hg] 76 mm[Hg] Diana Farah, [facility] [address], [place], [address], [facility] 09/21/2022 14:38:36 Date Recorded Body height Body mass index (BMI) Body weight Systolic blood pressure Diastolic blood pressure Provider Name and Address Organization Details Last Updated DateTime 07/18/2024 170.18 cm 32.4 kg/m2 13668.62 g 128 mm[Hg] 84 mm[Hg] Florencia Galvan [facility] 5 15:49:04 Social History Question Answer Notes LastModified by Organizat ion Details LastModified Time Tobacco Smoking Status Former Smoker Avelino Pedro chen, [facility] 09/21/2022 14:13:17 Do You Have An Advance Directive? No [email or web address] Information not available 10/20/2020 What Is Your Level Of Alcohol Consumption? Occasional Information not available 09/27/2019 How Many Years Have You Consumed Alcohol? 12 [email or web address] Information not available 10/20/2020 Are You Blind Or Do You Have Difficulty Seeing? No [email or web address] Information not available 10/20/2020 What Is Your Level Of Caffeine Consumption? Moderate [email or web address] Information not available 10/20/2020 How Much Tobacco Do You Chew? None [email or web address] Information not available 08/17/2022 In The 14 Days Before Symptom Onset, Have You Had Close Contact With A Laboratory-confir med COVID-19 While That Case Was Ill? No Information not available 10/20/2020 In The 14 Days Before Symptom Onset, Have You Had Close Contact With A Person Who Is Under Investigation For COVID-19 While That Person Was Ill? No [email or web address] Information not available 10/20/2020 Have You Been To An Area Known To Be High Risk For COVID-19? No [email or web address] Information not available 10/20/2020 Are You Deaf Or Do You Have Serious Difficulty Hearing? No [email or web address] Information not available 10/20/2020 What Type Of Diet Are You Following? REGULAR [email or web address] Information not available 10/20/2020 What Is The Highest Grade Or Level Of School You Have Completed Or The Highest Degree You Have Received? 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 Yes Information not available 10/20/2020 Have You Ever Been Counseled For Unhealthy Alcohol Use? No Information not available 09/21/2022 Do You Use Protection During Sex? No Information not available 10/20/2020 Do You Use Your Seat Belt Or Car Seat Routinely? Yes Information not available 10/20/2020 Do You Have Smoke And Carbon Monoxide Detectors In Your Home? Yes [email or web address] Information not available 10/20/2020 At What Age Did You Start Smoking Tobacco? 17 [email or web address] Information not available 10/20/2020 How Much Tobacco Do You Smoke? No [email or web address] Information not available 08/17/2022 Do You Feel Stressed (tense, Restless, Nervous, Or Anxious, Or Unable To Sleep At Night)? [id number] [email or web address] Information not available 10/20/2020 Do You Use Any Illicit Or Recreational Drugs? No [email or web address] Information not available 10/20/2020 Do You Use Sunscreen Routinely? Yes [email or web address] Information not available 10/20/2020 Has Tobacco Cessation Counseling Been Provided? No [email or web address] Information not available 09/21/2022 Have You Used IV Drugs? No Information not available 10/20/2020 Do You Or Have You Ever Used Any Other Forms Of Tobacco Or Nicotine? No [email or web address] Information not available 09/21/2022 Sex: Unknown Functional Status Question Answer Note LastModified by Organizat ion Details LastModified Time Do you have difficulty walking or climbing stairs? No [email or web address] Information not available 09/21/2022 Are you able to walk? [email or web address] Information not available 10/20/2020 Are you able to care for yourself? Yes [email or web address] Information not available 09/21/2022 Do you have difficulty dressing or bathing? No Information not available 09/21/2022 What is your exercise level? Occasional Information not available 09/27/2019 Mental Status None recorded. Family History Relationship Description Onset Age of this Age Resolved Age Notes LastModified by Organization Details LastModified Time Maternal Grandmother Malignant tumor of breast [email or web address] Not available 08/17 10:37:19 Father Asthma [email or web address] Not available 08/17/2022 10:37:19 Mother Congenital prolapsed uterus [email or web address] Not available 2024 15:33:10 Mother Multiple sclerosis [email or web address] Not available 08/17 10:37:19 Maternal Grandfather Family history of malignant neoplasm of prostate Not available 2024 15:33:10 Maternal Grandfather Diabetes mellitus [email or web address] Not available 08/17 10:37:19 Brother Asthma [email or web address] Not availabl e 08/17/2022 10:37:19 Medical History [...] Last Mammogram Flow Heavy Date of LMP 06/27/2024 N Was last menstrual period normal Y STIs/STDs Y N/A Desired Control Method N/A Abnormal Pap Yes On BCP's at Conception? Y HPV Vaccine N Colposcopy 06/17/2011 Duration of Flow (days) 5 Current Control Method Tubal Ligat ion Age at First Child 23 Are cycles usually normal Y Frequency of Cycle (Q days) 31 Sexually Active? Y Menses Monthly Y Age of first menstrual cycle 15 Date of Last Pap Smear 10/20/2020 Sexual Problems? N LMP Approximate N Obstetrics History GPAL:G 3 P 3 0 0 3 Type Value Full Term 3 Living 3 Total 3 Past Encounters Encounter ID Performer Location Encounter Start Date Encounter Closed Date Diagnosis/Indication Diagnosis SNOMED-CT Code Diagnosis ICD10 Code Diagnosis Note [id number] Chelsie Mcgraw [facility] [address] [address] 09/27/2019 15:39:36 10/17/2019 11:21:58 Gynecologic examination [id number] Z01.419 Take Calcium with Vitamin D 1200mg [...] paper copy of today's plan if desired. [id number] Chelsie Mcgraw [facility] [address] [address] 10/20/2020 16:33:07 10/20/2020 16:54:39 Gynecologic examination [id number] Z01.419 Z11.51 Take Calcium with Vitamin D [...] paper copy of today's plan if desired. [id number] Chelsie Mcgraw [facility] [address] [address] 08/17/2022 10:17:15 08/19/2022 12:06:59 Lesion of vulva [id number] N90.89 Almost resolved and draining clear fluid. Discomfort minimal per patient. Wound and HSV cultures collected. Warm compress 3-4 times per day until resolved. [id number] MINA Richey-[facility] [address] [address] 09/21/2022 14:13:02 09/21/2022 15:27:26 Gynecologic examination [id number] Z01.419 Take Calcium with Vitamin D 1200mg [...] na Dexa Screen na Routine Labs PCP [id number] VINCENT GOINS, BERNARDA [facility] [address] [address] 07/18/2024 15:31:25 07/19/2024 09:27:38 Bilateral discharge from nipples [id number] N64.52 We discussed her breast exam findings and pt is counseled and reassured. Questions answered.D iscussed potential causes of galactorrh ea. Discussed physiologi francisco vs pathologic al nipple discharge. Discussed that it can be possible to express breast milk for several years after breastfeed ing.Lab studies (prolactin /TSH/CMP) ordered.Bi lateral diagnostic mammogram with ultrasound ordered for further evaluation of breast tissue.Ord er given - pt to schedule.C lient advised to perform self-breas t exams and report any changes. Female hirsutism [id number] L68.0 Will assess hormone levels as patient reports new onset hirsutism. Health Concerns Section Related Observation LastModified by Organization Detai ls LastModified Time None Recorded Concern Status LastModified by Organization Details LastModified Time None Recorded Advance Directives Directive N: Payers Encounter Date Sequence Insurance Name Policy Number Policy Johnson Covered Member ID Johnson Member ID Guarantor Name 09/27/2019 1 [place] [id number] Manpreet [place] [id number] Manpreet [place] 10/20/2020 1 [place] [id number] Manpreet [place] [id number] Manpreet [place] 08/17/2022 1 [place] [id number] Manpreet [place] [id number] Manpreet [place] 09/21/2022 1 [place] [id number] Manpreet [place] [id number] Manpreet [place] 07/18/2024 1 [place] [id number] Manpreet o[place] [id number] 801 Manpreet [place] Notes Date Note Type Note Provider Name and Address Organization Details Recorded Time 09/27/2019 text/html Annual GYNReport ed bypatient.Menstrual cycle:Normal menses Urinary symptoms:No hematuria; No incontinence Vulva:No genital lesion Vagina:Normal vaginal discharge Breast:No breast pain; No breast lump; No nipple discharge Sexual complaints:No sexual complaints; No pain during intercourse; Normal libido Menopausal Symptoms:No menopausal symptoms; Normal vaginal lubrication Psychological symptoms:No depression; No anxiety; No PMDD Chelsie siddiqui [facility] 09/27/2019 16:18:17 10/20/2020 text/html Annual GYNReport ed bypatient.Menstrual cycle:Normal menses Urinary symptoms:No hematuria; No incontinence Vulva:No genital lesion Vagina:Normal vaginal discharge Breast:No breast pain; No breast lump; No nipple discharge Sexual complaints:No sexual complaints; No pain during intercourse; Normal libido Menopausal Symptoms:No menopausal symptoms; Normal vaginal lubrication Psychological symptoms:No depression; No anxiety; No PMDD BP elevated initially. Terrible storm outside and was extremely anxious. Chelsie Mcgraw chen [facility] 10/20/2020 16:52:14 08/17/2022 text/html Lump in labia th at started Tuesday. Was firm and uncomfortable. Is better today. Chelsie Mcgraw chen [facility] 08/20/2022 07:35:53 09/21/2022 text/html Annual GYNReport ed bypatient.History:no gynecologic complaints Menstrual cycle:Normal menses Urinary symptoms:No hematuria; No incontinence Vulva:No genital lesion Vagina:Normal vaginal discharge Breast:No breast pain; No breast lump; No nipple discharge Current Contraception:Satisf ied with current contraception; Tubal ligation Sexual complaints:No sexual complaints; No pain during intercourse; Normal libido Menopausal Symptoms:No menopausal symptoms; Normal vaginal lubrication Psychological symptoms:No depression; No anxiety; No PMDD Preventive measures:Encourage self breast examination; Encourage regular exercise; Encourage no tobacco use; Encourage regular mammograms starting age 40 MINA Richey- [address], [place], [address], [facility] 09/21/2022 14:41:21 07/18/2024 text/html 38 y/o female patient noticed hand expression of clear/white nipple discharge of bilateral breasts since last Tuesday.Patient has not breastfed since 2019.Patient states that she felt as though her breasts felt more full so she squeezed both breasts and noticed the .Patient had cholecystectomy in 2023, has been taking Reglan twice daily since March to help with gastric motility.Hx of bilateral tubal ligation with left salpingo-oophorectom y (hx of large ovarian cyst)Patient reports increased facial and chin hair growth over the past year.Cycles are q21-28 days, last 5 days with moderate flow.Denies breast lumps, skin changes, or pain.Denies bloody or green/yellow nipple discharge.Denies vaginal symptoms or pelvic pain.Denies GI/ sx. VINCENT GOINS, GRANTS ANALYST [address], [place], [address], [facility] 07/18/2024 17:42:37 OBGyn Episode Ob Episode Information Episode Created Date Number of Fetuses Patient Bloodtype Patient rh Status Prepregnancy Weight lbs Domestic Partner Domestic Partner Phone Father Name Expanded Duty Dental Assistant Status 09/27/19 20 1 CLOSED Fetus Data [...] Domestic Partner Domestic Partner Phone Father Name Expanded Duty Dental Assistant Status 09/27/19 20 1 CLOSED Fetus Data [...] Domestic Partner Domestic Partner Phone Father Name Expanded Duty Dental Assistant Status 09/27/19 20 1 CLOSED Fetus Data [...]
--- OUTSIDE RECORDS SUMMARY | 2024-07-25 12:29 | XMS_ITS | Clinical Summary ---
Author Organization [facility] Address [address] [place] [address] Care Team Providers Care Weed Science Research Technician Name Role Phone Farida Hernandez MD Primary Care Provider [phone] Source Comments [facility],non-owned Affiliates and Associated Physician Practices is amultiple site organization consisting of ambulatory clinics and hospital sitesin [place], [place], [place] and [place]. This disclosure is being madepursuant to the Care Everywhere program and may not contain all information available regarding this patient. Last updated 18.[facility] Allergies Active Allergy Reactions Criticality Noted Date [...] VACCINE (1 - 2023-2 5 season) 2023 DEPRESSION SCREENING 04/25/2024 INFLUENZA VACCINE (Season Ended) 2024 ZOSTER VACCINE (1 of 2) 2036 HIB [...] age to complete this topic Care Teams Weed Science Research Technician Relationship Specialty Start Date End Date Farida Hernandez MD [address] [place] [id number] PCP - General 12/23/20
--- OUTSIDE RECORDS SUMMARY | 2024-07-25 12:29 | XMS_ITS | Clinical Summary ---
Author Organization [facility] Address [address] [place] [address] Care Team Providers Care Memorial Adviser Name Role Phone Farida Hernandez MD Primary Care Provider [phone] Allergies Active Allergy Reactions Criticality Noted Date [...] 2023-2 5 season) 2023 09/23/2020 PHQ-2 (Physician [place]) 04/25/2024 02/01/2024 Cervical Cancer Screening Pa p [...] patient's age to complete this topic Insurance [facility] Care Teams Memorial Adviser Relationship Specialty Start Date End Date Farida Hernandez MD [address] [place] [address] PCP - General INTERNAL MEDICINE 02/01/24
--- OUTSIDE RECORDS SUMMARY | 2024-07-25 12:29 | XMS_ITS | Clinical Summary ---
Author Organization [facility] Address [address] [place] [address] Phone Care Team Providers Care Mold Tooling Technician Name Role Phone Provider, None Primary Care [...] patient's age to complete this topic Insurance [facility] Care Teams Mold Tooling Technician Relationship Specialty Start Date End Date Provider, None JOHN PCP - General 12/06/16
== END 2024-07-25 10:51 | disposition home or self-care (01) ==
LOC: ANHIMG 10:55
PROVIDERS: PCP Internal Medicine; Visit Provider Student in an Organized Health Care Education/Training Program
DX: N64.52 Nipple discharge (principal)
CPT/HCPCS: 76641; 77062; 77066; G0279

== ENCOUNTER 2024-07-25 16:50 | Emergency (ER) | payer BC, SELFPAY ==
--- OUTSIDE RECORDS SUMMARY | 2024-07-25 16:52 | XMS_ITS | Clinical Summary ---
Author Organization [facility] Address [address] [place] [address] Phone Care Team Providers Care Wheel Molder Name Role Phone Provider, None Primary Care [...] patient's age to complete this topic Insurance [facility] Care Teams Wheel Molder Relationship Specialty Start Date End Date Provider, None JOHN PCP - General 12/06/16
--- OUTSIDE RECORDS SUMMARY | 2024-07-25 16:52 | XMS_ITS | Clinical Summary ---
Author Organization [facility] Address [address] [place] [address] Care Team Providers Care Educational Aid Name Role Phone Farida Hernandez MD Primary Care Provider [phone] Source Comments [facility],non-owned Affiliates and Associated Physician Practices is amultiple site organization consisting of ambulatory clinics and hospital sitesin [place], [place], [place] and [place]. This disclosure is being madepursuant to the Care Everywhere program and may not contain all information available regarding this patient. Last updated 18.[facility] Allergies Active Allergy Reactions Criticality Noted Date [...] age to complete this topic Care Teams Educational Aid Relationship Specialty Start Date End Date Farida Hernandez MD [address] [place] [id number] PCP - General 12/23/20
--- OUTSIDE RECORDS SUMMARY | 2024-07-25 16:52 | XMS_ITS | Clinical Summary ---
Author Organization [facility] Address [address] [place] [address] Care Team Providers Care National Investigative Producer Name Role Phone Farida Hernandez MD Primary Care Provider [phone] Allergies Active Allergy Reactions Criticality Noted Date [...] 2023-2 5 season) 2023 09/23/2020 PHQ-2 (Physician [place]) 04/25/2024 02/01/2024 Cervical Cancer Screening Pa p [...] patient's age to complete this topic Insurance [facility] Care Teams National Investigative Producer Relationship Specialty Start Date End Date Farida Hernandez MD [address] [place] [address] PCP - General INTERNAL MEDICINE 02/01/24
--- NOTE | 2024-07-25 16:53 | ED_ITS ---
HPI - Anxiety General Chief Complaint: Anxiety Stated Complaint: anxiety Time Seen by Provider: 07/25/24 16:53 Source: patient Mode of arrival: ambulatory Limitations: no limitations History of Present Illness HPI narrative: 38 year old female with a history of ex smoking, anxiety, IBS, fatty liver, has been having intermittent episodes of epigastric pain, shaking and anxiety since she had the cholecystectomy in February of last year. The patient has had an extensive workup including a CT, MRI, endoscopy and blood work which revealed fatty liver, and colonic polyp/ colitis. Her blood work has been unremarkable. She episodes of epigastric pain, shaking and anxiety. She is currently having one of those episodes which started 7 days ago. Recently she was noted to have bilateral will discharge from her breasts, for which she is undergoing a workup. She had a mammogram done today following which she was referred to get an ultrasound. The patient became very anxious and the symptoms were worse. She presents with -- severe anxiety -- generalized shaking -- circumoral paresthesias -- epigastric discomfort denies chest pain or shortness of breath. Has chronic nausea and epigastric discomfort. MD complaint: anxiety Onset (ago): hour(s) ( Worsening anxiety over the past 2 hours) Symptoms: perioral numbness/tingling and dry mouth Severity: moderate Quality: constant History of similar episodes: Yes Provoking factors: emotional stress Relieving factors: nothing Exacerbating factors: nothing Associated symptoms: denies other symptoms, nausea/vomiting and weakness Related Data Home Medications ?Medication ?Instructions ?Recorded ?Confirmed ?Last Taken ?Type escitalopram oxalate 10 mg tablet 10 mg PO HS 12/23/22 05/02/24 12/28/22 History buspirone 10 mg tablet 10 mg PO BID 07/25/24 Unknown History Allergies Allergy/AdvReac Type Severity Reaction Status Date / Time shellfish derived Allergy Intermediate Hives Verified 04/10/24 13:51 adhesive tape Allergy Mild Rash Verified 04/10/24 13:51 amoxicillin Allergy Unknown rash Verified 04/10/24 13:51 Penicillins Allergy Unknown RASH Verified 04/10/24 13:51 cefdinir AdvReac Mild shakes Verified 04/10/24 13:51 Review of Systems 2 Review of Systems: All systems reviewed & are unremarkable except as noted in HPI and below Constitutional: Constitutional: Reports as per HPI, Reports no additional constitutional complaints and Reports weakness Eyes: Eyes: Reports as per HPI and Reports no additional eye complaints ENT: Reports system reviewed and no additional complaints, except as documented and Reports as per HPI Cardiovascular: Cardiovascular: Reports as per HPI and Reports no additional cardiovascular complaints Respiratory: Respiratory: Reports as per HPI and Reports no additional respiratory complaints Gastrointestinal: Gastrointestinal: Reports as per HPI and Reports no additional gastrointestinal complaints Comments: epigastric discomfort Genitourinary: Genitourinary: Reports no additional female genitourinary complaints and Reports as per HPI Musculoskeletal: Musculoskeletal: Reports no additional musculoskeletal complaints and Reports as per HPI Integumentary/Breasts: Skin/Breast: Reports system reviewed and no additional complaints, except as docu and Reports as per HPI Neurologic: Reports system reviewed and no additional complaints, except as documented and Reports as per HPI Psychiatric: Psychiatric: Reports no additional psychiatric complaints, Reports as per HPI and Reports anxiety Endocrine: Endocrine: Reports no additional endocrine complaints and Reports as per HPI Hematologic/Lymphatic: Hematologic/Lymphatic: Reports no additional hematologic/lymphatic complaints and Reports as per HPI Allergic/Immunologic: Allergic/Immunologic: Reports no additional allergic/immunologic complaints and Reports as per HPI [facility] Past Medical History Medical History Adenomatous colon polyp Tobacco abuse Loose stools Weight loss Nausea and vomiting in adult IBS (irritable bowel syndrome) Dermoid cyst Anxiety Surgical History Surgical History Hx laparoscopic cholecystectomy 02/28/24 1. Laparoscopic cholecystectomy with cholangiography, da [place] assisted 2. Interpretation of cholangiography Dr. Pleitez History of umbilical hernia repair 1. Laparoscopic 2cm recurrent umbilical hernia repair with mesh, da [place] assisted 2. Removal of mesh foreign body on 12/29/22 W H/O tubal ligation History of tonsillectomy History of hernia surgery Ventral hernia [place] [address] Pleitez. H/O oophorectomy Family History Family History Mother Family history of mental disorder Depression Family history of migraine headaches Family history of hearing loss Father Hypertension Asthma Grandparent Hypertension Diabetes mellitus Other Family history of cardiovascular disease Family history of malignant neoplasm Social History Social History Smoking packs per day: 0.5 Smoking cigarettes per day: 10.0 Years smoked: 15 Smoking pack-years: 7.50 Smoking status: Former smoker Tobacco type: cigarettes and e-cigarettes/vaping Smoking end date: 02/19/22 Additional smoking assessment comments: Vapes now. Alcohol intake: current Drinks per week: 1 Alcohol use details: RARE Substance use: never Substance use type: does not use Living arrangements: with family Occupation/Education: occupation Gender identity (if verbalized by the patient): Female Sexual Orientation (if Verbalized by the Patient): Straight or Heterosexual Spiritual care concerns: No Agree to blood products: Yes Exam 2 Narrative: vitals are stable Const: General: no acute distress Nutritional Appearance: well nourished Orientation/consciousness: patient oriented x3 Limitations: no limitations HENMT: Head: normal to inspection Ears: external ears normal F binu/Nose/Sinus: Normal external nose present Face and sinus: normal facial exam Mouth: Yes Normal oral and palatal mucosa present Throat: posterior oropharynx normal Eyes: Conjunctivae: conjunctivae normal Pupils: Equal, round and reactive pupils present EOM: EOMs intact bilaterally Direct Ophthalmoscopy: no photophobia Neck: Neck: normal visual inspection, no lymphadenopathy and no meningeal signs Chest: Chest palpation & inspection: normal inspection of the chest Resp: Effort & Inspection: normal respiratory effort Auscultation: clear to auscultation bilaterally Cardio: Rate: regular rate Rhythm: regular rhythm GI: GI Palp: Yes Soft to palpation Auscultation: normal bowel sounds O ther: epigastric tenderness without any rigidity /rebound : General: Yes no CVA tenderness Back/Spine/Pelvis: Back: no CVA tenderness Skin: General skin exam: normal color Rashes: no rashes Wounds: no wounds Neuro: General: patient oriented x3, moves all extremities, no meningeal signs, no focal motor deficits and CN's II-XI intact bilaterally Cranial nerves: Yes Nystagmus not present Speech: normal speech Gait exam (Neuro): Normal gait present Extrem: General: normal to inspection and no clubbing, cyanosis or edema Psych: Mental Status: mental status grossly normal Affect: normal affect Attitude: cooperative Course Course Emergency Course: Anxiety-- patient got Xanax 0.50 mg without any significant improvement. She continues to be shaky with epigastric discomfort. in view of the epigastric pain and shaking did cardiac enzymes and EKG which were unremarkable. EKG revealed nonspecific T-wave changes without any acute ST elevation. Patient had normal blood counts, LFTs and renal function tests. Vital Signs Vital signs: Vital Signs Temperature 36.8 C 07/25/24 17:00 Pulse Rate 93 07/25/24 17:00 Respiratory Rate 18 07/25/24 17:00 Blood Pressure 125/89 07/25/24 17:00 Pulse Oximetry 97 07/25/24 17:00 Oxygen Delivery Room Air 07/25/24 17:00 Temperature 36.8 C 07/25/24 17:00 Pulse Rate 93 07/25/24 17:00 Respiratory Rate 18 07/25/24 17:00 Blood Pressure 125/89 07/25/24 17:00 Pulse Oximetry 97 07/25/24 17:00 Oxygen Delivery Room Air 07/25/24 17:00 MDM - Anxiety MDM Narrative Medical decision making narrative: Anxiety epigastric pain Differential Diagnosis Differential diagnosis: Likely panic disorder Medical Records Attestation: I reviewed the patient's medical records. Lab Data Attestation: I reviewed the patient's lab results. 07/25/24 17:54 07/25/24 17:54 Labs: Lab Results 07/25/24 07/25/24 Range/Units 17:54 17:59 WBC 9.3 (4.8-10.8) K/mm3 RBC 4.45 (4.20-5.40) M/mm3 Hgb 12.9 (12.0-15.0) g/dL Hct 38.1 (35.0-49.0) % MCV 85.6 (78.0-102.0) fL MCH 29.0 (27.0-31.0) pg MCHC 33.9 (32-36) g/dL RDW 11.8 (11.6-14.4) % Plt Count 262 (150-420) K/mm3 MPV 9.1 L (9.2-11.8) fl Immature Gran % (Auto) 0.3 H (0.0-0.0) % Neut % (Auto) 69.2 (50.0-70.0) % Lymph % (Auto) 24.0 (18.0-42.0) % [place] % (Auto) 5.6 (2.0-11.0) % Eos % (Auto) 0.6 L (1.0-6.0) % Baso % (Auto) 0.3 (0.0-1.0) % Lymph # (Auto) 2.24 (1.10-4.50) K/mm3 [place] # (Auto) 0.52 (0.10-0.90) K/mm3 Eos # (Auto) 0.06 (0.02-0.50) K/mm3 Baso # (Auto) 0.03 (0.00-0.10) K/mm3 Abs Immat Gran (auto) 0.03 H (0.00-0.00) K/mm3 Absolute Neuts (auto) 6.46 (1.70-7.20) K/mm3 Absolute Nucleated RBC 0.00 (0.00-0.00) K/mm3 Nucleated RBC % 0.0 (0-0.0) % Sodium 137 (136-145) mmol/L Potassium 3.6 (3.5-5.1) mmol/L Chloride 103 (98-108) mmol/L Carbon Dioxide 27 (21-32) mmol/L Anion Gap 7 (4-12) mmol/L BUN 11 (7-18) mg/dL Creatinine 0.90 (0.55-1.02) mg/dL Estim Creat Clear Calc 88 ml/min Estimated GFR > 60 (59 - ) Glucose 97 (70-99) mg/dL Calculated Osmolality 283 L (285-295) mOsm/kg Lactic Acid 1.1 (0.4-2.0) mmol/L Calcium 9.3 (8.5-10.1) mg/dL Total Bilirubin 0.8 (0.00-1.00) mg/dL AST 12 L (15-37) U/L ALT 12 L (14-59) U/L Alkaline Phosphatase 45 L (46-116) U/L Troponin I 4.1 (0.00-60.4) ng/L NT-Pro-B Natriuret Pep 32 (0-125) pg/mL Total Protein 6.9 (6.4-8.2) g/dL Albumin 3.7 (3.4-5.0) g/dL Lipase 44 (16-77) U/L Urine Color Yellow (Yellow) Urine Appearance Clear (Clear) Urine pH 7.0 (5.0-8.0) Ur Specific [place] 1.010 (1.010-1.020) Urine Protein Trace H (Negative) Urine Glucose (UA) Negative (Negative) Urine Ketones Negative (Negative) Ur Blood (Man) Trace-intact H (Negative) Urine Nitrate Negative (Negative) Urine Bilirubin Negative (Negative) Urine Urobilinogen 1.0 (0.2-1.0) mg/dL Leukocyte Esterase Rfl Negative (Negative) ADAM/UL Urine RBC 0-2 (0-2) /hpf Urine WBC 0-3 (0-3) /hpf Ur Squamous Epith Cells Rare (Few) /hpf Urine Bacteria Trace (None) /hpf Urine Mucus Few H /lpf Discharge Plan Discharge Clinical Impression: Acute anxiety, Epigastric abdominal pain Patient Disposition: Home, Self-Care Condition: Stable Instructions: Antibiotic Form, Anxiety (ED), Epigastric Pain (ED) Patient Language: Tajik Prescriptions: New alprazolam [Xanax] 0.25 mg tablet 0.25 mg PO BID PRN (Reason: anxiety) Qty: 10 0RF No Action buspirone 10 mg tablet 10 mg PO BID lansoprazole 30 mg capsule,delayed release(DR/EC) 30 mg PO DAILY Qty: 30 3RF ondansetron 4 mg tablet,disintegrating 4 mg PO Q8H PRN (Reason: nausea and vomiting) Qty: 20 0RF escitalopram oxalate 10 mg tablet 10 mg PO HS Follow-up/Referrals: Farida Hernandez MD [Primary Care Provider] - Time of Disposition: 18:51
[2024-07-25 17:00] VITALS: BP 125/89; PULSE 93; RESP 18; TEMP 36.8; O2SAT 97
[2024-07-25] MEDS: ALPRAZolam (*CRX) 0.5 MG TABLET PO (17:16)
--- OUTSIDE RECORDS SUMMARY | 2024-07-25 17:22 | XMS_ITS | Clinical Summary ---
Author Organization [facility] Address [address] [place] [address] Care Team Providers Care Organic Chemistry Professor Name Role Phone Farida Hernandez MD Primary Care Provider [phone] Allergies Active Allergy Reactions Criticality Noted Date [...] 2023-2 5 season) 2023 09/23/2020 PHQ-2 (Physician [place]) 04/25/2024 02/01/2024 Cervical Cancer Screening Pa p [...] patient's age to complete this topic Insurance [facility] Care Teams Organic Chemistry Professor Relationship Specialty Start Date End Date Farida Hernandez MD [address] [place] [address] PCP - General INTERNAL MEDICINE 02/01/24
--- OUTSIDE RECORDS SUMMARY | 2024-07-25 17:22 | XMS_ITS | Clinical Summary ---
Author Organization [facility] Address [address] [place] [address] Phone Care Team Providers Care Freight Brakeman Name Role Phone Provider, None Primary Care [...] patient's age to complete this topic Insurance [facility] Care Teams Freight Brakeman Relationship Specialty Start Date End Date Provider, None JOHN PCP - General 12/06/16
--- OUTSIDE RECORDS SUMMARY | 2024-07-25 17:22 | XMS_ITS | Clinical Summary ---
Author Organization [facility] [employer] Address [address] [place] [address] Care Team Providers Care Crystal Finisher Name Role Phone Farida Hernandez MD Primary Care Provider [phone] Source Comments [facility] [employer],non-owned Affiliates and Associated Physician Practices is amultiple site organization consisting of ambulatory clinics and hospital sitesin [place], [place], [place] and [place]. This disclosure is being madepursuant to the Care Everywhere program and may not contain all information available regarding this patient. Last updated 18.[facility] [employer] Allergies Active Allergy Reactions Criticality Noted Date [...] age to complete this topic Care Teams Crystal Finisher Relationship Specialty Start Date End Date Farida Hernandez MD [address] [place] [id number] PCP - General 12/23/20
--- NOTE | 2024-07-25 17:46 | ECG_ITS ---
Test Date: 2024-07-25 18:06:06 Measurements Intervals [place] Rate: 82 P: 35 MN: 108 QRS: 11 QRSD: 90 T: 4 QT: 385 QTc: 452 Interpretive Statements SINUS RHYTHM NONSPECIFIC ST-T WAVE ABNORMALITY- ANT/INF LEADS BORDERLINE ECG No previous ECG available for comparison Electronically Signed On 07-25-2024 20:27:22 CDT by Jules Nelson D.O.
[2024-07-25 17:57] LABS: Basophils Absolute Auto 0.03 K/mm3 (0.00-0.10); Basophils Percent Auto 0.3 % (0.0-1.0); Eosinophils Absolute Auto 0.06 K/mm3 (0.02-0.50); Eosinophils Percent Auto 0.6 % (1.0-6.0); Hematocrit 38.1 % (35.0-49.0); Hemoglobin 12.9 g/dL (12.0-15.0); Immature Granulocyte Absolute 0.03 K/mm3 (0.00-0.00); Immature Granulocyte Percent A 0.3 % (0.0-0.0); Lymphocytes Absolute Auto 2.24 K/mm3 (1.10-4.50); Mean Corpuscular HGB Conc 33.9 g/dL (32-36); Mean Corpuscular Volume 85.6 fL (78.0-102.0); Mean Platelet Volume 9.1 fl (9.2-11.8); Monocytes Absolute Auto 0.52 K/mm3 (0.10-0.90); Monocytes Percent Auto 5.6 % (2.0-11.0); Neutrophils Absolute Auto 6.46 K/mm3 (1.70-7.20); Neutrophils Percent Auto 69.2 % (50.0-70.0); Platelet Count Result 262 K/mm3 (150-420); Red Blood Count 4.45 M/mm3 (4.20-5.40); Red Cell Distribution Width 11.8 % (11.6-14.4); White Blood Count 9.3 K/mm3 (4.8-10.8)
[2024-07-25 18:13] LABS: Add Urine Microscopic? YES; Appearance Urine Clear (Clear); Bilirubin Urine Negative (Negative); Blood Urine Trace-intact (Negative); Color Urine Yellow (Yellow); Glucose Urine UA Negative (Negative); Ketones Urine Negative (Negative); Leukocyte Esterase Ur Negative LEU/UL (Negative); Nitrate Urine Negative (Negative); Protein Urine Trace (Negative)
[2024-07-25 18:17] LABS: Lactic Acid Reflex 1.1 mmol/L (0.4-2.0)
[2024-07-25 18:18] LABS: Bacteria Urine Trace /hpf; Mucus Urine Few /lpf; RBC Urine 0-2 /hpf (0-2); Squamous Epithelial Cell Urine Rare /hpf (Few); WBC Urine 0-3 /hpf (0-3)
[2024-07-25 18:18] LABS: Alanine Aminotransferase 12 U/L (14-59); Albumin Level 3.7 g/dL (3.4-5.0); Alkaline Phosphatase 45 U/L (46-116); Anion Gap 7 mmol/L (4-12); Aspartate Amino Transferase 12 U/L (15-37); Bilirubin,Total 0.8 mg/dL (0.00-1.00); Blood Urea Nitrogen 11 mg/dL (7-18); Calcium 9.3 mg/dL (8.5-10.1); Carbon Dioxide 27 mmol/L (21-32); Chloride 103 mmol/L (98-108); Estimated CRCL calculation 88 ml/min; Estimated Glomerular Filt Rate > 60; Glucose 97 mg/dL (70-99); Lipase 44 U/L (16-77); NT Pro B Type Natriuretic Pept 32 pg/mL (0-125); Osmolality Calculated 283 mOsm/kg (285-295); Potassium 3.6 mmol/L (3.5-5.1); Sodium 137 mmol/L (136-145); Total Protein 6.9 g/dL (6.4-8.2)
[2024-07-25 18:19] LABS: Troponin I 4.1 ng/L (0.00-60.4)
[2024-07-25 19:03] VITALS: BP 118/78; PULSE 75; RESP 18; TEMP 36.9; O2SAT 96
== END 2024-07-25 19:06 | disposition home or self-care (01) ==
PROVIDERS: Emergency Provider Internal Medicine Critical Care Medicine; PCP Internal Medicine
DX: F41.9 Anxiety disorder, unspecified (principal); R10.13 Epigastric pain; F17.210 Nicotine dependence, cigarettes, uncomplicated; Z79.899 Other long term (current) drug therapy
CPT/HCPCS: 36415; 80053; 81001; 83605; 83690; 83880; 84484; 85025; 93005; 99284; A9270

== ENCOUNTER 2024-07-28 19:49 | Emergency (ER) | payer BC, SELFPAY ==
--- NOTE | ~2024-07-28 | CT_ITS ---
CT abdomen pelvis w con Ordering provider: Zelda Johnston MD History: 38 years Female with . epigastric pain x1 wk; vom/diarrhea . Comparison: April 06, 2024 Technique: CT abdomen and pelvis with IV and without oral contrast. Automated exposure control and it erative reconstruction technique were employed. The dose-length product was 633.57 mGy-cm. Findings: VISUALIZED LOWER CHEST: Normal. Pleural thickening seen in the lung bases posteriorly bilaterally. UPPER ABDOMINAL ORGANS: Liver: Fat infiltration. Gallbladder: Not demonstrated most likely surgically removed. Spleen: Normal. Stomach/duodenum: Small sliding hiatus hernia. Pancreas: Normal. Adrenals: Normal. Kidneys: Slight fullness of the right renal pelvis with no stones. PELVIC ORGANS: The bladder is underfilled with slightly thickened wall. Evaluation for cystitis advis ed. BOWEL AND MESENTERY: Colon: No evidence of diverticulitis.. Normal appendix. Small Bowel: Normal. No obstruction. Peritoneum/mesentery: No free air or free fluid. No mesenteric lymphadenopathy. RETROPERITONEUM: Normal aorta. No retroperitoneal lymphadenopathy. MUSCULOSKELETAL: Superficial soft tissues: The superficial soft tissues are normal. Bones: Normal spine. Pubic Symphysitis. IMPRESSION: 1. No evidence of appendicitis, diverticulitis or intestinal obstruction. 2. Mild fat infiltration of the liver. Reviewed, dictated and finalized at location A.
[2024-07-28 19:51] VITALS: BP 135/90; PULSE 92; RESP 16; TEMP 37.1; O2SAT 100
--- OUTSIDE RECORDS SUMMARY | 2024-07-28 19:53 | XMS_ITS | Clinical Summary ---
Author Organization [facility] [employer] Address [address] [place] [address] Care Team Providers Care Integrated Logistics Programs Director Name Role Phone Farida Hernandez MD Primary Care Provider Source Comments [facility] [employer],non-owned Affiliates and Associated Physician Practices is amultiple site organization consisting of ambulatory clinics and hospital sitesin [place], [place], [place] and [place]. This disclosure is being madepursuant to the Care Everywhere program and may not contain all information available regarding this patient. Last updated 18.[facility] [employer] Allergies Active Allergy Reactions Criticality Noted Date [...] age to complete this topic Care Teams Integrated Logistics Programs Director Relationship Specialty Start Date End Date Farida Hernandez MD [address] [place] [id number] PCP - General 12/23/20
--- OUTSIDE RECORDS SUMMARY | 2024-07-28 19:53 | XMS_ITS | Clinical Summary ---
Author Organization [facility] Address [address] [place] [address] Phone Care Team Providers Care Freight Loader Name Role Phone Provider, None Primary Care [...] [facility] Care Teams Freight Loader Relationship Specialty Start Date End Date Provider, None JOHN PCP - General 12/06/16
--- OUTSIDE RECORDS SUMMARY | 2024-07-28 19:53 | XMS_ITS | Data Portability ---
Author Organization [facility] Address [address] [place] [address] Care Team Providers Care Wax Coating Machine Tender Name Role Phone ROBY ALONSO Primary Care [...] Modified Time Details Appointments None recorded. Lab testosteron e, total, serum 2024 025 [facility] (Lab), [address] [place], [address], 5 07:34:03 dhea-sulfat e, serum 2024 025 [facility] (Lab), [address] [place], [address], 5 07:34:03 hormone panel, serum or plasma 2024 025 [facility] (Lab), [address] [place], [address], 5 07:34:04 prolactin, serum 2024 025 [facility] (Lab), [address] [place], [address], 5 07:34:04 CMP, serum or plasma 2024 025 [facility] (Lab), [address], [place], [address], 5 07:34:04 TSH, serum or plasma 2024 025 [facility] (Lab), [address], [place], [address], 5 07:34:03 pap, IG + HR HPV - HPV regardless but if HPV is positive need subtyping 16,18/45 2020 021 [facility] (Lab), [address], [place], [address], 1 11:15:54 Referral None recorded. Procedures None recorded. Surgeries None recorded. Imaging MAMMO, diagnostic, digital, bilateral 2024 025 [facility], [address], [place], [address], 5 04:02:51 US, breast, bilateral 2024 025 [facility], [address], [place], [address], 5 04:09:26 Medication Orders None recorded. Patient [...] ----- ---- ----- -- HPV High Risk Scree n (TMA) ThinP rep Vial The human papil lomav irus (HPV) High Risk Scree n is an FDA-a pprov ed in-vi tro ampli fied nucle ic acid test for the quali tativ e detec tion of E6/E7 viral mRNA. Resul ts lourdes ramires corre lated with patie nt prese ntati on, histo ry, cervi francisco cytol ogy and other clini francisco and labor atory findi ngs. See https ://Trusight/s ites/ defchiquis lt/fi les/2 018-0 3/AW- 18550 _002_ 01.pd f for furth er infor matio n. Test perfo rmed by [facility], d/b/a Mikel foster, [address] , [place] [address] , Eladio Nice ra, DO, Labor [facility]. HPV High Risk *HPV NOT DETEC MEEK (TYPE S 16, 18, 31, 33, 35, 39, 45, 51, 52, 56, 58, 59, 66, 68) *HPV: The human papil lomav irus (HPV) High Risk Scree n is an FDA-a pprov ed in-vi tro ampli fied nucle ic acid test for the quali tativ e detec tion of E6/E7 viral mRNA. [facility] l[facility]des roldan be corre lated with angela nt prese ntati on, histo ry, cervi francisco cytol ogy and other clini francisco and labor atory findi ngs. See https ://Trusight/s ites/ defau lt/fi les/2 018-0 3/AW- 29965 _002_ 01.pd f for fur er infor karon n. Test [facility]fo [facility]med by [facility], d[facility]b/a [facility], [address], [place] [address] , Eladio Nice ra, DO, Labor atory Direc tor. End of t Techn ical servi nancy provi ded by [employer], d/b/a [employer], [address] [place] [address] Jorge Luis Garcia MD, [facility] ator Dire tor. Case revie wed and diagn osis rende red at [employer], d/b/a [employer], [address] [place] [address] Jorge Luis Garcia MD, Labor ator Dire tor. CONFI DENTI AL Not Available [facility] ([facility]) [address] [place] [address], [place], [address], 10/01/2019 10:53:13 09/27/19 20 09/28/2019 HPV DNA, high- risk HPV high risk NOT DETECT ED normal Not Available [facility] ([facility]) [address] [place] [address], [place], [address], 10/01/2019 10:53:14 10/21/19 21 10/20/2020 IMAGE GUIDE [...] as clini maki garcía nted. Not Available [facility] (Lab) [address], [place], [address], 10/21/2020 15:47:25 08/18/19 23 08/17/2022 CULTU RE: AEROB IC/AN AEROB IC result report SEE RESULT S BELOW abnormal Test: Cultu re: Aerob ic/An aerob ic Speci men Sourc e: Other Speci men Type: Micro biolo gy Speci men Speci men Date: 2022 2:33 PM Resul t Date: 2022 11:14 AM Resul t Statu s: Final resul t Abnor mal: Yes Resul ting Lab: [facility] [address] [facility] [address] Tel: CULTU RE ----- ----- ----- --- Light [...] seen No organ isms seen Not Available [facility] (Lab) [address], [place], [address], 08/20/2022 12:16:28 08/18/19 23 08/17/2022 CULTU RE: HERPE S SIMPL EX VIRUS (HSV) , REFLE X TYPIN G source LESION SCRAPI NGS Not Available [facility] (Lab) [address], [place], [address], 08/20/2022 12:16:28 08/18/19 23 08/17/2022 CULTU RE: HERPE S SIMPL EX VIRUS (HSV) , REFLE X TYPIN G hsv culture, body fluid NOT ISOLAT ED Perfo rming Organ izati on Infor matio n: Site ID: CB Name: [facility] yuli Rai Addre ss: [address] [place], [place] [id number] Dire tor: Antho ny V Noemi s Not Available [facility] (Lab) [address] [place], [address], 08/20/2022 12:16:28 09/22/19 23 09/21/2022 IMAGE GUIDE D PAP AND HPV REGAR DLESS image guided Pap, HPV regardless of Pap result SEE RESULT S BELOW CASE REPOR T: Cytol ogy Gynec ologi francisco Repor t Case: [id number] Autho cynthia miller Provi ginette: Kenton Lopez Colle cted: 09/21 1524 PHYSICIAN'S AIDE Order ing Locat ion: [place] [facility] [...] tigat ion is recom cristina d, as jakei maki garcía nted. Not Available [facility] (Lab) [address], [place], [address], 09/22/2022 18:47:30 07/19/19 25 07/18/2024 DHEA SULFA TE DHEA-sulfate 146 ug/dL Femal e Range s Age(y ) Range (ug/d L) 10-15 34-28 0 15-20 65-36 8 20-25 148-4 07 25-35 99-34 0 35-45 61-33 7 45-55 35-25 6 55-65 19-20 5 65-75 9-246 > 75 12-15 4 Not Available [facility] (Lab) [address], [place], [address], 07/19/2024 07:34:03 07/19/19 25 07/18/2024 TESTO STERO NE, TOTAL testosterone , total 43 NG/dL 0-75 Not Available [facility] (Lab) [address], [place], [address], 07/19/2024 07:34:03 07/19/19 25 07/18/2024 TSH, REFLE X FREE T4 TSH 1.06 uIU/m L 0.30-5 .33 Not Available [facility] (Lab) [address] [place], [address], 07/19/2024 07:34:03 07/19/19 25 07/18/2024 PROLA CTIN prolactin, total 26.90 NG/mL 4.79-2 3.30 high This assay was perfo rmed using [employer] reage nts and test kits. Value s obtai quyen with other assay metho ds or kits canno t be used inter [facility] . Not Available [facility] (Lab) [address], [place], [address], 07/19/2024 07:34:04 07/19/19 25 07/18/2024 FSH, LH, ESTRA DIOL estradiol 86.9 pg/mL This assay was perfo rmed using [employer] reage nts and test kits. Value s obtai quyen with other assay metho ds or kits canno t be used inter [facility] . Femal e Estra diol Range s: Folli cular phase 12.4- 233 pg/mL Ovula tion phase 41.0- 398 pg/mL Lutea l phase 22.3- 341 pg/mL Postm enopa usal <5-13 8 pg/mL Healt hy Pregn ant Women 1st Trime ster 154-3 243 pg/mL 2nd Trime ster 1561- 67282 pg/mL 3rd Trime ster 8525- >3000 0 pg/mL Not Available [facility] (Lab) [address], [place], [address], 07/19/2024 07:34:04 07/19/19 25 07/18/2024 FSH, LH, ESTRA DIOL FSH 1.7 mIU/m L This assay was perfo rmed using [employer] reage nts and test kits. Value s obtai quyen with other assay metho ds or kits canno t be used inter [facility] . Femal es Folli cular : 3.5-1 2.5 mIU/m L Ovula tion: 4.7-2 1.5 mIU/m L Lutea l: 1.7-7 .7 mIU/m L Postm enopa use: 25.8- 134.8 mIU/m L Not Available [facility] (Lab) [address], [place], [address], 07/19/2024 07:34:04 07/19/19 25 07/18/2024 FSH, LH, ESTRA DIOL LH 3.3 mIU/m L This assay was perfo rmed using [employer] reage nts and test kits. Value s obtai quyen with other assay metho ds or kits canno t be used inter [facility] . Femal es Mid-F ollic ular: 2.4-1 2.6 mIU/m L Mid-C ycle: 14.0- 95.6 mIU/m L Mid-L uteal : 1.0-1 1.4 mIU/m L Postm enopa use: 7.7-5 8.5 mIU/m L Not Available [facility] (Lab) [address], [place], [address], 07/19/2024 07:34:04 07/19/19 25 07/18/2024 CMP(C OMPRE HENSI VE METAB OLIC PANEL ) sodium 140 mmol/ L 133-14 6 Not Available [facility] (Lab) [address], [place], [address], 07/19/2024 07:34:04 07/19/19 25 07/18/2024 CMP(C OMPRE HENSI VE METAB OLIC PANEL ) potassium 4.0 mmol/ L 3.5-5. 1 Not Available [facility] (Lab) [address], [place], [address], 07/19/2024 07:34:04 07/19/19 25 07/18/2024 CMP(C OMPRE HENSI VE METAB OLIC PANEL ) chloride 105 mmol/ L 98-107 Not Available [facility] (Lab) [address], [place], [address], 07/19/2024 07:34:04 07/19/19 25 07/18/2024 CMP(C OMPRE HENSI VE METAB OLIC PANEL ) carbon dioxide 26 mmol/ L 21-31 Not Available [facility] (Lab) [address], [place], [address], 07/19/2024 07:34:04 07/19/19 25 07/18/2024 CMP(C OMPRE HENSI VE METAB OLIC PANEL ) anion gap 9 mmol/ L 4-13 Not Available [facility] (Lab) [address] [place], [address], 07/19/2024 07:34:04 07/19/19 25 07/18/2024 CMP(C OMPRE HENSI VE METAB OLIC PANEL ) blood urea nitrogen 13 mg/dL 7-25 Not Available [facility] (Lab) [address], [place], [address], 07/19/2024 07:34:04 07/19/19 25 07/18/2024 CMP(C OMPRE HENSI VE METAB OLIC PANEL ) creatinine 0.72 mg/dL 0.60-1 .30 Not Available [facility] (Lab) [address], [place], [address], 07/19/2024 07:34:04 07/19/1907/18/2024 CMP(C OMPRE HENSI VE METAB OLIC PANEL ) egfrcr (CKD-epi 2020) >90 mL/mi n/1.7 3_m2 >=60 Not Available [facility] (Lab) [address], [place], [address], 07/19/2024 07:34:04 07/19/19 25 07/18/2024 CMP(C OMPRE HENSI VE METAB OLIC PANEL ) calcium 9.8 mg/dL 8.3-10 .5 Not Available [facility] (Lab) [address], [place], [address], 07/19/2024 07:34:04 07/19/19 25 07/18/2024 CMP(C OMPRE HENSI VE METAB OLIC PANEL ) glucose 84 mg/dL 70-100 Not Available [facility] (Lab) [address], [place], [address], 07/19/2024 07:34:04 07/19/19 25 07/18/2024 CMP(C OMPRE HENSI VE METAB OLIC PANEL ) protein, total 7.0 g/dL 6.4-8. 3 Not Available [facility] (Lab) [address], [place], [address], 07/19/2024 07:34:04 07/19/19 25 07/18/2024 CMP(C OMPRE HENSI VE METAB OLIC PANEL ) albumin 4.8 g/dL 3.5-5. 0 Not Available [facility] (Lab) [address], [place], [address], 07/19/2024 07:34:04 07/19/19 25 07/18/2024 CMP(C OMPRE HENSI VE METAB OLIC PANEL ) ALT 8 units /L 9-43 low Not Available [facility] (Lab) [address], [place], [address], 07/19/2024 07:34:04 07/19/19 25 07/18/2024 CMP(C OMPRE HENSI VE METAB OLIC PANEL ) alkaline phosphatase 31 units /L 34-104 low Not Available [facility] (Lab) [address], [place], [address], 07/19/2024 07:34:04 07/19/19 25 07/18/2024 CMP(C OMPRE HENSI VE METAB OLIC PANEL ) AST 12 units /L 13-39 low Not Available [facility] (Lab) [address], [place], [address], 07/19/2024 07:34:04 07/19/1907/18/2024 CMP(C OMPRE HENSI VE METAB OLIC PANEL ) bilirubin, total 0.4 mg/dL 0.2-1. 2 Not Available [facility] (Lab) [address] [place], [address], 07/19/2024 07:34:04 Result Notes None recorded. Problems Name Problem SNOMED Code Status Onset Date Resolution Date Notes Provider Name and Address Organization Details Recorded Time Normal pregnanc y in multigra mac [id number] 4106 Completed 201710/17/2020 Encounte r for suprvsn of normal pregnanc y, third trimeste r;Practi ce ID: 0001 Nneka siddiqui, [facility] 14:43:44 Pregnanc y, childbir th and puerperi um finding Completed 201710/17/2020 Oth pregnanc y related conditio ns, third trimeste r;Practi ce ID: 0001 Nneka siddiqui, [facility] 14:43:08 Gestatio n period, 37 weeks [id number] Completed 201710/17/2020 37 weeks gestatio n of pregnanc y;Practi ce ID: 0001 Nneka Stewart chen, [facility] 14:43:42 Term pregnanc y delivere d [id number] Completed 201710/17/2020 Encounte r for full-ter m uncompli cated delivery ;Practic e ID: 0001 Nneka Stewart chen, [facility] 14:43:01 Single live [id number] Completed 201710/17/2020 Single live ;Pr actice ID: 0001 Nneka Stewart chen, [facility] 14:42:47 Gestatio n period, 39 weeks 41509988 Completed 201710/17/2020 39 weeks gestatio n of pregnanc y;Practi ce ID: 0001 Nneka siddiqui, [facility] 14:44:09 Lochia finding Completed 201710/17/2020 Encounte r for routine postpart um follow-u p;Practi ce ID: 0001 Nneka Stewart chen, [facility] 14:43:28 Lesion of ovary Completed 201710/17/2020 Other ovarian cyst, left side;Pra ctice ID: 0001 Nneka Stewart chen, [facility] 14:42:57 Benign neoplasm of left ovary [id number] 9103 Completed 08/08/ 2018 10/17/2020 Benign neoplasm of left ovary;Pr actice ID: 0001 Nneka siddiqui, [facility] 14:43:30 Follicul ar cyst of left ovary [id number] 757520 Completed 201710/17/2020 Follicul ar cyst of left ovary;Pr actice ID: 0001 Nneka siddiqui, [facility] 14:42:41 Broad ligament lacerati on syndrome [id number] Completed 201710/17/2020 Oth noninfla mmatory disord of ovary, fallop and broad ligmt;Pr actice ID: 0001 Nenka siddiqui, [facility] 14:44:01 Imaging result abnormal [id number] Completed 201710/17/2020 Abnormal findings on diagnost ic imaging of body structur es;Recor ded Elsewher e: No Locat ion: [facility] S ource: EHR [employer] gurdeep: N Apolloti ce ID: 0001 Eugene lable Time: 02:15:00 PM Nneka siddiqui [facility] 14:43:36 Gestatio n period, 28 weeks [id number] Completed 201710/17/2020 28 weeks gestatio n of pregnanc y;Record ed Elsewher e: No Locat ion: [facility] S ource: EHR [employer] gurdeep: N Practi ce ID: 0001 Eugene lable Time: 01:00:00 PM Nneka siddiqui, [facility] 14:44:11 Pregnanc y test positive [id number] Completed 201210/17/2020 Pregnanc y examinat ion or test, positive result;R ecorded Elsewher e: No Locat ion: [facility] S ource: EHR [employer] gurdeep: N Practi ce ID: 0001 Eugene lable Time: 09:00:00 AM Nneka siddiqui [facility] 14:43:16 Uterine size for dates discrepa ncy Completed 201710/17/2020 Uterine size-malathi e discrepa ncy, third trimeste r;Record ed Elsewher e: No Locat ion: Eileenconcha nolvia [facility] S ource: EHR [employer] gurdeep: N Practi ce ID: 0001 Uegene lable Time: 01:00:00 PM Nneka siddiqui, [facility] 14:43:06 Finding of contents of cervix [id number] Completed 201610/17/2020 Weeks of gestatio n of pregnanc y not specifie d;Record ed Elsewher e: No Locat ion: [facility] S ource: EHR [employer] gurdeep: N Practi ce ID: 0001 Eugene lable Time: 01:00:00 PM Nneka siddiqui, [facility] 14:43:14 Threaten ed miscarri age [id number] Completed 201610/17/2020 Threaten ed ;Recorde d Elsewher e: No Locat ion: [facility] S ource: EHR [employer] gurdeep: N Practi ce ID: 0001 Eugene lable Time: 01:30:00 PM Nneka siddiqui, [facility] 14:43:56 Finding related to pregnanc y Completed 201610/17/2020 Inapprop chg quantita v hCG in early pregnanc y;Record ed Elsewher e: No Locat ion: [facility] S ource: EHR [employer] gurdeep: N Practi ce ID: 0001 Eugene lable Time: 01:00:00 PM Nneka siddiqui, [facility] 14:43:04 Overweig ht [id number] Completed 201410/17/2020 Overweig ht;Recor ded Elsewher e: No Locat ion: [facility] S ource: EHR [employer] gurdeep: N Apolloti ce ID: 0001 Eugene lable Time: 10:45:00 AM Nneka siddiqui [facility] 14:43:02 Screenin g for malignan t neoplasm of cervix Completed 201510/17/2020 Screenin g for malignan t neoplasm s of the cervix;R ecorded Elsewher e: No Locat ion: [facility] S ource: EHR [employer] gurdeep: N Apolloti ce ID: 0001 Eugene lable Time: 11:00:00 AM Nneka siddiqui [facility] 14:42:50 Finding of regulari ty of menstrua l cycle Completed 201510/17/2020 Irregula r menstrua tion, unspecif ied;Jaya rded Elsewher e: No Locat ion: [facility] S ource: EHR [facility] gurdeep: N Apolloti ce ID: 0001 Eugene lable Time: 03:30:00 PM Nneka siddiqui [facility] 14:42:58 Obesity [id number] Completed 201310/17/2020 Obesity; Recorded Elsewher e: No Locat ion: [facility] S ource: EHR [employer] gurdeep: N Apolloti ce ID: 0001 Eugene lable Time: 09:30:00 AM Nneka siddiqui [facility] 14:43:37 Depressi ve disorder [id number] Completed 201610/17/2020 Depressi on;Recor ded Elsewher e: No Locat ion: [facility] S ource: EHR [employer] gurdeep: N Apolloti ce ID: 0001 Eugene lable Time: 02:15:00 PM Nneka siddiqui [facility] 14:43:32 Adult health examinat ion Completed 201210/17/2020 Routine Medical Exam;Rec orded Elsewher e: No Locat ion: Zoila payne [facility] S ource: EHR [employer] gurdeep: N Practi ce ID: 0001 Eugene lable Time: 02:30:00 PM Nneka siddiqui [facility] 14:43:[address] Concept Completed 201710/17/2020 Maternal care for oth abnormal ity and damage, unsp;Rec orded Elsewher e: No [facility] [employer] gurdeep: N Practi ce ID: 0001 Eugene lable Time: 01:00:00 PM Nneka Stewart [facility] 14:43:09 Female genital organ symptoms [id number] Completed 201210/17/2020 Unspecif ied symptom associat ed with female genital organs;R ecorded Elsewher e: No Locat ion: [facility] S ource: EHR [employer] gurdeep: N Practi ce ID: 0001 Eugene lable Time: 05:45:00 PM Nneka Stewart [facility] 14:42:53 Gestatio n period, 10 weeks [id number] Completed 201610/17/2020 10 weeks gestatio n of pregnanc y;Record ed Elsewher e: No [facility]: E[facility] [employer] gurdeep: N Practi ce ID: 0001 Eugene lable Time: 01:30:00 PM Nneka Stewart [facility], [facility] 14:43:[address] Concept Completed 201510/17/2020 Encntr for window shade cloth sewer exam (general ) (routine ) w/o abn findings ;Recorde d Elsewher e: No Locat ion: [facility] S ource: EHR [employer] gurdeep: N Practi ce ID: 0001 Eugene lable Time: 11:00:00 AM Nneka Stewart [facility] 1 14:43:27 Speciali zed medical examinat ion Completed 201410/17/2020 ROUTINE CABLE TESTER EXAMINAT ION;Jaya rded Elsewher e: No Locat ion: [facility] S ource: EHR [employer] gurdeep: N Practi ce ID: 0001 Eugene lable Time: 10:45:00 AM Nneka siddiqui, [facility] 14:43:50 Cyst of ovary Completed 201710/17/2020 Unspecif ied ovarian cyst, unspecif ied side;Rec orded Elsewher e: No Locat ion: [facility] S ource: EHR [employer] gurdeep: N Practi ce ID: 0001 Eugene lable Time: 02:15:00 PM Nneka siddiqui, [facility] 14:42:55 Abdomina l pain [id number] Completed 201610/17/2020 Abdomina l pain;Rec orded Elsewher e: No Locat ion: [facility] S ource: EHR [employer] gurdeep: N Practi ce ID: 0001 Eugene lable Time: 10:00:00 AM Nneka siddiqui, [facility] 14:42:54 Pregnanc y detectio n examinat ion Completed 201610/17/2020 Encounte r for pregnanc y test, result positive ;Recorde d Elsewher e: No Locat ion: [facility] S ource: EHR [employer] gurdeep: N Practi ce ID: 0001 Eugene lable Time: 09:00:00 AM Nneka siddiqui [facility] 14:44:04 Ultrason ography Completed 201210/17/2020 Antenata l screenin g for malforma tion using ultrason ics;Jaya rded Elsewher e: No Locat ion: [facility] S ource: EHR [employer] gurdeep: N Practi ce ID: 0001 Eugene lable Time: 04:45:00 PM Nneka siddiqui, [facility] 14:42:44 Antenata l screenin g Completed 201210/17/2020 Antenata l screenin g for malforma tion using ultrason ics;Jaya rded Elsewher e: No [facility] [employer] gurdeep: N Practi ce ID: 0001 Eugene lable Time: 04:45:00 PM Nneka siddiqui, [facility] 14:43:13 Congenit al malforma tion [id number] Completed 201210/17/2020 Antenata l screenin g for malforma tion using ultrason ics;Jaya rded Elsewher e: No Locat ion: [facility] S ource: EHR [employer] gurdeep: N Apolloti ce ID: 0001 Eugene lable Time: 04:45:00 PM Nneka siddiqui, [facility] 14:43:23 Left lower quadrant pain [id number] Completed 201210/17/2020 Abdomina l pain, left lower quadrant ;Recorde d Elsewher e: No Locat ion: [facility] S ource: EHR [employer] gurdeep: N Apolloti ce ID: 0001 Eugene lable Time: 09:00:00 AM Nneka siddiqui, [facility] 14:43:24 Body mass index 25-29 - overweig ht [id number] Completed 201510/17/2020 Body mass index (BMI) 29.0-29. 9, adult;Re corded Elsewher e: No Locat ion: [facility] S ource: EHR [employer] gurdeep: N Apolloti ce ID: 0001 Eugene lable Time: 11:00:00 AM Nneka siddiqui, [facility] 14:42:42 Cyst of ovary [id number] Completed 201510/17/2020 Unspecif ied ovarian cyst, left side;Rec orded Elsewher e: No Locat ion: Eileennaty nolvia [facility] S ource: EHR [employer] gurdeep: N Practi ce ID: 0001 Eugene lable Time: 10:00:00 AM Nneka siddiqui [facility] 14:44:08 Neoplasm of uncertai n behavior of ovary [id number] Completed 201210/17/2020 Neoplasm of uncertai n behavior of ovary;Re corded Elsewher e: No Locat ion: [facility] S ource: EHR [employer] gurdeep: N Practi ce ID: 0001 Eugene lable Time: 02:15:00 PM Nneka siddiqui, [facility] 14:44:13 Gestatio n period, 26 weeks [id number] Completed 201710/17/2020 26 weeks gestatio n of pregnanc y;Record ed Elsewher e: No [facility]: EHR [employer] gurdeep: N Practi ce ID: 0001 Eugene lable Time: 01:00:00 PM Nneka siddiqui, [facility] 14:43:46 Gestatio n period, 31 weeks [id number] Completed 201710/17/2020 31 weeks gestatio n of pregnanc y;Record ed Elsewher e: No Locat ion: [facility] S ource: EHR [employer] Agent gurdeep: N Practi ce ID: [id number] [place] lable Time: 09:00:00 AM Nneka siddiqui [facility] 14:44:00 Pregnanc y [id number] Completed 201210/17/2020 state, incident al;Recor ded Elsewher e: No [facility]: EHR [employer] gurdeep: N Practi ce ID: [id number] [place] lable Time: 09:00:00 AM Nneka siddiqui [facility] 14:44:05 Pregnanc y test negative [id number] Completed 201510/17/2020 Encounte r for pregnanc y test, result negative ;Recorde d Elsewher e: No Locat ion: [facility] S ource: EHR Mercantile Agent gurdeep: N Apolloti ce ID: 0001 Eugene lable Time: 10:45:00 AM Nneka siddiqui [facility] 14:43:17 Routine antenata l care Completed 201210/17/2020 Supervis ion of other normal pregnanc y;Record ed Elsewher e: No Locat ion: [facility] S ource: EHR Mercantile Agent gurdeep: N Apolloti ce ID: 0001 Eugene lable Time: 02:30:00 PM Nneka Stewart [facility] 14:42:38 Hirsutis m [id number] Completed 201610/17/2020 Hirsutis m;Record ed Elsewher e: No Locat ion: [facility] S ource: EHR Mercantile Agent gurdeep: N Practi ce ID: 0001 Eugene lable Time: 10:00:00 AM Nneka siddiqui [facility] 14:43:34 Nausea and vomiting [id number] Completed 201210/17/2020 Nausea And Vomiting ;Recorde d Elsewher e: No Locat ion: [facility] S ource: EHR Mercantile Agent gurdeep: N Practi ce ID: 0001 Eugene lable Time: 05:45:00 PM Nneka siddiqui [facility] 14:42:45 Pelvic and perineal pain [id number] Completed 201610/17/2020 Pelvic and perineal pain;Rec orded Elsewher e: No Locat ion: [facility] S ource: EHR Mercantile Agent gurdeep: N Practi ce ID: 0001 Eugene lable Time: 02:30:00 PM Nneka siddiqui [facility] 1 14:43:21 Antenata l screenin g for malforma tion Completed 201610/17/2020 Encounte r for antenata l screenin g for malforma tions;Re corded Elsewher e: No Locat ion: [facility] S ource: [facility] gurdeep: N Apolloti ce ID: 0001 Eugene lable Time: 12:00:00 AM Nneka siddiqui [facility] 14:44:03 Amenorrh ea [id number] Completed 201210/17/2020 Absence of menstrua tion;Rec orded Elsewher e: No Locat ion: [facility] S ource: [facility] gurdeep: N Apolloti ce ID: 0001 Eugene lable Time: 03:15:00 PM Nneka siddiqui [facility] 14:42:40 Breast lump [id number] Completed 201310/17/2020 Breast mass;Rec orded Elsewher e: No Locat ion: [facility] S ource: [facility] gurdeep: N Apolloti ce ID: 0001 Eugene lable Time: 10:15:00 AM Nneka siddiqui [facility] 14:44:10 Speciali zed medical examinat ion Completed 201101/11/2012 Gynecolo gical Examinat ion;Jaya rded Elsewher e: No Locat ion: [facility] S ource: [facility] gurdeep: N Apolloti ce ID: 0001 Eugene lable Time: 01:30:00 PM Nneka siddiqui [facility] 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 1 14:42:37 finding Completed 201710/17/2020 Matern care for oth or susp poor fetl grth, third tri, unsp;Rec orded Elsewher e: No Locat ion: [facility]ila payne [facility] S ource: EHR Mercantile Agent gurdeep: N Apolloti ce ID: 0001 Eugene lable Time: 09:00:00 AM Nneka Kellogg [facility], [facility] 1 14:43:11 Uterine size for dates discrepa ncy Completed 201610/17/2020 Uterine size-malathi e discrepa ncy, first trimeste r;Record ed Elsewher e: No [facility] S ource: EHR Mercantile Agent gurdeep: N Apolloti ce ID: 0001 Eugene lable Time: 01:00:00 PM Nneka Stewart null, [facility] 1 14:43:05 Evaluati on finding Completed 201610/17/2020 Hematuri a, unspecif ied;Jaya rded Elsewher e: No [facility] S ource: EHR Mercantile Agent gurdeep: N Apolloti ce ID: 0001 Eugene lable Time: 10:00:00 AM Nneka Terry null, [facility] 1 14:43:20 Uterine size for dates discrepa ncy [id number] Completed 201210/17/2020 UTERINE SIZE LETITIA-ANTE PAR;Jaya rded Elsewher e: No Locat ion: [facility] S ource: EHR Mercantile Agent gurdeep: N Apolloti ce ID: 0001 Eugene lable Time: 03:00:00 PM Nneka siddiqui, [facility] 1 14:43:40 Complica tion related to pregnanc y Completed 201310/17/2020 Antepart um edema or excessiv e weight gain;Rec orded Elsewher e: No Locat ion: [facility] S ource: EHR Mercantile Agent gurdeep: N Apolloti ce ID: 0001 Eugene lable Time: 05:15:00 PM Nneka siddiqui, [facility] 1 14:43:55 Screenin g for malignan t neoplasm of cervix Completed 201101/11/2012 Screenin g for malignan t neoplasm s of the cervix;R ecorded Elsewher e: No Locat ion: [facility] S ource: EHR Mercantile Agent gurdeep: N Apolloti ce ID: 0001 Eugene lable Time: 01:30:00 PM Nneka siddiqui, [facility] 1 14:42:50 Screenin g for malignan t neoplasm of cervix Completed 201101/11/2012 Screenin g for malignan t neoplasm s of the cervix;R ecorded Elsewher e: No Locat ion: [facility] S ource: EHR Mercantile Agent gurdeep: N Apolloti ce ID: 0001 Eugene lable Time: 01:45:00 PM Nneka siddiqui, [facility] 1 14:42:50 Speciali zed medical examinat ion Completed 201410/17/2020 Other specifie d chlamydi al diseases ;Recorde d Elsewher e: No Locat ion: [facility] S ource: EHR Mercantile Agent gurdeep: N Apolloti ce ID: 0001 Eugene lable Time: 10:45:00 AM Nneka siddiqui, [facility] 14:43:52 Microsco pic hematuri a [id number] Completed 201410/17/2020 MICROSCO PIC HEMATURI A;Record ed Elsewher e: No Locat ion: [facility] S ource: EHR Mercantile Agent gurdeep: Esther Hannah ce ID: 0001 Eugene lable Time: 10:45:00 AM Nneka siddiqui, [facility] 14:42:51 Benign essentia l hyperten gifty [id number] Completed 201310/17/2020 Hyperten gifty, Benign;R ecorded Elsewher e: No Locat ion: [facility] S ource: EHR Mercantile Agent gurdeep: Esther Hannah ce ID: 0001 Eugene lable Time: 10:15:00 AM Nneka siddiqui, [facility] 14:42:35 Atypical squamous cells of undeterm ined signific ance on cervical Papanico laou smear [id number] Completed 201110/17/2020 Papanico laou smear of cervix with atypical squamous cells of undeterm ined signific ance (ASC-US) ;Recorde d Elsewher e: No Locat ion: [facility] S ource: EHR Mercantile Agent gurdeep: Esther Hannah ce ID: 0001 Eugene lable Time: 01:45:00 PM Nneka siddiqui, [facility] 14:43:43 Dyspareu avelino [id number] Completed 201101/11/2012 Dyspareu avelino;Jaya rded Elsewher e: No Locat ion: [facility] S ource: EHR Mercantile Agent gurdeep: Esther Hannah ce ID: 0001 Eugene lable Time: 01:45:00 PM Not Available [facility] 0 16:58:10 Venereal disease screenin g Completed 201410/17/2020 Screenin g examinat ion for venereal disease; Recorded Elsewher e: No [facility] EHR Mercantile Agent gurdeep: N Apolloti ce ID: 0001 Eugene lable Time: 10:45:00 AM Nneka siddiqui, [facility] 14:42:48 Female proctoce le without uterine prolapse Completed 201010/17/2020 Rectocel e;Practi ce ID: 0001 Nneka Stewart chen, [facility] 14:43:59 Disorder of breast [id number] Completed 201110/17/2020 DISORDER S BREAST NEC;Prac mirian ID: 0001 Nneka Stewart [facility], [facility] 14:44:06 Hydatidi form mole, benign [id number] Completed 201210/17/2020 Hydatidi form mole;Pra ctice ID: 0001 Nneka Stewart [facility], [facility] 14:43:38 Delivery normal [id number] Completed 201310/17/2020 Normal delivery ;Practic e ID: 0001 Nneka siddiqui, [facility] 14:43:47 prematur e rupture of membrane s [id number] Completed 201710/17/2020 Pretrm kirsty ROM, unsp time betw rupt and onst labr, 3rd tri;Prac mirian ID: 0001 Nneka Stewart [facility], [facility] 14:43:25 Problem Notes None recorded. Procedures Surgical History Date Name Laterality Status Provider Name and Address Organization Details Recorded Time 02/28/20 24 Cholecystectomy completed Florencia Galvan [facility] 07/18/2024 15:45:18 10/21/19 21 Date of Last Pap Smear completed Maria A Jeff [facility] 08/17/2022 10:09:10 12/01/19 18 Tubal Ligation completed [facility] 08/17/2022 10:52:52 04/25/19 17 Tonsillectomy completed [facility] 08/17/2022 10:51:57 04/25/19 16 hernia repair completed [facility] 08/17/2022 10:53:58 09/07/19 13 Laparoscopy completed [facility] 08/17/2022 10:53:25 06/17/19 13 Colposcopy completed [facility] 08/17/2022 10:53:37 06/17/19 12 Colposcopy completed Nneka Stewart [facility] 10/17/2020 14:49:46 Colonoscopy completed [facility] 08/17/2022 10:37:20 Imaging Results None recorded. Procedure Notes None recorded. Medical Equipment None Reported. Allergies Allergen ID Allergen Name Allergen Category Reaction Reaction Severity Criticality Documentation Date Start Date Code Code System Note Provider Name and Address Organization Details Recorded Time 844 amoxicill in medicatio n Not available Not available Not available 09/26/2019 723 RxNorm Dacia Aron [facility] 0 14:49:27 845 hydrocodo ne Not available Not available Not available Not available 09/26/2019 5489 RxNorm Dacia Ortegaluis [facility] 0 14:49:39 846 Product containin g penicilli n (product) medicatio n Not available Not available Not available 09/26/2019 44345 8001 SNOMED Dacia Ortegaluis [facility] 0 14:49:48 847 shellfish derived food,medi cation Not available Not available Not available 09/26/2019 54632 UNK Dacia Sharp [facility] 0 14:49:59 Medications Name Sig Start Date Stop Date Status Note LastModified by Organization Details LastModified Time Miralax 17 gram oral powder packet take 1 packet by oral route every day mixed with 8 oz. water, juice, soda, coffee or tea 12/14 completed Prescrib ed Elsewher e: Yes Loca tion: [facility] odify By: antoine wrayunter DateTime : 02/08/20 17 01:45:00 PM Not Available Not Available Not Available Colace 100 mg capsule take 1 capsule by oral route every day at bedtime as needed 12/14 completed Prescrib ed Elsewher e: Yes Loca tion: [facility] odify By: antoine wrayuntnaif DateTime : 02/08/20 17 01:45:00 PM Not Available Not Available Not Available venlafaxi ne ER 37.5 mg capsule,e xtended release 24 hr take 1 capsule by oral route every day with food 11/01 completed Prescrib ed Elsewher e: Yes Loca tion: [facility] odify By: antoine wrayuntnaif DateTime : 01/21/20 16 11:00:00 AM Not Available Not Available Not Available paroxetin e 10 mg tablet take 1 tablet by oral route every day 01/10 completed Prescrib ed Elsewher e: Yes Loca tion: [facility] odify By: lisy singh DateTime : 06/07/19 12 01:45:00 PM Not Available Not Available Not Available Compazine 10 mg tablet take 1 tablet by oral route 3 times every day 01/20 completed Prescrib ed Elsewher e: No Locat ion: [facility] odify By: freida dailey DateTime : 01/14/20 17 04:01:18 PM Not Available Not Available Not Available sertralin e 100 mg tablet take 1 tablet by oral route every day 03/25 /2025 completed Not Available Not Available Not Available folic acid 400 mcg tablet take 1 tablet by oral route every day 12/14 completed Prescrib ed Elsewher e: Yes Loca tion: [facility] odify By: antoine wrayunter DateTime : 02/08/20 17 01:45:00 PM Not Available Not Available Not Available Zofran 8 mg tablet take 1 tablet (8MG) by oral route every 12 hours 01/15 completed Prescrib ed Elsewher e: No Locat ion: [facility] odify By: gregory wrayunter DateTime : 02/08/20 13 05:45:00 PM Not Available Not Available Not Available Zofran ODT 4 mg disintegr ating tablet DISSOLVE 1 TABLET ON TOP OF TONGUE EVERY 12 HOURS 12/14 completed Prescrib ed Elsewher e: No Locat ion: [facility] odify By: antoine wrayunter DateTime : 08/05/19 18 01:57:02 PM Not Available Not Available Not Available promethaz ine 50 mg tablet take 1 tablet by oral route every 8 - 12 hours as needed 02/07 completed Prescrib ed Elsewher e: No Locat ion: [facility] odify By: josé miguel singh DateTime : 01/25/20 17 10:41:44 AM Not Available Not Available Not Available Nortrel 0.5/35 (28) 0.5 mg-35 mcg tablet take 1 tablet by oral route every day 01/06 completed Prescrib ed Elsewher e: No Locat ion: [facility] odify By: francoise wrayunter DateTime : 01/16/20 14 09:30:00 AM Not [...] mcg (50,000 unit) capsule take 1 capsule (32876GQ ITS) by oral route every week 01/15 completed Prescrib ed Elsewher e: No Locat ion: Zoila payne [facility] odify By: gregory guerrier DateTime : [...] Elsewher e: Yes Loca tion: Zoila payne [facility] odify By: antoine guerrier DateTime : 11/02/19 17 11:30:00 AM Not Available Not Available Not Available Tigan 300 mg capsule take 1 capsule by oral route 3 times every day as needed 12/14 completed Prescrib ed Elsewher e: No Locat ion: Zoila payne [facility] odify By: antoine guerrier DateTime : 02/08/20 17 01:45:00 PM Not Available Not Available Not Available Bactrim DS 800 mg-160 mg tablet take 1 tablet by oral route every 12 hours 01/20 completed Prescrib ed Elsewher e: No Locat ion: Zoila payne [facility] odify By: freida Abdullahite r DateTime : 12/03/19 17 10:00:00 AM Not Available Not Available Not Available escitalop maris 10 mg tablet 1 tablet every day by oral route. active Not Available Not Available No t Available Brittny 0.35 mg tablet take 1 tablet by oral route every day 01/17 completed Prescrib ed Elsewher e: No Locat ion: Zoila payne [facility] odify By: cinda singh DateTime : 04/05/20 14 01:50:41 PM Not Available Not Available Not Available escitalop maris 5 mg tablet take 1 tablet by oral route every day 05/30 completed Prescrib ed Elsewher e: Yes Loca tion: Zoila payne [facility] odify By: freida dailey DateTime : 11/02/19 17 11:30:00 AM Not Available Not Available Not Available sertralin e 10/17 completed Not Available Not Available Not Available CitraNata l Assure 35 mg-1 mg-50 mg-300 mg oral pack take 1 Tablet by Oral route every day for 90 days 04/07 completed Prescrib ed Elsewher e: No Locat ion: [facility] odify By: francoise guerrier DateTime : 01/09/20 13 02:30:00 PM Not Available Not Available Not Available Diclegis 10 mg-10 mg tablet,de layed release take 1 tablet by oral route every day in the morning, 1 tablet in the mid-afte rnoon, and 2 tablets at bedtime 12/14 completed Prescrib ed Elsewher e: No Locat ion: [facility] odify By: antoine guerrier DateTime : 07/12/19 18 01:45:00 PM Not Available Not Available Not Available Merrick prince Complete chewable tablet 10/17 completed Prescrib ed Elsewher e: Yes Loca tion: [facility] odify By: antoine guerrier DateTime : 02/08/20 17 01:45:00 PM Not Available Not Available Not Available Vitals Date Recorded Body height Body mass index (BMI) Body weight Systolic blood pressure Diastolic blood pressure Systolic blood pressure Diastolic blood pressure Provider Name and Address Organization Details Last Updated DateTime 1 170.18 cm 32.6 kg/m2 99737.2 1 g 140 mm[Hg] 99 mm[Hg] 135 mm[Hg] 90 mm[Hg] Nneka Stewart [facility] 1 16:39:46 Date Recorded Body weight Body mass index (BMI) Body height Systolic blood pressure Diastolic blood pressure Provider Name and Address Organization Details Last Updated DateTime 09/27/2019 23877.54 g 34 kg/m2 170.18 cm 143 mm[Hg] 94 mm[Hg] Dacia Sharp [facility] 0 15:53:08 Date Recorded Body height Body mass index (BMI) Body weight Systolic blood pressure Diastolic blood pressure Provider Name and Address Organization Details Last Updated DateTime 08/17/2022 170.18 cm 33.5 kg/m2 54518.77 g 138 mm[Hg] 88 mm[Hg] Maria A Jeff [facility] 3 10:36:28 Date Recorded Body height Body mass index (BMI) Body weight Provider Name and Address Organization Details Last Updated DateTime 09/21/2022 170.18 cm 34 kg/m2 85108.54 g Mireya Bennett [facility] 09/21/2022 14:25:51 Date Recorded Systolic blood pressure Diastolic blood pressure Provider Name and Address Organization Details Last Updated DateTime 09/21/2022 122 mm[Hg] 76 mm[Hg] Diana Farah, [facility]- [address], [place], [address], [facility] 09/21/2022 14:38:36 Date Recorded Body height Body mass index (BMI) Body weight Systolic blood pressure Diastolic blood pressure Provider Name and Address Organization Details Last Updated DateTime 07/18/2024 170.18 cm 32.4 kg/m2 09836.62 g 128 mm[Hg] 84 mm[Hg] Florencia Galvan [facility] 5 15:49:04 Social History Question Answer Notes LastModified by Organizat ion Details LastModified Time Tobacco Smoking Status Former Smoker Avelino siddiqui, [facility] 09/21/2022 14:13:17 Do You Have An Advance Directive? No [email or web address] Information not available 10/20/2020 What Is Your Level Of Alcohol Consumption? Occasional Information not available 09/27/2019 How Many Years Have You Consumed Alcohol? 12 [email or web address] Information not available 10/20/2020 Are You Blind Or Do You Have Difficulty Seeing? No [email or web address] Information not available 10/20/2020 What Is Your Level Of Caffeine Consumption? Moderate [email or web address] Information not available 10/20/2020 How Much Tobacco Do You Chew? None [email or web address] Information not available 08/17/2022 In The 14 Days Before Symptom Onset, Have You Had Close Contact With A Laboratory-confir med COVID-19 While That Case Was Ill? No Information not available 10/20/2020 In The 14 Days Before Symptom Onset, Have You Had Close Contact With A Person Who Is Under Investigation For COVID-19 While That Person Was Ill? No [email or web address] Information not available 10/20/2020 Have You Been To An Area Known To Be High Risk For COVID-19? No Information not available 10/20/2020 Are You Deaf Or Do You Have Serious Difficulty Hearing? No [email or web address] Information not available 10/20/2020 What Type Of Diet Are You Following? REGULAR [email or web address] Information not available 10/20/2020 What Is The Highest Grade Or Level Of School You Have Completed Or The Highest Degree You Have Received? 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 Yes Information not available 10/20/2020 Have You Ever Been Counseled For Unhealthy Alcohol Use? No [email or web address] Information not available 09/21/2022 Do You Use Protection During Sex? No [email or web address] Information not available 10/20/2020 Do You Use Your Seat Belt Or Car Seat Routinely? Yes [email or web address] Information not available 10/20/2020 Do You Have Smoke And Carbon Monoxide Detectors In Your Home? Yes [email or web address] Information not available 10/20/2020 At What Age Did You Start Smoking Tobacco? 17 [email or web address] Information not available 10/20/2020 How Much Tobacco Do You Smoke? No [email or web address] Information not available 08/17/2022 Do You Feel Stressed (tense, Restless, Nervous, Or Anxious, Or Unable To Sleep At Night)? [id number] [email or web address] Information not available 10/20/2020 Do You Use Any Illicit Or Recreational Drugs? No Information not available 10/20/2020 Do You Use Sunscreen Routinely? Yes [email or web address] Information not available 10/20/2020 Has Tobacco Cessation Counseling Been Provided? No [email or web address] Information not available 09/21/2022 Have You Used IV Drugs? No [email or web address] Information not available 10/20/2020 Do You Or Have You Ever Used Any Other Forms Of Tobacco Or Nicotine? No [email or web address] Information not available 09/21/2022 Sex: Unknown Functional Status Question Answer Note LastModified by Organizat ion Details LastModified Time Do you have difficulty walking or climbing stairs? No [email or web address] Information not available 09/21/2022 Are you able to walk? YESWOREST [email or web address] Information not available 10/20/2020 Are you able to care for yourself? Yes [email or web address] Information not available 09/21/2022 Do you have difficulty dressing or bathing? No [email or web address] Information not available 09/21/2022 What is your exercise level? Occasional Information not available 09/27/2019 Mental Status None recorded. Family History Relationship Description Onset Age of this Age Resolved Age Notes LastModified by Organization Details LastModified Time Maternal Grandmother Malignant tumor of breast [email or web address] Not available 08/17 10:37:19 Father Asthma [email or web address] Not available 08/17/2022 10:37:19 Mother Congenital prolapsed uterus [email or web address] Not available 2024 15:33:10 Mother Multiple sclerosis [email or web address] Not available 08/17 10:37:19 Maternal Grandfather Family history of malignant neoplasm of prostate Not available 2024 15:33:10 Maternal Grandfather Diabetes mellitus [email or web address] Not available 08/17 10:37:19 Brother Asthma [email or web address] Not availabl e 08/17/2022 10:37:19 Medical History Condition Response Other Y Blood Transfusion N Dermatologic Disorders N Gestational Diabetes N Anxiety Disorder Y Autoimmune disease N Arthritis N Polyps N Infertility N Acid Reflux (GERD) Y Cancer N Varicosities N Stroke N Neurologic/Epilepsy N Fibromyalgia N Headaches N Kidney Disease N Heart Problems N Kidney or Bladder Problems N Eating Disorder N Art (IVF or FET) N Hepatitis/Liver Disease N No Past Medical History N Urinary Tract Infection N Asthma N Trauma/Violence N Thrombophilias N Allergies (Food, seasonal, environmental ) N Breast Cancer N Drug/Latex Allergies/Reactions Y Lung Disease N Defects or Inherited Disease N Breast Problem N Hematologic disorders N Anesthesia Complications N History of STI Y Deep Vein Thrombosis N Polycystic ovary syndrome N History of abnormal pap Y Endometriosis N High Cholesterol N Thyroid Problems N GI Problems Y Anemia N Psychiatric Illness N Ovarian Cancer N Diabetes N Pulmonary (TB, Asthma) N Eczema N Abuse/Domestic Violence N Depression/ depression Y Heart Disease N Pre-Eclampsia N Hypertension N Osteoporosis N Gynecological History Statement/Question Response Date of [...] ICD10 Code Diagnosis Note [id number] Chelsie Mcgraw [facility] [address] [address] 09/27/2019 15:39:36 10/17/2019 11:21:58 Gynecologic examination [id number] Z01.419 Take Calcium with Vitamin D 1200mg [...] paper copy of today's plan if desired. [id number] Chelsie Mcgraw [facility] [address] [address] 10/20/2020 16:33:07 10/20/2020 16:54:39 Gynecologic examination [id number] Z01.419 Z11.51 Take Calcium with Vitamin D [...] paper copy of today's plan if desired. [id number] Chelsie Mcgraw [facility] [address] [address] 08/17/2022 10:17:15 08/19/2022 12:06:59 Lesion of vulva 739908176 N90.89 Almost resolved and draining clear fluid. Discomfort minimal per patient. Wound and HSV cultures collected. Warm compress 3-4 times per day until resolved. [id number] [facility] [address] [place] [id number] 1 09/21/2022 14:13:02 09/21/2022 15:27:26 Gynecologic examination [id number] Z01.419 Take Calcium with Vitamin D 1200mg [...] na Dexa Screen na Routine Labs PCP [id number] VINCENT GOINS, BERNARDA [place] [address] [address] 07/18/2024 15:31:25 07/19/2024 09:27:38 Bilateral discharge from nipples [id number] N64.52 We discussed her breast exam findings [...] exams and report any changes. Female hirsutism [id number] L68.0 Will assess hormone levels as patient reports new onset hirsutism. Health Concerns Section Related Observation LastModified by Organization Detai ls LastModified Time None Recorded Concern Status LastModified by Organization Details LastModified Time None Recorded Advance Directives Directive N: Payers Encounter Date Sequence Insurance Name Policy Number Policy Johnson Covered Member ID Johnson Member ID Guarantor Name 09/27/2019 1 [place] [id number] Manpreet [id number] [place] 10/20/2020 1 [place] [id number] Manpreet [place] [id number] [place] 08/17/2022 1 [place] [id number] Manpreet [place] [id number] [place] 09/21/2022 1 [place] [id number] Manpreet [place] [id number] [place] 07/18/2024 1 [place] [id number] Manpreet [place] [id number] [place] Notes Date Note Type [...] depression; No anxiety; No PMDD Chelsie siddiqui [facility] 09/27/2019 16:18:17 10/20/2020 text/html Annual GYNReport [...] and was extremely anxious. Chelsie Mcgraw chen [facility] 10/20/2020 16:52:14 08/17/2022 text/html Lump in labia th at started Tuesday. Was firm and uncomfortable. Is better today. Chelsie Mcgovernnoemi siddiqui [facility] 08/20/2022 07:35:53 09/21/2022 text/html Annual GYNReport [...] age 41 MINA Richey- [address], [place], [address], [facility] 09/21/2022 14:41:21 07/18/2024 text/html 38 y/o [...] or pelvic pain.Denies GI/ sx. VINCENT GOINS, PHYSICIAN'S AIDE [address], [place], [address], [facility] 07/18/2024 17:42:37 OBGyn Episode Ob Episode Information Episode Created Date Number of Fetuses Patient Bloodtype Patient rh Status Prepregnancy Weight lbs Domestic Partner Domestic Partner Phone Father Name Publicity Consultant Status 09/27/19 20 1 CLOSED Fetus Data [...] Domestic Partner Domestic Partner Phone Father Name Publicity Consultant Status 09/27/19 20 1 CLOSED Fetus Data [...] Post Complications Tubal Sterilization Discharge Date Comments 11/12/200 9 39 Discharge Information Feeding Method Contraceptive Method Maternal HG B and HCT Levels Ob Episode Information Episode Created Date Number of Fetuses Patient Bloodtype Patient rh Status Prepregnancy Weight lbs Domestic Partner Domestic Partner Phone Father Name Publicity Consultant Status 09/27/19 20 1 CLOSED Fetus Data [...]
--- OUTSIDE RECORDS SUMMARY | 2024-07-28 19:53 | XMS_ITS | Clinical Summary ---
Author Organization [facility] Address [address] [place] [address] Care Team Providers Care Radiation Oncology Therapist Name Role Phone Farida Hernandez MD Primary Care Provider [phone] Allergies Active Allergy Reactions Criticality Noted Date [...] 2023-2 5 season) 2023 09/23/2020 PHQ-2 (Physician [place]) 04/25/2024 02/01/2024 Cervical Cancer Screening Pa p [...] patient's age to complete this topic Insurance [facility] Care Teams Radiation Oncology Therapist Relationship Specialty Start Date End Date Farida Hernandez MD [address] [place] [address] PCP - General INTERNAL MEDICINE 02/01/24
[2024-07-28 21:27] VITALS: BP 116/76; PULSE 74; RESP 20; O2SAT 98
[2024-07-28 21:52] LABS: BEDSIDEPREGUCG Negative (Negative)
[2024-07-28 22:01] LABS: Basophils Percent Auto 0.4 % (0.2-1.2); Eosinophils Absolute Auto 0.1 K/mm3 (0-0.3); Hematocrit 39.2 % (37.0-47.0); Hemoglobin 13.4 g/dL (12.0-15.0); Immature Granulocyte Absolute 0.01 K/mm3 (0.00-0.031); Immature Granulocyte Percent A 0.1 % (0-0.5); Lymphocytes Absolute Auto 3.03 K/mm3 (0.9-3.2); Lymphocytes Percent Auto 41.6 % (18.3-44.2); Mean Corpuscular HGB Conc 34.2 g/dl (32-36); Mean Corpuscular Hemoglobin 29.3 pg (26-34); Mean Corpuscular Volume 85.6 fl (80-100); Mean Platelet Volume 9.4 fl (7.4-10.4); Monocytes Absolute Auto 0.5 K/mm3 (0.1-0.6); Monocytes Percent Auto 6.2 % (2.6-8.5); Neutrophils Absolute Auto 3.7 K/mm3 (1.3-6.7); Neutrophils Percent Auto 50.7 % (45.5-73.1); Platelet Count Result 283 k/mm3 (150-375); Red Blood Count 4.58 M/mm3 (4.2-5.4); Red Cell Distribution Width 11.9 % (11.5-14.5); White Blood Count 7.3 K/mm3 (4.5-10.0)
[2024-07-28 22:07] LABS: Add Urine Microscopic? YES; Appearance Urine Clear (Clear); Bacteria Urine None Seen /hpf; Bilirubin Urine Negative (Negative); Blood Urine 1+ (Negative); Color Urine Yellow (Yellow); Glucose Urine UA Negative (Negative); Ketones Urine 1+ mg/dL (Negative); Leukocyte Esterase Ur Negative LEU/UL (Negative); Nitrate Urine Negative (Negative); Non Pathogenic Casts 0-2; Protein Urine Negative (Negative); Squamous Epithelial Cell Urine None Seen /hpf (Few); Urobilinogen Urine 0.2 mg/dL (<2.0); WBC Urine 0-5 /hpf (0-3); pH Urine 6.5 (5.0-9.0)
[2024-07-28 22:11] LABS: Alanine Aminotransferase 16 U/L (6-35); Albumin Level 4.5 g/dL (3.5-5.1); Alkaline Phosphatase 36 U/L (38-126); Anion Gap 11 mmol/L (4-12); Aspartate Amino Transferase 21 U/L (14-36); Bilirubin,Total 0.9 mg/dL (0.2-1.3); Blood Urea Nitrogen 9 mg/dL (7-17); Calcium 9.4 mg/dL (8.4-10.2); Carbon Dioxide 23 mmol/L (22-30); Chloride 104 mmol/L (98-107); Estimated CRCL calculation 109 ml/min; Estimated Glomerular Filt Rate > 60; Glucose 86 mg/dL (65-110); Lipase 125 U/L (23-300); Potassium 3.3 mmol/L (3.4-5.0); Sodium 138 mmol/L (137-145)
--- OUTSIDE RECORDS SUMMARY | 2024-07-28 22:46 | XMS_ITS | Clinical Summary ---
Author Organization [facility] Address [address] [place] [address] Care Team Providers Care Water Reclamation Systems Operator Name Role Phone Farida Hernandez MD Primary Care Provider Source Comments [facility],non-owned Affiliates and Associated Physician Practices is amultiple site organization consisting of ambulatory clinics and hospital sitesin [place], [place], [place] and [place]. This disclosure is being madepursuant to the Care Everywhere program and may not contain all information available regarding this patient. Last updated 18.[facility] Allergies Active Allergy Reactions Criticality Noted Date [...] age to complete this topic Care Teams Water Reclamation Systems Operator Relationship Specialty Start Date End Date Farida Hernandez MD [address] [place] [id number] PCP - General 12/23/20
--- OUTSIDE RECORDS SUMMARY | 2024-07-28 22:47 | XMS_ITS | Clinical Summary ---
Author Organization [facility] Address [address] [place] [address] Care Team Providers Care Cutting And Splicing Supervisor Name Role Phone Farida Hernandez MD Primary Care Provider [phone] Allergies Active Allergy Reactions Criticality Noted Date [...] 2023-2 5 season) 2023 09/23/2020 PHQ-2 (Physician [place]) 04/25/2024 02/01/2024 Cervical Cancer Screening Pa p [...] patient's age to complete this topic Insurance [facility] Care Teams Cutting And Splicing Supervisor Relationship Specialty Start Date End Date Farida Hernandez MD [address] [place] [address] PCP - General INTERNAL MEDICINE 02/01/24
--- OUTSIDE RECORDS SUMMARY | 2024-07-28 22:47 | XMS_ITS | Clinical Summary ---
Author Organization [facility] Address [address] [place] [address] Phone Care Team Providers Care Biomass Plant Manager Name Role Phone Provider, None Primary Care [...] [facility] Care Teams Biomass Plant Manager Relationship Specialty Start Date End Date Provider, None JOHN PCP - General 12/06/16
--- NOTE | 2024-07-28 23:04 | ED_ITS ---
HPI - Abdominal Pain General Chief Complaint: Abdominal Pain Stated Complaint: abd pain x7days Time Seen by Provider: 07/28/24 22:38 Source: patient and family Mode of arrival: ambulatory Limitations: no limitations History of Present Illness HPI narrative: Patient presents with epigastric abdominal pain 7 days duration. She describes it as 5/10 in severity, dull. She reports taking no pain medication prior to arrival. She is status post cholecystectomy with Dr Paulino in February and notes that she has continued to intermittently have this pain. This has been the 3rd episode of such pain she states it never lasted this long. She has been having increased nausea and she reports 1 episode vomit. She notes that she has been having loose, mucousy, yellow stool. She took 4 mg ODT Zofran with no relief. She states she also has a prescription for Xanax and took it but that is not been helping. No recent travel or antibiotics. Denies marijuana use. Her has been sick with sinus infection but otherwise no sick contacts. Denies urinary urgency, frequency, hematuria, dysuria. In fact, she states that she has had decreased frequency of urination. Last oral intake that she attempted was yesterday when she had some noodles but she vomited them up. She has no appetite. Not on anticoagulation. She just finished her last menstrual. States it was normal duration. She has been borderline febrile with a temperature 100.1? at home. She also reports having chills. She denies any vaginal discharge or bleeding other than her menstrual cycle. Related Data Home Medications ?Medication ?Instructions ?Recorded ?Confirmed ?Last Taken ?Type escitalopram oxalate 10 mg tablet 10 mg PO HS 12/23/22 05/02/24 12/28/22 History buspirone 10 mg tablet 10 mg PO BID 07/25/24 Unknown History Allergies Allergy/AdvReac Type Severity Reaction Status Date / Time shellfish derived Allergy Intermediate Hives Verified 04/10/24 13:51 adhesive tape Allergy Mild Rash Verified 04/10/24 13:51 amoxicillin Allergy Unknown rash Verified 04/10/24 13:51 Penicillins Allergy Unknown RASH Verified 04/10/24 13:51 cefdinir AdvReac Mild shakes Verified 04/10/24 13:51 PMFSH Past Medical History Medical History Adenomatous colon polyp Tobacco abuse Loose stools Weight loss Nausea and vomiting in adult IBS (irritable bowel syndrome) Dermoid cyst Anxiety Surgical History Surgical History Hx laparoscopic cholecystectomy 02/28/24 1. Laparoscopic cholecystectomy with cholangiography, da [place] assisted 2. Interpretation of cholangiography Dr. Pleitez History of umbilical hernia repair 1. Laparoscopic 2cm recurrent umbilical hernia repair with mesh, [place] assisted 2. Removal of mesh foreign body on 12/29/22 W H/O tubal ligation History of tonsillectomy History of hernia surgery Ventral hernia repair [place] [address] Pleitez. H/O oophorectomy Family History Family History Mother Family history of mental disorder Depression Family history of migraine headaches Family history of hearing loss Father Hypertension Asthma Grandparent Hypertension Diabetes mellitus Other Family history of cardiovascular disease Family history of malignant neoplasm Social History Social History Smoking packs per day: 0.5 Smoking cigarettes per day: 10.0 Years smoked: 15 Smoking pack-years: 7.50 Smoking status: Former smoker Tobacco type: cigarettes and e-cigarettes/vaping Smoking end date: 02/19/22 Additional smoking assessment comments: Vapes now. Alcohol intake: current Drinks per week: 1 Alcohol use details: RARE Substance use: never Substance use type: does not use Living arrangements: with family Occupation/Education: occupation Gender identity (if verbalized by the patient): Female Sexual Orientation (if Verbalized by the Patient): Straight or Heterosexual Spiritual care concerns: No Agree to blood products: Yes Exam 2 Narrative: GENERAL: Well-appearing, well-nourished, and in no acute distress. HEAD: Normocephalic, atraumatic. EYES: Non injected, non icteric ENT: Nares clear, no rhinorrhea or epistaxis. NECK: Supple. CHEST: Speaking in full sentences. No respiratory distress. HEART: Regular rate and rhythm. . ABDOMEN: Soft, nondistended. No tenderness to palpation throughout. No rigidity or guarding. Not peritoneal. EXTREMITIES: Normal range of motion. No lower extremity edema. SKIN: Warm, dry, no rash. NEURO: No focal deficits. Alert and oriented x3. PSYCH: Normal mood and affect. Course Vital Signs Vital signs: Vital Signs Temperature 98.7 F 07/28/24 19:51 Pulse Rate 92 07/28/24 19:51 Respiratory Rate 16 07/28/24 19:51 Blood Pressure 135/90 07/28/24 19:51 Pulse Oximetry 100 07/28/24 19:51 Oxygen Delivery Room Air 07/28/24 19:51 Temperature 98.7 F 07/28/24 19:51 Pulse Rate 64 07/29/24 03:00 Respiratory Rate 18 07/29/24 03:00 Blood Pressure 119/81 07/29/24 03:00 Pulse Oximetry 97 07/29/24 03:00 Oxygen Delivery Room Air 07/28/24 19:51 MDM - Abdominal Pain MDM Narrative Medical decision making narrative: Patient reports abdominal pain of 7 days duration associated with nausea vomiting. In the emergency department they are afebrile with vital signs within normal limits. Ordered IV fluids, analgesic medication, antiemetic, famotidine, GI cocktail, and CT scan. Negative test. Mild hypokalemia. Repletion ordered. Patient has microscopic hematuria on urinalysis. On the last day of her menstrual cycle was yesterday. Still having pain at approximately 2:00 a.m.. Haldol diphenhydramine ordered while we await scan. This is negative. In sum, This patient presents with abdominal pain or unclear etiology. A CT scan was performed to evaluate for potential causes of the abdominal pain, however, neither the clinical exam nor the CT has identified an emergent etiology for the abdominal pain. Specifically, given the benign exam, the laboratory studies, and unremarkable CT, I have a very low suspicion for appendicitis, ischemic bowel, bowel perforation, or any other life threatening disease. DC instructions explain the need to follow-up or return to the Emergency Department immediately if the pain worsens, develops fever, persistent and uncontrolled vomiting, or for any new symptoms or concerns. Provided Rx for omeprazole. Differential Diagnosis Differential diagnosis: Likely abdominal pain, constipation, diverticulitis, endometriosis, gastroenteritis, pancreatitis, small bowel obstruction and other (colitis) Lab Data Attestation: I reviewed the patient's lab results. Lab results narrative: Normal lipase, normal CBC. 07/28/24 21:55 07/28/24 21:55 Labs: Lab Results 07/28/24 07/28/24 07/28/24 Range/Units 21:50 21:53 21:55 WBC 7.3 (4.5-10.0) K/mm3 RBC 4.58 (4.2-5.4) M/mm3 Hgb 13.4 (12.0-15.0) g/dL Hct 39.2 (37.0-47.0) % MCV 85.6 (80-100) fl MCH 29.3 (26-34) pg MCHC 34.2 (32-36) g/dl RDW 11.9 (11.5-14.5) % Plt Count 283 (150-375) k/mm3 MPV 9.4 (7.4-10.4) fl Immature Gran % (Auto) 0.1 (0-0.5) % Neut % (Auto) 50.7 (45.5-73.1) % Lymph % (Auto) 41.6 (18.3-44.2) % [place] % (Auto) 6.2 (2.6-8.5) % Eos % (Auto) 1.0 (0-4.4) % Baso % (Auto) 0.4 (0.2-1.2) % Lymph # (Auto) 3.03 (0.9-3.2) K/mm3 [place] # (Auto) 0.5 (0.1-0.6) K/mm3 Eos # (Auto) 0.1 (0-0.3) K/mm3 Baso # (Auto) 0.0 (0.0-0.1) K/mm3 Abs Immat Gran (auto) 0.01 (0.00-0.031) K/mm3 Absolute Neuts (auto) 3.7 (1.3-6.7) K/mm3 Absolute Nucleated RBC 0.000 (0.0-0.012) K/mm3 Nucleated RBC % 0.0 (0.0-0.2) % Sodium 138 (137-145) mmol/L Potassium 3.3 L (3.4-5.0) mmol/L Chloride 104 (98-107) mmol/L Carbon Dioxide 23 (22-30) mmol/L Anion Gap 11 (4-12) mmol/L BUN 9 (7-17) mg/dL Creatinine 0.70 (0.7-1.0) mg/dL Estim Creat Clear Calc 109 ml/min Estimated GFR > 60 (59 - ) Glucose 86 (65-110) mg/dL Calcium 9.4 (8.4-10.2) mg/dL Magnesium 2.2 (1.6-2.3) mg/dL Total Bilirubin 0.9 (0.2-1.3) mg/dL AST 21 (14-36) U/L ALT 16 (6-35) U/L Alkaline Phosphatase 36 L (38-126) U/L Total Protein 7.0 (6.3-8.2) g/dL Albumin 4.5 (3.5-5.1) g/dL Lipase 125 (23-300) U/L Urine Color Yellow (Yellow) Urine Appearance Clear (Clear) Urine pH 6.5 (5.0-9.0) Ur Specific [place] 1.010 (1.001-1.035) Urine Protein Negative (Negative) mg/dL Urine Glucose (UA) Negative (Negative) mg/dL Urine Ketones 1+ H (Negative) mg/dL Ur Blood (Man) 1+ H (Negative) Urine Nitrate Negative (Negative) Urine Bilirubin Negative (Negative) Urine Urobilinogen 0.2 (<2.0) mg/dL Leukocyte Esterase Rfl Negative (Negative) ADAM/UL Urine RBC 3-5 H (0-2) /hpf Urine WBC 0-5 (0-3) /hpf Ur Squamous Epith Cells None seen (Few) /hpf Urine Bacteria None seen /hpf Urine Casts 0-2 POC Urine HCG, Qual Negative (Negative) Influenza A (RT-PCR) (Negative) Influenza B (RT-PCR) (Negative) SARS-CoV-2 RNA (RT-PCR) (Negative) 07/28/24 Range/Units 23:29 WBC (4.5-10.0) K/mm3 RBC (4.2-5.4) M/mm3 Hgb (12.0-15.0) g/dL Hct (37.0-47.0) % MCV (80-100) fl MCH (26-34) pg MCHC (32-36) g/dl RDW (11.5-14.5) % Plt Count (150-375) k/mm3 MPV (7.4-10.4) fl Immature Gran % (Auto) (0-0.5) % Neut % (Auto) (45.5-73.1) % Lymph % (Auto) (18.3-44.2) % [place] % (Auto) (2.6-8.5) % Eos % (Auto) (0-4.4) % Baso % (Auto) (0.2-1.2) % Lymph # (Auto) (0.9-3.2) K/mm3 [place] # (Auto) (0.1-0.6) K/mm3 Eos # (Auto) (0-0.3) K/mm3 Baso # (Auto) (0.0-0.1) K/mm3 Abs Immat Gran (auto) (0.00-0.031) K/mm3 Absolute Neuts (auto) (1.3-6.7) K/mm3 Absolute Nucleated RBC (0.0-0.012) K/mm3 Nucleated RBC % (0.0-0.2) % Sodium (137-145) mmol/L Potassium (3.4-5.0) mmol/L Chloride (98-107) mmol/L Carbon Dioxide (22-30) mmol/L Anion Gap (4-12) mmol/L BUN (7-17) mg/dL Creatinine (0.7-1.0) mg/dL Estim Creat Clear Calc ml/min Estimated GFR (59 - ) Glucose (65-110) mg/dL Calcium (8.4-10.2) mg/dL Magnesium (1.6-2.3) mg/dL Total Bilirubin (0.2-1.3) mg/dL AST (14-36) U/L ALT (6-35) U/L Alkaline Phosphatase (38-126) U/L Total Protein (6.3-8.2) g/dL Albumin (3.5-5.1) g/dL Lipase (23-300) U/L Urine Color (Yellow) Urine Appearance (Clear) Urine pH (5.0-9.0) Ur Specific [place] (1.001-1.035) Urine Protein (Negative) mg/dL Urine Glucose (UA) (Negative) mg/dL Urine Ketones (Negative) mg/dL Ur Blood (Man) (Negative) Urine Nitrate (Negative) Urine Bilirubin (Negative) Urine Urobilinogen (<2.0) mg/dL Leukocyte Esterase Rfl (Negative) ADAM/UL Urine RBC (0-2) /hpf Urine WBC (0-3) /hpf Ur Squamous Epith Cells (Few) /hpf Urine Bacteria /hpf Urine Casts POC Urine HCG, Qual (Negative) Influenza A (RT-PCR) Negative (Negative) Influenza B (RT-PCR) Negative (Negative) SARS-CoV-2 RNA (RT-PCR) Negative (Negative) Imaging Data Radiologist's impression: ITS Impressions Abdomen/Pelvis CT 07/29/24 09:39 IMPRESSION: 1. No evidence of appendicitis, diverticulitis or intestinal obstruction. 2. Mild fat infiltration of the liver. CT Abd Pelvis with Contrast Stat Rad: No acute findings. Discharge Plan Discharge Clinical Impression: Gastroenteritis, Epigastric abdominal pain, Hypokalemia Patient Disposition: Home Condition: Stable Instructions: Antibiotic Form, Hypokalemia (ED), Gastroenteritis (ED), Epigastric Pain (ED) Additional Instructions: Your workup did not clearly identify the cause of your symptoms. This included a CT scan that was normal. The combination of vomiting and diarrhea is traditionally known as gastroenteritis which tends to be viral although you tested negative for COVID, influenza a, influenza B. Follow-up with your PCP and/or surgeon and return to the Emergency Department immediately if the pain worsens, develops fever, persistent and uncontrolled vomiting, or for any new symptoms or concerns. Given the Jennifer wasn't working at home, you could trial the alternative medication prescribed. Patient Language: French Prescriptions: New omeprazole 20 mg tablet,delayed release (DR/EC) 20 mg PO DAILY Qty: 14 0RF No Action buspirone 10 mg tablet 10 mg PO BID alprazolam [Xanax] 0.25 mg tablet 0.25 mg PO BID PRN (Reason: anxiety) Qty: 10 0RF lansoprazole 30 mg capsule,delayed release(DR/EC) 30 mg PO DAILY Qty: 30 3RF ondansetron 4 mg tablet,disintegrating 4 mg PO Q8H PRN (Reason: nausea and vomiting) Qty: 20 0RF escitalopram oxalate 10 mg tablet 10 mg PO HS Follow-up/Referrals: Farida Hernandez MD [Primary Care Provider] - Wikiera,Vinod H., DO [Physician] - Stand Alone Forms: Work/School Release IP Time of Disposition: 02:37
[2024-07-28] MEDS: SODIUM CHLORIDE 0.9% IV 1,000 ML 999 ML IV CONT (23:31)
[2024-07-28] MEDS: MORPHINE SULFATE (*CRX) 4 MG/ML INJ IV PUSH (23:31)
[2024-07-28] MEDS: POTASSIUM BICARBONATE 25 MEQ TABEF PO (23:31)
[2024-07-28] MEDS: FAMOTIDINE 20 MG/2 ML VIAL IV PUSH (23:31)
[2024-07-28] MEDS: ONDANSETRON INJ 4 MG/2 ML VIAL IV PUSH (23:31)
[2024-07-28 23:32] VITALS: BP 134/82; PULSE 62; RESP 18; O2SAT 99
[2024-07-28 23:39] LABS: Magnesium 2.2 mg/dL (1.6-2.3)
[2024-07-29 00:17] LABS: Influenza A QL RT-PCR Negative (Negative); Influenza B QL RT-PCR Negative (Negative); SARS-CoV-2 RNA PCR Negative (Negative)
[2024-07-29 01:04] VITALS: BP 128/82; PULSE 82; RESP 16; O2SAT 100
[2024-07-29] MEDS: diphenhydrAMINE HCl INJ 50 MG/ML VIAL 25 MG IV PUSH (02:23)
[2024-07-29] MEDS: HALOPERIDOL LACTATE 5 MG/ML VIAL 2.5 MG IV PUSH (02:23)
[2024-07-29 03:00] VITALS: BP 119/81; PULSE 64; RESP 18; O2SAT 97
== END 2024-07-29 03:10 | disposition home or self-care (01) ==
PROVIDERS: Emergency Provider Student in an Organized Health Care Education/Training Program; PCP Internal Medicine
DX: K52.9 Noninfective gastroenteritis and colitis, unspecified (principal); E87.6 Hypokalemia; Z20.822 Contact with and (suspected) exposure to COVID-19; K58.9 Irritable bowel syndrome, unspecified; F41.9 Anxiety disorder, unspecified; F17.290 Nicotine dependence, other tobacco product, uncomplicated; Z86.0101 Personal history of adenomatous and serrated colon polyps; Z90.49 Acquired absence of other specified parts of digestive tract; K76.0 Fatty (change of) liver, not elsewhere classified
CPT/HCPCS: 36415; 74177; 80053; 81001; 81025; 83690; 83735; 85025; 87636; 96361; 96374; 96375; 99284; A9270; J1200; J1630; J2270; J2405; J7030; Q9967

== ENCOUNTER 2025-01-31 11:12 | Outpatient (RCR) | payer BC, SELFPAY ==
--- NOTE | 2025-01-31 11:46 | OPREHPOC ---
Outpatient Therapy Plan of Care This is a Multidisciplinary Plan of Care that may contain components documented by all disciplines (PT, OT, and ST.) PT Problem 1 PT Problem #1 Knowledge Deficit PT Goal 1 Goal / Goal Update independent and compliant with HEP no volleyball or sports for 2 weeks Target Visit 4 PT Problem 2 PT Problem #2 Pain PT Goal 1 Goal / Goal Update decrease pain at worst to 2/10 or less in the R knee Target Visit 8 PT Problem 3 PT Problem #3 Impaired Strength PT Goal 1 Goal / Goal Update 5/5 R knee strength 4+/5 R hip flex or better Target Visit 8 PT Problem 4 PT Problem #4 Impaired Range of Motion PT Goal 1 Goal / Goal Update 0-130 degrees active R knee rom Target Visit 8 PT Problem 5 PT Problem #5 Impaired Functional Mobility PT Goal 1 Goal / Goal Update 20% or less functional deficits per the LEFS patient to ambulate with normal gait mechanics patient to tolerate full work days without more than 2/10 pain at worst in the R knee Target Visit 8
--- NOTE | 2025-02-04 13:12 | PTOPEVAL1 ---
Assessment and note entered by JT File, PT Evaluation Information Assessment Status Evaluation ICD-10 Condition Codes (PT) Pain in right knee M25.561 Onset 01/30/2025 Subjective Information patient reports she has been having pain in the R knee for over a year. she reports she plays volleyball and last year it bothered her, but she was able to get by with a brace. she reports she started a new job and has been on her feet on tile a lot more, and it has been hurting more. she reports she played volleyball last night and it is now swollen and more painful. she reports she has increased pain with sitting, standing, walking currently. she reports normally she also has increased pain with bending the R knee, especially to squat. she reports it pops all the time and does not feel stable. she reports it bothers her to go up and down steps. Assessment PT Clinical Summary mrs. edwards is a pleasant 39 yo woman who presents to skilled PT with acute on chronic R knee pain. upon evaluation today, she displays signs and symptoms consistent with a R knee mensicus injury. she displays decreased R knee rom, swelling, pain , and weakness. she also displays abnormal gait mechanics. continued skilled PT is indicated at this time to address her objecctive/functional deficits and work on returning patient to her prior level functional activity performance/ quality of life. Plan of Care Interventions Electrical Stimulation,Gait Training,Hot Pack/Cold Pack,Intermittent Compression Pump,Manual Therapy ,Neuro Re-education,Patient/Caregiver Education, Therapeutic Activities,Therapeutic Exercise PT Services Indicated Yes Treatment Frequency and 2x weekly for 8 visits Duration These treatments will address the objective and functional deficits as defined above. The patient will be advanced safely and appropriately in order for the patient to progress towards his/her prior level of function. Additional exercises will be introduced and as well as a comprehensive home exercise program upon discharge, if needed, ?to ensure carryover of functional gains achieved in the clinic. This treatment plan has been reviewed and agreement upon by the patient.
--- NOTE | 2025-02-25 16:55 | OPREHPOC ---
Outpatient Therapy Plan of Care This is a Multidisciplinary Plan of Care that may contain components documented by all disciplines (PT, OT, and ST.) PT Problem 1 PT Problem #1 Knowledge Deficit PT Goal 1 Goal / Goal Update independent and compliant with HEP no volleyball or sports for 2 weeks Target Visit 4 Progress Met PT Problem 2 PT Problem #2 Pain PT Goal 1 Goal / Goal Update decrease pain at worst to 2/10 or less in the R knee Target Visit 8 Progress Not Met PT Problem 3 PT Problem #3 Impaired Strength PT Goal 1 Goal / Goal Update 5/5 R knee strength 4+/5 R hip flex or better Target Visit 8 Progress Met PT Problem 4 PT Problem #4 Impaired Range of Motion PT Goal 1 Goal / Goal Update 0-130 degrees active R knee rom Target Visit 8 Progress Partially Met PT Problem 5 PT Problem #5 Impaired Functional Mobility PT Goal 1 Goal / Goal Update 20% or less functional deficits per the LEFS. not met patient to ambulate with normal gait mechanics. met patient to tolerate full work days without more than 2/10 pain at worst in the R knee. not met Target Visit 8 Progress Partially Met
--- NOTE | 2025-02-25 16:56 | PTOPDC ---
Assessment and note entered by JT File, PT Evaluation Information Assessment Status Discharge ICD-10 Condition Codes (PT) Pain in right knee M25.561 Onset 01/30/2025 Subjective Information patient reports improvements in function and decreased pain overall. however, it still swells up and flares up with pain at times in the R knee. she reports she has an MRI coming up soon for the R knee, but at this time is ready to be done with PT for now. Reported Pain Level Pain Score 3: Self Report Assessment PT Clinical Summary mrs. edwards presents to skilled PT today with decreased pain overall, but still pain and swelling increased at times. she reports she has an MRI coming up for the R knee. she reports she has been compliant with her HEP. she displays improved strength and rom of the R knee. patient will DC skilled PT at this time, and continue with HEP independent at home. Plan of Care PT Services Indicated Yes
== END 2025-02-25 20:00 | disposition home or self-care (01) ==
LOC: CHSPT 11:12
PROVIDERS: PCP Nurse Practitioner Family; Visit Provider Nurse Practitioner Family
DX: M25.561 Pain in right knee (principal)
CPT/HCPCS: 97014; 97016; 97110; 97112; 97140; 97150; 97161; G0283

== ENCOUNTER 2025-02-27 15:59 | Outpatient (CLI) | payer BC, SELFPAY ==
--- NOTE | ~2025-02-27 | XR_ITS ---
EXAMINATION: XR knee RT 3V, 02/27/2025 16:05 [facility]RE[facility] HISTORY: R Knee Pain COMPARISON: No comparisons available. Findings: No acute fracture or malalignment. No significant degenerative changes. Soft tissues unremarkable. Impression: No acute fracture or malalignment. Reviewed, dictated and finalized at location P. E[facility] Impression: No acute fracture or malalignment.
--- OUTSIDE RECORDS SUMMARY | 2025-02-28 15:07 | XMS_ITS | Data Portability ---
Author Organization [facility] Address [address] [place] [address] Care Team Providers Care Electronic Pagination System Operator Name Role Phone ROBY ALONSO Primary Care [...] Lab testosteron e, total, serum 2024 025 [facility] (Lab), [address] [place], [address], 5 07:34:03 dhea-sulfat e, serum 2024 025 [facility] (Lab), [address] [place], [address], 5 07:34:03 hormone panel, serum or plasma 2024 025 [facility] (Lab), [address] [place], [address], 5 07:34:04 prolactin, serum 2024 025 [facility] (Lab), [address] [place], [address], 5 07:34:04 CMP, serum or plasma 2024 025 [facility] (Lab), [address], [place], [address], 5 07:34:04 TSH, serum or plasma 2024 025 [facility] (Lab), [address], [place], [address], 5 07:34:03 pap, IG + HR HPV - HPV regardless but if HPV is positive need subtyping 16,18/45 2020 021 [id number] [facility] (Lab), [address], [place], [address], 1 11:15:54 Referral None recorded. Procedures None recorded. Surgeries None recorded. Imaging MAMMO, diagnostic, digital, bilateral 2024 025 [facility], [address], [place], [address], 5 15:33:09 US, breast, bilateral 2024 025 [facility], [address], [place], [address], 5 10:44:18 Medication Orders None recorded. Patient TargetsNo targets [...] Clini francisco Data: Cytot ech: Delvis Marks. Pradip r,CT( ASCP) Date Repor meek: Speci men [...] and labor atory findi ngs. See https ://ww wNekted/s ites/ defau lt/fi les/2 018-0 3/AW- 88330 _002_ 01.pd f for furth er infor matio n. Test perfo rmed by [facility], d/b/a [facility], [address] [facility], [place] [address] , Eladio Nice ra, DO, Labor atory Direc tor. HPV High Risk *HPV NOT DETEC MEEK (TYPE S 16, 18, 31, 33, 35, 39, 45, 51, 52, 56, 58, 59, 66, 68) *HPV: The human papil lomav irus (HPV) High Risk Enma marks is an FDA-a pprov ed in-vi tro ampli fied nucle ic acid test for the quali tativ e detec tion of E6/E7 viral mRNA. [facility] lourdes roldan be corre lated with patie nt prese ntati on, histo ry, cervi francisco cytol ogy and other clini francisco and labor atory findi ngs. See https ://[employer]/s ites/ defau lt/fi les/2 018-0 3/AW- 53792 _002_ 01.pd f for furth er infor karon n. Test perfo rmed by [facility], d/b/a [facility], [address], [place] [address] , Eladio Nice ra, DO, Labor atory Direc tor. End of t Techn ical servi nancy provi ded by [facility], [facility], [address] [place] [address] Jorge Luis Garcia MD, Labor atory Direc tor. Case revie wed and diagn osis rende red at [facility], d/b/a [facility], [address] [place] [address] Jorge Luis Garcia MD, Labor atory Direc tor. CONFI DENTI AL Not Available [facility] ([facility]) [address], [place], [address], 10/01/2019 10:53:13 09/27/19 20 09/28/2019 HPV DNA, high- risk HPV high risk NOT DETECT ED normal Not Available [facility] ([facility]) [address], [place], [address], 10/01/2019 10:53:14 10/21/19 21 10/20/2020 IMAGE GUIDE D PAP AND HPV REGAR DLESS image guided Pap, HPV regardless of Pap result SEE RESULT S BELOW CASE REPOR T: Cytol ogy Gynec ologi francisco Repor t Case: [id number] Autho cynthia miller Provi ginette: Chelsie Winter, ANA Colle cted: 10/20 1710 Order ing Locat [...] as clini maki garcía nted. Not Available [facility] (Lab) [address], [place], [address], 10/21/2020 15:47:25 08/18/19 23 08/17/2022 CULTU RE: AEROB IC/AN AEROB IC result report SEE RESULT S BELOW abnormal Test: Cultu re: Aerob ic/An aerob ic Speci men Sourc e: Other Speci men Type: Micro biolo gy Speci men Speci men Date: 2022 2:33 PM Resul t Date: 2022 11:14 AM Resul t Statu s: Final resul t Abnor mal: Yes Resul ting Lab: [facility] [address] [facility] [address] Tel: CULTU RE ----- ----- ----- --- [...] seen No organ isms seen Not Available [facility] (Lab) [address], [place], [address], 08/20/2022 12:16:28 08/18/19 23 08/17/2022 CULTU RE: HERPE S SIMPL EX VIRUS (HSV) , REFLE X TYPIN G source LESION SCRAPI NGS Not Available [facility] (Lab) [address], [place], [address], 08/20/2022 12:16:28 08/18/19 23 08/17/2022 CULTU RE: HERPE S SIMPL EX VIRUS (HSV) , REFLE X TYPIN G hsv culture, body fluid NOT ISOLAT ED Perfo rming Organ izati on Infor matmax n: Site ID: CB Name: [facility] yuli Rai Addre ss: [address] [place] [address] Direc tor: Antho ny V Noemi s Not Available [facility] (Lab) [address], [place], [address], 08/20/2022 12:16:28 09/22/19 23 09/21/2022 IMAGE GUIDE D PAP AND HPV REGAR DLESS image guided Pap, HPV regardless of Pap result SEE RESULT S BELOW CASE REPOR T: Cytol ogy Gynec ologi francisco Repor t Case: [id number] Autho cynthia g Provi ginette: Kenton Lopez Colle cted: 09/21 1524 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 Elect maritza uriostegui jorge d by Brooke Chamorro CT [...] as clini maki garcía nted. Not Available [facility] (Lab) [address], [place], [address], 09/22/2022 18:47:30 07/19/19 25 07/18/2024 DHEA SULFA TE DHEA-sulfate 146 ug/dL Femal e Range s Age(y ) Range (ug/d L) 10-15 34-28 0 15-20 65-36 8 20-25 148-4 07 25-35 99-34 0 35-45 61-33 7 45-55 35-25 6 55-65 19-20 5 65-75 9-246 > 75 12-15 4 Not Available [facility] (Lab) [address], [place], [address], 07/19/2024 07:34:03 07/19/19 25 07/18/2024 TESTO STERO NE, TOTAL testosterone , total 43 NG/dL 0-75 Not Available [facility] (Lab) [address], [place], [address], 07/19/2024 07:34:03 07/19/19 25 07/18/2024 TSH, REFLE X FREE T4 TSH 1.06 uIU/m L 0.30-5 .33 Not Available [facility] (Lab) [address] [place], [address], 07/19/2024 07:34:03 07/19/19 25 07/18/2024 PROLA CTIN prolactin, total 26.90 NG/mL 4.79-2 3.30 high This assay was perfo rmed using [employer] n reage nts and test kits. Value s obtai quyen with other assay metho ds or kits canno t be used inter [facility] . Not Available [facility] (Lab) [address], [place], [address], 07/19/2024 07:34:04 07/19/19 25 07/18/2024 FSH, LH, ESTRA DIOL estradiol 86.9 pg/mL This assay was perfo rmed using [employer] reage nts and test kits. Value s obtai quyen with other assay metho ds or kits canno t be used inter [facility] . Femal e Estra diol Range s: Folli cular phase 12.4- 233 pg/mL Ovula tion phase 41.0- 398 pg/mL Lutea l phase 22.3- 341 pg/mL Postm enopa usal <5-13 8 pg/mL Healt hy Pregn ant Women 1st Trime ster 154-3 243 pg/mL 2nd Trime ster 1561- 68676 pg/mL 3rd Trime ster 8525- >3000 0 pg/mL Not Available [facility] (Lab) [address] [place], [address], 07/19/2024 07:34:04 07/19/19 25 07/18/2024 FSH, LH, ESTRA DIOL FSH 1.7 mIU/m L This assay was perfo rmed using [employer] reage nts and test kits. Value s obtai quyen with other assay metho ds or kits canno t be used inter [facility] . Femal es Folli cular : 3.5-1 2.5 mIU/m L Ovula tion: 4.7-2 1.5 mIU/m L Lutea l: 1.7-7 .7 mIU/m L Postm enopa use: 25.8- 134.8 mIU/m L Not Available [facility] (Lab) [address] [place], [address], 07/19/2024 07:34:04 07/19/19 25 07/18/2024 FSH, LH, ESTRA DIOL LH 3.3 mIU/m L This assay was perfo rmed using [employer] reage nts and test kits. Value s obtai quyen with other assay metho ds or kits canno t be used inter [facility] . Femal es Mid-F ollic ular: 2.4-1 2.6 mIU/m L Mid-C ycle: 14.0- 95.6 mIU/m L Mid-L uteal : 1.0-1 1.4 mIU/m L Postm enopa use: 7.7-5 8.5 mIU/m L Not Available [facility] (Lab) [address], [place], [address], 07/19/2024 07:34:04 07/19/19 25 07/18/2024 CMP(C OMPRE HENSI VE METAB OLIC PANEL ) sodium 140 mmol/ L 133-14 6 Not Available [facility] (Lab) [address], [place], [address], 07/19/2024 07:34:04 07/19/19 25 07/18/2024 CMP(C OMPRE HENSI VE METAB OLIC PANEL ) potassium 4.0 mmol/ L 3.5-5. 1 Not Available [facility] (Lab) [address], [place], [address], 07/19/2024 07:34:04 07/19/19 25 07/18/2024 CMP(C OMPRE HENSI VE METAB OLIC PANEL ) chloride 105 mmol/ L 98-107 Not Available [facility] (Lab) [address] [place], [address], 07/19/2024 07:34:04 07/19/19 25 07/18/2024 CMP(C OMPRE HENSI VE METAB OLIC PANEL ) carbon dioxide 26 mmol/ L 21-31 Not Available [facility] (Lab) [address] [place], [address], 07/19/2024 07:34:04 07/19/19 25 07/18/2024 CMP(C OMPRE HENSI VE METAB OLIC PANEL ) anion gap 9 mmol/ L 4-13 Not Available [facility] (Lab) [address] [place], [address], 07/19/2024 07:34:04 07/19/19 25 07/18/2024 CMP(C OMPRE HENSI VE METAB OLIC PANEL ) blood urea nitrogen 13 mg/dL 7-25 Not Available [facility] (Lab) [address], [place], [address], 07/19/2024 07:34:04 07/19/19 25 07/18/2024 CMP(C OMPRE HENSI VE METAB OLIC PANEL ) creatinine 0.72 mg/dL 0.60-1 .30 Not Available [facility] (Lab) [address], [place], [address], 07/19/2024 07:34:04 07/19/19 25 07/18/2024 CMP(C OMPRE HENSI VE METAB OLIC PANEL ) egfrcr (CKD-epi 2020) >90 mL/mi n/1.7 3_m2 >=60 Not Available [facility] (Lab) [address], [place], [address], 07/19/2024 07:34:04 07/19/19 25 07/18/2024 CMP(C OMPRE HENSI VE METAB OLIC PANEL ) calcium 9.8 mg/dL 8.3-10 .5 Not Available [facility] (Lab) [address], [place], [address], 07/19/2024 07:34:04 07/19/19 25 07/18/2024 CMP(C OMPRE HENSI VE METAB OLIC PANEL ) glucose 84 mg/dL 70-100 Not Available [facility] (Lab) [address], [place], [address], 07/19/2024 07:34:04 07/19/19 25 07/18/2024 CMP(C OMPRE HENSI VE METAB OLIC PANEL ) protein, total 7.0 g/dL 6.4-8. 3 Not Available [facility] (Lab) [address], [place], [address], 07/19/2024 07:34:04 07/19/19 25 07/18/2024 CMP(C OMPRE HENSI VE METAB OLIC PANEL ) albumin 4.8 g/dL 3.5-5. 0 Not Available [facility] (Lab) [address], [place], [address], 07/19/2024 07:34:04 07/19/19 25 07/18/2024 CMP(C OMPRE HENSI VE METAB OLIC PANEL ) ALT 8 units /L 9-43 low Not Available [facility] (Lab) [address], [place], [address], 07/19/2024 07:34:04 07/19/19 25 07/18/2024 CMP(C OMPRE HENSI VE METAB OLIC PANEL ) alkaline phosphatase 31 units /L 34-104 low Not Available [facility] (Lab) [address], [place], [address], 07/19/2024 07:34:04 07/19/19 25 07/18/2024 CMP(C OMPRE HENSI VE METAB OLIC PANEL ) AST 12 units /L 13-39 low Not Available [facility] (Lab) [address], [place], [address], 07/19/2024 07:34:04 07/19/19 25 07/18/2024 CMP(C OMPRE HENSI VE METAB OLIC PANEL ) bilirubin, total 0.4 mg/dL 0.2-1. 2 Not Available [facility] (Lab) [address], [place], [address], 07/19/2024 07:34:04 08/18/19 25 07/25/2024 MAMMO , diagn ostic , digit al, bilat eral No observ ation record ed. [email or web address], [place], [address], 08/22/2024 18:49:09 Result Notes None recorded. Problems Name Problem SNOMED Code Status Onset Date Resolution Date Notes Provider Name and Address Organization Details Recorded Time Female proctoce le without uterine prolapse Completed 201010/17/2020 Rectocel e;Practi ce ID: 0001 [facility] 1 14:43:59 Dysfunct ional uterine bleeding Completed 201101/11/2012 Other disorder s of menstrua tion and other abnormal bleeding from female genital tract;Re corded Elsewher e: No Locat ion: [facility] S ource: EHR Claim Auditor gurdeep: N Practi ce ID: 0001 Eugene lable Time: 01:45:00 PM Not Available [facility] 0 16:58:06 Screenin g for malignan t neoplasm of cervix Completed 201101/11/2012 Screenin g for malignan t neoplasm s of the cervix;R ecorded Elsewher e: No Locat ion: [facility] S ource: EHR Claim Auditor gurdeep: N Apolloti ce ID: 0001 Eugene lable Time: 01:45:00 PM Nneka siddiqui, [facility] 1 14:42:50 Atypical squamous cells of undeterm ined signific ance on cervical Papanico laou smear [id number] Completed 201110/17/2020 Papanico laou smear of cervix with atypical squamous cells of undeterm ined signific ance (ASC-US) ;Recorde d Elsewher e: No Locat ion: [facility] S ource: EHR Claim Auditor gurdeep: N Practi ce ID: 0001 Eugene lable Time: 01:45:00 PM Nneka siddiqui [facility] 1 14:43:43 Dyspareu avelino [id number] Completed 201101/11/2012 Dyspareu avelino;Jaya rded Elsewher e: No Locat ion: [facility] S ource: EHR Claim Auditor gurdeep: N Practi ce ID: 0001 Eugene lable Time: 01:45:00 PM Not Available [facility] 0 16:58:10 Disorder of breast [id number] Completed 201110/17/2020 DISORDER S BREAST NEC;Prac mirian ID: 0001 Nneka siddiqui, [facility] 14:44:06 Speciali aparnad medical examinat ion Completed 201101/11/2012 Gynecolo gical Examinat ion;Jaya rded Elsewher e: No Locat ion: [facility] S ource: EHR Claim Auditor gurdeep: N Practi ce ID: 0001 Eugene lable Time: 01:30:00 PM Nneka siddiqui, [facility] 14:43:50 Screenin g for malignan t neoplasm of cervix Completed 201101/11/2012 Screenin g for malignan t neoplasm s of the cervix;R ecorded Elsewher e: No Locat ion: [facility] S ource: EHR Claim Auditor gurdeep: N Practi ce ID: 0001 Eugene lable Time: 01:30:00 PM Nneka siddiqui, [facility] 14:42:50 Neoplasm of uncertai n behavior of ovary [id number] Completed 201210/17/2020 Neoplasm of uncertai n behavior of ovary;Re corded Elsewher e: No Locat ion: [facility] S ource: EHR Claim Auditor gurdeep: N Practi ce ID: 0001 Eugene lable Time: 02:15:00 PM Nneka siddiqui, [facility] 14:44:13 Hydatidi form mole, benign [id number] Completed 201210/17/2020 Hydatidi form mole;Pra ctice ID: 0001 Nneka siddiqui, [facility] 14:43:38 Pregnanc y test positive [id number] Completed 201210/17/2020 Pregnanc y examinat ion or test, positive result;R ecorded Elsewher e: No Locat ion: [facility] S ource: EHR Claim Auditor gurdeep: N Brielle ce ID: 0001 Eugene lable Time: 09:00:00 AM Nneka siddiqui [facility] 14:43:16 Left lower quadrant pain [id number] Completed 201210/17/2020 Abdomina l pain, left lower quadrant ;Recorde d Elsewher e: No Locat ion: [facility] N Apolloti ce ID: 0001 Eugene lable Time: 09:00:00 AM Nneka siddiqui, [facility] 14:43:24 Pregnanc y [id number] Completed 201210/17/2020 state, incident al;Recor ded Elsewher e: No Locat ion: [facility] S ource: [facility] gurdeep: N Apolloti ce ID: 0001 Eugene lable Time: 09:00:00 AM Nneka siddiqui, [facility] 14:44:05 Amenorrh ea [id number] Completed 201210/17/2020 Absence of menstrua tion;Rec orded Elsewher e: No Locat ion: [facility] S ource: [facility] gurdeep: N Birelle ce ID: 0001 Eugene lable Time: 03:15:00 PM Nneka siddiqui [facility] 14:42:40 Uterine size for dates discrepa [facility] [id number] Completed 201210/17/2020 UTERINE SIZE LETITIA-ANTE PAR;Jaya rded Elsewher e: No Locat ion: [facility]: N Apolloti ce ID: 0001 Eugene lable Time: 03:00:00 PM Nneka siddiqui [facility] 14:43:40 Adult health examinat ion Completed 201210/17/2020 Routine Medical Exam;Rec orded Elsewher e: No Locat ion: [facility] S ource: EHR Claim Auditor gurdeep: N Practi ce ID: 0001 Eugene lable Time: 02:30:00 PM Nneka siddiqui [facility] 14:43:18 Routine antenata l care Completed 201210/17/2020 Supervis ion of other normal pregnanc y;Record ed Elsewher e: No Locat ion: [facility] S ource: EHR Claim Auditor gurdeep: N Apolloti ce ID: 0001 Eugene lable Time: 02:30:00 PM Nneka [facility] 14:42:38 Female genital organ symptoms [id number] Completed 201210/17/2020 Unspecif ied symptom associat ed with female genital organs;R ecorded Elsewher e: No Locat ion: [facility] S ource: EHR Claim Auditor gurdeep: N Apolloti ce ID: 0001 Eugene lable Time: 05:45:00 PM Nneka siddiqui [facility] 14:42:53 Nausea and vomiting [id number] Completed 201210/17/2020 Nausea And Vomiting ;Recorde d Elsewher e: No Locat ion: [facility] S ource: EHR Claim Auditor gurdeep: N Practi ce ID: 0001 Eugene lable Time: 05:45:00 PM Nneka siddiqui [facility] 14:42:45 Ultrason ography Completed 201210/17/2020 Antenata l screenin g for malforma tion using ultrason ics;Jaya rded Elsewher e: No Locat ion: [facility] S ource: EHR Claim Auditor gurdeep: N Practi ce ID: 0001 Eugene lable Time: 04:45:00 PM Nneka siddiqui [facility] 14:42:44 Antenata l screenin g Completed 201210/17/2020 Antenata l screenin g for malforma tion using ultrason ics;Jaya rded Elsewher e: No Locat ion: [facility] S ource: EHR Claim Auditor gurdeep: N Brielle ce ID: 0001 Eugene lable Time: 04:45:00 PM Nneka siddiqui, [facility] 14:43:13 Congenit al malforma tion [id number] Completed 201210/17/2020 Antenata l screenin g for malforma tion using ultrason ics;Jaya rded Elsewher e: No Locat ion: [facility] S ource: EHR Claim Auditor gurdeep: N Apolloti ce ID: 0001 Eugene lable Time: 04:45:00 PM Nneka siddiqui, [facility] 14:43:23 Complica tion related to pregnanc y Completed 201310/17/2020 Antepart um edema or excessiv e weight gain;Rec orded Elsewher e: No [facility] Claim Auditor gurdeep: N Brielle ce ID: 0001 Eugene lable Time: 05:15:00 PM Nneka siddiqui, [facility] 14:43:55 Delivery normal [id number] Completed 201310/17/2020 Normal delivery ;Practic e ID: 0001 Nneka [facility], [facility] 14:43:47 Postpart um care Completed 201310/17/2020 Post Followup ;Recorde d Elsewher e: No Locat ion: [facility] S ource: EHR Claim Auditor gurdeep: N Apolloti ce ID: 0001 Eugene lable Time: 04:45:00 PM Nneka siddiqui, [facility] 14:42:37 Obesity [id number] Completed 09/23/ 2014 10/17/2020 Obesity; Recorded Elsewher e: No [facility]: EHR Claim Auditor gurdeep: N Practi ce ID: 0001 Eugene lable Time: 09:30:00 AM Nneka siddiqui, [facility] 14:43:37 Breast lump [id number] Completed 201310/17/2020 Breast mass;Rec orded Elsewher e: No Locat ion: [facility] S ource: EHR Claim Auditor gurdeep: N Practi ce ID: 0001 Eugene lable Time: 10:15:00 AM Nneka siddiqui, [facility] 14:44:10 Benign essentia l hyperten gifty [id number] Completed 201310/17/2020 Hyperten gifty, Benign;R ecorded Elsewher e: No Locat ion: [facility] S ource: EHR Claim Auditor gurdeep: N Practi ce ID: 0001 Eugene lable Time: 10:15:00 AM Nneka siddiqui, [facility] 14:42:35 Overweig ht [id number] Completed 201410/17/2020 Overweig ht;Recor ded Elsewher e: No Locat ion: [facility] S ource: EHR Claim Auditor gurdeep: N Practi ce ID: 0001 Eugene lable Time: 10:45:00 AM Nneka siddiqui, [facility] 14:43:02 Speciali zed medical examinat ion Completed 201410/17/2020 ROUTINE STUBBER EXAMINAT ION;Jaya rded Elsewher e: No Locat ion: [facility] S ource: EHR Claim Auditor gurdeep: N Practi ce ID: 0001 Eugene lable Time: 10:45:00 AM Nneka siddiqui, [facility] 14:43:50 Speciali zed medical examinat ion Completed 201410/17/2020 Other specifie d chlamydi al diseases ;Recorde d Elsewher e: No Locat ion: [facility] S ource: EHR Claim Auditor gurdeep: N Practi ce ID: 0001 Eugene lable Time: 10:45:00 AM Nneka siddiqui, [facility] 14:43:52 Microsco pic hematuri a [id number] Completed 201410/17/2020 MICROSCO PIC HEMATURI A;Record ed Elsewher e: No Locat ion: [facility] S ource: EHR Claim Auditor gurdeep: N Practi ce ID: 0001 Eugene lable Time: 10:45:00 AM Nneka siddiqui, [facility] 14:42:51 Venereal disease screenin g Completed 201410/17/2020 Screenin g examinat ion for venereal disease; Recorded Elsewher e: No Locat ion: [facility] S ource: EHR Claim Auditor gurdeep: N Practi ce ID: 0001 Eugene lable Time: 10:45:00 AM Nneka siddiqui, [facility] 14:42:48 Screenin g for malignan t neoplasm of cervix Completed 201510/17/2020 Screenin g for malignan t neoplasm s of the cervix;R ecorded Elsewher e: No Locat ion: [facility] S ource: EHR Claim Auditor gurdeep: N Practi ce ID: [id number] Eugene lable Time: 11:00:00 AM Nneka siddiqui, [facility] 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 14:43:27 Body mass index 25-29 - overweig ht [id number] Completed 201510/17/2020 Body mass index (BMI) 29.0-29. 9, adult;Re corded Elsewher e: No Locat ion: [facility] S ource: EHR Claim Auditor gurdeep: N Apolloti ce ID: 0001 Eugene lable Time: 11:00:00 AM Nneka siddiqui, [facility] 14:42:42 Pregnanc y test negative [id number] Completed 201510/17/2020 Encounte r for pregnanc y test, result negative ;Recorde d Elsewher e: No Locat ion: [facility] S ource: EHR Claim Auditor gurdeep: N Apolloti ce ID: 0001 Eugene lable Time: 10:45:00 AM Nneka siddiqui, [facility] 14:43:17 Finding of regulari ty of menstrua l cycle Completed 201510/17/2020 Irregula r menstrua tion, unspecif ied;Jaya rded Elsewher e: No Locat ion: [facility] S ource: EHR Claim Auditor gurdeep: N Apolloti ce ID: 0001 Eugene lable Time: 03:30:00 PM Nneka siddiqui, [facility] 14:42:58 Cyst of ovary [id number] Completed 201510/17/2020 Unspecif ied ovarian cyst, left side;Rec orded Elsewher e: No Locat ion: [facility] S ource: EHR Claim Auditor gurdeep: N Apolloti ce ID: 0001 Eugene lable Time: 10:00:00 AM Nneka siddqiui, [facility] 14:44:08 Pelvic and perineal pain [id number] Completed 201610/17/2020 Pelvic and perineal pain;Rec orded Elsewher e: No Locat ion: [facility] S ource: EHR Claim Auditor gurdeep: N Practi ce ID: 0001 Eugene lable Time: 02:30:00 PM Nneka siddiqui [facility] 14:43:21 Abdomina l pain [id number] Completed 201610/17/2020 Abdomina l pain;Rec orded Elsewher e: No [facility] Claim Auditor gurdeep: N Practi ce ID: 0001 Eugene lable Time: 10:00:00 AM Nneka siddiqui [facility] 14:42:54 Hirsutis m [id number] Completed 201610/17/2020 Hirsutis m;Record ed Elsewher e: No [facility] Claim Auditor gurdeep: N Practi ce ID: 0001 Eugene lable Time: 10:00:00 AM Nneka siddiqui [facility] 14:43:34 Evaluati on finding Completed 201610/17/2020 Hematuri a, unspecif ied;Jaya rded Elsewher e: No Locat ion: [facility] S ource: EHR Claim Auditor gurdeep: N Practi ce ID: 0001 Eugene lable Time: 10:00:00 AM Nneka siddiqui [facility] 14:43:20 Finding of contents of cervix [id number] Completed 201610/17/2020 Weeks of gestatio n of pregnanc y not specifie d;Record ed Elsewher e: No Locat ion: [facility] S ource: EHR Claim Auditor gurdeep: N Practi ce ID: 0001 Eugene lable Time: 01:00:00 PM Nneka siddiqui [facility] 14:43:14 Finding related to pregnanc y Completed 201610/17/2020 Inapprop chg quantita v hCG in early pregnanc y;Record ed Elsewher e: No Locat ion: [facility] S ource: EHR Claim Auditor gurdeep: N Apolloti ce ID: 0001 Eugene lable Time: 01:00:00 PM Nneka siddiqui, [facility] 14:43:04 Uterine size for dates discrepa ncy Completed 201610/17/2020 Uterine size-malathi e discrepa ncy, first trimeste r;Record ed Elsewher e: No Locat ion: [facility] S ource: EHR Claim Auditor gurdeep: N Practi ce ID: 0001 Eugene lable Time: 01:00:00 PM Nneka siddiqui, [facility] 14:43:05 Pregnanc y detectio n examinat ion Completed 201610/17/2020 Encounte r for pregnanc y test, result positive ;Recorde d Elsewher e: No [facility]: [facility] Claim Auditor gurdeep: N Practi ce ID: 0001 Eugene lable Time: 09:00:00 AM Nneka siddiqui, [facility] 14:44:04 Depressi ve disorder [id number] Completed 201610/17/2020 Depressi on;Recor ded Elsewher e: No Locat ion: [facility] S ource: EHR Claim Auditor gurdeep: N Practi ce ID: 0001 Eugene lable Time: 02:15:00 PM Nneka siddiqui, [facility] 14:43:32 Threaten ed miscarri age [id number] Completed 201610/17/2020 Threaten ed ;Recorde d Elsewher e: No Locat ion: [facility] S ource: EHR Claim Auditor gurdeep: N Practi ce ID: 0001 Eugene lable Time: 01:30:00 PM Nneka siddiqui [facility] 14:43:56 Gestatio n period, 10 weeks [id number] Completed 201610/17/2020 10 weeks gestatio n of pregnanc y;Record ed Elsewher e: No Locat ion: [facility] S ource: EHR Claim Auditor gurdeep: N Apolloti ce ID: 0001 Eugene lable Time: 01:30:00 PM Nneka siddiqui, [facility] 14:43:33 Antenata l screenin g for malforma tion Completed 201610/17/2020 Encounte r for antenata l screenin g for malforma tions;Re corded Elsewher e: No [facility]: EHR Claim Auditor gurdeep: N Apolloti ce ID: 0001 Eugene lable Time: 12:00:00 AM Nneka siddiqui, [facility] 14:44:[address] Concept Completed 201710/17/2020 Maternal care for oth abnormal ity and damage, unsp;Rec orded Elsewher e: No [facility]: EHR Claim Auditor gurdeep: N Apolloti ce ID: 0001 Eugene lable Time: 01:00:00 PM Nneka siddiqui [facility] 14:43:09 Gestatio n period, 26 weeks [id number] Completed 201710/17/2020 26 weeks gestatio n of pregnanc y;Record ed Elsewher e: No Locat ion: [facility] S ource: EHR Claim Auditor gurdeep: N Practi ce ID: 0001 Eugene lable Time: 01:00:00 PM Nneka siddiqui [facility] 14:43:46 Gestatio n period, 28 weeks [id number] Completed 201710/17/2020 28 weeks gestatio n of pregnanc y;Record ed Elsewher e: No Locat ion: [facility] S ource: EHR Claim Auditor gurdeep: N Practi ce ID: 0001 Eugene lable Time: 01:00:00 PM Nneka siddiqui, [facility] 14:44:11 Uterine size for dates discrepa ncy Completed 201710/17/2020 Uterine size-malathi e discrepa ncy, third trimeste r;Record ed Elsewher e: No Locat ion: [facility] S ource: EHR Claim Auditor gurdeep: N Practi ce ID: 0001 Eugene lable Time: 01:00:00 PM Nneka Stewart null, [facility] 14:43:06 prematur e rupture of membrane s [id number] Completed 201710/17/2020 Pretrm kirsty ROM, unsp time betw rupt and onst labr, 3rd tri;Prac mirian ID: 0001 Nneka Stewart null, [facility] 14:43:25 Gestatio n period, 31 weeks [id number] Completed 201710/17/2020 31 weeks gestatio n of pregnanc y;Record ed Elsewher e: No Locat ion: [facility] S ource: EHR Claim Auditor gurdeep: N Practi ce ID: 0001 Eugene lable Time: 09:00:00 AM Nneka Stewart null, [facility] 14:44:00 finding Completed 201710/17/2020 Matern care for oth or susp poor fetl grth, third tri, unsp;Rec orded Elsewher e: No Locat ion: [facility] S ource: EHR Claim Auditor gurdeep: N Practi ce ID: 0001 Eugene lable Time: 09:00:00 AM Nneka Stewart null, [facility] 06/25/202 1 14:43:11 Normal pregnanc y in multigra mac [id number] Completed 201710/17/2020 Encounte r for suprvsn of normal pregnanc y, third trimeste r;Practi ce ID: 0001 Nneka Rawlins chen, [facility] 14:43:44 Pregnanc y, childbir th and puerperi um finding Completed 201710/17/2020 Oth pregnanc y related conditio ns, third trimeste r;Practi ce ID: 0001 Nneka Terry siddiqui, [facility] 14:43:08 Gestatio n period, 37 weeks [id number] Completed 201710/17/2020 37 weeks gestatio n of pregnanc y;Practi ce ID: 0001 Nneka siddiqui, [facility] 14:43:42 Term pregnanc y delivere d [id number] Completed 201710/17/2020 Encounte r for full-ter m uncompli cated delivery ;Practic e ID: 0001 Nneka siddiqui, [facility] 14:43:01 Single live from singleto n pregnanc y [id number] Completed 201710/17/2020 Single live ;Pr actice ID: 0001 Nneka siddiqui, [facility] 14:42:47 Gestatio n period, 39 weeks [id number] Completed 201710/17/2020 39 weeks gestatio n of pregnanc y;Practi ce ID: 0001 Nneka siddiqui, [facility] 14:44:09 Lochia finding Completed 201710/17/2020 Encounte r for routine postpart um follow-u p;Practi ce ID: 0001 Nneka siddiqui, [facility] 14:43:28 Imaging result abnormal [id number] Completed 201710/17/2020 Abnormal findings on diagnost ic imaging of body structur es;Recor ded Elsewher e: No Locat ion: [facility] S ource: EHR Claim Auditor gurdeep: N Brielle ce ID: 0001 Eugene lable Time: 02:15:00 PM [facility] 14:43:36 Cyst of ovary Completed 201710/17/2020 Unspecif ied ovarian cyst, unspecif ied side;Rec orded Elsewher e: No Locat ion: [facility] S ource: EHR Claim Auditor gurdeep: N Brielle ce ID: 0001 Eugene lable Time: 02:15:00 PM Nneka Rawlinsrick siddiqui [facility] 14:42:55 Lesion of ovary Completed 201710/17/2020 Other ovarian cyst, left side;Pra ctice ID: 0001 Nneka Terry chen, [facility] 14:42:57 Benign neoplasm of left ovary [id number] Completed 201710/17/2020 Benign neoplasm of left ovary;Pr actice ID: 0001 Nneka Terry siddqiui, [facility] 14:43:30 Follicul ar cyst of left ovary [id number] Completed 201710/17/2020 Follicul ar cyst of left ovary;Pr actice ID: 0001 Nneka siddiqui, [facility] 14:42:41 Broad ligament lacerati on syndrome [id number] Completed 201710/17/2020 Oth noninfla mmatory disord of ovary, fallop and broad ligmt;Pr actice ID: 0001 Nneka siddiqui, [facility] 06/25/202 1 14:44:01 Problem Notes None recorded. Procedures Surgical History Date Name Laterality Status Provider Name and Address Organization Details Recorded Time 02/28/20 24 Cholecystectomy completed Florencia Garciaton [facility] 07/18/2024 15:45:18 10/21/19 21 Date of Last Pap Smear completed [facility] 08/17/2022 10:09:10 12/01/19 18 Tubal Ligation completed [facility] 08/17/2022 10:52:52 04/25/19 17 Tonsillectomy completed [facility] 08/17/2022 10:51:57 04/25/19 16 hernia repair completed [facility] 08/17/2022 10:53:58 09/07/19 13 Laparoscopy completed [facility] 08/17/2022 10:53:25 06/17/19 13 Colposcopy completed [facility] 08/17/2022 10:53:37 06/17/19 12 Colposcopy completed Nneka Stewart [facility] 10/17/2020 14:49:46 Colonoscopy completed [facility] 08/17/2022 10:37:20 Imaging Results None recorded. Procedure Notes None recorded. Medical Equipment None Reported. Allergies Allergen ID Allergen Name Allergen Category Reaction Reaction Severity Criticality Documentation Date Start Date Code Code System Note Provider Name and Address Organization Details Recorded Time 844 amoxicill in medicatio n Not available Not available Not available 09/26/2019 723 RxNorm Dacia [facility] 0 14:49:27 845 hydrocodo ne Not available Not available Not available Not available 09/26/2019 5489 RxNorm Dacia siddiqui [facility] 0 14:49:39 846 Product containin g penicilli n (product) medicatio n Not available Not available Not available 09/26/2019 39244 8001 SNOMED Dacia siddiqui, [facility] 0 14:49:48 847 shellfish derived food,medi cation Not available Not available Not available 09/26/2019 Dacia siddiqui, [facility] 0 14:49:59 Medications Name Sig Start Date Stop Date Status Note LastModified by Organization Details LastModified Time Miralax 17 gram oral powder packet take 1 packet by oral route every day mixed with 8 oz. water, juice, soda, coffee or tea 12/14 completed Prescrib ed Elsewher e: Yes Loca tion: [facility] odify By: antoine guerrier DateTime : 02/08/20 17 01:45:00 PM Not Available Not Available Not Available Colace 100 mg capsule take 1 capsule by oral route every day at bedtime as needed 12/14 completed Prescrib ed Elsewher e: Yes Loca tion: [facility] odify By: antoine wrayuntnaif DateTime : 02/08/20 17 01:45:00 PM Not Available Not Available Not Available venlafaxi ne ER 37.5 mg capsule,e xtended release 24 hr take 1 capsule by oral route every day with food 11/01 completed Prescrib ed Elsewher e: Yes Loca tion: [facility] odify By: antoine wrayuntnaif DateTime : 01/21/20 16 11:00:00 AM Not Available Not Available Not Available paroxetin e 10 mg tablet take 1 tablet by oral route every day 01/10 completed Prescrib ed Elsewher e: Yes Loca tion: [facility] odify By: lisy singh DateTime : 06/07/19 12 01:45:00 PM Not Available Not Available Not Available Compazine 10 mg tablet take 1 tablet by oral route 3 times every day 01/20 completed Prescrib ed Elsewher e: No [facility] By: freida dailey DateTime : 01/14/20 17 04:01:18 PM Not Available Not Available Not Available sertralin e 100 mg tablet take 1 tablet by oral route every day 07/17 completed Not Available Not Available Not Available folic acid 400 mcg tablet take 1 tablet by oral route every day 12/14 completed Prescrib ed Elsewher e: Yes [facility]oca [facility]ion: [facility] odify By: antoine Payne ncounter DateTime : 02/08/20 17 01:45:00 PM Not Available Not Available Not Available Zofran 8 mg tablet take 1 tablet (8MG) by oral route every 12 hours 01/15 completed Prescrib ed Elsewher e: No Locat ion: [facility] odify By: gregory wrayuntnaif DateTime : 02/08/20 13 05:45:00 PM Not Available Not Available Not Available Zofran ODT 4 mg disintegr ating tablet DISSOLVE 1 TABLET ON TOP OF TONGUE EVERY 12 HOURS 12/14 completed Prescrib ed Elsewher e: No [facility] odify By: antoine wrayuntnaif DateTime : 08/05/19 18 01:57:02 PM Not Available Not Available Not Available promethaz ine 50 mg tablet take 1 tablet by oral route every 8 - 12 hours as needed 02/07 completed Prescrib ed Elsewher e: No [facility] odify By: josé miguel singh DateTime : 01/25/20 17 10:41:44 AM Not Available Not Available Not Available Nortrel 0.5/35 (28) 0.5 mg-35 mcg tablet take 1 tablet by oral route every day 01/06 completed Prescrib ed Elsewher e: No Locat ion: [facility] odify By: francoise guerrier DateTime : 01/16/20 14 09:30:00 AM Not [...] mcg (50,000 unit) capsule take 1 capsule ([id number] ITS) by oral route every week 01/15 completed Prescrib ed Elsewher e: No Locat ion: [facility] odify By: gregory wrayunter DateTime : 05/22/19 14 01:38:07 PM Not Available Not Available Not Available metoclopr amide 10 mg tablet 1 tablet twice a day by oral route. 2023 active Not Available Not Available Not Avai lable nabumeton e 500 mg tablet take 1 tablet by oral route 2 times every day 12/02 completed Prescrib ed Elsewher e: Yes Loca tion: [facility] odify By: antoine wrayuntnaif DateTime : 11/02/19 17 11:30:00 AM Not Available Not Available Not Available Tigan 300 mg capsule take 1 capsule by oral route 3 times every day as needed 12/14 completed Prescrib ed Elsewher e: No Locat ion: [facility] odify By: antoine wrayunter DateTime : 02/08/20 17 01:45:00 PM Not Available Not Available Not Available Bactrim DS 800 mg-160 mg tablet take 1 tablet by oral route every 12 hours 01/20 completed Prescrib ed Elsewher e: No Locat ion: [facility] odify By: freida dailey DateTime : 12/03/19 17 10:00:00 AM Not Available Not Available Not Available escitalop maris 10 mg tablet 1 tablet every day by oral route. active Not Available Not Available No t Available Brittny 0.35 mg tablet take 1 tablet by oral route every day 01/17 completed Prescrib ed Elsewher e: No Locat ion: [facility] odify By: cinda singh DateTime : 04/05/20 14 01:50:41 PM Not Available Not Available Not Available escitalop maris 5 mg tablet take 1 tablet by oral route every day 05/30 completed Prescrib ed Elsewher e: Yes Loca tion: [facility] odify By: freida dailey DateTime : 11/02/19 17 11:30:00 AM Not Available Not Available Not Available sertralin e 10/17 completed Not Available Not Available Not Available CitraNata l Assure 35 mg-1 mg-50 mg-300 mg oral pack take 1 Tablet by Oral route every day for 90 days 04/07 completed Prescrib ed Elsewher e: No Locat ion: [facility] odify By: francoise guerrier DateTime : 01/09/20 13 02:30:00 PM Not Available Not Available Not Available Diclegis 10 mg-10 mg tablet,de layed release take 1 tablet by oral route every day in the morning, 1 tablet in the mid-afte rnoon, and 2 tablets at bedtime 12/14 completed Prescrib ed Elsewher e: No Locat ion: [facility] odify By: antoine guerrier DateTime : 07/12/19 18 01:45:00 PM Not Available Not Available Not Available Merrick prince Complete chewable tablet 10/17 completed Prescrib ed Elsewher e: Yes [facility] By: antoine guerrier DateTime : 02/08/20 17 01:45:00 PM Not Available Not Available Not Available Vitals Date Recorded Body height Body mass index (BMI) Body weight Systolic And Diastolic Provider Name and Address Organization Details Last Updated DateTime 07/18/2024 170.18 cm 32.4 kg/m2 58589.62 g 128/84 mm[Hg] Florencia Galvan [facility] 07/18/2024 15:49:04 Date Recorded Body height Body mass index (BMI) Body weight Systolic And Diastolic Provider Name and Address Organization Details Last Updated DateTime 08/17/2022 170.18 cm 33.5 kg/m2 67328.77 g 138/88 mm[Hg] Maria A Jeff [facility] 08/17/2022 10:36:28 Date Recorded Systolic And Diastolic Provider Name and Address Organization Details Last Updated DateTime 09/21/2022 122/76 mm[Hg] Diana Farah, [facility] [address], [place], [address], [facility] 09/21/2022 14:38:36 Date Recorded Body height Body mass index (BMI) Body weight Provider Name and Address Organization Details Last Updated DateTime 09/21/2022 170.18 cm 34 kg/m2 50100.54 g Mireya Bennett [facility] 09/21/2022 14:25:51 Date Recorded Body weight Body mass index (BMI) Body height Systolic And Diastolic Provider Name and Address Organization Details Last Updated DateTime 09/27/2019 74548.54 g 34 kg/m2 170.18 cm 143/94 mm[Hg] Dacia Sharp [facility] 09/27/2019 15:53:08 Date Recorded Body height Body mass index (BMI) Body weight Systolic And Diastolic Systolic And Diastolic Provider Name and Address Organization Details Last Updated DateTime 10/20/2020 170.18 cm 32.6 kg/m2 88676.21 g 140/99 mm[Hg] 135/90 mm[Hg] Nneka Setwart [facility] 16:39:46 Social History Question Answer Notes LastModified by Organizat ion Details LastModified Time Tobacco Smoking Status Former Smoker Avelino siddiqui, [facility] 09/21/2022 14:13:17 Do You Have An Advance Directive? No [email or web address] Information n ot available 10/20/2020 How Many Years Have You Consumed Alcohol? 12 [email or web address] Information not available 10/20/2020 Are You Blind Or Do You Have Difficulty Seeing? No [email or web address] Information n ot available 10/20/2020 What Is Your Level Of Caffeine Consumption? Moderate [email or web address] Information not available 10/20/2020 How Much Tobacco Do You Chew? None [email or web address] Information not available 08/17/2022 In The 14 Days Before Symptom Onset, Have You Had Close Contact With A Laboratory-confirm ed COVID-19 While That Case Was Ill? No [email or web address] Information n ot available 10/20/2020 In The 14 Days Before Symptom Onset, Have You Had Close Contact With A Person Who Is Under Investigation For COVID-19 While That Person Was Ill? No Information not available 10/20/2020 Have You Been To An Area Known To Be High Risk For COVID-19? No [email or web address] Information not available 10/20/2020 Are You Deaf Or Do You Have Serious Difficulty Hearing? No [email or web address] Information not available 10/20/2020 What Type Of Diet Are You Following? REGULAR [email or web address] Information n ot available 10/20/2020 What Is The Highest Grade Or Level Of School You Have Completed Or The Highest Degree You Have Received? [id number] [email or web address] Information not available 10/20/2020 Are There Any Guns Present In Your Home? Yes Information not available 10/20/2020 Have You Ever Been Counseled For Unhealthy Alcohol Use? No [email or web address] Information not available 09/21/2022 Do You Use Protection During Sex? No [email or web address] Information not available 10/20/2020 Do You Use Your Seat Belt Or Car Seat Routinely? Yes [email or web address] Information not available 10/20/2020 Do You Have Smoke And Carbon Monoxide Detectors In Your Home? Yes Information not available 10/20/2020 At What Age Did You Start Smoking Tobacco? 17 [email or web address] Information not available 10/20/2020 How Much Tobacco Do You Smoke? No [email or web address] Information not available 08/17/2022 Do You Use Sunscreen Routinely? Yes Information not available 10/20/2020 Has Tobacco Cessation Counseling Been Provided? No Information not available 09/21/2022 Have You Used IV Drugs? No [email or web address] Information not available 10/20/2020 Do You Have Difficulty Walking Or Climbing Stairs? No [email or web address] Information not available 09/21/2022 Sex: Unknown Functional Status Question Answer Note LastModified by Organizat ion Details LastModified Time Do you use any illicit or recreational drugs? No [email or web address] Information not available 10/20/2020 Do you or have you ever used any other forms of tobacco or nicotine? No [email or web address] Information not available 09/21/2022 What is your level of alcohol consumption? Occasional Information not available 09/27/2019 Are you able to walk independently without assistance or assistive devices? YESWOREST [email or web address] Information not available 10/20/2020 Are you able to care for yourself independently? 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 No [email or web address] Information not available 09/21/2022 What is your exercise level? Occasional Information not available 09/27/2019 Mental Status Question Answer Note LastModified by Organization D etails LastModified Time Do you feel stressed (tense, restless, nervous, or anxious, or unable to sleep at night)? [id number] [email or web address] Information not available 10/20/2020 Family History Relationship Description Onset Age of this Age Resolved Age Notes LastModified by Organization Details LastModified Time Maternal Grandmother Malignant neoplasm of breast [email or web address] Not available 08/17 10:37:19 Father Asthma [email or web address] Not available 08/17/2022 10:37:19 Mother Congenital prolapsed uterus Not available 2024 15:33:10 Mother Multiple sclerosis [email or web address] Not available 08/17 10:37:19 Maternal Grandfather Family history of malignant neoplasm of prostate [id number] Not available 2024 15:33:10 Maternal Grandfather Diabetes mellitus [email or web address] Not available 08/17 10:37:19 Brother Asthma [email or web address] Not availabl e 08/17/2022 10:37:19 Medical History [...] Diagnosis SNOMED-CT Code Diagnosis ICD10 Code Diagnosis IMO Codes Diagnosis Note [id number] Chelsie Mcgraw CNM [facility] [address] [address] 09/27/2019 15:39:36 10/17/2019 11:21:58 Gynecologic examination [id number] Z01.419 Take Calcium with Vitamin D 1200mg [...] paper copy of today's plan if desired. [id number] Chelsie Mcgraw CNM [facility] [address] [address] 10/20/2020 16:33:07 10/20/2020 16:54:39 Gynecologic examination [id number] Z01.419 Z11.51 Take Calcium with Vitamin D [...] paper copy of today's plan if desired. [id number] Chelsie Mcgraw CNM [facility] [address] [address] 08/17/2022 10:17:15 08/19/2022 12:06:59 Lesion of vulva [id number] N90.89 Almost resolved and draining clear fluid. Discomfort minimal per patient. Wound and HSV cultures collected. Warm compress 3-4 times per day until resolved. [id number] Diana Farah [facility] [address] [address] 09/21/2022 14:13:02 09/21/2022 15:27:26 Gynecologic examination [id number] Z01.419 Take Calcium with Vitamin D 1200mg [...] na Dexa Screen na Routine Labs PCP [id number] Phillip Rondon MD [facility] [address] [address] 07/18/2024 15:31:25 07/19/2024 09:27:38 Bilateral discharge from nipples [id number] N64.52 We discussed her breast exam findings [...] exams and report any changes. Female hirsutism [id number] L68.0 Will assess hormone levels as patient reports new onset hirsutism. Health Concerns Section Related Observation LastModified by Organization Detai ls LastModified Time None Recorded Concern Status LastModified by Organization Details LastModified Time None Recorded Advance Directives Directive N: Payers Insurance Date Sequence Insurance Name Policy Number Policy Johnson Covered Member ID Johnson Member ID Guarantor Name 07/17/2024 1 [facility] ([facility] [id number] Manpreet [place] [id number] Manpreet [place] Notes Date Note Type Note Provider Name and Address Organization Details Recorded Time 0 text/html Annual GYNReported by PatientGenitourinary symptomsFor menstrual cycle, patient reportsnormal menses. For urinary symptoms, patient reportsno hematuriaandno incontinence. For vulva, patient reportsno genital lesion. For vagina, patient reportsnormal vaginal discharge.Breast symptomsFor breast, patient reportsno breast pain,no breast lump, andno nipple discharge.Endocrine symptomsFor sexual complaints, patient reportsno sexual complaints,no pain during intercourse, andnormal libido. For menopausal symptoms, patient reportsno menopausal symptomsandnormal vaginal lubrication.Psychological symptomsFor psychological symptoms, patient reportsno depression,no anxiety, andno pmdd. Chelsie siddiqui [place] - [facility] 09/27/2019 16:18:17 1 text/html Annual GYNReported by PatientGenitourinary symptomsFor menstrual cycle, patient reportsnormal menses. For urinary symptoms, patient reportsno hematuriaandno incontinence. For vulva, patient reportsno genital lesion. For vagina, patient reportsnormal vaginal discharge.Breast symptomsFor breast, patient reportsno breast pain,no breast lump, andno nipple discharge.Endocrine symptomsFor sexual complaints, patient reportsno sexual complaints,no pain during intercourse, andnormal libido. For menopausal symptoms, patient reportsno menopausal symptomsandnormal vaginal lubrication.Psychological symptomsFor psychological symptoms, patient reportsno depression,no anxiety, andno pmdd. BP elevated initially. Terrible storm outside and was extremely anxious. Chelsie siddiqui [facility] 10/20/2020 16:52:14 3 text/html Lump in labia that started Tuesday. Was firm and uncomfortable. Is better today. Chelsie siddiqui [facility] 08/20/2022 07:35:53 3 text/html Annual GYNReported by PatientHistoryFor history, patient reportsno gynecologic complaints.Genitourinary symptomsFor menstrual cycle, patient reportsnormal menses. For urinary symptoms, patient reportsno hematuriaandno incontinence. For vulva, patient reportsno genital lesion. For vagina, patient reportsnormal vaginal discharge.Breast symptomsFor breast, patient reportsno breast pain,no breast lump, andno nipple discharge.ContraceptionFo r current contraception, patient reportssatisfied with current contraceptionandtubal ligation.Endocrine symptomsFor sexual complaints, patient reportsno sexual complaints,no pain during intercourse, andnormal libido. For menopausal symptoms, patient reportsno menopausal symptomsandnormal vaginal lubrication.Psychological symptomsFor psychological symptoms, patient reportsno depression,no anxiety, andno pmdd.Preventative measuresFor preventive measures, patient reportsencourage self breast examination,encourage regular exercise,encourage no tobacco use, andencourage regular mammograms starting age 40. Diana Farah, BERNARDA- [address], [place], [address], [place] [facility] 09/21/2022 14:41:21 5 text/html 38 y/o female patient noticed hand [...] motility.Hx of bilateral tubal ligation with left salpingo-oophorectomy (hx of large ovarian cyst)Patient reports increased facial and chin hair growth over the past year.Cycles are q21-28 days, last 5 days with moderate flow.Denies breast lumps, skin changes, or pain.Denies bloody or green/yellow nipple discharge.Denies vaginal symptoms or pelvic pain.Denies GI/ sx. VINCENT GOINS NP [address], [place], [address], [facility] 07/18/2024 17:42:37 OBGyn Episode Ob Episode Information Episode Created Date Number of Fetuses Patient Bloodtype Patient rh Status Prepregnancy Weight lbs Domestic Partner Domestic Partner Phone Father Name Tube Turner Status 09/27/19 20 1 CLOSED Fetus Data First Name Last Name Admitted to NICU Weight (g) Sex Living Outcome Pediatric Complications Fetus ID Race Codes Race Delivery Type 3572.03 7 F Full Term 1985 Vaginal Delivery Donal Calculation Initial Donal Date [...] Domestic Partner Domestic Partner Phone Father Name Tube Turner Status 09/27/19 20 1 CLOSED Fetus Data [...] Domestic Partner Domestic Partner Phone Father Name Tube Turner Status 09/27/19 20 1 CLOSED Fetus Data First Name Last Name Admitted to NICU Weight (g) Sex Living Outcome Pediatric Complications Fetus ID Race Codes Race Delivery Type 2806.37 3704 F Full Term 1983 Vaginal Delivery Donal Calculation Initial Donal Date [...]
--- OUTSIDE RECORDS SUMMARY | 2025-02-28 15:07 | XMS_ITS | Clinical Summary ---
Author Organization [facility] Address [address] [place] [address] Care Team Providers Care Legislative Correspondent Name Role Phone Farida Hernandez MD Primary Care Provider [phone] Source Comments [facility],non-owned Affiliates and Associated Physician Practices is amultiple site organization consisting of ambulatory clinics and hospital sitesin [place], [place], [place] and [place]. This disclosure is being madepursuant to the Care Everywhere program and may not contain all information available regarding this patient. Last updated 18.[facility] Allergies Active Allergy Reactions Criticality Noted Date Comments Amoxicillin 05/07/2013 Medications * Be aware that medications may not be up to date on this document. Alwaysverify current medications with the patient. 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 Gender Identity Not on file Sexual Orientation Not on file Plan of Treatment Health Maintenance Due Date Last Done Comments HIV SCREENING 2001 HEPATITIS C SCREENING 11/02/2004 DTAP/TDAP/TD VACCINES (1 - Tdap) 2005 HEPATITIS B VACCINE (1 of 3 - 19+ 3-dose series) 2005 PAP SMEAR 11/08/2007 HPV VACCINE (1 - 3-dose SCDM series) 2013 DEPRESSION SCREENING 04/25/2024 COVID-19 VACCINE (1 - 2023-2 5 season) 2024 INFLUENZA VACCINE (#1) 2024 ZOSTER VACCINE (1 of 2) 2036 [...] patient's age to complete this topic Insurance [facility] SELF PAY NO INSURANCE Member Subscriber Plan / Payer (Ef fective for All Dates) Name:Babar Cortez Member ID:Not on file Relation to Subscriber:Not on file Name:BABAR CORTEZ Subscriber ID:Not on file (Home) Address: [address] [place] [address] Payer ID:Not on file Group ID:Not on file Type:Self Pay Address: [place], [place] ANTHEM ANTHEM ANTHEM ANTHEM Care Teams Legislative Correspondent Relationship Specialty Start Date End Date Farida Hernandez MD [address] [place] [id number] PCP - General 12/23/20
--- OUTSIDE RECORDS SUMMARY | 2025-02-28 15:07 | XMS_ITS | Clinical Summary ---
Author Organization [facility] Address [address] [place] [address] Care Team Providers Care Customer Support Manager Name Role Phone Farida Hernandez MD Primary Care Provider [phone] Allergies Active Allergy Reactions Criticality Noted Date Comments Amoxicillin Other (See comments),Rash Medium 05/07/2013 Reaction: Hydrocodone Nausea And Vomiting,Rash Medium 02/01/2024 Shellfish Containing Products Other (See comments) 09/05/2024 Reaction: Medications ALPRAZolam (XANAX) 0.25 mg tablet Take 1 tablet (0.25 mg total) by mouth 3 (three) times a day as needed 4 Active ondansetron ODT (ZOFRAN-ODT) 4 mg disintegrating tablet Take 1 tablet (4 mg total) by mouth every 8 (eight) hours as needed Active lansoprazole (PREVACID) 30 mg capsule 5 Active busPIRone (BUSPAR) 10 mg tablet 5 Active metoclopramide (REGLAN) 5 mg tablet 5 Active escitalopram (LEXAPRO) 10 mg tablet Take 1 tablet (10 mg total) by mouth daily 4 Active Surgical History Surgery Date Site/Laterality Comments UMBILICAL HERNIA REPAIR UPPER GASTROINTESTINAL ENDOSCOPY CYST REMOVAL stomach TONSILLECTOMY CHOLECYSTECTOMY 02/28/2024 Medical History Medical History Date Comments GERD (gastroesophageal reflux disease) Depression Social History Tobacco Use Types Packs/Day Years Used Date Smoking Tobacco: Former Cigarettes Tobacco Cessation:Counseling Given: Not Answered Comments Unknown Sex and Gender Information Value Date Recorded Sex Assigned at Not on file 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 Gender Identity Female 09/17/2024 1:47 PM CDT Sexual Orientation Straight 09/17/2024 1: 47 PM CDT Last Filed Vital Signs Vital Sign Reading Time Taken Comments Blood Pressure 141/103 09/24/2024 12:38 PM CDT Pulse 92 09/24/2024 12:38 PM CDT Temperature - - Respiratory Rate 18 09/24/2024 12:38 PM CDT Oxygen Saturation 100% 09/24/2024 12:38 PM CDT Inhaled Oxygen Concentration - - Weight 93 kg (205 lb) 09/24/2024 12:38 PM CDT Height 170.2 cm (5' 7) 09/24/2024 12:38 PM CDT Body Mass Index 32.11 09/24/2024 12:38 PM CDT Plan of Treatment Health Maintenance Due Date Last Done Comments Cervical Cancer Screening 1986 Depression Screening 1986 Hepatitis C Screening 1986 Varicella Vaccines (1 of 2 - 13+ 2-dose series) 11/08/1999 Hepatitis B Screening 2004 Regular Well Visit/Exam 18-64 2004 HPV Vaccines (1 - 3-dose SCD M series) 2013 DTaP/Tdap/Td Vaccine (2 - Td or Tdap) 07/10/2023 07/09/2013 Covid-19 Vaccine (2 - 2024-2 6 season) 2024 09/23/2020 Influenza Vaccine (#1) 2024 3, 05/10/2012 Pneumococcal vaccine <65 Aged Out No longer eligible based on patient's age to complete this topic Insurance [employer]OS Care Teams Customer Support Manager Relationship Specialty Start Date End Date Farida Hernandez MD [address] [place] [address] PCP - General Internal Medicine 09/18/24
--- OUTSIDE RECORDS SUMMARY | 2025-02-28 15:07 | XMS_ITS | Clinical Summary ---
Author Organization [facility] Address [address] [place] [id number] Care Team Providers Care Fuel Efficient Aircraft Designer Name Role Phone Farida Hernandez MD Primary Care Provider Allergies Active Allergy Reactions Criticality Noted Date [...] 10:02 AM CDT Height 170.2 cm (5' 7) 02/01/2024 10:02 AM CDT Body Mass Index 33.14 02/01/2024 10:02 AM CDT Plan of Treatment Health Maintenance Due Date Last Done Comments Annual Physical 1989 Hepatitis C 2004 Hepatitis B Vaccines (1 of 3 - 19+ 3-dose series) 2005 HPV Vaccines (1 - 3-dose SCD M series) 2013 Cervical Cancer Screening Pa p with HPV Testing (Age 30 to 64) Every 5 Years 2016 DTaP, Tdap and Td Vaccines ( 2 - Td or Tdap) 07/10/2023 07/09/2013 PHQ-2 (Physician [place]) 04/25/2024 02/01/2024 COVID-19 Vaccine (2 - 2024-2 6 season) 2024 09/23/2020 Influenza Adult (#1) 2025 03/14/2013, 05/10/2012 Cervical Cancer Screening Pa p Smear (Age 30 to 64) Every 3 Years 09/21/2025 09/21/2022 Cervical Cancer Screening wi th HPV 09/21/2025 Hepatitis A Vaccines Aged Out No long er eligible based on patient's age to complete this topic Meningococcal B Vaccine Aged Out No l onger eligible based on patient's age to complete this topic Meningococcal Vaccine Aged Out No akua steve eligible based on patient's age to complete this topic Pneumococcal Vaccine: Pediatrics (0 to 5 Years) and At-Risk Patients (6 to 49 Years) Aged Out No longer eligible b ased on patient's age to complete this topic RSV Immunizations Under 20 Months Aged Out No longer eligible b ased on patient's age to complete this topic Insurance [facility] Care Teams Fuel Efficient Aircraft Designer Relationship Specialty Start Date End Date Farida Hernandez MD [address] [place] [address] PCP - General INTERNAL MEDICINE 02/01/24
--- OUTSIDE RECORDS SUMMARY | 2025-02-28 15:07 | XMS_ITS | Clinical Summary ---
Author Organization [facility] Address [address] [place] [address] Phone Care Team Providers Care Oracle Drm Consultant Name Role Phone Provider, None Primary Care [...] 19+ 3-dose series) 2005 Pap Smear 11/08/2007 Human Papillomavirus (HPV) Immunization (1 - 3-dose SCDM series) 2013 Cervical Cancer Screening (CCS) 2016 HPV/Cotest 2016 Influenza Immunization (#1) 2024 SARS-COV-2 Immunization ( season) 2024 Respiratory Syncytial Virus (RSV) Immunization (Adult) (1 - 1-dose 75+ series) 2061 Meningococcal Immunization (ACWY) Aged Out No longer eligible based on patient's age to complete this topic Pneumococcal Immunization Combined Aged Out No longer eligible based on patient's age to complete this topic Rotavirus Immunization Aged Out No lo nger eligible based on patient's age to complete this topic Insurance [facility] Care Teams Oracle Drm Consultant Relationship Specialty Start Date End Date Provider, None JOHN PCP - General 12/06/16
== END 2025-02-27 16:00 | disposition home or self-care (01) ==
LOC: CHSIMG 16:00
PROVIDERS: PCP Internal Medicine; Visit Provider Internal Medicine
DX: M25.561 Pain in right knee (principal)
CPT/HCPCS: 73562